=== PATIENT | female | born 1995 | race Caucasian/White ===

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

== ENCOUNTER 2017-02-04 21:05 | Observation (INO) | payer SELFPAY ==
[~2017-02-04] VITALS: Ht 162.6 cm; Wt 72.6 kg
[2017-02-04] MEDS ORDERED: OLANZapine IM 10 MG VIAL. IM ONE (21:15)
[2017-02-04 21:22] LABS: BILIRUBIN,URINE NEGATIVE (NEG); GLUCOSE,URINE NEGATIVE (NEG); NITRITE,URINE NEGATIVE (NEG); PH,URINE 6.5; PROTEIN,URINE NEGATIVE (NEG-TRACE)
[2017-02-04 21:29] LABS: BARBITURATES NEG (NEG); BENZODIAZEPINES NEG (NEG); CANNABINOIDS NEG (NEG); COCAINE NEG (NEG); METHADONE NEG (NEG); OPIATES NEG (NEG); PHENCYCLIDINE NEG (NEG)
[2017-02-04 21:32] LABS: BACTERIA,URINE FEW /HPF (0-FEW); RBC,URINE OCC /HPF (0-2); WBC,URINE OCC /HPF (0-4)
[2017-02-04 21:34] LABS: SQUAMOUS EPITHELIAL CELL,UR OCC /LPF
[2017-02-04 21:37] LABS: BASO % 0 % (0-3); EOS % 1 % (0-3); HEMATOCRIT 40.4 % (36.0-47.0); HEMOGLOBIN 13.9 g/dL (12.0-15.5); LYMPH # 1.4 x10^3/uL (1.0-4.8); LYMPH % 20 % (24-48); MEAN CORPUSCULAR HEMOGLOBIN 31 pg (25-35); MEAN CORPUSCULAR HGB CONC 34 g/dL (31-37); MEAN CORPUSCULAR VOLUME 91 fL (79-100); MONO % 10 % (0-9); NEUT % 68 % (31-73); PLATELET COUNT 275 x10^3/uL (140-400); RED BLOOD COUNT 4.46 x10^6/uL (3.50-5.40); RED CELL DISTRIBUTION WIDTH 13.2 % (11.5-14.5); WHITE BLOOD COUNT 6.8 x10^3/uL (4.0-11.0)
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
[2017-02-04 21:55] LABS: CALCIUM 8.8 mg/dL (8.5-10.1); CREATININE 1.1 mg/dL (0.6-1.0); POTASSIUM 4.1 mmol/L (3.5-5.1)
[2017-02-04 21:56] LABS: ETHANOL < 10 mg/dL (0-10)
[2017-02-04 22:01] LABS: ALBUMIN 3.6 g/dL (3.4-5.0); ALBUMIN/GLOBULIN RATIO 0.9 (1.0-1.7); TOTAL BILIRUBIN 0.3 mg/dL (0.2-1.0); TOTAL PROTEIN 7.6 g/dL (6.4-8.2)
[2017-02-05 07:45] VITALS: BP 94/54
[2017-02-05] MEDS ORDERED: ZIPRASIDONE IM 20 MG VIAL. IM PRN (09:45)
[2017-02-05] MEDS ORDERED: HALOPERIDOL LACTATE 5 MG/ML VIAL. IM PRN (09:45)
[2017-02-05] MEDS ORDERED: diphenhydrAMINE 50 MG/ML VIAL IVP PRN (09:45)
[2017-02-05] MEDS ORDERED: DIVALPROEX DELAYED RELEASE 250 MG TABLET.DR. PO SCH (10:30)
[2017-02-05] MEDS ORDERED: busPIRone 5 MG TABLET. PO SCH (10:30)
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
[2017-02-05 11:00] VITALS: BP 97/48
[2017-02-05] MEDS ORDERED: BUSP5TAB PO (15:31)
[2017-02-05] MEDS ORDERED: DIVA250T6 PO (15:36)
[2017-02-05] MEDS ORDERED: FLU VACC QS2017-18 (36MOS+)/PF 0.5 ML SYRINGE. VAX IM ONE (15:45)
== END 2017-02-05 16:00 | disposition home or self-care (01) ==
LOC: ER 21:05 → ED HOLD 02-05 00:15 → 5 NORTH 02-05 10:01
PROVIDERS: ADMIT Internal Medicine Hematology & Oncology; ATTEND Internal Medicine Hematology & Oncology
DX: R45.851 Suicidal ideations (principal); F31.9 Bipolar disorder, unspecified; F20.9 Schizophrenia, unspecified; F41.9 Anxiety disorder, unspecified; F43.10 Post-traumatic stress disorder, unspecified; Z91.5 Personal history of self-harm; Z23 Encounter for immunization
CPT/HCPCS: 36415; 80053; 80307; 80329; 81001; 81025; 85025; 90471; 90686; 96372; 99285; G0378; G0480; J3490; G0379; G0479

== ENCOUNTER 2017-02-08 14:40 | Emergency (ER) | payer SELFPAY ==
[~2017-02-08 14:40] MED LIST: BUSP5TAB PO; DIVA250T6 PO
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
[2017-02-08 15:14] LABS: BILIRUBIN,URINE NEGATIVE (NEG); GLUCOSE,URINE NEGATIVE (NEG); NITRITE,URINE NEGATIVE (NEG); PH,URINE 7.5; PROTEIN,URINE NEGATIVE (NEG-TRACE)
[2017-02-08] MEDS ORDERED: IV NORMAL SALINE 1000ML BAG 1,000 ML IV ONE (15:15)
[2017-02-08 15:21] LABS: BARBITURATES NEG (NEG); BENZODIAZEPINES NEG (NEG); CANNABINOIDS NEG (NEG); COCAINE NEG (NEG); METHADONE NEG (NEG); OPIATES NEG (NEG); PHENCYCLIDINE NEG (NEG)
[2017-02-08 15:34] LABS: BACTERIA,URINE 0 /HPF (0-FEW); RBC,URINE 0 /HPF (0-2); WBC,URINE OCC /HPF (0-4)
[2017-02-08 15:49] LABS: BASO % 1 % (0-3); EOS % 2 % (0-3); HEMOGLOBIN 13.3 g/dL (12.0-15.5); LYMPH # 1.7 x10^3/uL (1.0-4.8); LYMPH % 25 % (24-48); MEAN CORPUSCULAR HEMOGLOBIN 31 pg (25-35); MEAN CORPUSCULAR HGB CONC 34 g/dL (31-37); MEAN CORPUSCULAR VOLUME 91 fL (79-100); MONO % 12 % (0-9); NEUT % 61 % (31-73); PLATELET COUNT 267 x10^3/uL (140-400); RED BLOOD COUNT 4.29 x10^6/uL (3.50-5.40); RED CELL DISTRIBUTION WIDTH 13.4 % (11.5-14.5); WHITE BLOOD COUNT 6.8 x10^3/uL (4.0-11.0)
[2017-02-08 15:58] LABS: PROTHROMBIN TIME PATIENT 12.6 SEC (11.7-14.0)
[2017-02-08 16:11] LABS: NEG OBC UR NEG; POS OBC UR POS
[2017-02-08 16:14] LABS: ALBUMIN 3.9 g/dL (3.4-5.0); CALCIUM 9.2 mg/dL (8.5-10.1); CREATININE 1.1 mg/dL (0.6-1.0); DIRECT BILIRUBIN 0.1 mg/dL (0.0-0.2); MAGNESIUM 1.9 mg/dL (1.8-2.4); POTASSIUM 3.8 mmol/L (3.5-5.1); TOTAL BILIRUBIN 0.3 mg/dL (0.2-1.0); TOTAL PROTEIN 7.8 g/dL (6.4-8.2)
[2017-02-08 16:18] LABS: CKMB MASS < 0.5 ng/mL (0.0-3.6); CREATINE KINASE 95 U/L (26-192)
--- NOTE | 2017-02-08 16:36 | RAD ---
EXAM: Chest one view. HISTORY: Altered mental status, chest pain. COMPARISON: 04/30/2014. FINDINGS: A frontal view of the chest is obtained. There are no confluent infiltrates. There is no pneumothorax or pleural effusion. The heart is not enlarged. IMPRESSION: 1. No confluent infiltrates.
[2017-02-08] MEDS ORDERED: fentaNYL PF VIAL 100 MCG/2 ML VIAL IV PRN (17:30)
--- NOTE | 2017-02-08 17:34 | RAD ---
INDICATION: Right lower quadrant pain. TECHNIQUE: Pelvic ultrasound was performed. No comparison is available. FINDINGS: Uterus measures 7.1 x 2.6 x 4.3 cm. Endometrial stripe measures 4 mm. Both ovaries are visualized, color flow and low resistance waveform is documented. There is no adnexal mass. There is no free pelvic fluid. IMPRESSION: Normal pelvic ultrasound. Electronically signed by: Heladio Lawrence MD (02/08/2017 5:30 PM) [facility]
[2017-02-08] MEDS ORDERED: DICYCLOMINE HCL 10 MG CAPSULE PO ONE (18:00)
[2017-02-08 18:23] VITALS: BP 112/59
[2017-02-09] MEDS ORDERED: NITR100C62 PO (08:48)
[2017-02-09] MEDS ORDERED: PHEN-318 PO (08:48)
[2017-02-09] MEDS ORDERED: HYDR-2758 PO (08:48)
--- NOTE | 2017-02-09 12:48 | EKG ---
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
== END 2017-02-08 18:27 | disposition home or self-care (01) ==
LOC: ER 14:40
DX: R10.31 Right lower quadrant pain (principal); R55 Syncope and collapse; R19.7 Diarrhea, unspecified; F20.9 Schizophrenia, unspecified; F43.10 Post-traumatic stress disorder, unspecified; Z88.8 Allergy status to other drugs, medicaments and biological substances; Z79.899 Other long term (current) drug therapy
CPT/HCPCS: 36415; 71010; 76856; 80048; 80076; 80307; 80329; 81001; 81025; 82140; 82553; 83735; 85025; 85610; 85730; 87040; 93005; 96361; 96374; 99285; J3010; J7030; G0479

== ENCOUNTER 2017-02-09 06:34 | Emergency (ER) | payer SELFPAY ==
[2017-02-09] MEDS ORDERED: IV NORMAL SALINE 1000ML BAG 1,000 ML IV SCH (06:49)
--- NOTE | 2017-02-09 06:56 | PHYS DOC ---
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 "pseudo seizures", BPD Past Surgical History: Other Additional Past Surgical Histo: ORAL Alcohol Use: None Drug Use: None Adult General Chief Complaint Chief Complaint: ABDOMINAL PAIN [facility] HPI Patient is a pleasant 21-year-old female who presents with abdominal pain that began 4 days ago. Patient has a history of multiple psychiatric issues to include schizophrenia questionable bipolar and borderline personality disorder who presents with abdominal pain that began periumbilical area on Saturday 4 days ago and is not progressively gotten worse and located to the right lower quadrant she admits to having chills and subjective fevers over the last several days with progressive pain. The pain was waxing and waning not more constant. She describes some nausea without vomiting, no UTI symptoms, no vaginal bleeding or discharge, no trauma,. Patient has had a history of constipation was seen at another facility [facility] diagnosed with constipation and sent home. Patient says pain is gotten progressively worse and she is not anything orally for pain. Patient's pain is 810 at this time does not radiate to the back is worse with direct pressure of the abdomen and movement. Acute pancreatitis. Appendicitis. Acute hepatitis. Peptic ulcer disease. Nonulcer dyspepsia. Irritable bowel disease. Functional gallbladder disorder. Sphincter of Oddi dysfunction. Diseases of the right kidney. Right-sided pneumonia. Cdnx-Nzum-Eofeju syndrome Subhepatic or intraabdominal abscess. Perforated viscus. Cardiac ischemia. Black spider envenomation Ectopic , UTI, pyonephritis, all considered as possible reasons for her pain. Review of Systems Review of Systems Constitutional: Subjective fevers and chills Eyes: Denies change in visual acuity, redness, or eye pain [] HENT: Denies nasal congestion or sore throat [] Respiratory: Denies cough or shortness of breath [] Cardiovascular: No additional information not addressed in HPI [] GI: He complains of periumbilical abdominal pain with nausea and no vomiting bloody stools but she has had some constipation : Denies dysuria or hematuria [] Musculoskeletal: Denies back pain or joint pain [] Integument: Denies rash or skin lesions [] Neurologic: Denies headache, focal weakness or sensory changes [] Endocrine: Denies polyuria or polydipsia [] Current Medications Current Medications Current Medications Medications (Trade) Dose Ordered Sig/Priya Start Time Stop Time Status Last Admin Dose Admin Hydromorphone HCl (Dilaudid) 1 mg PRN Q15MIN PRN 02/09/17 07:00 02/10/17 06:59 02/09/17 07:08 1 MG Info (Do NOT chart on this entry -- for MONITORING) 1 each PRN DAILY PRN 02/09/17 07:30 02/11/17 07:29 Iohexol (Omnipaque 300 Mg/ml) 75 ml 1X ONCE 02/09/17 07:15 02/09/17 07:17 DC 02/09/17 07:53 75 ML Ondansetron HCl (Zofran) 4 mg 1X ONCE 02/09/17 07:00 02/09/17 07:01 DC 02/09/17 07:07 4 MG Sodium Chloride (Normal Saline Flush) 10 ml QSHIFT PRN 02/09/17 07:00 Allergies Allergies Allergies Coded Allergies Type Severity Reaction Last Updated Verified haloperidol Allergy Severe TONGUE SWELLING 06/04/16 Yes Physical Exam Physical Exam Vital signs recorded on chart within normal limits. Constitutional: Well developed, well nourished, obviously uncomfortable clutching her right lower quadrant. HENT: Normocephalic, atraumatic, bilateral external ears normal, oropharynx moist, no oral exudates, nose normal. [] Eyes: PERRLA, EOMI, conjunctiva normal, no discharge. [] Neck: Normal range of motion, no tenderness, supple, no stridor. [] Cardiovascular:Heart rate regular rhythm, no murmur [] Lungs & Thorax: Bilateral breath sounds clear to auscultation [] Abdomen: Bowel sounds normal, soft, no masses, no pulsatile masses. Patient has significant tenderness to palpation with voluntary guarding the right lower quadrant. No Sanchez's or McBurney's point tenderness palpation Rovsing sign[] Skin: Warm, dry, no erythema, no rash. [] Back: No tenderness, no CVA tenderness. [] Extremities: No tenderness, no cyanosis, no clubbing, ROM intact, no edema. [] Neurologic: Alert and oriented X 3, normal motor function, normal sensory function, no focal deficits noted. [] Psychologic: She seems very anxious. Quite lucid Current Patient Data Vital Signs Vital Signs Date Time Temp Pulse Resp B/P (MAP) Pulse Ox O2 Delivery O2 Flow Rate FiO2 02/09/17 07:08 18 02/09/17 06:56 98.0 67 135/66 (89) 100 Room Air 98.0 Lab Values Laboratory Tests Test 02/09/17 06:50 02/09/17 07:30 White Blood Count 5.7 x10^3/uL (4.0-11.0) Red Blood Count 4.26 x10^6/uL (3.50-5.40) Hemoglobin 13.4 g/dL (12.0-15.5) Hematocrit 38.0 % (36.0-47.0) Mean Corpuscular Volume 89 fL (79-100) Mean Corpuscular Hemoglobin 32 pg (25-35) Mean Corpuscular Hemoglobin Concent 35 g/dL (31-37) Red Cell Distribution Width 13.3 % (11.5-14.5) Platelet Count 246 x10^3/uL (140-400) Neutrophils (%) (Auto) 46 % (31-73) Lymphocytes (%) (Auto) 38 % (24-48) Monocytes (%) (Auto) 13 % (0-9) H Eosinophils (%) (Auto) 3 % (0-3) Basophils (%) (Auto) 0 % (0-3) Neutrophils # (Auto) 2.6 x10^3uL (1.8-7.7) Lymphocytes # (Auto) 2.2 x10^3/uL (1.0-4.8) Monocytes # (Auto) 0.7 x10^3/uL (0.0-1.1) Eosinophils # (Auto) 0.2 x10^3/uL (0.0-0.7) Basophils # (Auto) 0.0 x10^3/uL (0.0-0.2) Sodium Level 141 mmol/L (136-145) Potassium Level 3.9 mmol/L (3.5-5.1) Chloride Level 106 mmol/L (98-107) Carbon Dioxide Level 24 mmol/L (21-32) Anion Gap 11 (6-14) Blood Urea Nitrogen 12 mg/dL (7-20) Creatinine 0.8 mg/dL (0.6-1.0) Estimated GFR (Cockcroft-Gault) 92.4 Glucose Level 86 mg/dL (70-99) Calcium Level 8.9 mg/dL (8.5-10.1) Total Bilirubin 0.3 mg/dL (0.2-1.0) Direct Bilirubin 0.1 mg/dL (0.0-0.2) Aspartate Amino Transferase (AST) 24 U/L (15-37) Alanine Aminotransferase (ALT) 16 U/L (14-59) Alkaline Phosphatase 73 U/L (46-116) Total Protein 7.1 g/dL (6.4-8.2) Albumin 3.4 g/dL (3.4-5.0) Lipase 117 U/L (73-393) Urine Collection Type Unknown Urine Color Yellow Urine Clarity Cloudy Urine pH 7.0 Urine Specific [place] 1.020 Urine Protein Negative mg/dL (NEG-TRACE) Urine Glucose (UA) Negative mg/dL (NEG) Urine Ketones (Stick) Negative mg/dL (NEG) Urine Blood Negative (NEG) Urine Nitrite Negative (NEG) Urine Bilirubin Negative (NEG) Urine Urobilinogen Dipstick 1.0 mg/dL (0.2 mg/dL) Urine Leukocyte Esterase Small (NEG) Urine RBC Occ /HPF (0-2) Urine WBC 11-20 /HPF (0-4) Urine Squamous Epithelial Cells Mod /LPF Urine Bacteria Many /HPF (0-FEW) Urine Mucus Marked /LPF Laboratory Tests 02/09/17 06:50 Laboratory Tests 02/09/17 06:50 EKG EKG [] Radiology/Procedures Radiology/Procedures [] [address] [place], [place] [id number] IMAGING REPORT Signed PATIENT: WINIFRED STERLING ACCOUNT: [id number] : 1995 LOCATION: ER AGE: 21 SEX: F EXAM STATUS: REG ER ORD. PHYSICIAN: APRIL JASMINE MD REASON: right lower quadrant abdominal pain. PROCEDURE: CT ABD PELV W/ IV CONTRST ONLY One or more of the following individualized dose reduction techniques were utilized for this examination: 1. Automated exposure control 2. Adjustment of the mA and/or kV according to patient size 3. Use of iterative reconstruction technique CT abdomen and pelvis with contrast. History: Right lower quadrant abdominal pain CT scan of the abdomen and pelvis was done using 75 mL Isovue-370 contrast. Visualized lung bases are clear. Osseous structures are unremarkable. Liver and spleen are unremarkable. Adrenal glands and pancreas are normal. There is no mass or hydronephrosis or calculus in the kidneys. There is no free air or bowel obstruction. There is no adenopathy. Bowel pattern is normal. The appendix is retrocecal and normal in appearance. There are small follicles in the right ovary. There is no dominant uterine or ovarian mass. There is no free fluid in the pelvis. Impression: 1. Retrocecal appendix which appears normal. 2. No abdominal or pelvic mass or other acute finding noted. DICTATED and SIGNED BY: DELMA JONES MD DATE: 02/09/17811 CC: APRIL JASMINE MD; DANO GALVEZ ~ Course & Med Decision Making Course & Med Decision Making Pertinent Labs and Imaging studies reviewed. (See chart for details) Patient presents with right lower quadrant abdominal pain despite being imaged and seen in another facility Saturday concern is ectopic versus appendicitis. We'll attempt to get medical records from [facility]. Acute pancreatitis. Appendicitis. Acute hepatitis. Peptic ulcer disease. Nonulcer dyspepsia. Irritable bowel disease. Functional gallbladder disorder. Sphincter of Oddi dysfunction. Diseases of the right kidney. Right-sided pneumonia. Ukti-Giok-Cfifmc syndrome Subhepatic or intraabdominal abscess. Perforated viscus. Cardiac ischemia. Black spider envenomation ectopic , UTI, pyelonephritis also considered in the differential diagnosis. Patient will [id number] urinalysis , urine hCG, CBC, CMP, CT scan of the abdomen and pelvis, given fluids antiemetics and pain control. Time is now 8:00 patient felt markedly better with fluids pain medications urinalysis demonstrates significant bacteria, leuk esterase, nitrates and significant epithelial cells. I concern is this a contaminated sample both her lower abdominal pain with may need to treat empirically with antibiotics for suspected UTI. Patient's CT is still pending at this time. CT abdomen and pelvis is now return 8:37 AM demonstrates normal looking appendix or abdominal catastrophe. Patient is sleeping quietly and her need to be woken she is symptom-free at this time. Dragon Disclaimer Dragon Disclaimer This electronic medical record was generated, in whole or in part, using a voice recognition dictation system. Departure Departure Impression: Primary Impression: Anxiety Additional Impressions: Abdominal pain Urinary tract infection Disposition: 01 HOME, SELF-CARE Condition: IMPROVED Referrals: DANO GALVEZ (PCP) Patient Instructions: Abdominal Pain, Urinary Tract Infection Additional Instructions: My discharge plan Follow up: In addition patient is asked to followup with their primary doctor, within a week for followup examination and to address patient's ongoing medical conditions. . Patient is advised that in the Emergency Department primary complaints are addressed and only in light of known signs and symptoms. Patient should return immediately to the emergency department if new signs and symptoms develop or patient's condition worsens in any way. At time of discharge patient was in stable condition and had verbalized understanding of the discharge instructions. Although there is no obvious evidence of appendicitis or intra-abdominal catastrophe at this time requiring surgical intervention or immediate medical management you could still develop these issues in the future. I would ask that you return immediately for any increasing symptoms question concerns. Scripts Phenazopyridine Hcl (PYRIDIUM) 200 Mg Tablet 200 MG PO TID for 3 Days, #9 TAB Prov: APRIL JASMINE MD 02/09/17 Nitrofurantoin Monohyd/M-Cryst (MACROBID 100 MG CAPSULE) 100 Mg Capsule 1 CAP PO BID, #20 CAP Prov: APRIL JASMINE MD 02/09/17 Hydrocodone Bit/Acetaminophen (HYDROCODONE-APAP 5-325 ) 1 Each Tablet 1-2 TAB PO PRN Q6HRS Y for PAIN for 5 Days, #10 TAB 0 Refills Prov: APRIL JASMINE MD 02/09/17 Problem Qualifiers APRIL JASMINE MD Feb 09, 2017 06:56
[2017-02-09 07:00] LABS: BASO % 0 % (0-3); EOS % 3 % (0-3); HEMOGLOBIN 13.4 g/dL (12.0-15.5); LYMPH # 2.2 x10^3/uL (1.0-4.8); LYMPH % 38 % (24-48); MEAN CORPUSCULAR HEMOGLOBIN 32 pg (25-35); MEAN CORPUSCULAR HGB CONC 35 g/dL (31-37); MEAN CORPUSCULAR VOLUME 89 fL (79-100); MONO % 13 % (0-9); NEUT % 46 % (31-73); PLATELET COUNT 246 x10^3/uL (140-400); RED BLOOD COUNT 4.26 x10^6/uL (3.50-5.40); RED CELL DISTRIBUTION WIDTH 13.3 % (11.5-14.5); WHITE BLOOD COUNT 5.7 x10^3/uL (4.0-11.0)
[2017-02-09] MEDS ORDERED: 0.9 % SODIUM CHLORIDE 10 ML DISP.SYRIN. IV PRN (07:00)
[2017-02-09] MEDS ORDERED: HYDROmorphone 2 MG/ML VIAL IV/SQ PRN (07:00)
[2017-02-09] MEDS ORDERED: ONDANSETRON PF 4 MG/2 ML VIAL. IV ONE (07:00)
[2017-02-09 07:10] LABS: CALCIUM 8.9 mg/dL (8.5-10.1); CREATININE 0.8 mg/dL (0.6-1.0); GFR 92.4; POTASSIUM 3.9 mmol/L (3.5-5.1)
[2017-02-09 07:14] LABS: ALBUMIN 3.4 g/dL (3.4-5.0); DIRECT BILIRUBIN 0.1 mg/dL (0.0-0.2); TOTAL BILIRUBIN 0.3 mg/dL (0.2-1.0); TOTAL PROTEIN 7.1 g/dL (6.4-8.2)
[2017-02-09] MEDS ORDERED: IOHEXOL 300 MG/ML 75 ML VIAL IV ONE (07:15)
[2017-02-09] MEDS ORDERED: CONTRAST GIVEN MC PRN (07:30)
[2017-02-09 07:39] LABS: BILIRUBIN,URINE NEGATIVE (NEG); GLUCOSE,URINE NEGATIVE (NEG); NITRITE,URINE NEGATIVE (NEG); PROTEIN,URINE NEGATIVE (NEG-TRACE)
[2017-02-09 07:50] LABS: BACTERIA,URINE MANY /HPF (0-FEW); SQUAMOUS EPITHELIAL CELL,UR MOD /LPF
[2017-02-09 07:51] LABS: RBC,URINE OCC /HPF (0-2)
--- NOTE | 2017-02-09 08:19 | RAD ---
One or more of the following individualized dose reduction techniques were utilized for this examination: 1. Automated exposure control 2. Adjustment of the mA and/or kV according to patient size 3. Use of iterative reconstruction technique CT abdomen and pelvis with contrast. History: Right lower quadrant abdominal pain CT scan of the abdomen and pelvis was done using 75 mL Isovue-370 contrast. Visualized lung bases are clear. Osseous structures are unremarkable. Liver and spleen are unremarkable. Adrenal glands and pancreas are normal. There is no mass or hydronephrosis or calculus in the kidneys. There is no free air or bowel obstruction. There is no adenopathy. Bowel pattern is normal. The appendix is retrocecal and normal in appearance. There are small follicles in the right ovary. There is no dominant uterine or ovarian mass. There is no free fluid in the pelvis. Impression: 1. Retrocecal appendix which appears normal. 2. No abdominal or pelvic mass or other acute finding noted.
[2017-02-09] MEDS ORDERED: PHEN-318 PO (08:48)
[2017-02-09] MEDS ORDERED: HYDR-2758 PO (08:48)
[2017-02-09] MEDS ORDERED: NITR100C62 PO (08:48)
[2017-02-09 09:07] VITALS: BP 125/65
== END 2017-02-09 09:07 | disposition home or self-care (01) ==
LOC: ER 06:34
DX: N39.0 Urinary tract infection, site not specified (principal); F41.9 Anxiety disorder, unspecified; F32.9 Major depressive disorder, single episode, unspecified; F20.9 Schizophrenia, unspecified; F43.10 Post-traumatic stress disorder, unspecified; Z88.8 Allergy status to other drugs, medicaments and biological substances
CPT/HCPCS: 36415; 74177; 80048; 80076; 81001; 81025; 83690; 85025; 87086; 96361; 96374; 96375; 99285; J1170; J2405; J7030; Q9967

== ENCOUNTER 2017-02-09 20:10 | Emergency (ER) | payer SELFPAY ==
[~2017-02-09 20:10] MED LIST changes: +HYDR-2758 PO; +NITR100C62 PO; +PHEN-318 PO
[2017-02-09 22:08] VITALS: BP 120/56
[2017-02-09 22:11] LABS: BASO # 0.1 x10^3/uL (0.0-0.2); BASO % 1 % (0-3); EOS % 2 % (0-3); HEMATOCRIT 37.3 % (36.0-47.0); HEMOGLOBIN 12.8 g/dL (12.0-15.5); LYMPH # 1.8 x10^3/uL (1.0-4.8); LYMPH % 25 % (24-48); MEAN CORPUSCULAR HEMOGLOBIN 31 pg (25-35); MEAN CORPUSCULAR HGB CONC 34 g/dL (31-37); MEAN CORPUSCULAR VOLUME 92 fL (79-100); MONO % 11 % (0-9); NEUT % 62 % (31-73); PLATELET COUNT 206 x10^3/uL (140-400); RED BLOOD COUNT 4.07 x10^6/uL (3.50-5.40); RED CELL DISTRIBUTION WIDTH 13.3 % (11.5-14.5); WHITE BLOOD COUNT 7.2 x10^3/uL (4.0-11.0)
--- NOTE | 2017-02-09 22:13 | PHYS DOC ---
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 "pseudo seizures", BPD Past Surgical History: Other Additional Past Surgical Histo: ORAL Alcohol Use: None Drug Use: None Adult General Chief Complaint Chief Complaint: ABDOMINAL PAIN HPI HPI Patient is a 21 year old right lower abdominal pain has been going on for a few days, patient has had 2 CT scans that have been read as nothing acute as well as a negative ultrasound. Patient states she hasn't receive a pelvic exam during this evaluations. She denies any falls, fevers, vomiting, diarrhea, dysuria, vaginal discharge. Patient doesn't describe any migration of the pain. Review of Systems Review of Systems Constitutional: Denies fever or chills [] HENT: Denies nasal congestion or sore throat [] Respiratory: Denies cough or shortness of breath [] Cardiovascular: No chest pain GI: Yes to right lower abdominal pain. Denies nausea, vomiting, bloody stools or diarrhea [] : Denies dysuria or hematuria, no vaginal bleeding, no vaginal discharge Musculoskeletal: Denies back pain or joint pain [] Integument: Denies rash or skin lesions [] Neurologic: Denies headache, focal weakness or sensory changes [] Endocrine: Denies polyuria or polydipsia [] Current Medications Current Medications Current Medications Medications (Trade) Dose Ordered Sig/Priya Start Time Stop Time Status Last Admin Dose Admin Ketorolac Tromethamine (Toradol) 15 mg 1X ONCE 02/09/17 23:00 02/09/17 23:01 DC 02/09/17 22:44 15 MG Allergies Allergies Allergies Coded Allergies Type Severity Reaction Last Updated Verified haloperidol Allergy Severe TONGUE SWELLING 06/04/16 Yes Physical Exam Physical Exam Constitutional: Well developed, well nourished, no acute distress, non-toxic appearance. [] HENT: Normocephalic, atraumatic, oropharynx moist, no oral exudates, nose normal. [] Eyes: EOMI, conjunctiva normal, no discharge. [] Neck: Normal range of motion, no tenderness, trachea midline, no stridor. [] Cardiovascular:Heart rate regular rhythm, no murmur, equal pulses, normal perfusion Lungs & Thorax: Bilateral breath sounds clear to auscultation [] Abdomen: Bowel sounds normal, soft, mild tenderness right lower abdomen without guarding or rebound, no masses, no pulsatile masses. [] : External exam normal. Small amount of discharge white, no bleeding. Os is closed, no lesions, no CMT, no adnexal masses, no adnexal tenderness. Skin: Warm, dry, no erythema, no rash. [] Back: No tenderness, no CVA tenderness. [] Extremities: No tenderness, no cyanosis, no clubbing, ROM intact, no edema. [] Neurologic: Alert and oriented X 3, normal motor function, and place with normal gait and without assistance in the ED, no focal deficits noted. [] Psychologic: Affect normal, judgement normal, mood normal. [] Current Patient Data Vital Signs Vital Signs Date Time Temp Pulse Resp B/P (MAP) Pulse Ox O2 Delivery O2 Flow Rate FiO2 02/09/17 22:08 98.1 67 20 120/56 (77) 97 Room Air 98.1 Lab Values Laboratory Tests Test 02/09/17 22:00 White Blood Count 7.2 x10^3/uL (4.0-11.0) Red Blood Count 4.07 x10^6/uL (3.50-5.40) Hemoglobin 12.8 g/dL (12.0-15.5) Hematocrit 37.3 % (36.0-47.0) Mean Corpuscular Volume 92 fL (79-100) Mean Corpuscular Hemoglobin 31 pg (25-35) Mean Corpuscular Hemoglobin Concent 34 g/dL (31-37) Red Cell Distribution Width 13.3 % (11.5-14.5) Platelet Count 206 x10^3/uL (140-400) Neutrophils (%) (Auto) 62 % (31-73) Lymphocytes (%) (Auto) 25 % (24-48) Monocytes (%) (Auto) 11 % (0-9) H Eosinophils (%) (Auto) 2 % (0-3) Basophils (%) (Auto) 1 % (0-3) Neutrophils # (Auto) 4.4 x10^3uL (1.8-7.7) Lymphocytes # (Auto) 1.8 x10^3/uL (1.0-4.8) Monocytes # (Auto) 0.8 x10^3/uL (0.0-1.1) Eosinophils # (Auto) 0.1 x10^3/uL (0.0-0.7) Basophils # (Auto) 0.1 x10^3/uL (0.0-0.2) Sodium Level 140 mmol/L (136-145) Potassium Level 3.6 mmol/L (3.5-5.1) Chloride Level 105 mmol/L (98-107) Carbon Dioxide Level 30 mmol/L (21-32) Anion Gap 5 (6-14) L Blood Urea Nitrogen 12 mg/dL (7-20) Creatinine 1.0 mg/dL (0.6-1.0) Estimated GFR (Cockcroft-Gault) 71.4 BUN/Creatinine Ratio 12 (6-20) Glucose Level 99 mg/dL (70-99) Calcium Level 8.8 mg/dL (8.5-10.1) Total Bilirubin 0.3 mg/dL (0.2-1.0) Aspartate Amino Transferase (AST) 24 U/L (15-37) Alanine Aminotransferase (ALT) 18 U/L (14-59) Alkaline Phosphatase 70 U/L (46-116) Total Protein 7.1 g/dL (6.4-8.2) Albumin 3.4 g/dL (3.4-5.0) Albumin/Globulin Ratio 0.9 (1.0-1.7) L Laboratory Tests 02/09/17 22:00 Laboratory Tests 02/09/17 22:00 Microbiology 02/09/17 Wet Prep - Final, Complete EKG EKG [] Radiology/Procedures Radiology/Procedures [] Course & Med Decision Making Course & Med Decision Making Pertinent Labs and Imaging studies reviewed. (See chart for details) 2229 patient in no distress in the room, sitting up, no visible pain. 2350 in form the patient left AMA without waiting for paperwork or referrals or medications or results of labs [] Dragon Disclaimer Dragon Disclaimer This electronic medical record was generated, in whole or in part, using a voice recognition dictation system. Departure Departure Impression: Primary Impression: Abdominal pain Disposition: AGAINST MEDICAL ADVICE Condition: STABLE Referrals: DANO GALVEZ (PCP) Patient Instructions: Abdominal Pain (Nonspecific) Ramon MAX MD Feb 09, 2017 22:13
[2017-02-09 22:19] LABS: CALCIUM 8.8 mg/dL (8.5-10.1); GFR 71.4; POTASSIUM 3.6 mmol/L (3.5-5.1)
[2017-02-09 22:25] LABS: ALBUMIN 3.4 g/dL (3.4-5.0); ALBUMIN/GLOBULIN RATIO 0.9 (1.0-1.7); TOTAL BILIRUBIN 0.3 mg/dL (0.2-1.0); TOTAL PROTEIN 7.1 g/dL (6.4-8.2)
[2017-02-09] MEDS ORDERED: KETOROLAC 15 MG/ML VIAL. IV ONE (23:00)
[2017-02-10] MEDS ORDERED: LORazepam 1 MG TABLET ONE (03:27)
== END 2017-02-09 23:47 | disposition left against medical advice (07) ==
LOC: ER 20:10
DX: R10.31 Right lower quadrant pain (principal); F32.9 Major depressive disorder, single episode, unspecified; F43.10 Post-traumatic stress disorder, unspecified; F41.9 Anxiety disorder, unspecified; Z88.8 Allergy status to other drugs, medicaments and biological substances
CPT/HCPCS: 36415; 80053; 85025; 87491; 87591; 96374; 99284; J1885; Q0111

== ENCOUNTER 2017-02-10 00:17 | Inpatient (IN) | payer OTHER ==
[~2017-02-10] VITALS: Ht 154.9 cm; Wt 71.8 kg
--- NOTE | 2017-02-10 01:05 | PHYS DOC ---
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 "pseudo seizures", BPD Past Surgical History: Other Additional Past Surgical Histo: ORAL Alcohol Use: None Drug Use: None Adult General Chief Complaint Chief Complaint: SYNCOPE HPI HPI Patient is a 21 year old female who presented with complaint of possible syncopal episode in the parking lot after being seen in the ED and her leaving AMA. While she was being triaged she made some statements regarding possible suicidal thoughts or suicidal intent after worst the patient started running away from the ED and ran into the street. Security was called as well as the police department. The patient was found and brought her into the ED. Patient has no complaints at this time but is not being very communicative either. Psychiatric assessesment and has been requested. Review of Systems Review of Systems Constitutional: Denies fever or chills [] HENT: Denies nasal congestion or sore throat [] Respiratory: Denies cough or shortness of breath [] Cardiovascular: No chest pain GI: Denies abdominal pain, : Denies dysuria or hematuria [] Musculoskeletal: Denies back pain or joint pain [] Integument: Denies rash or skin lesions [] Neurologic: Denies headache, focal weakness or sensory changes [] Current Medications Current Medications Current Medications Medications (Trade) Dose Ordered Sig/Priya Start Time Stop Time Status Last Admin Dose Admin Lorazepam (Ativan) 1 mg 1X ONCE 02/10/17 07:30 02/10/17 07:31 DC 02/10/17 07:57 1 MG Midazolam HCl (Versed) 5 mg 1X ONCE 02/10/17 04:00 02/10/17 04:01 DC 02/10/17 03:48 5 MG Nitrofurantoin Macrocrystals (Macrobid) 100 mg 1X ONCE 02/10/17 08:00 02/10/17 08:01 DC 02/10/17 08:04 100 MG Ondansetron HCl (Zofran Odt) 4 mg 1X ONCE 02/10/17 07:15 02/10/17 07:16 DC 02/10/17 07:31 4 MG Phenazopyridine HCl (Pyridium) 200 mg 1X ONCE 02/10/17 08:00 02/10/17 08:01 DC 02/10/17 08:04 200 MG Ziprasidone (Geodon Im) 10 mg 1X ONCE 02/10/17 08:15 02/10/17 08:17 DC Allergies Allergies Allergies Coded Allergies Type Severity Reaction Last Updated Verified haloperidol Allergy Severe TONGUE SWELLING 06/04/16 Yes Physical Exam Physical Exam Constitutional: Well developed, well nourished, mild distress, non-toxic appearance. [] HENT: Normocephalic, atraumatic, bilateral external ears normal, oropharynx moist, no oral exudates, nose normal. [] Eyes: PERRLA, EOMI, conjunctiva normal, no discharge. [] Neck: Normal range of motion, no tenderness, supple, no stridor. [] Cardiovascular:Heart rate regular rhythm, no murmur [] Lungs & Thorax: Bilateral breath sounds clear to auscultation, mild tachypnea Abdomen: Bowel sounds normal, soft, no tenderness, no masses, no pulsatile masses. [] Skin: Warm, dry, no erythema, no rash. [] Back: No tenderness, no CVA tenderness. [] Extremities: No tenderness, no cyanosis, no DVT, ROM intact, no edema. [] Neurologic: Alert and oriented X 3, normal motor function, , no focal deficits noted. [] Psychologic: Anxious, noncommunicative[] Current Patient Data Vital Signs Vital Signs Date Time Temp Pulse Resp B/P (MAP) Pulse Ox O2 Delivery O2 Flow Rate FiO2 02/10/17 06:49 60 12 99/40 (59) 100 Room Air 02/10/17 03:56 4.0 02/10/17 00:27 98.0 98.0 EKG EKG 0108 nsr, no stemi, 83[] Radiology/Procedures Radiology/Procedures [] Course & Med Decision Making Course & Med Decision Making Pertinent Labs and Imaging studies reviewed. (See chart for details) We will request psychiatric assessment for this patient patient attempted escape from the ED twice State screen has been completed and we are awaiting the medication with [facility] to find out what the that the patient will have a spot for admission 0600 patient resting comfortably in no distress 06:58 am Patient tried to elope once more and was returned to her room by staff. I rechecked the patient at 07:00 am She appeared moderately anxious. She is still verbal and understands she is awaiting a state psychiatric screen. The patient will be given 1 mg of ativan. 8:21am Patient continues to have some mild agitation despite the 2 mg of Ativan. 8:18 AM I discussed the patient's case with Dr. Imani Madison we discussed patient's history physical exam findings are not studies and plan of care. She agrees with plan for admission and for Geodon to help maintained the patient's sense of calm. Dragon Disclaimer Dragon Disclaimer This electronic medical record was generated, in whole or in part, using a voice recognition dictation system. Departure Departure Impression: Primary Impression: Anxiety Additional Impression: Suicidal ideation Referrals: DANO GALVEZ (PCP) Problem Qualifiers Ramon MAX MD Feb 10, 2017 01:05 LJ CORRALES MD Feb 10, 2017 07:35
[2017-02-10] MEDS ORDERED: LORazepam 1 MG TABLET PO ONE (03:30)
[2017-02-10] MEDS ORDERED: MIDAZOLAM HCL/PF 5 MG/5 ML VIAL. IM ONE (04:00)
[2017-02-10] MEDS ORDERED: ONDANSETRON ODT 4 MG TAB.RAPDIS. PO ONE (07:15)
[2017-02-10] MEDS ORDERED: PHENAZOPYRIDINE 200 MG TABLET. PO ONE (08:00)
[2017-02-10] MEDS ORDERED: NITROFURANTOIN MONOHYD/M-CRYST 100 MG CAPSULE. PO ONE (08:00)
[2017-02-10] MEDS ORDERED: ZIPRASIDONE IM 20 MG VIAL. IM ONE ×3 (08:15→23:30)
[2017-02-10] MEDS ORDERED: ACETAMINOPHEN 325 MG TABLET. PO PRN (09:15)
[2017-02-10] MEDS ORDERED: ONDANSETRON PF 4 MG/2 ML VIAL. IV PRN ×2 (09:15→10:15)
[2017-02-10] MEDS ORDERED: ZIPRASIDONE IM 20 MG VIAL. IM STA (10:09)
[2017-02-10] MEDS ORDERED: ACETAMINOPHEN 500 MG TABLET PO PRN (10:15)
[2017-02-10] MEDS ORDERED: HALOPERIDOL LACTATE 5 MG/ML VIAL. IVP PRN (10:15)
[2017-02-10] MEDS: IPRATRPIUM/ALBUTEROL 0.5/2.5MG 3 ML NEBU. NEB SCH ×3 (10:56→21:27)
--- NOTE | 2017-02-10 12:43 | HP ---
ADMIT DATE: 02/10/2017 CHIEF COMPLAINT: Syncope, suicidal ideation. HISTORY OF PRESENT ILLNESS: The patient is a pleasant 21-year-old female who presented with a syncopal episode. She was out in the parking lot. She apparently did work here yesterday for the first time. She then went to the Emergency Room for evaluation. She left AMA. Someone was concerned that she may have had suicidal ideation. She then ran to the streets. Security was called and they brought her to the ER. Now, she is admitted for psychiatric evaluation. PAST MEDICAL HISTORY: Anxiety, depression, bipolar, pseudoseizures. ALLERGIES: HALDOL. FAMILY HISTORY: Diabetes. SOCIAL HISTORY: She does not drink, smoke or take drugs. MEDICATIONS: Reviewed. REVIEW OF SYSTEMS: Unobtainable, the patient is sedated. PHYSICAL EXAMINATION: VITAL SIGNS: Temperature 98, pulse 50, respirations 18, blood pressure 106/73. GENERAL: She is sleeping. She is sedated. HEART: Normal S1, S2. LUNGS: Clear. ABDOMEN: Soft. EXTREMITIES: No edema. SKIN: No rashes. ENDOCRINE: No thyromegaly. LYMPHATICS: No cervical nodes. HEMATOPOIETIC: No bruising. LABORATORY DATA: Pending. ASSESSMENT AND PLAN: Suicidal ideation. The patient has been admitted. We are giving her IV fluids and p.r.n. sedation, 1:1 observation, consult the Psychiatric Assessment Team. Continue home medicines. DELONTE BASS DO DR: MARCELINA/sen JOB#: [id number] / [id number]
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
[2017-02-10 15:00] VITALS: BP 115/66
[2017-02-10 19:30] VITALS: BP 111/51
[2017-02-10] MEDS ORDERED: INFLUENZA VAX SCREEN BY RX. MC ONE (19:45)
[2017-02-10] MEDS: NITROFURANTOIN MONOHYD/M-CRYST 100 MG CAPSULE. PO SCH (20:58)
[2017-02-10] MEDS: ONDANSETRON ODT 4 MG TAB.RAPDIS. PO PRN (21:36)
[2017-02-10] MEDS ORDERED: MIDAZOLAM HCL/PF 2 MG/2 ML VIAL. IV ONE (23:15)
[2017-02-10 23:30] VITALS: BP 121/60
[2017-02-10] MEDS: busPIRone 5 MG TABLET. PO SCH (23:43)
[2017-02-10] MEDS: DIVALPROEX DELAYED RELEASE 250 MG TABLET.DR. PO SCH (23:43)
[2017-02-11] MEDS ORDERED: ZIPRASIDONE IM 20 MG VIAL. IM ONE ×2 (00:30→12:15)
[2017-02-11 02:34] VITALS: BP 101/48
[2017-02-11 04:54] LABS: BASO % 1 % (0-3); EOS % 4 % (0-3); HEMATOCRIT 35.5 % (36.0-47.0); HEMOGLOBIN 12.2 g/dL (12.0-15.5); LYMPH # 1.6 x10^3/uL (1.0-4.8); LYMPH % 26 % (24-48); MEAN CORPUSCULAR HEMOGLOBIN 32 pg (25-35); MEAN CORPUSCULAR HGB CONC 34 g/dL (31-37); MEAN CORPUSCULAR VOLUME 92 fL (79-100); MONO % 15 % (0-9); NEUT % 55 % (31-73); PLATELET COUNT 230 x10^3/uL (140-400); RED BLOOD COUNT 3.86 x10^6/uL (3.50-5.40); RED CELL DISTRIBUTION WIDTH 13.5 % (11.5-14.5); WHITE BLOOD COUNT 6.2 x10^3/uL (4.0-11.0)
[2017-02-11 05:09] LABS: CALCIUM 8.7 mg/dL (8.5-10.1); CREATININE 0.9 mg/dL (0.6-1.0); GFR 80.7; POTASSIUM 3.6 mmol/L (3.5-5.1)
[2017-02-11] MEDS: IPRATRPIUM/ALBUTEROL 0.5/2.5MG 3 ML NEBU. NEB SCH (08:51)
[2017-02-11] MEDS: NITROFURANTOIN MONOHYD/M-CRYST 100 MG CAPSULE. PO SCH ×2 (09:11→19:43)
[2017-02-11] MEDS: busPIRone 5 MG TABLET. PO SCH ×2 (09:11→19:42)
[2017-02-11] MEDS: PHENAZOPYRIDINE 200 MG TABLET. PO SCH ×3 (09:11→19:43)
[2017-02-11] MEDS: DIVALPROEX DELAYED RELEASE 250 MG TABLET.DR. PO SCH ×2 (09:11→19:43)
--- NOTE | 2017-02-11 10:52 | PDOC ---
PROGRESS NOTES Chief Complaint Chief Complaint Suicidal Ideation PMHx Depression History of Present Illness History of Present Illness Pt admitted to the hospital for SI. She does report a hx of suicide attempts x3 with drug overdose. Seen at bedside. She is awake and in no acute distress. She is being watched by 1 to 1 nurse. She currently denies SI. No acute complaints at this time. Awaiting PAT evaluation. We will continue to monitor. Vitals Vitals Vital Signs Date Time Temp Pulse Resp B/P (MAP) Pulse Ox O2 Delivery O2 Flow Rate FiO2 02/11/17 08:51 97 Room Air 02/11/17 02:34 97.8 72 16 101/48 (65) 97.8 Physical Exam Physical Exam The patient is laying in bed. We attempted to ambulate the patient. She has difficulty ambulating on her own, and requires assistance to do so. I believe she would fall if ambulated without assistance. General: Alert, Oriented X3, Cooperative, No acute distress Heart: Regular rate, Normal S1, Normal S2 Lungs: Clear, Wheezing Abdomen: Normal bowel sounds, Soft, No tenderness, No hepatosplenomegaly, No masses Extremities: No clubbing, No cyanosis, No edema, Normal pulses, No tenderness/ swelling Skin: No rashes, No breakdown, No significant lesion Labs LABS Laboratory Tests Test 02/11/17 03:35 White Blood Count 6.2 x10^3/uL (4.0-11.0) Red Blood Count 3.86 x10^6/uL (3.50-5.40) Hemoglobin 12.2 g/dL (12.0-15.5) Hematocrit 35.5 % (36.0-47.0) Mean Corpuscular Volume 92 fL (79-100) Mean Corpuscular Hemoglobin 32 pg (25-35) Mean Corpuscular Hemoglobin Concent 34 g/dL (31-37) Red Cell Distribution Width 13.5 % (11.5-14.5) Platelet Count 230 x10^3/uL (140-400) Neutrophils (%) (Auto) 55 % (31-73) Lymphocytes (%) (Auto) 26 % (24-48) Monocytes (%) (Auto) 15 % (0-9) Eosinophils (%) (Auto) 4 % (0-3) Basophils (%) (Auto) 1 % (0-3) Neutrophils # (Auto) 3.4 x10^3uL (1.8-7.7) Lymphocytes # (Auto) 1.6 x10^3/uL (1.0-4.8) Monocytes # (Auto) 0.9 x10^3/uL (0.0-1.1) Eosinophils # (Auto) 0.2 x10^3/uL (0.0-0.7) Basophils # (Auto) 0.0 x10^3/uL (0.0-0.2) Sodium Level 145 mmol/L (136-145) Potassium Level 3.6 mmol/L (3.5-5.1) Chloride Level 109 mmol/L (98-107) Carbon Dioxide Level 30 mmol/L (21-32) Anion Gap 6 (6-14) Blood Urea Nitrogen 10 mg/dL (7-20) Creatinine 0.9 mg/dL (0.6-1.0) Estimated GFR (Cockcroft-Gault) 80.7 Glucose Level 83 mg/dL (70-99) Calcium Level 8.7 mg/dL (8.5-10.1) Review of Systems Review of Systems General: + fatigue, + hunger, no fever or chills CV: No CP Resp: No SOB or wheezing Psych: Denies SI Assessment and Plan Assessmemt and Plan Problems Medical Problems: (1) Anxiety Status: Acute (2) Suicidal ideation Status: Acute Assessment: SI depression Plan: Continue 1:1 monitoring Recheck labs continue meds PT/OT Await PAT input Problems: Comment Review of Relevant I have reviewed the following items shaina (where applicable) has been applied. Labs Laboratory Tests Test 02/11/17 03:35 White Blood Count 6.2 x10^3/uL (4.0-11.0) Red Blood Count 3.86 x10^6/uL (3.50-5.40) Hemoglobin 12.2 g/dL (12.0-15.5) Hematocrit 35.5 % (36.0-47.0) Mean Corpuscular Volume 92 fL (79-100) Mean Corpuscular Hemoglobin 32 pg (25-35) Mean Corpuscular Hemoglobin Concent 34 g/dL (31-37) Red Cell Distribution Width 13.5 % (11.5-14.5) Platelet Count 230 x10^3/uL (140-400) Neutrophils (%) (Auto) 55 % (31-73) Lymphocytes (%) (Auto) 26 % (24-48) Monocytes (%) (Auto) 15 % (0-9) Eosinophils (%) (Auto) 4 % (0-3) Basophils (%) (Auto) 1 % (0-3) Neutrophils # (Auto) 3.4 x10^3uL (1.8-7.7) Lymphocytes # (Auto) 1.6 x10^3/uL (1.0-4.8) Monocytes # (Auto) 0.9 x10^3/uL (0.0-1.1) Eosinophils # (Auto) 0.2 x10^3/uL (0.0-0.7) Basophils # (Auto) 0.0 x10^3/uL (0.0-0.2) Sodium Level 145 mmol/L (136-145) Potassium Level 3.6 mmol/L (3.5-5.1) Chloride Level 109 mmol/L (98-107) Carbon Dioxide Level 30 mmol/L (21-32) Anion Gap 6 (6-14) Blood Urea Nitrogen 10 mg/dL (7-20) Creatinine 0.9 mg/dL (0.6-1.0) Estimated GFR (Cockcroft-Gault) 80.7 Glucose Level 83 mg/dL (70-99) Calcium Level 8.7 mg/dL (8.5-10.1) Laboratory Tests Test 02/11/17 03:35 White Blood Count 6.2 x10^3/uL (4.0-11.0) Red Blood Count 3.86 x10^6/uL (3.50-5.40) Hemoglobin 12.2 g/dL (12.0-15.5) Hematocrit 35.5 % (36.0-47.0) Mean Corpuscular Volume 92 fL (79-100) Mean Corpuscular Hemoglobin 32 pg (25-35) Mean Corpuscular Hemoglobin Concent 34 g/dL (31-37) Red Cell Distribution Width 13.5 % (11.5-14.5) Platelet Count 230 x10^3/uL (140-400) Neutrophils (%) (Auto) 55 % (31-73) Lymphocytes (%) (Auto) 26 % (24-48) Monocytes (%) (Auto) 15 % (0-9) Eosinophils (%) (Auto) 4 % (0-3) Basophils (%) (Auto) 1 % (0-3) Neutrophils # (Auto) 3.4 x10^3uL (1.8-7.7) Lymphocytes # (Auto) 1.6 x10^3/uL (1.0-4.8) Monocytes # (Auto) 0.9 x10^3/uL (0.0-1.1) Eosinophils # (Auto) 0.2 x10^3/uL (0.0-0.7) Basophils # (Auto) 0.0 x10^3/uL (0.0-0.2) Sodium Level 145 mmol/L (136-145) Potassium Level 3.6 mmol/L (3.5-5.1) Chloride Level 109 mmol/L (98-107) Carbon Dioxide Level 30 mmol/L (21-32) Anion Gap 6 (6-14) Blood Urea Nitrogen 10 mg/dL (7-20) Creatinine 0.9 mg/dL (0.6-1.0) Estimated GFR (Cockcroft-Gault) 80.7 Glucose Level 83 mg/dL (70-99) Calcium Level 8.7 mg/dL (8.5-10.1) Medications Current Medications Lorazepam (Ativan) 1 mg 1X ONCE PO Last administered on 02/10/17 07:08; Start 02/10/17 at 03:30; Stop 02/10/17 at 03:31; Status DC Midazolam HCl (Versed) 5 mg 1X ONCE IM Last administered on 02/10/17 03:48; Start 02/10/17 at 04:00; Stop 02/10/17 at 04:01; Status DC Lorazepam (Ativan) 1 mg 1X ONCE IV ; Start 02/10/17 at 07:15; Stop 02/10/17 at 07:16; Status Cancel Lorazepam (Ativan) 1 mg PRN 1X PRN IV anxiety agitation; Start 02/10/17 at 07: 15; Stop 02/10/17 at 18:00; Status Cancel Ondansetron HCl (Zofran Odt) 4 mg 1X ONCE PO Last administered on 02/10/17 07 :31; Start 02/10/17 at 07:15; Stop 02/10/17 at 07:16; Status DC Lorazepam (Ativan) 1 mg 1X ONCE IM Last administered on 02/10/17 07:57; Start 02/10/17 at 07:30; Stop 02/10/17 at 07:31; Status DC Nitrofurantoin Macrocrystals (Macrobid) 100 mg 1X ONCE PO Last administered on 02/10/17 08:04; Start 02/10/17 at 08:00; Stop 02/10/17 at 08:01; Status DC Phenazopyridine HCl (Pyridium) 200 mg 1X ONCE PO Last administered on 08:04; Start 02/10/17 at 08:00; Stop 02/10/17 at 08:01; Status DC Ziprasidone (Geodon Im) 10 mg 1X ONCE IM Last administered on 02/10/17 09:19 ; Start 02/10/17 at 08:15; Stop 02/10/17 at 08:17; Status DC Ondansetron HCl (Zofran) 4 mg PRN Q8HRS PRN IV NAUSEA/VOMITING; Start 02/10/17 at 09:15; Stop 02/10/17 at 10:09; Status DC Acetaminophen (Tylenol) 650 mg PRN Q4HRS PRN PO FEVER Last administered on 02/10 21:37; Start 02/10/17 at 09:15; Stop 02/11/17 at 09:14; Status DC Albuterol/ Ipratropium (Duoneb) 3 ml RTQID NEB Last administered on 02/11/17 08:51; Start 02/10/17 at 12:00; Stop 02/11/17 at 11:59 Ziprasidone (Geodon Im) 20 mg 1X STAT IM Last administered on 02/10/17 10:20 ; Start 02/10/17 at 10:09; Stop 02/10/17 at 10:10; Status DC Ondansetron HCl (Zofran) 4 mg PRN Q6HRS PRN IV NAUSEA/VOMITING; Start 02/10/17 at 10:15; Stop 02/11/17 at 10:14; Status UNV Ziprasidone (Geodon Im) 20 mg 1X ONCE IM ; Start 02/10/17 at 10:15; Stop at 10:16; Status UNV Haloperidol Lactate (Haldol) 5 mg PRN Q6HRS PRN IVP AGITATION; Start 02/10/17 at 10:15; Status UNV Lorazepam (Ativan) 2 mg PRN Q4HRS PRN IV ANXIETY / AGITATION Last administered on 02/10/17 22:37; Start 02/10/17 at 10:15 Nitrofurantoin Macrocrystals (Macrobid) 100 mg BID PO Last administered on 02/11 09:11; Start 02/10/17 at 21:00 Ondansetron HCl (Zofran) 4 mg PRN Q6HRS PRN IV NAUSEA/VOMITING; Start 02/10/17 at 10:15 Ondansetron HCl (Zofran Odt) 4 mg PRN Q6HRS PRN PO NAUSEA/VOMITING Last administered on 02/10/17 21:36; Start 02/10/17 at 10:15 Acetaminophen (Tylenol) 500 mg PRN Q6HRS PRN PO MILD PAIN / TEMP; Start at 10:15 Info (Do NOT chart on this placeholder) 1 each 1X ONCE MC ; Start 02/10/17 at 19:45; Stop 02/10/17 at 19:46; Status UNV Lorazepam (Ativan) 4 mg PRN Q4HRS PRN IV ANXIETY / AGITATION; Start 02/10/17 at 23:15 Midazolam HCl (Versed) 4 mg 1X ONCE IV ; Start 02/10/17 at 23:15; Stop at 02:10; Status DC Ziprasidone (Geodon Im) 10 mg 1X ONCE IM Last administered on 02/10/17 23:38 ; Start 02/10/17 at 23:30; Stop 02/10/17 at 23:31; Status DC Diazepam (Valium) 5 mg PRN Q6HRS PRN PO ANXIETY; Start 02/10/17 at 23:15 Buspirone HCl (Buspar) 5 mg BID PO Last administered on 02/11/17 09:11; Start 02/10/17 at 23:30 Divalproex Sodium (Depakote) 250 mg BID PO Last administered on 02/11/17 09:11 ; Start 02/10/17 at 23:30 Acetaminophen/ Hydrocodone Bitart (Lortab 5/325) 1 tab PRN Q6HRS PRN PO MODERATE PAIN; Start 02/10/17 at 23:15 Phenazopyridine HCl (Pyridium) 200 mg TID PO Last administered on 02/11/17 09: 11; Start 02/11/17 at 09:00 Lorazepam (Ativan) 4 mg 1X ONCE IV Last administered on 02/11/17 00:22; Start 02/11/17 at 00:30; Stop 02/11/17 at 00:31; Status DC Ziprasidone (Geodon Im) 10 mg 1X ONCE IM Last administered on 02/11/17 00:22 ; Start 02/11/17 at 00:30; Stop 02/11/17 at 00:31; Status DC Lorazepam (Ativan) 2 mg PRN Q2HR PRN IV ANXIETY / AGITATION Last administered on 02/11/17 09:24; Start 02/11/17 at 02:45 Active Scripts Active Pyridium (Phenazopyridine Hcl) 200 Mg Tablet 200 Mg PO TID 3 Days Macrobid 100 Mg Capsule (Nitrofurantoin Monohyd/M-Cryst) 100 Mg Capsule 1 Cap PO BID Hydrocodone-Apap 5-325 (Hydrocodone Bit/Acetaminophen) 1 Each Tablet 1-2 Tab PO PRN Q6HRS PRN 5 Days Reported Divalproex Sodium 250 Mg Tablet.dr 250 Mg PO BID Buspirone Hcl 5 Mg Tablet 1 Tab PO BID Vitals/I & O Vital Sign - Last 24 Hours 02/10/17 02/10/17 02/10/17 02/10/17 15:00 19:30 19:56 21:28 Temp 98.0 98.2 98.0 98.2 Pulse 69 74 Resp 20 18 B/P (MAP) 115/66 (82) 111/51 (71) Pulse Ox 98 98 97 O2 Delivery Room Air Room Air Room Air 02/10/17 02/11/17 02/11/17 23:30 02:34 08:51 Temp 97.7 97.8 97.7 97.8 Pulse 86 72 Resp 20 16 B/P (MAP) 121/60 (80) 101/48 (65) Pulse Ox 98 98 97 O2 Delivery Room Air Room Air Room Air Intake and Output 02/11/17 02/11/17 02/12/17 15:00 23:00 07:00 Intake Total 220 ml Output Total 300 ml Balance -80 ml DELONTE BASS III DO Feb 11, 2017 10:52
[2017-02-11 11:00] VITALS: BP 122/72
[2017-02-11] MEDS: ONDANSETRON PF 4 MG/2 ML VIAL. IV PRN (11:10)
[2017-02-11] MEDS: PROCHLORPERAZINE 10 MG/2 ML VIAL. IM PRN ×2 (12:21→19:44)
[2017-02-11] MEDS: traMADol 50 MG TABLET PO PRN ×2 (12:40→19:43)
[2017-02-11 15:24] VITALS: BP 120/62
[2017-02-11] MEDS: ONDANSETRON ODT 4 MG TAB.RAPDIS. PO PRN (15:29)
[2017-02-11] MEDS: diazePAM 5 MG TABLET PO PRN (19:43)
[2017-02-11 23:00] VITALS: BP 103/54
[2017-02-12] MEDS: diazePAM 5 MG TABLET PO PRN (02:02)
[2017-02-12] MEDS: PROCHLORPERAZINE 10 MG/2 ML VIAL. IM PRN ×2 (02:03→10:01)
[2017-02-12] MEDS: traMADol 50 MG TABLET PO PRN ×2 (02:03→09:43)
[2017-02-12 03:32] VITALS: BP 110/68
[2017-02-12 04:31] LABS: BASO % 1 % (0-3); EOS % 4 % (0-3); HEMATOCRIT 34.2 % (36.0-47.0); HEMOGLOBIN 12.1 g/dL (12.0-15.5); LYMPH # 2.1 x10^3/uL (1.0-4.8); LYMPH % 33 % (24-48); MEAN CORPUSCULAR HEMOGLOBIN 32 pg (25-35); MEAN CORPUSCULAR HGB CONC 35 g/dL (31-37); MEAN CORPUSCULAR VOLUME 91 fL (79-100); MONO % 14 % (0-9); NEUT % 49 % (31-73); PLATELET COUNT 221 x10^3/uL (140-400); RED BLOOD COUNT 3.76 x10^6/uL (3.50-5.40); RED CELL DISTRIBUTION WIDTH 13.4 % (11.5-14.5); WHITE BLOOD COUNT 6.4 x10^3/uL (4.0-11.0)
[2017-02-12 04:37] LABS: CALCIUM 8.1 mg/dL (8.5-10.1); CREATININE 1.1 mg/dL (0.6-1.0); POTASSIUM 3.4 mmol/L (3.5-5.1)
[2017-02-12] MEDS: HYDROcodone/APAP 5/325MG 1 TAB TABLET PO PRN ×2 (04:55→12:12)
[2017-02-12 07:13] VITALS: BP 108/53
[2017-02-12] MEDS: ONDANSETRON PF 4 MG/2 ML VIAL. IV PRN (08:38)
[2017-02-12] MEDS: DIVALPROEX DELAYED RELEASE 250 MG TABLET.DR. PO SCH (09:42)
[2017-02-12] MEDS: PHENAZOPYRIDINE 200 MG TABLET. PO SCH (09:42)
[2017-02-12] MEDS: NITROFURANTOIN MONOHYD/M-CRYST 100 MG CAPSULE. PO SCH (09:43)
[2017-02-12] MEDS: busPIRone 5 MG TABLET. PO SCH (09:43)
[2017-02-12 11:02] VITALS: BP 112/60
[2017-02-12] MEDS ORDERED: POTASSIUM CHLORIDE 20 MEQ TABLET.ER. PO ONE (12:30)
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
== END 2017-02-12 13:15 | disposition home or self-care (01) | DRG 880 ==
LOC: ER 00:17 → 5 NORTH 08:05 → OBSVTOIN 02-11 10:56
PROVIDERS: ADMIT Internal Medicine; ATTEND Internal Medicine
DX: R45.851 Suicidal ideations (principal); F44.5 Conversion disorder with seizures or convulsions; F31.9 Bipolar disorder, unspecified; F43.10 Post-traumatic stress disorder, unspecified; Y92.481 Parking lot as the place of occurrence of the external cause; Z83.3 Family history of diabetes mellitus; Z91.5 Personal history of self-harm; Z88.8 Allergy status to other drugs, medicaments and biological substances; X83.8XXA Intentional self-harm by other specified means, initial encounter; Y93.89 Activity, other specified; Y92.488 Other paved roadways as the place of occurrence of the external cause; Y99.8 Other external cause status
CPT/HCPCS: 36415; 80048; 85025; 94250; 94640; 96372; G0378; G0379; J0780; J2060; J2250; J2405; J3486; J7620; Q0162; 99285-25

== ENCOUNTER 2017-02-12 18:20 | Emergency (ER) | payer OTHER ==
[~2017-02-12] VITALS: Ht 167.6 cm; Wt 72.6 kg
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
[2017-02-12] MEDS ORDERED: IV NORMAL SALINE 1000ML BAG 1,000 ML IV ONE (19:00)
[2017-02-12] MEDS ORDERED: AMMONIA AROMATIC 15% INHALANT AMPUL. ONE (19:03)
[2017-02-12 19:07] LABS: BARBITURATES NEG (NEG); BENZODIAZEPINES POS (NEG); CANNABINOIDS NEG (NEG); COCAINE NEG (NEG); METHADONE NEG (NEG); OPIATES POS (NEG); PHENCYCLIDINE NEG (NEG)
[2017-02-12 19:38] LABS: BASO % 0 % (0-3); EOS % 3 % (0-3); HEMATOCRIT 35.8 % (36.0-47.0); HEMOGLOBIN 12.1 g/dL (12.0-15.5); LYMPH # 1.3 x10^3/uL (1.0-4.8); LYMPH % 19 % (24-48); MEAN CORPUSCULAR HEMOGLOBIN 31 pg (25-35); MEAN CORPUSCULAR HGB CONC 34 g/dL (31-37); MEAN CORPUSCULAR VOLUME 92 fL (79-100); MONO % 12 % (0-9); NEUT % 66 % (31-73); PLATELET COUNT 220 x10^3/uL (140-400); RED BLOOD COUNT 3.88 x10^6/uL (3.50-5.40); RED CELL DISTRIBUTION WIDTH 13.2 % (11.5-14.5); WHITE BLOOD COUNT 6.8 x10^3/uL (4.0-11.0)
[2017-02-12 19:49] LABS: CALCIUM 8.4 mg/dL (8.5-10.1); CREATININE 1.1 mg/dL (0.6-1.0); POTASSIUM 3.8 mmol/L (3.5-5.1)
[2017-02-12 19:53] LABS: ETHANOL < 10 mg/dL (0-10)
[2017-02-12 19:55] LABS: ALBUMIN 3.4 g/dL (3.4-5.0); ALBUMIN/GLOBULIN RATIO 0.9 (1.0-1.7); TOTAL BILIRUBIN 0.4 mg/dL (0.2-1.0); TOTAL PROTEIN 7.1 g/dL (6.4-8.2)
[2017-02-12 20:00] VITALS: BP 123/67
--- NOTE | 2017-02-13 06:35 | EKG ---
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
== END 2017-02-12 20:15 | disposition home or self-care (01) ==
LOC: ER 18:20
DX: R56.9 Unspecified convulsions (principal); F41.9 Anxiety disorder, unspecified; F32.9 Major depressive disorder, single episode, unspecified; F43.10 Post-traumatic stress disorder, unspecified; Z76.5 Malingerer [conscious simulation]; Z88.8 Allergy status to other drugs, medicaments and biological substances
CPT/HCPCS: 36415; 80053; 80307; 80329; 85025; 93005; 96360; 99285; G0480; J7030; G0479

== ENCOUNTER 2017-02-16 14:12 | Emergency (ER) | payer OTHER ==
[~2017-02-16] VITALS: Ht 165.1 cm; Wt 74.8 kg
[2017-02-16 14:20] VITALS: BP 125/74
[2017-02-16] MEDS ORDERED: buspar (22:39)
[2017-02-17] MEDS ORDERED: BUSP10TA PO (09:11)
[2017-02-17] MEDS ORDERED: NITR100C PO (09:11)
== END 2017-02-16 15:00 | disposition left against medical advice (07) ==
LOC: ER 14:12
DX: M25.511 Pain in right shoulder (principal); R07.89 Other chest pain; R06.02 Shortness of breath; R55 Syncope and collapse; F41.9 Anxiety disorder, unspecified; F32.9 Major depressive disorder, single episode, unspecified; Z88.8 Allergy status to other drugs, medicaments and biological substances; Z53.21 Procedure and treatment not carried out due to patient leaving prior to being seen by health care provider

== ENCOUNTER 2017-02-16 18:35 | Inpatient (IN) | payer OTHER ==
[~2017-02-16] VITALS: Ht 165.1 cm; Wt 75.3 kg
[2017-02-16 19:05] LABS: BASO # 0.1 x10^3/uL (0.0-0.2); BASO % 1 % (0-3); EOS % 2 % (0-3); HEMATOCRIT 36.5 % (36.0-47.0); HEMOGLOBIN 12.5 g/dL (12.0-15.5); LYMPH # 1.7 x10^3/uL (1.0-4.8); LYMPH % 14 % (24-48); MEAN CORPUSCULAR HEMOGLOBIN 31 pg (25-35); MEAN CORPUSCULAR HGB CONC 34 g/dL (31-37); MEAN CORPUSCULAR VOLUME 91 fL (79-100); MONO % 12 % (0-9); NEUT % 72 % (31-73); PLATELET COUNT 285 x10^3/uL (140-400); RED BLOOD COUNT 4.01 x10^6/uL (3.50-5.40); RED CELL DISTRIBUTION WIDTH 13.2 % (11.5-14.5); WHITE BLOOD COUNT 12.3 x10^3/uL (4.0-11.0)
[2017-02-16 19:14] LABS: BARBITURATES NEG (NEG); BENZODIAZEPINES NEG (NEG); CANNABINOIDS NEG (NEG); COCAINE NEG (NEG); METHADONE NEG (NEG); OPIATES NEG (NEG); PHENCYCLIDINE NEG (NEG)
[2017-02-16 19:18] LABS: CALCIUM 9.3 mg/dL (8.5-10.1); CREATININE 1.1 mg/dL (0.6-1.0)
[2017-02-16 19:21] LABS: ETHANOL < 10 mg/dL (0-10)
[2017-02-16 19:24] LABS: ALBUMIN 3.8 g/dL (3.4-5.0); DIRECT BILIRUBIN 0.1 mg/dL (0.0-0.2); TOTAL BILIRUBIN 0.4 mg/dL (0.2-1.0); TOTAL PROTEIN 7.9 g/dL (6.4-8.2)
[2017-02-16] MEDS ORDERED: IV NORMAL SALINE 1000ML BAG 1,000 ML IV SCH (19:47)
[2017-02-16] MEDS ORDERED: ACETYLCYSTEINE IV ONE ×2 (20:00→21:00)
[2017-02-16] MEDS ORDERED: DEXTROSE 5% IV ONE ×2 (20:00→21:00)
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
[2017-02-16] MEDS ORDERED: SODIUM BICARB ADULT 8.4% 50 MEQ/50 ML DISP.SYRIN. IV ONE (20:45)
[2017-02-16] MEDS ORDERED: DOCUSATE SODIUM 100 MG CAPSULE. PO PRN (21:30)
[2017-02-16] MEDS ORDERED: hydrALAZINE 20 MG/ML VIAL. IVP PRN (21:30)
[2017-02-16] MEDS ORDERED: ACETAMINOPHEN 325 MG TABLET. PO PRN (21:30)
[2017-02-16] MEDS ORDERED: ONDANSETRON PF 4 MG/2 ML VIAL. IV PRN (21:30)
[2017-02-16 22:10] VITALS: BP 133/70
[2017-02-16 22:30] VITALS: BP 144/73
[2017-02-16] MEDS ORDERED: buspar (22:39)
[2017-02-16] MEDS: MORPHINE SULFATE 2 MG/ML DISP.SYRIN. IV PRN (22:44)
[2017-02-16 22:45] VITALS: BP 135/72
[2017-02-16 23:00] VITALS: BP 140/77
[2017-02-16] MEDS: traMADol 50 MG TABLET PO PRN (23:19)
[2017-02-17] VITALS (11 sets, daily range): BP systolic 104–137; BP diastolic 51–78
[2017-02-17] MEDS ORDERED: KETOROLAC 30 MG/ML INJ. IV PRN (00:30)
[2017-02-17] MEDS ORDERED: ACETYLCYSTEINE IV ONE (01:00)
[2017-02-17] MEDS ORDERED: DEXTROSE 5% IV ONE (01:00)
--- NOTE | 2017-02-17 01:03 | EKG ---
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 RI6.01 Unconfirmed report Electronically Signed On 03-07-2017 17:16:30 CDT by Lamont Phan
[2017-02-17] MEDS: MORPHINE SULFATE 2 MG/ML DISP.SYRIN. IV PRN ×2 (03:56→06:12)
[2017-02-17 06:02] LABS: BASO # 0.1 x10^3/uL (0.0-0.2); BASO % 1 % (0-3); EOS % 3 % (0-3); HEMATOCRIT 34.1 % (36.0-47.0); HEMOGLOBIN 11.6 g/dL (12.0-15.5); LYMPH # 1.9 x10^3/uL (1.0-4.8); LYMPH % 26 % (24-48); MEAN CORPUSCULAR HEMOGLOBIN 31 pg (25-35); MEAN CORPUSCULAR HGB CONC 34 g/dL (31-37); MEAN CORPUSCULAR VOLUME 91 fL (79-100); MONO % 13 % (0-9); NEUT % 57 % (31-73); PLATELET COUNT 238 x10^3/uL (140-400); RED BLOOD COUNT 3.73 x10^6/uL (3.50-5.40); RED CELL DISTRIBUTION WIDTH 13.2 % (11.5-14.5); WHITE BLOOD COUNT 7.1 x10^3/uL (4.0-11.0)
[2017-02-17 06:04] LABS: CALCIUM 7.8 mg/dL (8.5-10.1); CREATININE 0.9 mg/dL (0.6-1.0); GFR 80.7; POTASSIUM 3.6 mmol/L (3.5-5.1)
[2017-02-17 08:38] LABS: ALBUMIN 2.9 g/dL (3.4-5.0); DIRECT BILIRUBIN 0.1 mg/dL (0.0-0.2); TOTAL BILIRUBIN 0.4 mg/dL (0.2-1.0); TOTAL PROTEIN 6.1 g/dL (6.4-8.2)
[2017-02-17] MEDS: traMADol 50 MG TABLET PO PRN ×2 (08:49→23:47)
[2017-02-17] MEDS ORDERED: BUSP10TA PO (09:11)
[2017-02-17] MEDS ORDERED: NITR100C PO (09:11)
--- NOTE | 2017-02-17 12:16 | EKG ---
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
--- NOTE | 2017-02-17 12:23 | EKG ---
[facility] [address] [place] [address] Test Date: 2017-02-16 Test Time: 19:51:05 Pat Name: WINIFRED STERLING Department: Room: 113 1 Gender: F Ferry Hand: : 1995 Requested By: HINA MASTERSON Order Number: [id number] Reading MD: Lamont Phan Measurements Intervals Driver Rate: 57 P: 25 DE: 122 QRS: 16 QRSD: 96 T: 24 QT: 426 QTc: 418 Interpretive Statements SINUS RHYTHM INCOMPLETE RIGHT BUNDLE BRANCH BLOCK NONSPECIFIC ST-T WAVE CHANGES. RI6.01 Unconfirmed report Compared to ECG 06/08/2016 11:33:23 No significant changes Electronically Signed On 03-07-2017 17:10:45 CDT by Lamont Phan
--- NOTE | 2017-02-17 12:47 | EKG ---
[facility] [address] [place] [address] Test Date: 2017-02-16 Test Time: 20:43:56 Pat Name: WINIFRED STERLING Department: Room: 113 1 Gender: F Order Entry Administrator: : 1995 Requested By: HINA MASTERSON Order Number: [id number] Reading MD: Lamont Phan Measurements Intervals [place] Rate: 56 P: 26 AL: 128 QRS: 6 QRSD: 96 T: 13 QT: 428 QTc: 416 Interpretive Statements SINUS RHYTHM INCOMPLETE RIGHT BUNDLE BRANCH BLOCK NONSPECIFIC ST-T WAVE CHANGES Electronically Signed On 03-07-2017 17:13:31 CDT by Lamont Phan
--- NOTE | 2017-02-17 13:04 | PDOC1 ---
History and Physical Date of Admission Date of Admission 02/16/17 Identification/Chief Complaint Chief Complaint suicidal attempt Problems: Source Source: Chart review, Patient History of Present Illness History of Present Illness Ms. Quiñones is a 21 old F, with h/o bordline personality, come to ER with suicidal ideation last night. Pt was just DCed by me 3 ds ago for same reason. during last admission, i TAlked to her father and got much info. as per father , pt has been trying to "suicide" many times wo REAL attempts, mainly wanted sympathy and attention. She had a psych, but not really fu as supposed with insurance problem sometimes. She also will show different symptoms , including abd pain, N/V ( only vomit water from mouth), difficuty to urinate( only 65 urine in the bladder scan and denies dysuria, frequency urgency). PAT consulted , pt denies suicide at that time of DC, and [facility] refused to take pt since pt has bordline personality, the other place is which has no bed. father and pt willing to go back to her own psychiatrist , has insurance now. However, today pt told me she wanted to suicide again last night and came to ER and would not tell ERP what she took. N[facility]se found empty boxies of Benadryl NyQuil and and tylenol, about 24pills of each. Pt told me she wants suicide, and said her previous psychiatrist would not take her insurance since DC 3ds ago. pt has no other complain, tylenol level slightly high in ER, now normal, LFT remains normal. Pt was ob in ICU, and got ACetylcestine. 1 to 1 ob. Past Medical History Cardiovascular: No pertinent hx Pulmonary: No pertinent hx GI: No pertinent hx Psych: Bipolar, Depression, Psychosis Past Surgical History Past Surgical History: No pertinent history Family History Family History: No Significant Social History Smoke: No ALCOHOL: none Drugs: None Current Problem List Problem List Problems Medical Problems: (1) Overdose Status: Acute (2) Suicidal ideation Status: Acute Current Medications Current Medications Current Medications Medications (Trade) Dose Ordered Sig/Priya Start Time Stop Time Status Last Admin Dose Admin Acetaminophen (Tylenol) 650 mg PRN Q6HRS PRN 02/16/17 21:30 02/16/17 21:30 DC Acetylcysteine 3.74 gm/Dextrose 518.7 ml @ 125 mls/hr 1X ONCE 02/16/17 21:00 02/17/17 00:42 DC Acetylcysteine 7.48 gm/Dextrose 1,037.4 ml @ 62.5 mls/ hr 1X ONCE 02/17/17 01:00 02/17/17 01:00 DC Acetylcysteine 11.23 gm/Dextrose 256.15 ml @ 200 mls/ hr 1X ONCE 02/16/17 20:00 02/17/17 00:42 DC 02/16/17 20:17 200 MLS/HR Docusate Sodium (Colace) 100 mg PRN DAILY PRN 02/16/17 21:30 Hydralazine HCl (Apresoline) 10 mg PRN Q4HRS PRN 02/16/17 21:30 Ketorolac Tromethamine (Toradol) 30 mg PRN Q6HRS PRN 02/17/17 00:30 02/22/17 00:29 02/17/17 01:36 30 MG Morphine Sulfate 2 mg PRN Q2HR PRN 02/16/17 21:30 02/17/17 06:12 2 MG Ondansetron HCl (Zofran) 4 mg PRN Q6HRS PRN 02/16/17 21:30 02/16/17 22:42 4 MG Sodium Bicarbonate 50 meq 1X ONCE 02/16/17 20:45 02/16/17 20:48 DC 02/16/17 22:42 50 MEQ Sodium Chloride 1,000 ml @ 1,000 mls/hr Q1H 02/16/17 19:47 02/16/17 20:46 DC 02/16/17 20:16 1,000 MLS/HR Tramadol HCl (Ultram) 50 mg PRN Q6HRS PRN 02/16/17 21:30 02/17/17 08:49 50 MG Allergies Allergies Allergies Coded Allergies Type Severity Reaction Last Updated Verified haloperidol Allergy Severe TONGUE SWELLING 06/04/16 Yes ROS Review of System CONSTITUTIONAL: No fever or chills EYES: No recent changes SKIN: No rash or itching CARDIOVASCULAR: No chest pain, syncope, palpitations, or edema RESPIRATORY: No SOB or cough GASTROINTESTINAL: No nausea, vomiting or abdominal pain NEUROLOGICAL: No headaches or weakness ENDOCRINE: No cold or heat intolerance GENITOURINARY: No urgency or frequency of urination MUSCULOSKELETAL: No back pain or joint pain LYMPHATICS: No enlarged lymph nodes PSYCHIATRIC: No anxiety or depression Physical Exam Physical Exam GEN.: No apparent distress. Alert and oriented. HEENT: Head is normocephalic, atraumatic NECK: Supple. LUNGS: Clear to auscultation. HEART: RRR, S1, S2 present. Peripheral pulses intact ABDOMEN: Soft, nontender. Positive bowel sounds. EXTREMITIES: Without any cyanosis. NEUROLOGIC: Normal speech, normal tone PSYCHIATRIC: Normal affect, normal mood. SKIN: No ulcerations Vitals Vitals Vital Signs Date Time Temp Pulse Resp B/P (MAP) Pulse Ox O2 Delivery O2 Flow Rate FiO2 02/17/17 12:00 98.1 73 17 113/54 (73) 99 Room Air 98.1 02/17/17 04:00 2.0 Labs Labs Laboratory Tests Test 02/16/17 18:19 02/16/17 18:49 02/16/17 18:52 02/16/17 22:00 White Blood Count 12.3 x10^3/uL (4.0-11.0) Red Blood Count 4.01 x10^6/uL (3.50-5.40) Hemoglobin 12.5 g/dL (12.0-15.5) Hematocrit 36.5 % (36.0-47.0) Mean Corpuscular Volume 91 fL (79-100) Mean Corpuscular Hemoglobin 31 pg (25-35) Mean Corpuscular Hemoglobin Concent 34 g/dL (31-37) Red Cell Distribution Width 13.2 % (11.5-14.5) Platelet Count 285 x10^3/uL (140-400) Neutrophils (%) (Auto) 72 % (31-73) Lymphocytes (%) (Auto) 14 % (24-48) Monocytes (%) (Auto) 12 % (0-9) Eosinophils (%) (Auto) 2 % (0-3) Basophils (%) (Auto) 1 % (0-3) Neutrophils # (Auto) 8.9 x10^3uL (1.8-7.7) Lymphocytes # (Auto) 1.7 x10^3/uL (1.0-4.8) Monocytes # (Auto) 1.5 x10^3/uL (0.0-1.1) Eosinophils # (Auto) 0.2 x10^3/uL (0.0-0.7) Basophils # (Auto) 0.1 x10^3/uL (0.0-0.2) Sodium Level 142 mmol/L (136-145) Potassium Level 4.0 mmol/L (3.5-5.1) Chloride Level 103 mmol/L (98-107) Carbon Dioxide Level 30 mmol/L (21-32) Anion Gap 9 (6-14) Blood Urea Nitrogen 11 mg/dL (7-20) Creatinine 1.1 mg/dL (0.6-1.0) Estimated GFR (Cockcroft-Gault) 64.0 Glucose Level 85 mg/dL (70-99) Serum Osmolality 291 mOsm/Kg (279-304) Calcium Level 9.3 mg/dL (8.5-10.1) Total Bilirubin 0.4 mg/dL (0.2-1.0) Direct Bilirubin 0.1 mg/dL (0.0-0.2) Aspartate Amino Transf (AST/SGOT) 24 U/L (15-37) Alanine Aminotransferase (ALT/SGPT) 13 U/L (14-59) Alkaline Phosphatase 84 U/L (46-116) Total Protein 7.9 g/dL (6.4-8.2) Albumin 3.8 g/dL (3.4-5.0) Lipase 180 U/L (73-393) Salicylates Level < 2.8 mg/dL (2.8-20.0) Salicylate Last Dose Date Unk Salicylate Last Dose Time Unk Acetaminophen Level 22.7 mcg/ml (10-30) 5.75 mcg/ml (10-30) Acetaminophen Last Dose Date Unk Unk Acetaminophen Last Dose Time Unk Unk Ethyl Alcohol Level < 10 mg/dL (0-10) Urine Opiates Screen Neg (NEG) Urine Methadone Screen Neg (NEG) Urine Barbiturates Neg (NEG) Urine Phencyclidine Screen Neg (NEG) Urine Amphetamine/Methamphetamine Neg (NEG) Urine Benzodiazepines Screen Neg (NEG) Urine Cocaine Screen Neg (NEG) Urine Cannabinoids Screen Neg (NEG) Urine Ethyl Alcohol Neg (NEG) Bedside Urine HCG, Qualitative Hcg negative (Negative) Test 02/17/17 05:00 02/17/17 05:30 Sodium Level 142 mmol/L (136-145) Potassium Level 3.6 mmol/L (3.5-5.1) Chloride Level 105 mmol/L (98-107) Carbon Dioxide Level 30 mmol/L (21-32) Anion Gap 7 (6-14) Blood Urea Nitrogen 11 mg/dL (7-20) Creatinine 0.9 mg/dL (0.6-1.0) Estimated GFR (Cockcroft-Gault) 80.7 Glucose Level 80 mg/dL (70-99) Calcium Level 7.8 mg/dL (8.5-10.1) White Blood Count 7.1 x10^3/uL (4.0-11.0) Red Blood Count 3.73 x10^6/uL (3.50-5.40) Hemoglobin 11.6 g/dL (12.0-15.5) Hematocrit 34.1 % (36.0-47.0) Mean Corpuscular Volume 91 fL (79-100) Mean Corpuscular Hemoglobin 31 pg (25-35) Mean Corpuscular Hemoglobin Concent 34 g/dL (31-37) Red Cell Distribution Width 13.2 % (11.5-14.5) Platelet Count 238 x10^3/uL (140-400) Neutrophils (%) (Auto) 57 % (31-73) Lymphocytes (%) (Auto) 26 % (24-48) Monocytes (%) (Auto) 13 % (0-9) Eosinophils (%) (Auto) 3 % (0-3) Basophils (%) (Auto) 1 % (0-3) Neutrophils # (Auto) 4.1 x10^3uL (1.8-7.7) Lymphocytes # (Auto) 1.9 x10^3/uL (1.0-4.8) Monocytes # (Auto) 0.9 x10^3/uL (0.0-1.1) Eosinophils # (Auto) 0.2 x10^3/uL (0.0-0.7) Basophils # (Auto) 0.1 x10^3/uL (0.0-0.2) Total Bilirubin 0.4 mg/dL (0.2-1.0) Direct Bilirubin 0.1 mg/dL (0.0-0.2) Aspartate Amino Transf (AST/SGOT) 20 U/L (15-37) Alanine Aminotransferase (ALT/SGPT) 14 U/L (14-59) Alkaline Phosphatase 56 U/L (46-116) Total Protein 6.1 g/dL (6.4-8.2) Albumin 2.9 g/dL (3.4-5.0) Laboratory Tests Test 02/16/17 18:19 02/16/17 18:49 02/16/17 18:52 02/16/17 22:00 White Blood Count 12.3 x10^3/uL (4.0-11.0) Red Blood Count 4.01 x10^6/uL (3.50-5.40) Hemoglobin 12.5 g/dL (12.0-15.5) Hematocrit 36.5 % (36.0-47.0) Mean Corpuscular Volume 91 fL (79-100) Mean Corpuscular Hemoglobin 31 pg (25-35) Mean Corpuscular Hemoglobin Concent 34 g/dL (31-37) Red Cell Distribution Width 13.2 % (11.5-14.5) Platelet Count 285 x10^3/uL (140-400) Neutrophils (%) (Auto) 72 % (31-73) Lymphocytes (%) (Auto) 14 % (24-48) Monocytes (%) (Auto) 12 % (0-9) Eosinophils (%) (Auto) 2 % (0-3) Basophils (%) (Auto) 1 % (0-3) Neutrophils # (Auto) 8.9 x10^3uL (1.8-7.7) Lymphocytes # (Auto) 1.7 x10^3/uL (1.0-4.8) Monocytes # (Auto) 1.5 x10^3/uL (0.0-1.1) Eosinophils # (Auto) 0.2 x10^3/uL (0.0-0.7) Basophils # (Auto) 0.1 x10^3/uL (0.0-0.2) Sodium Level 142 mmol/L (136-145) Potassium Level 4.0 mmol/L (3.5-5.1) Chloride Level 103 mmol/L (98-107) Carbon Dioxide Level 30 mmol/L (21-32) Anion Gap 9 (6-14) Blood Urea Nitrogen 11 mg/dL (7-20) Creatinine 1.1 mg/dL (0.6-1.0) Estimated GFR (Cockcroft-Gault) 64.0 Glucose Level 85 mg/dL (70-99) Serum Osmolality 291 mOsm/Kg (279-304) Calcium Level 9.3 mg/dL (8.5-10.1) Total Bilirubin 0.4 mg/dL (0.2-1.0) Direct Bilirubin 0.1 mg/dL (0.0-0.2) Aspartate Amino Transf (AST/SGOT) 24 U/L (15-37) Alanine Aminotransferase (ALT/SGPT) 13 U/L (14-59) Alkaline Phosphatase 84 U/L (46-116) Total Protein 7.9 g/dL (6.4-8.2) Albumin 3.8 g/dL (3.4-5.0) Lipase 180 U/L (73-393) Salicylates Level < 2.8 mg/dL (2.8-20.0) Salicylate Last Dose Date Unk Salicylate Last Dose Time Unk Acetaminophen Level 22.7 mcg/ml (10-30) 5.75 mcg/ml (10-30) Acetaminophen Last Dose Date Unk Unk Acetaminophen Last Dose Time Unk Unk Ethyl Alcohol Level < 10 mg/dL (0-10) Urine Opiates Screen Neg (NEG) Urine Methadone Screen Neg (NEG) Urine Barbiturates Neg (NEG) Urine Phencyclidine Screen Neg (NEG) Urine Amphetamine/Methamphetamine Neg (NEG) Urine Benzodiazepines Screen Neg (NEG) Urine Cocaine Screen Neg (NEG) Urine Cannabinoids Screen Neg (NEG) Urine Ethyl Alcohol Neg (NEG) Bedside Urine HCG, Qualitative Hcg negative (Negative) Test 02/17/17 05:00 02/17/17 05:30 Sodium Level 142 mmol/L (136-145) Potassium Level 3.6 mmol/L (3.5-5.1) Chloride Level 105 mmol/L (98-107) Carbon Dioxide Level 30 mmol/L (21-32) Anion Gap 7 (6-14) Blood Urea Nitrogen 11 mg/dL (7-20) Creatinine 0.9 mg/dL (0.6-1.0) Estimated GFR (Cockcroft-Gault) 80.7 Glucose Level 80 mg/dL (70-99) Calcium Level 7.8 mg/dL (8.5-10.1) White Blood Count 7.1 x10^3/uL (4.0-11.0) Red Blood Count 3.73 x10^6/uL (3.50-5.40) Hemoglobin 11.6 g/dL (12.0-15.5) Hematocrit 34.1 % (36.0-47.0) Mean Corpuscular Volume 91 fL (79-100) Mean Corpuscular Hemoglobin 31 pg (25-35) Mean Corpuscular Hemoglobin Concent 34 g/dL (31-37) Red Cell Distribution Width 13.2 % (11.5-14.5) Platelet Count 238 x10^3/uL (140-400) Neutrophils (%) (Auto) 57 % (31-73) Lymphocytes (%) (Auto) 26 % (24-48) Monocytes (%) (Auto) 13 % (0-9) Eosinophils (%) (Auto) 3 % (0-3) Basophils (%) (Auto) 1 % (0-3) Neutrophils # (Auto) 4.1 x10^3uL (1.8-7.7) Lymphocytes # (Auto) 1.9 x10^3/uL (1.0-4.8) Monocytes # (Auto) 0.9 x10^3/uL (0.0-1.1) Eosinophils # (Auto) 0.2 x10^3/uL (0.0-0.7) Basophils # (Auto) 0.1 x10^3/uL (0.0-0.2) Total Bilirubin 0.4 mg/dL (0.2-1.0) Direct Bilirubin 0.1 mg/dL (0.0-0.2) Aspartate Amino Transf (AST/SGOT) 20 U/L (15-37) Alanine Aminotransferase (ALT/SGPT) 14 U/L (14-59) Alkaline Phosphatase 56 U/L (46-116) Total Protein 6.1 g/dL (6.4-8.2) Albumin 2.9 g/dL (3.4-5.0) VTE Prophylaxis Ordered VTE Prophylaxis Devices: Yes VTE Pharmacological Prophylaxi: Yes Assessment/Plan Assessment/Plan 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 however, i prefer 1 to 1 close ob because pt is still active thinking of suicide altho no plans in details yet. sedative meds prn waiting for PAT to find a inpt psych unit for pt ok to transfer out of ICU. HINA MASTERSON MD Feb 17, 2017 13:04
[2017-02-17] MEDS ORDERED: HALOPERIDOL LACTATE 5 MG/ML VIAL. IVP PRN (13:15)
[2017-02-17] MEDS ORDERED: ENOXAPARIN 40 MG/0.4 ML SYRINGE. SQ SCH (14:00)
[2017-02-17] MEDS ORDERED: ONDANSETRON ODT 4 MG TAB.RAPDIS. PO PRN (17:00)
[2017-02-17] MEDS: busPIRone 10 MG TABLET. PO SCH (21:16)
[2017-02-17] MEDS: DIVALPROEX DELAYED RELEASE 250 MG TABLET.DR. PO SCH (21:17)
[2017-02-18] VITALS: BP 125/61
[2017-02-18 04:00] VITALS: BP 110/58
[2017-02-18 08:00] VITALS: BP 125/72
[2017-02-18] MEDS: busPIRone 10 MG TABLET. PO SCH (08:38)
[2017-02-18] MEDS: DIVALPROEX DELAYED RELEASE 250 MG TABLET.DR. PO SCH (08:39)
--- NOTE | 2017-02-18 11:01 | EKG ---
[facility] [address] [place] [address] Test Date: 2017-02-17 Test Time: 05:33:20 Pat Name: WINIFRED STERLING Department: Room: 113 1 Gender: F Abstract Clerk: : 1995 Requested By: HINA MASTERSON Order Number: [id number] Reading MD: Nelda Mueller Measurements Intervals [place] Rate: 59 P: 34 VA: 146 QRS: 14 QRSD: 96 T: 17 QT: 434 QTc: 434 Interpretive Statements SINUS RHYTHM INCOMPLETE RIGHT BUNDLE BRANCH BLOCK POSSIBLY ABNORMAL ECG Electronically Signed On 02-18-2017 18:49:20 CDT by Nelda Mueller
--- NOTE | 2017-02-18 13:50 | PDOC ---
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 however, i prefer 1 to 1 close ob because pt is still active thinking of suicide altho no plans in details yet. sedative meds prn waiting for PAT to find a inpt psych unit for pt ok to transfer out of ICU. addendum: i was called by ICU nurse Susi at 3.20pm. i was notified, Pt ran away from icu and crossed the street to the [facility] [place], and was caught there. Pt then c/o chest pain AFTER running, EMS was called , and pt told EMS that she wanted to go to , then EMS transferred her to . WE DIDNOT DC THE PAINT SINCE STILL WAITING FOR INPT PSYCH UINT TO ACCEPT PT, AND THIS IS NOT AMA. History of Present Illness History of Present Illness ROS: NO fever, chills, sob or chest pain stable Vitals Vitals Vital Signs Date Time Temp Pulse Resp B/P (MAP) Pulse Ox O2 Delivery O2 Flow Rate FiO2 02/18/17 08:00 98.9 60 20 125/72 (89) 100 Nasal Cannula 2.0 98.9 Physical Exam General: Alert, Oriented X3, Cooperative Heart: Regular rate, Normal S1, Normal S2 Lungs: Clear Abdomen: Normal bowel sounds, Soft Extremities: No clubbing, No cyanosis Skin: No rashes Assessment and Plan Assessmemt and Plan Problems Medical Problems: (1) Overdose Status: Acute (2) Suicidal ideation Status: Acute Problems: Comment Review of Relevant I have reviewed the following items shaina (where applicable) has been applied. Labs Laboratory Tests Test 02/16/17 18:19 02/16/17 18:49 02/16/17 18:52 02/16/17 22:00 White Blood Count 12.3 x10^3/uL (4.0-11.0) Red Blood Count 4.01 x10^6/uL (3.50-5.40) Hemoglobin 12.5 g/dL (12.0-15.5) Hematocrit 36.5 % (36.0-47.0) Mean Corpuscular Volume 91 fL (79-100) Mean Corpuscular Hemoglobin 31 pg (25-35) Mean Corpuscular Hemoglobin Concent 34 g/dL (31-37) Red Cell Distribution Width 13.2 % (11.5-14.5) Platelet Count 285 x10^3/uL (140-400) Neutrophils (%) (Auto) 72 % (31-73) Lymphocytes (%) (Auto) 14 % (24-48) Monocytes (%) (Auto) 12 % (0-9) Eosinophils (%) (Auto) 2 % (0-3) Basophils (%) (Auto) 1 % (0-3) Neutrophils # (Auto) 8.9 x10^3uL (1.8-7.7) Lymphocytes # (Auto) 1.7 x10^3/uL (1.0-4.8) Monocytes # (Auto) 1.5 x10^3/uL (0.0-1.1) Eosinophils # (Auto) 0.2 x10^3/uL (0.0-0.7) Basophils # (Auto) 0.1 x10^3/uL (0.0-0.2) Sodium Level 142 mmol/L (136-145) Potassium Level 4.0 mmol/L (3.5-5.1) Chloride Level 103 mmol/L (98-107) Carbon Dioxide Level 30 mmol/L (21-32) Anion Gap 9 (6-14) Blood Urea Nitrogen 11 mg/dL (7-20) Creatinine 1.1 mg/dL (0.6-1.0) Estimated GFR (Cockcroft-Gault) 64.0 Glucose Level 85 mg/dL (70-99) Serum Osmolality 291 mOsm/Kg (279-304) Calcium Level 9.3 mg/dL (8.5-10.1) Total Bilirubin 0.4 mg/dL (0.2-1.0) Direct Bilirubin 0.1 mg/dL (0.0-0.2) Aspartate Amino Transf (AST/SGOT) 24 U/L (15-37) Alanine Aminotransferase (ALT/SGPT) 13 U/L (14-59) Alkaline Phosphatase 84 U/L (46-116) Total Protein 7.9 g/dL (6.4-8.2) Albumin 3.8 g/dL (3.4-5.0) Lipase 180 U/L (73-393) Salicylates Level < 2.8 mg/dL (2.8-20.0) Salicylate Last Dose Date Unk Salicylate Last Dose Time Unk Acetaminophen Level 22.7 mcg/ml (10-30) 5.75 mcg/ml (10-30) Acetaminophen Last Dose Date Unk Unk Acetaminophen Last Dose Time Unk Unk Ethyl Alcohol Level < 10 mg/dL (0-10) Urine Opiates Screen Neg (NEG) Urine Methadone Screen Neg (NEG) Urine Barbiturates Neg (NEG) Urine Phencyclidine Screen Neg (NEG) Urine Amphetamine/Methamphetamine Neg (NEG) Urine Benzodiazepines Screen Neg (NEG) Urine Cocaine Screen Neg (NEG) Urine Cannabinoids Screen Neg (NEG) Urine Ethyl Alcohol Neg (NEG) Bedside Urine HCG, Qualitative Hcg negative (Negative) Test 02/17/17 02:00 02/17/17 05:00 02/17/17 05:30 Nasal Screen MRSA (PCR) Negative (Negative) Sodium Level 142 mmol/L (136-145) Potassium Level 3.6 mmol/L (3.5-5.1) Chloride Level 105 mmol/L (98-107) Carbon Dioxide Level 30 mmol/L (21-32) Anion Gap 7 (6-14) Blood Urea Nitrogen 11 mg/dL (7-20) Creatinine 0.9 mg/dL (0.6-1.0) Estimated GFR (Cockcroft-Gault) 80.7 Glucose Level 80 mg/dL (70-99) Calcium Level 7.8 mg/dL (8.5-10.1) White Blood Count 7.1 x10^3/uL (4.0-11.0) Red Blood Count 3.73 x10^6/uL (3.50-5.40) Hemoglobin 11.6 g/dL (12.0-15.5) Hematocrit 34.1 % (36.0-47.0) Mean Corpuscular Volume 91 fL (79-100) Mean Corpuscular Hemoglobin 31 pg (25-35) Mean Corpuscular Hemoglobin Concent 34 g/dL (31-37) Red Cell Distribution Width 13.2 % (11.5-14.5) Platelet Count 238 x10^3/uL (140-400) Neutrophils (%) (Auto) 57 % (31-73) Lymphocytes (%) (Auto) 26 % (24-48) Monocytes (%) (Auto) 13 % (0-9) Eosinophils (%) (Auto) 3 % (0-3) Basophils (%) (Auto) 1 % (0-3) Neutrophils # (Auto) 4.1 x10^3uL (1.8-7.7) Lymphocytes # (Auto) 1.9 x10^3/uL (1.0-4.8) Monocytes # (Auto) 0.9 x10^3/uL (0.0-1.1) Eosinophils # (Auto) 0.2 x10^3/uL (0.0-0.7) Basophils # (Auto) 0.1 x10^3/uL (0.0-0.2) Total Bilirubin 0.4 mg/dL (0.2-1.0) Direct Bilirubin 0.1 mg/dL (0.0-0.2) Aspartate Amino Transf (AST/SGOT) 20 U/L (15-37) Alanine Aminotransferase (ALT/SGPT) 14 U/L (14-59) Alkaline Phosphatase 56 U/L (46-116) Total Protein 6.1 g/dL (6.4-8.2) Albumin 2.9 g/dL (3.4-5.0) Medications Current Medications Acetylcysteine 11.23 gm/Dextrose 256.15 ml @ 200 mls/ hr 1X ONCE IV Last administered on 02/16/17 20:17; Start 02/16/17 at 20:00; Stop 02/17/17 at 00:42 ; Status DC Acetylcysteine 3.74 gm/Dextrose 518.7 ml @ 125 mls/hr 1X ONCE IV ; Start 02/16 at 21:00; Stop 02/17/17 at 00:42; Status DC Acetylcysteine 7.48 gm/Dextrose 1,037.4 ml @ 62.5 mls/ hr 1X ONCE IV ; Start 02/17/17 at 01:00; Stop 02/17/17 at 01:00; Status DC Sodium Chloride 1,000 ml @ 1,000 mls/hr Q1H IV Last administered on 02/16/17 20:16; Start 02/16/17 at 19:47; Stop 02/16/17 at 20:46; Status DC Sodium Bicarbonate 50 meq 1X ONCE IV Last administered on 02/16/17 22:42; Start 02/16/17 at 20:45; Stop 02/16/17 at 20:48; Status DC Acetaminophen (Tylenol) 650 mg PRN Q6HRS PRN PO FEVER; Start 02/16/17 at 21:30 ; Stop 02/16/17 at 21:30; Status DC Ondansetron HCl (Zofran) 4 mg PRN Q6HRS PRN IV NAUSEA/VOMITING Last administered on 02/16/17 22:42; Start 02/16/17 at 21:30 Morphine Sulfate 2 mg PRN Q2HR PRN IV PAIN Last administered on 02/17/17 06:12 ; Start 02/16/17 at 21:30 Tramadol HCl (Ultram) 50 mg PRN Q6HRS PRN PO PAIN Last administered on 23:47; Start 02/16/17 at 21:30 Hydralazine HCl (Apresoline) 10 mg PRN Q4HRS PRN IVP ELEVATED BP, SEE COMMENTS ; Start 02/16/17 at 21:30 Docusate Sodium (Colace) 100 mg PRN DAILY PRN PO CONSTIPATION; Start 02/16/17 at 21:30 Ketorolac Tromethamine (Toradol) 30 mg PRN Q6HRS PRN IV PAIN Last administered on 02/17/17 01:36; Start 02/17/17 at 00:30; Stop 02/22/17 at 00:29 Lorazepam (Ativan) 2 mg PRN Q4HRS PRN IV ANXIETY / AGITATION; Start 02/17/17 at 13:15 Haloperidol Lactate (Haldol) 5 mg PRN Q6HRS PRN IVP AGITATION; Start 02/17/17 at 13:15; Stop 02/17/17 at 13:38; Status DC Enoxaparin Sodium (Lovenox 40mg Syringe) 40 mg Q24H SQ ; Start 02/17/17 at 14:00 Ondansetron HCl (Zofran Odt) 4 mg PRN Q6HRS PRN PO NAUSEA/VOMITING Last administered on 02/17/17 17:04; Start 02/17/17 at 17:00 Buspirone HCl (Buspar) 10 mg BID PO Last administered on 02/18/17 08:38; Start 02/17/17 at 21:00 Divalproex Sodium (Depakote) 500 mg BID PO Last administered on 02/18/17t 08:39 ; Start 02/17/17 at 21:00 Active Scripts Active Reported Nitrofurantoin (Nitrofurantoin Macrocrystal) 100 Mg Capsule 100 Mg PO BID Buspirone Hcl 10 Mg Tablet 10 Mg PO BID Divalproex Sodium 250 Mg Tablet.dr 500 Mg PO BID Vitals/I & O Vital Sign - Last 24 Hours 02/17/17 02/17/17 02/17/17 02/17/17 16:00 19:00 20:00 23:47 Temp 97.8 97.7 97.8 97.7 Pulse 71 71 Resp 16 18 18 B/P (MAP) 120/61 (80) 129/69 (89) Pulse Ox 98 96 O2 Delivery Room Air Room Air Room Air Room Air O2 Flow Rate 2.0 2.0 02/18/17 02/18/17 02/18/17 02/18/17 00:00 00:47 04:00 08:00 Temp 97.8 98.0 97.8 98.0 Pulse 59 Resp 18 18 B/P (MAP) 125/61 (82) 110/58 (75) Pulse Ox 96 99 100 O2 Delivery Nasal Cannula Nasal Cannula Nasal Cannula Nasal Cannula O2 Flow Rate 2.0 2.0 2.0 2.0 02/18/17 08:00 Temp 98.9 98.9 Pulse 60 Resp 20 B/P (MAP) 125/72 (89) Pulse Ox 100 O2 Delivery Nasal Cannula O2 Flow Rate 2.0 HINA MASTERSON MD Feb 18, 2017 13:50
== END 2017-02-18 14:00 | disposition short-term general hospital (02) | DRG 918 ==
LOC: ER 18:35 → 1 WEST ICU 19:50
PROVIDERS: ADMIT Internal Medicine; ATTEND Internal Medicine
DX: T50.902A Poisoning by unspecified drugs, medicaments and biological substances, intentional self-harm, initial encounter (principal); F31.9 Bipolar disorder, unspecified; F43.10 Post-traumatic stress disorder, unspecified; T45.0X1A Poisoning by antiallergic and antiemetic drugs, accidental (unintentional), initial encounter; F41.9 Anxiety disorder, unspecified
CPT/HCPCS: 36415; 51701; 80048; 80076; 80307; 80329; 81025; 83690; 83930; 85025; 87641; 93005; 96365; G0480; J0132; J1885; J2270; J2405; J7030; Q0162; 99291-25; G0479

== ENCOUNTER 2017-02-19 21:30 | Emergency (ER) | payer OTHER ==
[~2017-02-19] VITALS: Ht 165.1 cm; Wt 79.4 kg
[~2017-02-19 21:30] MED LIST changes: +BUSP10TA PO; +NITR100C PO; +buspar
--- NOTE | 2017-02-19 21:33 | PHYS DOC ---
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 "pseudo seizures", BPD Past Surgical History: Other Additional Past Surgical Histo: ORAL Alcohol Use: None Drug Use: None Adult General HPI HPI Patient is a 21 year old female presenting to the emergency department for evaluation of overdose of ibuprofen and she also drank 2 swallows of hydrogen peroxide. She brought the bottle of both with her. The ibuprofen is 50 tablets in a 200 mg dosage and she took this at approximately 8:30 and she tried drinking hydroperoxide with it but it was quite irritating to her throat and she barely got anything down with it. She said that she did do this to hurt herself. Patient is being seen for the eighth time in the emergency department in the past 2 weeks. She was admitted on February 16 suicidal ideation and poly-overdose and was admitted to the ICU. She then proceeded to run from the ICU and ran across the street and got chest pain while she was running across the street and EMS was called and she requested to go to . I asked her what happened at and they said that they watch her for the that and then discharged her. The psychiatric screener shavonne is in the emergency department and he states that multiple screeners tried to get her admitted to a psychiatric unit but normal except for as this is all behavioral and she has no true psychiatric component. She also was given multiple resources and discharge planning and follow-up appointments but she has None of those follow- up appointments are plans and essentially she is doing nothing to help herself. Review of Systems Review of Systems Constitutional: Denies fever or chills [] Eyes: Denies change in visual acuity, redness, or eye pain [] HENT: Denies nasal congestion or sore throat [] Respiratory: Denies cough or shortness of breath [] Cardiovascular: No additional information not addressed in HPI [] GI: Denies abdominal pain, nausea, vomiting, bloody stools or diarrhea [] : Denies dysuria or hematuria [] Musculoskeletal: Denies back pain or joint pain [] Integument: Denies rash or skin lesions [] Neurologic: Denies headache, focal weakness or sensory changes [] Current Medications Current Medications Current Medications Medications (Trade) Dose Ordered Sig/Priya Start Time Stop Time Status Last Admin Dose Admin Charcoal/Sorbitol (Insta-Christelle Sorbitol) 50 gm 1X ONCE 02/19/17 22:00 02/19/17 22:01 DC Famotidine (Pepcid) 20 mg 1X ONCE 02/19/17 22:30 02/19/17 22:31 DC 02/19/17 22:50 20 MG Ondansetron HCl (Zofran Odt) 8 mg 1X ONCE 02/19/17 22:30 02/19/17 22:31 DC 02/19/17 22:50 8 MG Ondansetron HCl (Zofran) 8 mg 1X ONCE 02/19/17 21:45 02/19/17 21:47 DC Sodium Chloride 1,000 ml @ 1,000 mls/hr 1X ONCE 02/19/17 21:45 02/19/17 22:44 DC Allergies Allergies Allergies Coded Allergies Type Severity Reaction Last Updated Verified haloperidol Allergy Severe TONGUE SWELLING 06/04/16 Yes Physical Exam Physical Exam Constitutional: Well developed, well nourished, no acute distress, non-toxic appearance. [] HENT: Normocephalic, atraumatic, bilateral external ears normal, oropharynx moist, no oral exudates, nose normal. [] Eyes: PERRLA, EOMI, conjunctiva normal, no discharge. [] Neck: Normal range of motion, no tenderness, supple, no stridor. [] Cardiovascular:Heart rate regular rhythm, no murmur [] Lungs & Thorax: Bilateral breath sounds clear to auscultation [] Abdomen: Bowel sounds normal, soft, no tenderness, no masses, no pulsatile masses. [] Skin: Warm, dry, no erythema, no rash. [] Back: No tenderness, no CVA tenderness. [] Extremities: No tenderness, no cyanosis, no clubbing, ROM intact, no edema. [] Neurologic: Alert and oriented X 3, normal motor function, normal sensory function, no focal deficits noted. [] Current Patient Data Vital Signs Vital Signs Date Time Temp Pulse Resp B/P (MAP) Pulse Ox O2 Delivery O2 Flow Rate FiO2 02/20/17 00:29 78 16 114/62 (79) 98 Room Air 02/19/17 21:30 99.1 99.1 Lab Values Laboratory Tests Test 02/19/17 22:09 02/19/17 23:20 White Blood Count 7.6 x10^3/uL (4.0-11.0) Red Blood Count 3.95 x10^6/uL (3.50-5.40) Hemoglobin 12.5 g/dL (12.0-15.5) Hematocrit 36.1 % (36.0-47.0) Mean Corpuscular Volume 91 fL (79-100) Mean Corpuscular Hemoglobin 32 pg (25-35) Mean Corpuscular Hemoglobin Concent 35 g/dL (31-37) Red Cell Distribution Width 12.9 % (11.5-14.5) Platelet Count 273 x10^3/uL (140-400) Neutrophils (%) (Auto) 66 % (31-73) Lymphocytes (%) (Auto) 19 % (24-48) L Monocytes (%) (Auto) 12 % (0-9) H Eosinophils (%) (Auto) 2 % (0-3) Basophils (%) (Auto) 1 % (0-3) Neutrophils # (Auto) 5.1 x10^3uL (1.8-7.7) Lymphocytes # (Auto) 1.5 x10^3/uL (1.0-4.8) Monocytes # (Auto) 0.9 x10^3/uL (0.0-1.1) Eosinophils # (Auto) 0.2 x10^3/uL (0.0-0.7) Basophils # (Auto) 0.1 x10^3/uL (0.0-0.2) Prothrombin Time 12.7 SEC (11.7-14.0) Prothrombin Time INR 1.0 (0.8-1.1) PTT 28 SEC (24-38) Sodium Level 141 mmol/L (136-145) Potassium Level 4.0 mmol/L (3.5-5.1) Chloride Level 102 mmol/L (98-107) Carbon Dioxide Level 30 mmol/L (21-32) Anion Gap 9 (6-14) Blood Urea Nitrogen 22 mg/dL (7-20) H Creatinine 1.1 mg/dL (0.6-1.0) H Estimated GFR (Cockcroft-Gault) 64.0 BUN/Creatinine Ratio 20 (6-20) Glucose Level 99 mg/dL (70-99) Lactic Acid Level 2.1 mmol/L (0.4-2.0) H Calcium Level 9.5 mg/dL (8.5-10.1) Magnesium Level 2.2 mg/dL (1.8-2.4) Total Bilirubin 0.3 mg/dL (0.2-1.0) Aspartate Amino Transferase (AST) 28 U/L (15-37) Alanine Aminotransferase (ALT) 18 U/L (14-59) Alkaline Phosphatase 76 U/L (46-116) Creatine Kinase 72 U/L (26-192) Total Protein 7.8 g/dL (6.4-8.2) Albumin 4.1 g/dL (3.4-5.0) Albumin/Globulin Ratio 1.1 (1.0-1.7) Lipase 163 U/L (73-393) Thyroid Stimulating Hormone (TSH) 16.009 uIU/mL (0.358-3.74) H Salicylates Level < 2.8 mg/dL (2.8-20.0) L Salicylate Last Dose Date Unknown Salicylate Last Dose Time Unknown Acetaminophen Level < 2 mcg/ml (10-30) L Acetaminophen Last Dose Date Unknown Acetaminophen Last Dose Time Unknown Ethyl Alcohol Level < 10 mg/dL (0-10) Urine Collection Type Unknown Urine Color Yellow Urine Clarity Clear Urine pH 6.0 Urine Specific [place] 1.020 Urine Protein Trace mg/dL (NEG-TRACE) Urine Glucose (UA) Negative mg/dL (NEG) Urine Ketones (Stick) Trace mg/dL (NEG) Urine Blood Trace (NEG) Urine Nitrite Negative (NEG) Urine Bilirubin Negative (NEG) Urine Urobilinogen Dipstick 1.0 mg/dL (0.2 mg/dL) Urine Leukocyte Esterase Small (NEG) Urine RBC Occ /HPF (0-2) Urine WBC 1-4 /HPF (0-4) Urine Squamous Epithelial Cells Mod /LPF Urine Bacteria Moderate /HPF (0-FEW) Urine Opiates Screen Neg (NEG) Urine Methadone Screen Neg (NEG) Urine Barbiturates Neg (NEG) Urine Phencyclidine Screen Neg (NEG) Urine Amphetamine/Methamphetamine Neg (NEG) Urine Benzodiazepines Screen Neg (NEG) Urine Cocaine Screen Neg (NEG) Urine Cannabinoids Screen Neg (NEG) Urine Ethyl Alcohol Neg (NEG) Laboratory Tests 02/19/17 22:09 Laboratory Tests 02/19/17 22:09 EKG EKG [] Radiology/Procedures Radiology/Procedures [] Course & Med Decision Making Course & Med Decision Making I spoke to the poison center and they said based off her weight she took approximately 167 g/kg of ibuprofen which is well under the toxic dose of 200 mg /kg. They said that activated charcoal is an option if she is awake and interactive which she is so I ordered it. They recommended watching her for 4 hours post ingestion and if still asymptomatic to clear her medically. Patient has already been cleared psychiatrically. Patient was watched for over 4 hours and she was cleared medically as she is asymptomatic with normal vital signs. Father came to pick patient up and is requesting patient go to [facility]. Patient was accepted there last night before leaving the ICU. Our screener days already saw patient and cleared her. I recommended to father that they don't drive straight there right now and have her screened by staff. They are legally obligated to screen anyone that shows up at the front door side that she drive her there right now. Dragon Disclaimer Dragon Disclaimer This electronic medical record was generated, in whole or in part, using a voice recognition dictation system. Departure Departure Impression: Primary Impression: Overdose Additional Impression: Suicidal ideation Disposition: 01 HOME, SELF-CARE Condition: STABLE Referrals: DANO GALVEZ (PCP) Patient Instructions: Overdose, Adult Problem Qualifiers Primary Impression: Overdose Encounter type: initial encounter Injury intent: intentional self-harm Qualified Codes: T50.902A - Poisoning by unspecified drugs, medicaments and biological substances, intentional self-harm, initial encounter FIDENCIO HERRERA DO Feb 19, 2017 21:33
[2017-02-19] MEDS ORDERED: FAMOTIDINE 20 MG/2 ML VIAL IVP ONE (21:45)
[2017-02-19] MEDS ORDERED: ONDANSETRON PF 4 MG/2 ML VIAL. IV ONE (21:45)
[2017-02-19] MEDS ORDERED: IV NORMAL SALINE 1000ML BAG 1,000 ML IV ONE (21:45)
[2017-02-19] MEDS ORDERED: CHARCOAL/SORBITOL 50 GM/240 ML SUSPENSION. PO ONE (22:00)
[2017-02-19 22:27] LABS: BASO # 0.1 x10^3/uL (0.0-0.2); BASO % 1 % (0-3); EOS % 2 % (0-3); HEMATOCRIT 36.1 % (36.0-47.0); HEMOGLOBIN 12.5 g/dL (12.0-15.5); LYMPH # 1.5 x10^3/uL (1.0-4.8); LYMPH % 19 % (24-48); MEAN CORPUSCULAR HEMOGLOBIN 32 pg (25-35); MEAN CORPUSCULAR HGB CONC 35 g/dL (31-37); MEAN CORPUSCULAR VOLUME 91 fL (79-100); MONO % 12 % (0-9); NEUT % 66 % (31-73); PLATELET COUNT 273 x10^3/uL (140-400); RED BLOOD COUNT 3.95 x10^6/uL (3.50-5.40); RED CELL DISTRIBUTION WIDTH 12.9 % (11.5-14.5); WHITE BLOOD COUNT 7.6 x10^3/uL (4.0-11.0)
[2017-02-19] MEDS ORDERED: ONDANSETRON ODT 4 MG TAB.RAPDIS. PO ONE (22:30)
[2017-02-19] MEDS ORDERED: FAMOTIDINE 20 MG TABLET. PO ONE (22:30)
[2017-02-19 22:37] LABS: PROTHROMBIN TIME PATIENT 12.7 SEC (11.7-14.0)
[2017-02-19 22:39] LABS: CALCIUM 9.5 mg/dL (8.5-10.1); CREATININE 1.1 mg/dL (0.6-1.0)
[2017-02-19 22:44] LABS: ETHANOL < 10 mg/dL (0-10)
[2017-02-19 22:49] LABS: ALBUMIN 4.1 g/dL (3.4-5.0); ALBUMIN/GLOBULIN RATIO 1.1 (1.0-1.7); MAGNESIUM 2.2 mg/dL (1.8-2.4); TOTAL BILIRUBIN 0.3 mg/dL (0.2-1.0); TOTAL PROTEIN 7.8 g/dL (6.4-8.2)
[2017-02-19 23:43] LABS: BARBITURATES NEG (NEG); BENZODIAZEPINES NEG (NEG); CANNABINOIDS NEG (NEG); COCAINE NEG (NEG); METHADONE NEG (NEG); OPIATES NEG (NEG); PHENCYCLIDINE NEG (NEG)
[2017-02-19 23:46] LABS: BILIRUBIN,URINE NEGATIVE (NEG); GLUCOSE,URINE NEGATIVE (NEG); NITRITE,URINE NEGATIVE (NEG)
[2017-02-19 23:47] LABS: BACTERIA,URINE MODERATE /HPF (0-FEW); RBC,URINE OCC /HPF (0-2); SQUAMOUS EPITHELIAL CELL,UR MOD /LPF
[2017-02-19 23:48] LABS: PROTEIN,URINE TRACE mg/dL (NEG-TRACE)
[2017-02-20 01:50] VITALS: BP 110/65
--- NOTE | 2017-02-20 06:17 | EKG ---
[facility] [address] [place] [address] Test Date: 2017-02-19 Test Time: 22:33:34 Pat Name: WINIFRED STERLING Department: Room: Gender: F Blade Aligner: : 1995 Requested By: FIDENCIO HERRERA Order Number: [id number] Reading MD: Nelda Mueller Measurements Intervals [place] Rate: 65 P: 49 SD: 138 QRS: 17 QRSD: 96 T: 27 QT: 380 QTc: 400 Interpretive Statements SINUS RHYTHM INCOMPLETE RIGHT BUNDLE BRANCH BLOCK Electronically Signed On 02-22-2017 10:27:59 CDT by Nelda Mueller
== END 2017-02-20 01:54 | disposition home or self-care (01) ==
LOC: ER 21:30
DX: T39.312A Poisoning by propionic acid derivatives, intentional self-harm, initial encounter (principal); F32.9 Major depressive disorder, single episode, unspecified; F43.10 Post-traumatic stress disorder, unspecified; F41.9 Anxiety disorder, unspecified; Z88.8 Allergy status to other drugs, medicaments and biological substances; Y92.89 Other specified places as the place of occurrence of the external cause
CPT/HCPCS: 36415; 80053; 80307; 80329; 81001; 82550; 83605; 83690; 83735; 84443; 85025; 85610; 85730; 87086; 93005; 99285; G0480; Q0162; G0479

== ENCOUNTER 2017-04-04 08:52 | Inpatient (IN) | payer OTHER ==
[~2017-04-04] VITALS: Ht 167.6 cm; Wt 74.4 kg
[2017-04-04] VITALS (13 sets, daily range): BP systolic 100–133; BP diastolic 50–77
[2017-04-04 11:58] LABS: HCO3 ABG 22 mmol/L (21-28); PO2 ABG 198 mmHg (85-108); SAT O2 ABG 99 % (92-99)
[2017-04-04] MEDS: IV NORMAL SALINE 1000ML BAG 1,000 ML IV SCH ×2 (12:02→20:58)
[2017-04-04 12:04] LABS: FIO2 ABG 40; PCO2 ABG 34 mmHg (35-46); PH ABG 7.43 (7.35-7.45)
[2017-04-04] MEDS: PROPOFOL 100 ML IV PRN ×2 (12:09→22:17)
--- NOTE | 2017-04-04 12:17 | HP ---
ADMIT DATE: 04/04/2017 DATE OF ADMISSION: 04/04/2017. CHIEF COMPLAINT: Seizure. HISTORY OF PRESENT ILLNESS: The patient is a pleasant 21-year-old female who had a witnessed seizure. She was brought to the ER. She has now been intubated at [facility] ER. ER doctor called me, we will now transferred her to our facility with consultation with Neurology. PAST MEDICAL HISTORY: From the record, it appears she has hypothyroidism, urinary tract infections, bipolar, borderline personality and previous seizures. ALLERGIES: None. FAMILY HISTORY: Unknown. SOCIAL HISTORY: I was told she is homeless. MEDICATIONS: Unknown. REVIEW OF SYSTEMS: Unobtainable, the patient is intubated. PHYSICAL EXAMINATION: VITAL SIGNS: Temperature afebrile, pulse 70, respirations 18, blood pressure 144/90. GENERAL: She is sedated on the vent. HEART: Normal S1, S2. LUNGS: Clear. ABDOMEN: Soft. EXTREMITIES: No edema. ENDOCRINE: No thyromegaly. LYMPHATICS: No cervical nodes. HEMATOPOIETIC: No bruising. NEUROLOGICAL: She is sedated. Her pupils are big, but they are reactive. ENDOCRINE: None. ASSESSMENT AND PLAN: Acute on chronic seizures. The patient has been admitted to the ICU, we are sedating her, we will do mechanical ventilation for a day or 2. We will consult Neurology and Pulmonary. IV fluids, frequent labs. DELONTE BASS DO DR: MARCELINA/sen JOB#: [id number] / [id number]
--- NOTE | 2017-04-04 15:38 | PDOC ---
PULMONARY PROGRESS NOTES Vitals Vital Signs Date Time Temp Pulse Resp B/P (MAP) Pulse Ox O2 Delivery O2 Flow Rate FiO2 04/04/17 14:14 99.1 64 119/64 (82) 100 99.1 04/04/17 13:35 Ventilator 04/04/17 13:00 18 Lungs: Clear Cardiovascular: S1, S2 Labs Laboratory Tests Test 04/04/17 11:44 04/04/17 11:55 O2 Saturation 99 % (92-99) Arterial Blood pH 7.43 (7.35-7.45) Arterial Blood pCO2 at Patient Temp 34 mmHg (35-46) Arterial Blood pO2 at Patient Temp 198 mmHg (85-108) Arterial Blood HCO3 22 mmol/L (21-28) Arterial Blood Base Excess -2 mmol/L (-3-3) FiO2 40 Lactic Acid Level 1.3 mmol/L (0.4-2.0) Procalcitonin < 0.10 ng/mL (0.00-0.10) Laboratory Tests Test 04/04/17 11:44 04/04/17 11:55 O2 Saturation 99 % (92-99) Arterial Blood pH 7.43 (7.35-7.45) Arterial Blood pCO2 at Patient Temp 34 mmHg (35-46) Arterial Blood pO2 at Patient Temp 198 mmHg (85-108) Arterial Blood HCO3 22 mmol/L (21-28) Arterial Blood Base Excess -2 mmol/L (-3-3) FiO2 40 Lactic Acid Level 1.3 mmol/L (0.4-2.0) Procalcitonin < 0.10 ng/mL (0.00-0.10) Medications Active Scripts Medications Dose Route/Sig Max Daily Dose Days Date Category Nitrofurantoin (Nitrofurantoin Macrocrystal) 100 Mg Capsule 100 Mg PO BID 02/17/17 Reported Buspirone Hcl 10 Mg Tablet 10 Mg PO BID 02/17/17 Reported Divalproex Sodium 250 Mg Tablet.dr 500 Mg PO BID 02/05/17 Reported Impression . CONSULT DICTATED RESP FAILURE SEC TO SEIZURES [id number] BRUNILDA DONG MD Apr 04, 2017 15:38
--- NOTE | 2017-04-04 15:52 | PDOC2 ---
CONSULT Date of Consult Date of Consult DATE: 04/04/17 TIME: 15:49 Reason for Consult Reason for Consult: seizures. Identification/Chief Complaint Chief Complaint seizures History of Present Illness Reason for Visit: This patient is 21-year-old woman with a past medical history of seizures, borderline personality disorder, bipolar, hypothyroidism, urinary tract infections. Patient presented to [facility] with unknown time of onset. According to the information from patient's initial exam and ER physician patient was having seizures this morning around 6 AM. Patient was intubated was having seizure activity in the emergency room. Patient was loaded with 1 g of Kepprawith continuing off Keppra 500 mg IV every 12. Patient had a CT scan done on the brain which did not show any evidence of intracranial hemorrhage there was a ? of hypodensity on the cerebellum with question of's ischemic process. [facility] stroke team was contacted from emergency room at [facility]. After reviewing the CT scan images with [facility] stroke team patient wasn' t not eligible for transfer to [facility] at that time. Patient was admitted to [facility] in ICU for further close monitoring. History of seizures. Patient was loaded with a loading dose of Keppra. We will continue Keppra 500 mg IV every 12. Past Medical History Cardiovascular: No pertinent hx Pulmonary: No pertinent hx GI: No pertinent hx Psych: Bipolar, Depression, Psychosis Past Surgical History Past Surgical History: No pertinent history Family History Family History: No Significant Social History ALCOHOL: none Drugs: None Current Medications Current Medications Current Medications Sodium Chloride 1,000 ml @ 75 mls/hr [id number] IV Last administered on 12:02; Start 04/04/17 at 12:30 Propofol 100 ml @ 0 mls/hr CONT PRN IV SEE I/O RECORD Last administered on 12:09; Start 04/04/17 at 12:00 Ceftriaxone Sodium 1 gm/ Dextrose 50 ml @ 100 mls/hr Q24H IV ; Start 04/05/17 at 09:00; Status UNV Ceftriaxone Sodium (Rocephin) 1 gm Q24H IVP ; Start 04/04/17 at 16:00; Status Cancel Levetiracetam 500 mg/Dextrose 105 ml @ 420 mls/hr Q12HR IV ; Start 04/04/17 at 16:00; Stop 04/04/17 at 16:00; Status DC Aspirin (Aspirin) 300 mg 1X ONCE NM ; Start 04/04/17 at 16:00; Stop 04/04/17 at 16:01 Levetiracetam 500 mg/Sodium Chloride 105 ml @ 420 mls/hr Q12HR IV ; Start at 16:00; Status Cancel Levetiracetam 500 mg/Sodium Chloride 105 ml @ 420 mls/hr Q12HR IV ; Start at 21:00 Ceftriaxone Sodium (Rocephin) 1 gm Q24H IVP ; Start 04/05/17 at 09:00 Active Scripts Active Reported Nitrofurantoin (Nitrofurantoin Macrocrystal) 100 Mg Capsule 100 Mg PO BID Buspirone Hcl 10 Mg Tablet 10 Mg PO BID Divalproex Sodium 250 Mg Tablet.dr 500 Mg PO BID Allergies Allergies: Coded Allergies: haloperidol (Verified Allergy, Severe, TONGUE SWELLING, 06/04/16) tongue swelling Physical Exam Physical Exam REVIEW OF SYSTEMS: unobtainable. PHYSICAL EXAMINATION: General appearance isedated intubated HEENT: Normocephalic and nontraumatic. Eyes, nose, ears, and throat are unremarkable. Neck is supple. No lymphadenopathy. No crepitus. Cardiovascular: S1, S2, regular rate and rhythm. Pulmonary: Clear to auscultation bilaterally. Abdomen: Bowel sounds are positive. Abdomen is soft, nontender, and nondistended. NEUROLOGICAL EXAMINATION: intubated sedated pupils reactive EOMI.not able CN: no focal findings. Muscle tone: within normal. Muscle strength: minimal withdraw to pain stimuli DTR: 1-+ Plantar reflex: mute Gait: in bed. Sensory exam:minimal withdraw to pain stimuli not able cerebellar signs Vitals VITALS Vital Signs Date Time Temp Pulse Resp B/P (MAP) Pulse Ox O2 Delivery O2 Flow Rate FiO2 04/04/17 15:37 100 Ventilator 04/04/17 14:14 99.1 64 119/64 (82) 99.1 04/04/17 13:00 18 Labs Labs Laboratory Tests Test 04/04/17 11:44 04/04/17 11:55 O2 Saturation 99 % (92-99) Arterial Blood pH 7.43 (7.35-7.45) Arterial Blood pCO2 at Patient Temp 34 mmHg (35-46) Arterial Blood pO2 at Patient Temp 198 mmHg (85-108) Arterial Blood HCO3 22 mmol/L (21-28) Arterial Blood Base Excess -2 mmol/L (-3-3) FiO2 40 Lactic Acid Level 1.3 mmol/L (0.4-2.0) Procalcitonin < 0.10 ng/mL (0.00-0.10) Laboratory Tests Test 04/04/17 11:44 04/04/17 11:55 O2 Saturation 99 % (92-99) Arterial Blood pH 7.43 (7.35-7.45) Arterial Blood pCO2 at Patient Temp 34 mmHg (35-46) Arterial Blood pO2 at Patient Temp 198 mmHg (85-108) Arterial Blood HCO3 22 mmol/L (21-28) Arterial Blood Base Excess -2 mmol/L (-3-3) FiO2 40 Lactic Acid Level 1.3 mmol/L (0.4-2.0) Procalcitonin < 0.10 ng/mL (0.00-0.10) Assessment/Plan Assessment/Plan This patient is 21-year-old woman with a past medical history of seizures, borderline personality disorder, bipolar, hypothyroidism, urinary tract infections. Patient presented to [facility] with unknown time of onset. According to the information from patient's initial exam and ER physician patient was having seizures this morning around 6 AM. Patient was intubated was having seizure activity in the emergency room. Patient was loaded with 1 g of Kepprawith continuing off Keppra 500 mg IV every 12. Patient had a CT scan done on the brain which did not show any evidence of intracranial hemorrhage there was a ? of hypodensity on the cerebellum with question of's ischemic process. [facility] stroke team was contacted from emergency room at [facility]. After reviewing the CT scan images with [facility] stroke team patient wasn' t not eligible for transfer to [facility] at that time. Patient was admitted to [facility] in ICU for further close monitoring. History of seizures. Patient was loaded with a loading dose of Keppra. We will continue Keppra 500 mg IV every 12. Check MRI/MRA brain.to evaluate for acute vascular process. Check for any infectious or metabolic etiology. Check Carotid doppler. Check 2-D echo. PTOT speech evaluation when possible. Seizure precautions. Psychiatric recommendations. Continue medical management. JOE BOWMAN MD Apr 04, 2017 15:52
[2017-04-04] MEDS ORDERED: ASPIRIN 300 MG SUPP.RECT PR ONE (16:00)
[2017-04-04] MEDS ORDERED: levETIRAcetam 500 MG in IV DEXTROSE 5% 100 ML IV SCH (16:00)
[2017-04-04] MEDS ORDERED: cefTRIAXone IV Push 1 GM VIAL. IVP SCH (16:00)
--- NOTE | 2017-04-04 16:12 | CONS ---
DATE OF CONSULTATION: 04/04/2017 ATTENDING PHYSICIAN: Dr. Wilde. CONSULTING PHYSICIAN: Brunilda Dong MD REASON FOR CONSULTATION: The patient seen in pulmonary consultation at the request of Dr. Wilde for vent management. HISTORY OF PRESENT ILLNESS: The patient is a 21-year-old with a history of seizure, borderline personality, hypothyroidism, presented to [facility] with new seizures, unknown time of onset. The patient was intubated. She is currently in the Intensive Care Unit. I was asked to manage her ventilator. She has been seen by Neurology. She is currently undergoing further workup with MRI and MRA. She has been loaded with Keppra. She is also sedated. PAST MEDICAL HISTORY: Otherwise remarkable for seizures, bipolar disorder, depression, psychosis. PAST SURGICAL HISTORY: None. ALLERGIES: HALOPERIDOL. SOCIAL HISTORY: Unknown if she smokes or drinks. REVIEW OF SYSTEMS: Unobtainable secondary to the patient's condition. CURRENT MEDICATION: List was reviewed. Please see the MRAD. PHYSICAL EXAMINATION: GENERAL: The patient was sedated, on assist control ventilation. HEENT: Eyes, the sclerae were nonicteric. NECK: Jugular venous distention was not elevated. No lymphadenopathy. CHEST: Full expansion. LUNGS: Adequate airway flow, no wheezes. CARDIOVASCULAR: Regular rate and rhythm with S1, S2, no S3. ABDOMEN: Soft, nontender, nondistended. EXTREMITIES: No clubbing, cyanosis or edema. NEUROLOGIC: The patient was sedated. IMAGING: Chest x-ray was reviewed, no acute cardiopulmonary process. LABORATORY DATA: Arterial blood gas; pH of 7.43, PaCO2 of 34, pO2 of 198. Lactic acid was not elevated. IMPRESSION: 1. Acute respiratory failure secondary to seizures. 2. Seizure disorder. 3. Bipolar disorder. PLAN: 1. Continue current assist control ventilation. 2. Follow Neurology input. 3. Once Neurology workup has been completed, we will proceed with extubation. 4. Initiate tube feeding. I do appreciate the privilege in sharing in the patient's care. Total cumulative critical care time of 30 minutes. BRUNILDA DONG MD DR: ELAN/sen JOB#: [id number] / [id number]
--- NOTE | 2017-04-04 19:07 | RAD ---
MRI brain and MRA brain 04/04/2017. HISTORY: Altered mental status. CT showed possible abnormality of the cerebellum and occipital lobes. MRI BRAIN: Multiplanar multisequence imaging was performed. FINDINGS: There is no apparent intracranial mass, hemorrhage or abnormal extra-axial fluid collection. No area of signal abnormality or diffusion weighted abnormality is seen in the brain or brainstem. The ventricles and basilar cisterns are normally positioned. The visualized portions of the paranasal sinuses and mastoid air cells are clear. IMPRESSION: No apparent intracranial abnormality. MRA: 3-D MR angiography was performed. FINDINGS: The distal vertebral arteries appear normal extending to the confluence. The basilar artery and internal carotid arteries are patent extending through the skull base. They show no focal narrowing or aneurysmal dilatation. The anterior, middle and posterior cerebral branches are patent bilaterally, and show no apparent abnormality extending to their major branch points. 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 The visualized cerebellar branches appear normal. No abnormal vascularity is seen. IMPRESSION: Normal MRA. Electronically signed by: Lamont Devine Jr., MD (04/04/2017 7:04 PM) [facility]
[2017-04-05] VITALS (25 sets, daily range): BP systolic 91–136; BP diastolic 43–88
[2017-04-05] MEDS: PROPOFOL 100 ML IV PRN ×2 (03:47→08:53)
[2017-04-05 05:17] LABS: CALCIUM 8.3 mg/dL (8.5-10.1); CREATININE 0.9 mg/dL (0.6-1.0); GFR 80.7; POTASSIUM 3.9 mmol/L (3.5-5.1)
--- NOTE | 2017-04-05 08:18 | RAD ---
Single view of the Chest 04/05/2017 5:44 AM Indication: Ventilated patient Comparison: Chest radiograph, yesterday Findings: Interval endotracheal intubation. Tip of enteric tube is approximately 3 cm above the jeffy. There is an enteric tube extending below the diaphragm in the affected region of the stomach. No pneumothorax, pleural effusion, or focal infiltrate is seen. Heart size is normal. No acute osseous changes are identified. Impression: 1. Endotracheal tube and enteric tube in place described 2. No acute cardiopulmonary process is seen
[2017-04-05] MEDS: cefTRIAXone IV Push 1 GM VIAL. IVP SCH (09:00)
[2017-04-05 09:07] LABS: BASO % 1 % (0-3); EOS % 2 % (0-3); HEMATOCRIT 31.7 % (36.0-47.0); HEMOGLOBIN 10.8 g/dL (12.0-15.5); LYMPH # 0.9 x10^3/uL (1.0-4.8); LYMPH % 15 % (24-48); MEAN CORPUSCULAR HEMOGLOBIN 31 pg (25-35); MEAN CORPUSCULAR HGB CONC 34 g/dL (31-37); MEAN CORPUSCULAR VOLUME 91 fL (79-100); MONO % 13 % (0-9); NEUT % 69 % (31-73); PLATELET COUNT 212 x10^3/uL (140-400); RED BLOOD COUNT 3.49 x10^6/uL (3.50-5.40); RED CELL DISTRIBUTION WIDTH 12.4 % (11.5-14.5); WHITE BLOOD COUNT 5.9 x10^3/uL (4.0-11.0)
[2017-04-05 09:43] LABS: HCO3 ABG 20 mmol/L (21-28); PCO2 ABG 32 mmHg (35-46); PH ABG 7.41 (7.35-7.45); PO2 ABG 162 mmHg (85-108); SAT O2 ABG 99 % (92-99)
[2017-04-05 09:45] LABS: FIO2 ABG 35
--- NOTE | 2017-04-05 11:56 | PDOC ---
PROGRESS NOTES Chief Complaint Chief Complaint Seizure disorder Hypothyroidism Bipolar Borderline personality History of Present Illness History of Present Illness Pt seen and examined today in the ICU Sedated and intubated - AC/16/350/35% with 5% PEEP Trotter in place - IV increased to 150cc/hr Care d/w RN Vitals Vitals Vital Signs Date Time Temp Pulse Resp B/P (MAP) Pulse Ox O2 Delivery O2 Flow Rate FiO2 04/05/17 09:12 100 Ventilator 04/05/17 09:00 84 21 117/62 (80) 04/05/17 08:00 97.3 97.3 Physical Exam Physical Exam Sedated and intubated General: No acute distress Heart: Normal S1, Normal S2 Lungs: Clear, Other (No wheezes or crackles) Abdomen: Normal bowel sounds, Soft Extremities: No clubbing, No cyanosis Skin: No breakdown, No significant lesion Labs LABS Laboratory Tests Test 04/04/17 11:55 04/05/17 04:35 04/05/17 08:20 04/05/17 09:30 Lactic Acid Level 1.3 mmol/L (0.4-2.0) Procalcitonin < 0.10 ng/mL (0.00-0.10) Sodium Level 140 mmol/L (136-145) Potassium Level 3.9 mmol/L (3.5-5.1) Chloride Level 110 mmol/L (98-107) Carbon Dioxide Level 21 mmol/L (21-32) Anion Gap 9 (6-14) Blood Urea Nitrogen 15 mg/dL (7-20) Creatinine 0.9 mg/dL (0.6-1.0) Estimated GFR (Cockcroft-Gault) 80.7 Glucose Level 81 mg/dL (70-99) Calcium Level 8.3 mg/dL (8.5-10.1) White Blood Count 5.9 x10^3/uL (4.0-11.0) Red Blood Count 3.49 x10^6/uL (3.50-5.40) Hemoglobin 10.8 g/dL (12.0-15.5) Hematocrit 31.7 % (36.0-47.0) Mean Corpuscular Volume 91 fL (79-100) Mean Corpuscular Hemoglobin 31 pg (25-35) Mean Corpuscular Hemoglobin Concent 34 g/dL (31-37) Red Cell Distribution Width 12.4 % (11.5-14.5) Platelet Count 212 x10^3/uL (140-400) Neutrophils (%) (Auto) 69 % (31-73) Lymphocytes (%) (Auto) 15 % (24-48) Monocytes (%) (Auto) 13 % (0-9) Eosinophils (%) (Auto) 2 % (0-3) Basophils (%) (Auto) 1 % (0-3) Neutrophils # (Auto) 4.1 x10^3uL (1.8-7.7) Lymphocytes # (Auto) 0.9 x10^3/uL (1.0-4.8) Monocytes # (Auto) 0.7 x10^3/uL (0.0-1.1) Eosinophils # (Auto) 0.1 x10^3/uL (0.0-0.7) Basophils # (Auto) 0.0 x10^3/uL (0.0-0.2) O2 Saturation 99 % (92-99) Arterial Blood pH 7.41 (7.35-7.45) Arterial Blood pCO2 at Patient Temp 32 mmHg (35-46) Arterial Blood pO2 at Patient Temp 162 mmHg (85-108) Arterial Blood HCO3 20 mmol/L (21-28) Arterial Blood Base Excess -4 mmol/L (-3-3) FiO2 35 Review of Systems Review of Systems Unobtainable pt intubated Assessment and Plan Assessmemt and Plan Assessment: Seizure disorder Hypothyroidism Bipolar Borderline personality Plan: Continue ICU monitoring Continue to wean vent Continue home medications Continue abx Consult PT/OT Recheck labs in am Problems: Comment Review of Relevant I have reviewed the following items shaina (where applicable) has been applied. Labs Laboratory Tests Test 04/04/17 11:09 04/04/17 11:44 04/04/17 11:55 04/05/17 04:35 Nasal Screen MRSA (PCR) Negative (Negative) O2 Saturation 99 % (92-99) Arterial Blood pH 7.43 (7.35-7.45) Arterial Blood pCO2 at Patient Temp 34 mmHg (35-46) Arterial Blood pO2 at Patient Temp 198 mmHg (85-108) Arterial Blood HCO3 22 mmol/L (21-28) Arterial Blood Base Excess -2 mmol/L (-3-3) FiO2 40 Lactic Acid Level 1.3 mmol/L (0.4-2.0) Procalcitonin < 0.10 ng/mL (0.00-0.10) Sodium Level 140 mmol/L (136-145) Potassium Level 3.9 mmol/L (3.5-5.1) Chloride Level 110 mmol/L (98-107) Carbon Dioxide Level 21 mmol/L (21-32) Anion Gap 9 (6-14) Blood Urea Nitrogen 15 mg/dL (7-20) Creatinine 0.9 mg/dL (0.6-1.0) Estimated GFR (Cockcroft-Gault) 80.7 Glucose Level 81 mg/dL (70-99) Calcium Level 8.3 mg/dL (8.5-10.1) Test 04/05/17 08:20 04/05/17 09:30 White Blood Count 5.9 x10^3/uL (4.0-11.0) Red Blood Count 3.49 x10^6/uL (3.50-5.40) Hemoglobin 10.8 g/dL (12.0-15.5) Hematocrit 31.7 % (36.0-47.0) Mean Corpuscular Volume 91 fL (79-100) Mean Corpuscular Hemoglobin 31 pg (25-35) Mean Corpuscular Hemoglobin Concent 34 g/dL (31-37) Red Cell Distribution Width 12.4 % (11.5-14.5) Platelet Count 212 x10^3/uL (140-400) Neutrophils (%) (Auto) 69 % (31-73) Lymphocytes (%) (Auto) 15 % (24-48) Monocytes (%) (Auto) 13 % (0-9) Eosinophils (%) (Auto) 2 % (0-3) Basophils (%) (Auto) 1 % (0-3) Neutrophils # (Auto) 4.1 x10^3uL (1.8-7.7) Lymphocytes # (Auto) 0.9 x10^3/uL (1.0-4.8) Monocytes # (Auto) 0.7 x10^3/uL (0.0-1.1) Eosinophils # (Auto) 0.1 x10^3/uL (0.0-0.7) Basophils # (Auto) 0.0 x10^3/uL (0.0-0.2) O2 Saturation 99 % (92-99) Arterial Blood pH 7.41 (7.35-7.45) Arterial Blood pCO2 at Patient Temp 32 mmHg (35-46) Arterial Blood pO2 at Patient Temp 162 mmHg (85-108) Arterial Blood HCO3 20 mmol/L (21-28) Arterial Blood Base Excess -4 mmol/L (-3-3) FiO2 35 Laboratory Tests Test 04/04/17 11:55 04/05/17 04:35 04/05/17 08:20 04/05/17 09:30 Lactic Acid Level 1.3 mmol/L (0.4-2.0) Procalcitonin < 0.10 ng/mL (0.00-0.10) Sodium Level 140 mmol/L (136-145) Potassium Level 3.9 mmol/L (3.5-5.1) Chloride Level 110 mmol/L (98-107) Carbon Dioxide Level 21 mmol/L (21-32) Anion Gap 9 (6-14) Blood Urea Nitrogen 15 mg/dL (7-20) Creatinine 0.9 mg/dL (0.6-1.0) Estimated GFR (Cockcroft-Gault) 80.7 Glucose Level 81 mg/dL (70-99) Calcium Level 8.3 mg/dL (8.5-10.1) White Blood Count 5.9 x10^3/uL (4.0-11.0) Red Blood Count 3.49 x10^6/uL (3.50-5.40) Hemoglobin 10.8 g/dL (12.0-15.5) Hematocrit 31.7 % (36.0-47.0) Mean Corpuscular Volume 91 fL (79-100) Mean Corpuscular Hemoglobin 31 pg (25-35) Mean Corpuscular Hemoglobin Concent 34 g/dL (31-37) Red Cell Distribution Width 12.4 % (11.5-14.5) Platelet Count 212 x10^3/uL (140-400) Neutrophils (%) (Auto) 69 % (31-73) Lymphocytes (%) (Auto) 15 % (24-48) Monocytes (%) (Auto) 13 % (0-9) Eosinophils (%) (Auto) 2 % (0-3) Basophils (%) (Auto) 1 % (0-3) Neutrophils # (Auto) 4.1 x10^3uL (1.8-7.7) Lymphocytes # (Auto) 0.9 x10^3/uL (1.0-4.8) Monocytes # (Auto) 0.7 x10^3/uL (0.0-1.1) Eosinophils # (Auto) 0.1 x10^3/uL (0.0-0.7) Basophils # (Auto) 0.0 x10^3/uL (0.0-0.2) O2 Saturation 99 % (92-99) Arterial Blood pH 7.41 (7.35-7.45) Arterial Blood pCO2 at Patient Temp 32 mmHg (35-46) Arterial Blood pO2 at Patient Temp 162 mmHg (85-108) Arterial Blood HCO3 20 mmol/L (21-28) Arterial Blood Base Excess -4 mmol/L (-3-3) FiO2 35 Medications Current Medications Sodium Chloride 1,000 ml @ 75 mls/hr [id number] IV Last administered on 20:58; Start 04/04/17 at 12:30; Stop 04/05/17 at 10:52; Status DC Propofol 100 ml @ 0 mls/hr CONT PRN IV SEE I/O RECORD Last administered on 08:53; Start 04/04/17 at 12:00 Ceftriaxone Sodium 1 gm/ Dextrose 50 ml @ 100 mls/hr Q24H IV ; Start 04/05/17 at 09:00; Status UNV Ceftriaxone Sodium (Rocephin) 1 gm Q24H IVP ; Start 04/04/17 at 16:00; Status Cancel Levetiracetam 500 mg/Dextrose 105 ml @ 420 mls/hr Q12HR IV ; Start 04/04/17 at 16:00; Stop 04/04/17 at 16:00; Status DC Aspirin (Aspirin) 300 mg 1X ONCE [place] Last administered on 04/04/17 15:51; Start 04/04/17 at 16:00; Stop 04/04/17 at 16:01; Status DC Levetiracetam 500 mg/Sodium Chloride 105 ml @ 420 mls/hr Q12HR IV ; Start at 16:00; Status Cancel Levetiracetam 500 mg/Sodium Chloride 105 ml @ 420 mls/hr Q12HR IV Last administered on 04/05/17t 08:53; Start 04/04/17 at 21:00 Ceftriaxone Sodium (Rocephin) 1 gm Q24H IVP ; Start 04/05/17 at 09:00 Sodium Chloride 1,000 ml @ 150 mls/hr Q6H40M IV ; Start 04/05/17 at 11:00 Active Scripts Active Reported Nitrofurantoin (Nitrofurantoin Macrocrystal) 100 Mg Capsule 100 Mg PO BID Buspirone Hcl 10 Mg Tablet 10 Mg PO BID Divalproex Sodium 250 Mg Tablet.dr 500 Mg PO BID Vitals/I & O Vital Sign - Last 24 Hours 04/04/17 04/04/17 04/04/17 04/04/17 12:00 12:00 13:00 13:35 Pulse 96 64 Resp 18 18 B/P (MAP) 122/70 (87) 119/64 (82) Pulse Ox 100 100 100 O2 Delivery Mechanical Ventilator Ventilator Ventilator Ventilator 04/04/17 04/04/17 04/04/17 04/04/17 14:00 14:14 15:00 15:37 Temp 99.1 99.1 Pulse 58 64 66 Resp 16 17 B/P (MAP) 118/60 (79) 119/64 (82) 106/56 (73) Pulse Ox 100 100 100 100 O2 Delivery Ventilator Ventilator Ventilator 04/04/17 04/04/17 04/04/17 04/04/17 16:00 16:00 18:30 20:00 Temp 98.2 98.2 Pulse 60 60 Resp 16 17 B/P (MAP) 128/61 (83) 128/77 (94) Pulse Ox 100 100 O2 Delivery Ventilator Mechanical Ventilator Ventilator Mechanical Ventilator 04/04/17 04/04/17 04/04/17 04/04/17 20:00 20:05 21:00 21:51 Temp 97.8 97.8 Pulse 56 54 Resp 16 16 B/P (MAP) 100/50 (67) 133/65 (87) Pulse Ox 100 100 100 100 O2 Delivery Ventilator Ventilator Ventilator Ventilator 04/04/17 04/04/17 04/04/17 04/04/17 22:00 23:00 23:34 23:58 Pulse 57 53 Resp 16 16 B/P (MAP) 117/57 (77) 106/60 (75) Pulse Ox 100 100 100 O2 Delivery Ventilator Ventilator Mechanical Ventilator Ventilator 04/05/17 04/05/17 04/05/17 04/05/17 00:00 01:00 02:00 02:06 Temp 98.0 98.0 Pulse 49 48 46 Resp 16 16 16 B/P (MAP) 92/46 (61) 94/43 (60) 95/46 (62) Pulse Ox 100 100 100 100 O2 Delivery Ventilator Ventilator Ventilator Ventilator 04/05/17 04/05/17 04/05/17 04/05/17 03:00 03:52 04:00 04:12 Temp 98.0 98.0 Pulse 48 63 Resp 16 19 B/P (MAP) 94/46 (62) 129/69 (89) Pulse Ox 100 100 100 O2 Delivery Ventilator Mechanical Ventilator Ventilator Ventilator 04/05/17 04/05/17 04/05/17 04/05/17 05:00 05:57 06:00 07:00 Pulse 67 64 Resp 16 18 16 B/P (MAP) 134/78 (96) 133/66 (88) 95/48 (64) Pulse Ox 100 100 100 100 O2 Delivery Ventilator Ventilator Ventilator Ventilator 04/05/17 04/05/17 04/05/17 04/05/17 08:00 08:00 09:00 09:12 Temp 97.3 97.3 Pulse 78 84 Resp 16 21 B/P (MAP) 100/60 (73) 117/62 (80) Pulse Ox 100 100 100 O2 Delivery Mechanical Ventilator Ventilator Ventilator Ventilator Intake and Output 04/04/17 04/04/17 04/05/17 15:00 23:00 07:00 Intake Total 105 ml 981 ml Output Total 345 ml 580 ml 310 ml Balance -345 ml -475 ml 671 ml DELONTE BASS III DO Apr 05, 2017 11:56
[2017-04-05] MEDS: IV NORMAL SALINE 1000ML BAG 1,000 ML IV SCH ×2 (12:13→20:29)
--- NOTE | 2017-04-05 16:45 | PDOC ---
PULMONARY PROGRESS NOTES Subjective PT SEDATED NO SEIZURES Vitals Vital Signs Date Time Temp Pulse Resp B/P (MAP) Pulse Ox O2 Delivery O2 Flow Rate FiO2 04/05/17 16:00 Mechanical Ventilator 04/05/17 16:00 98.4 58 16 109/49 (69) 100 98.4 Lungs: Clear, Other (No wheezes or crackles) Cardiovascular: S1, S2 Abdomen: Soft Extremities: No Edema Labs Laboratory Tests Test 04/04/17 11:09 04/04/17 11:44 04/04/17 11:55 04/05/17 04:35 Nasal Screen MRSA (PCR) Negative (Negative) O2 Saturation 99 % (92-99) Arterial Blood pH 7.43 (7.35-7.45) Arterial Blood pCO2 at Patient Temp 34 mmHg (35-46) Arterial Blood pO2 at Patient Temp 198 mmHg (85-108) Arterial Blood HCO3 22 mmol/L (21-28) Arterial Blood Base Excess -2 mmol/L (-3-3) FiO2 40 Lactic Acid Level 1.3 mmol/L (0.4-2.0) Procalcitonin < 0.10 ng/mL (0.00-0.10) Sodium Level 140 mmol/L (136-145) Potassium Level 3.9 mmol/L (3.5-5.1) Chloride Level 110 mmol/L (98-107) Carbon Dioxide Level 21 mmol/L (21-32) Anion Gap 9 (6-14) Blood Urea Nitrogen 15 mg/dL (7-20) Creatinine 0.9 mg/dL (0.6-1.0) Estimated GFR (Cockcroft-Gault) 80.7 Glucose Level 81 mg/dL (70-99) Calcium Level 8.3 mg/dL (8.5-10.1) Test 04/05/17 08:20 04/05/17 09:30 White Blood Count 5.9 x10^3/uL (4.0-11.0) Red Blood Count 3.49 x10^6/uL (3.50-5.40) Hemoglobin 10.8 g/dL (12.0-15.5) Hematocrit 31.7 % (36.0-47.0) Mean Corpuscular Volume 91 fL (79-100) Mean Corpuscular Hemoglobin 31 pg (25-35) Mean Corpuscular Hemoglobin Concent 34 g/dL (31-37) Red Cell Distribution Width 12.4 % (11.5-14.5) Platelet Count 212 x10^3/uL (140-400) Neutrophils (%) (Auto) 69 % (31-73) Lymphocytes (%) (Auto) 15 % (24-48) Monocytes (%) (Auto) 13 % (0-9) Eosinophils (%) (Auto) 2 % (0-3) Basophils (%) (Auto) 1 % (0-3) Neutrophils # (Auto) 4.1 x10^3uL (1.8-7.7) Lymphocytes # (Auto) 0.9 x10^3/uL (1.0-4.8) Monocytes # (Auto) 0.7 x10^3/uL (0.0-1.1) Eosinophils # (Auto) 0.1 x10^3/uL (0.0-0.7) Basophils # (Auto) 0.0 x10^3/uL (0.0-0.2) O2 Saturation 99 % (92-99) Arterial Blood pH 7.41 (7.35-7.45) Arterial Blood pCO2 at Patient Temp 32 mmHg (35-46) Arterial Blood pO2 at Patient Temp 162 mmHg (85-108) Arterial Blood HCO3 20 mmol/L (21-28) Arterial Blood Base Excess -4 mmol/L (-3-3) FiO2 35 Laboratory Tests Test 04/05/17 04:35 04/05/17 08:20 04/05/17 09:30 Sodium Level 140 mmol/L (136-145) Potassium Level 3.9 mmol/L (3.5-5.1) Chloride Level 110 mmol/L (98-107) Carbon Dioxide Level 21 mmol/L (21-32) Anion Gap 9 (6-14) Blood Urea Nitrogen 15 mg/dL (7-20) Creatinine 0.9 mg/dL (0.6-1.0) Estimated GFR (Cockcroft-Gault) 80.7 Glucose Level 81 mg/dL (70-99) Calcium Level 8.3 mg/dL (8.5-10.1) White Blood Count 5.9 x10^3/uL (4.0-11.0) Red Blood Count 3.49 x10^6/uL (3.50-5.40) Hemoglobin 10.8 g/dL (12.0-15.5) Hematocrit 31.7 % (36.0-47.0) Mean Corpuscular Volume 91 fL (79-100) Mean Corpuscular Hemoglobin 31 pg (25-35) Mean Corpuscular Hemoglobin Concent 34 g/dL (31-37) Red Cell Distribution Width 12.4 % (11.5-14.5) Platelet Count 212 x10^3/uL (140-400) Neutrophils (%) (Auto) 69 % (31-73) Lymphocytes (%) (Auto) 15 % (24-48) Monocytes (%) (Auto) 13 % (0-9) Eosinophils (%) (Auto) 2 % (0-3) Basophils (%) (Auto) 1 % (0-3) Neutrophils # (Auto) 4.1 x10^3uL (1.8-7.7) Lymphocytes # (Auto) 0.9 x10^3/uL (1.0-4.8) Monocytes # (Auto) 0.7 x10^3/uL (0.0-1.1) Eosinophils # (Auto) 0.1 x10^3/uL (0.0-0.7) Basophils # (Auto) 0.0 x10^3/uL (0.0-0.2) O2 Saturation 99 % (92-99) Arterial Blood pH 7.41 (7.35-7.45) Arterial Blood pCO2 at Patient Temp 32 mmHg (35-46) Arterial Blood pO2 at Patient Temp 162 mmHg (85-108) Arterial Blood HCO3 20 mmol/L (21-28) Arterial Blood Base Excess -4 mmol/L (-3-3) FiO2 35 Medications Active Scripts Medications Dose Route/Sig Max Daily Dose Days Date Category Nitrofurantoin (Nitrofurantoin Macrocrystal) 100 Mg Capsule 100 Mg PO BID 02/17/17 Reported Buspirone Hcl 10 Mg Tablet 10 Mg PO BID 02/17/17 Reported Divalproex Sodium 250 Mg Tablet.dr 500 Mg PO BID 02/05/17 Reported Impression . IMPRESSION: 1. Acute respiratory failure secondary to seizures. 2. Seizure disorder. 3. Bipolar disorder. Plan . SPOKE WITH NEUROLOGY MRA NEGATIVE WILL D/C SEDATION AND EXTUBATE BRUNILDA Morales MD Apr 05, 2017 16:45
--- NOTE | 2017-04-05 21:21 | PDOC ---
PROGRESS NOTES Plan This patient is 21-year-old woman with a past medical history of seizures, borderline personality disorder, bipolar, hypothyroidism, urinary tract infections. Patient presented to [facility] with unknown time of onset. According to the information from patient's initial exam and ER physician patient was having seizures this morning around 6 AM. Patient was intubated was having seizure activity in the emergency room. Patient was loaded with 1 g of Kepprawith continuing off Keppra 500 mg IV every 12. Patient had a CT scan done on the brain which did not show any evidence of intracranial hemorrhage there was a ? of hypodensity on the cerebellum with question of's ischemic process. [facility] stroke team was contacted from emergency room at [facility]. After reviewing the CT scan images with stroke team patient wasn' t not eligible for transfer to [facility] at that time. Patient was admitted to [facility] in ICU for further close monitoring. History of seizures. Patient was loaded with a loading dose of Keppra. We will continue Keppra 500 mg IV every 12. Check MRI/MRA brain.to evaluate for acute vascular process. NO acute findings Check for any infectious or metabolic etiology. Check Carotid doppler. Check 2-D echo. PTOT speech evaluation when possible. Seizure precautions. Psychiatric recommendations. Continue medical management no new seizure activity noted Subjective no new seizure activity noted Objective Vital Signs Date Time Temp Pulse Resp B/P (MAP) Pulse Ox O2 Delivery O2 Flow Rate FiO2 04/05/17 18:00 100 18 136/69 (91) 99 Room Air 04/05/17 16:00 98.4 98.4 Intake and Output 04/05/17 07:00 Intake Total 1086 ml Output Total 1235 ml Balance -149 ml Intake Oral 0 ml IV Total 1086 ml Output Urine Total 1110 ml Oral Regurgitation 125 ml PHYSICAL EXAM PHYSICAL EXAMINATION: General appearance isedated intubated HEENT: Normocephalic and nontraumatic. Eyes, nose, ears, and throat are unremarkable. Neck is supple. No lymphadenopathy. No crepitus. Cardiovascular: S1, S2, regular rate and rhythm. Pulmonary: Clear to auscultation bilaterally. Abdomen: Bowel sounds are positive. Abdomen is soft, nontender, and nondistended. NEUROLOGICAL EXAMINATION: intubated sedated pupils reactive EOMI.not able CN: no focal findings. Muscle tone: within normal. Muscle strength: minimal withdraw to pain stimuli DTR: 1-+ Plantar reflex: mute Gait: in bed. Sensory exam:minimal withdraw to pain stimuli not able cerebellar signs Review of Relevant I have reviewed the following items shaina (where applicable) has been applied. Labs Laboratory Tests Test 04/04/17 11:09 04/04/17 11:44 04/04/17 11:55 04/05/17 04:35 Nasal Screen MRSA (PCR) Negative (Negative) O2 Saturation 99 % (92-99) Arterial Blood pH 7.43 (7.35-7.45) Arterial Blood pCO2 at Patient Temp 34 mmHg (35-46) Arterial Blood pO2 at Patient Temp 198 mmHg (85-108) Arterial Blood HCO3 22 mmol/L (21-28) Arterial Blood Base Excess -2 mmol/L (-3-3) FiO2 40 Lactic Acid Level 1.3 mmol/L (0.4-2.0) Procalcitonin < 0.10 ng/mL (0.00-0.10) Sodium Level 140 mmol/L (136-145) Potassium Level 3.9 mmol/L (3.5-5.1) Chloride Level 110 mmol/L (98-107) Carbon Dioxide Level 21 mmol/L (21-32) Anion Gap 9 (6-14) Blood Urea Nitrogen 15 mg/dL (7-20) Creatinine 0.9 mg/dL (0.6-1.0) Estimated GFR (Cockcroft-Gault) 80.7 Glucose Level 81 mg/dL (70-99) Calcium Level 8.3 mg/dL (8.5-10.1) Test 04/05/17 08:20 04/05/17 09:30 White Blood Count 5.9 x10^3/uL (4.0-11.0) Red Blood Count 3.49 x10^6/uL (3.50-5.40) Hemoglobin 10.8 g/dL (12.0-15.5) Hematocrit 31.7 % (36.0-47.0) Mean Corpuscular Volume 91 fL (79-100) Mean Corpuscular Hemoglobin 31 pg (25-35) Mean Corpuscular Hemoglobin Concent 34 g/dL (31-37) Red Cell Distribution Width 12.4 % (11.5-14.5) Platelet Count 212 x10^3/uL (140-400) Neutrophils (%) (Auto) 69 % (31-73) Lymphocytes (%) (Auto) 15 % (24-48) Monocytes (%) (Auto) 13 % (0-9) Eosinophils (%) (Auto) 2 % (0-3) Basophils (%) (Auto) 1 % (0-3) Neutrophils # (Auto) 4.1 x10^3uL (1.8-7.7) Lymphocytes # (Auto) 0.9 x10^3/uL (1.0-4.8) Monocytes # (Auto) 0.7 x10^3/uL (0.0-1.1) Eosinophils # (Auto) 0.1 x10^3/uL (0.0-0.7) Basophils # (Auto) 0.0 x10^3/uL (0.0-0.2) O2 Saturation 99 % (92-99) Arterial Blood pH 7.41 (7.35-7.45) Arterial Blood pCO2 at Patient Temp 32 mmHg (35-46) Arterial Blood pO2 at Patient Temp 162 mmHg (85-108) Arterial Blood HCO3 20 mmol/L (21-28) Arterial Blood Base Excess -4 mmol/L (-3-3) FiO2 35 Laboratory Tests Test 04/05/17 04:35 04/05/17 08:20 04/05/17 09:30 Sodium Level 140 mmol/L (136-145) Potassium Level 3.9 mmol/L (3.5-5.1) Chloride Level 110 mmol/L (98-107) Carbon Dioxide Level 21 mmol/L (21-32) Anion Gap 9 (6-14) Blood Urea Nitrogen 15 mg/dL (7-20) Creatinine 0.9 mg/dL (0.6-1.0) Estimated GFR (Cockcroft-Gault) 80.7 Glucose Level 81 mg/dL (70-99) Calcium Level 8.3 mg/dL (8.5-10.1) White Blood Count 5.9 x10^3/uL (4.0-11.0) Red Blood Count 3.49 x10^6/uL (3.50-5.40) Hemoglobin 10.8 g/dL (12.0-15.5) Hematocrit 31.7 % (36.0-47.0) Mean Corpuscular Volume 91 fL (79-100) Mean Corpuscular Hemoglobin 31 pg (25-35) Mean Corpuscular Hemoglobin Concent 34 g/dL (31-37) Red Cell Distribution Width 12.4 % (11.5-14.5) Platelet Count 212 x10^3/uL (140-400) Neutrophils (%) (Auto) 69 % (31-73) Lymphocytes (%) (Auto) 15 % (24-48) Monocytes (%) (Auto) 13 % (0-9) Eosinophils (%) (Auto) 2 % (0-3) Basophils (%) (Auto) 1 % (0-3) Neutrophils # (Auto) 4.1 x10^3uL (1.8-7.7) Lymphocytes # (Auto) 0.9 x10^3/uL (1.0-4.8) Monocytes # (Auto) 0.7 x10^3/uL (0.0-1.1) Eosinophils # (Auto) 0.1 x10^3/uL (0.0-0.7) Basophils # (Auto) 0.0 x10^3/uL (0.0-0.2) O2 Saturation 99 % (92-99) Arterial Blood pH 7.41 (7.35-7.45) Arterial Blood pCO2 at Patient Temp 32 mmHg (35-46) Arterial Blood pO2 at Patient Temp 162 mmHg (85-108) Arterial Blood HCO3 20 mmol/L (21-28) Arterial Blood Base Excess -4 mmol/L (-3-3) FiO2 35 Microbiology 04/04/17 Blood Culture - Preliminary, Resulted NO GROWTH AFTER 1 DAY Medications Current Medications Sodium Chloride 1,000 ml @ 75 mls/hr [id number] IV Last administered on 20:58; Start 04/04/17 at 12:30; Stop 04/05/17 at 10:52; Status DC Propofol 100 ml @ 0 mls/hr CONT PRN IV SEE I/O RECORD Last administered on 08:53; Start 04/04/17 at 12:00; Stop 04/05/17 at 16:43; Status DC Ceftriaxone Sodium 1 gm/ Dextrose 50 ml @ 100 mls/hr Q24H IV ; Start 04/05/17 at 09:00; Status UNV Ceftriaxone Sodium (Rocephin) 1 gm Q24H IVP ; Start 04/04/17 at 16:00; Status Cancel Levetiracetam 500 mg/Dextrose 105 ml @ 420 mls/hr Q12HR IV ; Start 04/04/17 at 16:00; Stop 04/04/17 at 16:00; Status DC Aspirin (Aspirin) 300 mg 1X ONCE [place] Last administered on 04/04/17 15:51; Start 04/04/17 at 16:00; Stop 04/04/17 at 16:01; Status DC Levetiracetam 500 mg/Sodium Chloride 105 ml @ 420 mls/hr Q12HR IV ; Start at 16:00; Status Cancel Levetiracetam 500 mg/Sodium Chloride 105 ml @ 420 mls/hr Q12HR IV Last administered on 04/05/17 20:10; Start 04/04/17 at 21:00 Ceftriaxone Sodium (Rocephin) 1 gm Q24H IVP Last administered on 04/05/17 09: 00; Start 04/05/17 at 09:00 Sodium Chloride 1,000 ml @ 150 mls/hr Q6H40M IV Last administered on 20:29; Start 04/05/17 at 11:00 Lorazepam (Ativan) 1 mg PRN Q6HRS PRN IV ANXIETY / AGITATION; Start 04/05/17 at 16:45 Active Scripts Active Reported Nitrofurantoin (Nitrofurantoin Macrocrystal) 100 Mg Capsule 100 Mg PO BID Buspirone Hcl 10 Mg Tablet 10 Mg PO BID Divalproex Sodium 250 Mg Tablet.dr 500 Mg PO BID Vitals/I & O Vital Sign - Last 24 Hours 04/04/17 04/04/17 04/04/17 04/04/17 21:51 22:00 23:00 23:34 Pulse 57 53 Resp 16 16 B/P (MAP) 117/57 (77) 106/60 (75) Pulse Ox 100 100 100 O2 Delivery Ventilator Ventilator Ventilator Mechanical Ventilator 04/04/17 04/05/17 04/05/17 04/05/17 23:58 00:00 01:00 02:00 Temp 98.0 98.0 Pulse 49 48 46 Resp 16 16 16 B/P (MAP) 92/46 (61) 94/43 (60) 95/46 (62) Pulse Ox 100 100 100 100 O2 Delivery Ventilator Ventilator Ventilator Ventilator 04/05/17 04/05/17 04/05/17 04/05/17 02:06 03:00 03:52 04:00 Temp 98.0 98.0 Pulse 48 63 Resp 16 19 B/P (MAP) 94/46 (62) 129/69 (89) Pulse Ox 100 100 100 O2 Delivery Ventilator Ventilator Mechanical Ventilator Ventilator 04/05/17 04/05/17 04/05/17 04/05/17 04:12 05:00 05:57 06:00 Pulse 67 64 Resp 16 18 B/P (MAP) 134/78 (96) 133/66 (88) Pulse Ox 100 100 100 100 O2 Delivery Ventilator Ventilator Ventilator Ventilator 04/05/17 04/05/17 04/05/17 04/05/17 07:00 08:00 08:00 09:00 Temp 97.3 97.3 Pulse 52 48 46 Resp 16 15 16 B/P (MAP) 100/45 (63) 97/48 (64) 98/45 (62) Pulse Ox 100 100 100 O2 Delivery Ventilator Mechanical Ventilator Ventilator Ventilator 04/05/17 04/05/17 04/05/17 04/05/17 09:12 10:00 11:00 11:45 Pulse 44 44 Resp 16 16 B/P (MAP) 94/44 (61) 91/43 (59) Pulse Ox 100 100 100 100 O2 Delivery Ventilator Ventilator Ventilator Ventilator 04/05/17 04/05/17 04/05/17 04/05/17 12:00 12:00 13:00 13:12 Temp 98.1 98.1 Pulse 46 52 Resp 20 16 B/P (MAP) 95/56 (69) 102/88 (93) Pulse Ox 100 100 100 O2 Delivery Mechanical Ventilator Ventilator Ventilator Ventilator 04/05/17 04/05/17 04/05/17 04/05/17 14:00 15:00 15:46 16:00 Temp 98.4 98.4 Pulse 58 Resp 14 16 16 B/P (MAP) 101/52 (68) 108/59 (75) 109/49 (69) Pulse Ox 100 100 100 100 O2 Delivery Ventilator Ventilator Ventilator Ventilator 04/05/17 04/05/17 04/05/17 04/05/17 16:00 16:30 17:10 17:30 Pulse 72 100 100 Resp 16 24 22 B/P (MAP) 114/52 (72) 119/65 (83) 129/70 (89) Pulse Ox 100 100 100 O2 Delivery Mechanical Ventilator Ventilator Ventilator Ventilator 04/05/17 04/05/17 17:40 18:00 Pulse 100 100 Resp 20 18 B/P (MAP) 136/69 (91) Pulse Ox 99 99 O2 Delivery Room Air Room Air Intake and Output 04/04/17 04/04/17 04/05/17 15:00 23:00 07:00 Intake Total 105 ml 981 ml Output Total 345 ml 580 ml 310 ml Balance -345 ml -475 ml 671 ml JOE BOWMAN MD Apr 05, 2017 21:21
[2017-04-06] VITALS (18 sets, daily range): BP systolic 100–151; BP diastolic 43–94
[2017-04-06] MEDS: IPRATRPIUM/ALBUTEROL 0.5/2.5MG 3 ML NEBU. NEB SCH ×6 (01:01→21:12)
[2017-04-06] MEDS: IV NORMAL SALINE 1000ML BAG 1,000 ML IV SCH ×4 (01:15→19:58)
[2017-04-06 06:02] LABS: BASO % 1 % (0-3); EOS % 4 % (0-3); HEMATOCRIT 30.9 % (36.0-47.0); HEMOGLOBIN 10.6 g/dL (12.0-15.5); LYMPH # 1.4 x10^3/uL (1.0-4.8); LYMPH % 25 % (24-48); MEAN CORPUSCULAR HEMOGLOBIN 31 pg (25-35); MEAN CORPUSCULAR HGB CONC 34 g/dL (31-37); MEAN CORPUSCULAR VOLUME 89 fL (79-100); MONO % 13 % (0-9); NEUT % 58 % (31-73); PLATELET COUNT 240 x10^3/uL (140-400); RED BLOOD COUNT 3.46 x10^6/uL (3.50-5.40); RED CELL DISTRIBUTION WIDTH 12.2 % (11.5-14.5); WHITE BLOOD COUNT 5.8 x10^3/uL (4.0-11.0)
[2017-04-06 06:29] LABS: CREATININE 0.6 mg/dL (0.6-1.0); GFR 128.8; POTASSIUM 3.3 mmol/L (3.5-5.1)
[2017-04-06] MEDS: cefTRIAXone IV Push 1 GM VIAL. IVP SCH (08:21)
--- NOTE | 2017-04-06 11:31 | PDOC ---
PROGRESS NOTES Chief Complaint Chief Complaint Seizure disorder Hypothyroidism Bipolar Borderline personality History of Present Illness History of Present Illness Pt seen and examined today in the ICU Extubated, dry cough Eating well Care d/w RN Vitals Vitals Vital Signs Date Time Temp Pulse Resp B/P (MAP) Pulse Ox O2 Delivery O2 Flow Rate FiO2 04/06/17 11:00 78 103/57 (72) 98 Room Air 04/06/17 10:00 17 04/06/17 04:00 98.6 98.6 Physical Exam General: Oriented X3, Cooperative, No acute distress Heart: Normal S1, Normal S2 Lungs: Clear, Other (occasional wheeze) Abdomen: Normal bowel sounds, Soft Extremities: No clubbing, No cyanosis Skin: No breakdown, No significant lesion Labs LABS Laboratory Tests Test 04/06/17 05:30 White Blood Count 5.8 x10^3/uL (4.0-11.0) Red Blood Count 3.46 x10^6/uL (3.50-5.40) Hemoglobin 10.6 g/dL (12.0-15.5) Hematocrit 30.9 % (36.0-47.0) Mean Corpuscular Volume 89 fL (79-100) Mean Corpuscular Hemoglobin 31 pg (25-35) Mean Corpuscular Hemoglobin Concent 34 g/dL (31-37) Red Cell Distribution Width 12.2 % (11.5-14.5) Platelet Count 240 x10^3/uL (140-400) Neutrophils (%) (Auto) 58 % (31-73) Lymphocytes (%) (Auto) 25 % (24-48) Monocytes (%) (Auto) 13 % (0-9) Eosinophils (%) (Auto) 4 % (0-3) Basophils (%) (Auto) 1 % (0-3) Neutrophils # (Auto) 3.3 x10^3uL (1.8-7.7) Lymphocytes # (Auto) 1.4 x10^3/uL (1.0-4.8) Monocytes # (Auto) 0.7 x10^3/uL (0.0-1.1) Eosinophils # (Auto) 0.2 x10^3/uL (0.0-0.7) Basophils # (Auto) 0.0 x10^3/uL (0.0-0.2) Sodium Level 144 mmol/L (136-145) Potassium Level 3.3 mmol/L (3.5-5.1) Chloride Level 109 mmol/L (98-107) Carbon Dioxide Level 25 mmol/L (21-32) Anion Gap 10 (6-14) Blood Urea Nitrogen 7 mg/dL (7-20) Creatinine 0.6 mg/dL (0.6-1.0) Estimated GFR (Cockcroft-Gault) 128.8 Glucose Level 88 mg/dL (70-99) Calcium Level 8.0 mg/dL (8.5-10.1) Review of Systems Review of Systems General: denies F/C, N/V. Admits to fatigue Assessment and Plan Assessmemt and Plan Assessment: Seizure disorder Hypothyroidism Bipolar Borderline personality Plan: Potassium ordered Continue ICU monitoring Continue home meds PT/OT consulted Recheck labs in am Problems: Comment Review of Relevant I have reviewed the following items shaina (where applicable) has been applied. Labs Laboratory Tests Test 04/04/17 11:44 04/04/17 11:55 04/05/17 04:35 04/05/17 08:20 O2 Saturation 99 % (92-99) Arterial Blood pH 7.43 (7.35-7.45) Arterial Blood pCO2 at Patient Temp 34 mmHg (35-46) Arterial Blood pO2 at Patient Temp 198 mmHg (85-108) Arterial Blood HCO3 22 mmol/L (21-28) Arterial Blood Base Excess -2 mmol/L (-3-3) FiO2 40 Lactic Acid Level 1.3 mmol/L (0.4-2.0) Procalcitonin < 0.10 ng/mL (0.00-0.10) Sodium Level 140 mmol/L (136-145) Potassium Level 3.9 mmol/L (3.5-5.1) Chloride Level 110 mmol/L (98-107) Carbon Dioxide Level 21 mmol/L (21-32) Anion Gap 9 (6-14) Blood Urea Nitrogen 15 mg/dL (7-20) Creatinine 0.9 mg/dL (0.6-1.0) Estimated GFR (Cockcroft-Gault) 80.7 Glucose Level 81 mg/dL (70-99) Calcium Level 8.3 mg/dL (8.5-10.1) White Blood Count 5.9 x10^3/uL (4.0-11.0) Red Blood Count 3.49 x10^6/uL (3.50-5.40) Hemoglobin 10.8 g/dL (12.0-15.5) Hematocrit 31.7 % (36.0-47.0) Mean Corpuscular Volume 91 fL (79-100) Mean Corpuscular Hemoglobin 31 pg (25-35) Mean Corpuscular Hemoglobin Concent 34 g/dL (31-37) Red Cell Distribution Width 12.4 % (11.5-14.5) Platelet Count 212 x10^3/uL (140-400) Neutrophils (%) (Auto) 69 % (31-73) Lymphocytes (%) (Auto) 15 % (24-48) Monocytes (%) (Auto) 13 % (0-9) Eosinophils (%) (Auto) 2 % (0-3) Basophils (%) (Auto) 1 % (0-3) Neutrophils # (Auto) 4.1 x10^3uL (1.8-7.7) Lymphocytes # (Auto) 0.9 x10^3/uL (1.0-4.8) Monocytes # (Auto) 0.7 x10^3/uL (0.0-1.1) Eosinophils # (Auto) 0.1 x10^3/uL (0.0-0.7) Basophils # (Auto) 0.0 x10^3/uL (0.0-0.2) Test 04/05/17 09:30 04/06/17 05:30 O2 Saturation 99 % (92-99) Arterial Blood pH 7.41 (7.35-7.45) Arterial Blood pCO2 at Patient Temp 32 mmHg (35-46) Arterial Blood pO2 at Patient Temp 162 mmHg (85-108) Arterial Blood HCO3 20 mmol/L (21-28) Arterial Blood Base Excess -4 mmol/L (-3-3) FiO2 35 White Blood Count 5.8 x10^3/uL (4.0-11.0) Red Blood Count 3.46 x10^6/uL (3.50-5.40) Hemoglobin 10.6 g/dL (12.0-15.5) Hematocrit 30.9 % (36.0-47.0) Mean Corpuscular Volume 89 fL (79-100) Mean Corpuscular Hemoglobin 31 pg (25-35) Mean Corpuscular Hemoglobin Concent 34 g/dL (31-37) Red Cell Distribution Width 12.2 % (11.5-14.5) Platelet Count 240 x10^3/uL (140-400) Neutrophils (%) (Auto) 58 % (31-73) Lymphocytes (%) (Auto) 25 % (24-48) Monocytes (%) (Auto) 13 % (0-9) Eosinophils (%) (Auto) 4 % (0-3) Basophils (%) (Auto) 1 % (0-3) Neutrophils # (Auto) 3.3 x10^3uL (1.8-7.7) Lymphocytes # (Auto) 1.4 x10^3/uL (1.0-4.8) Monocytes # (Auto) 0.7 x10^3/uL (0.0-1.1) Eosinophils # (Auto) 0.2 x10^3/uL (0.0-0.7) Basophils # (Auto) 0.0 x10^3/uL (0.0-0.2) Sodium Level 144 mmol/L (136-145) Potassium Level 3.3 mmol/L (3.5-5.1) Chloride Level 109 mmol/L (98-107) Carbon Dioxide Level 25 mmol/L (21-32) Anion Gap 10 (6-14) Blood Urea Nitrogen 7 mg/dL (7-20) Creatinine 0.6 mg/dL (0.6-1.0) Estimated GFR (Cockcroft-Gault) 128.8 Glucose Level 88 mg/dL (70-99) Calcium Level 8.0 mg/dL (8.5-10.1) Laboratory Tests Test 04/06/17 05:30 White Blood Count 5.8 x10^3/uL (4.0-11.0) Red Blood Count 3.46 x10^6/uL (3.50-5.40) Hemoglobin 10.6 g/dL (12.0-15.5) Hematocrit 30.9 % (36.0-47.0) Mean Corpuscular Volume 89 fL (79-100) Mean Corpuscular Hemoglobin 31 pg (25-35) Mean Corpuscular Hemoglobin Concent 34 g/dL (31-37) Red Cell Distribution Width 12.2 % (11.5-14.5) Platelet Count 240 x10^3/uL (140-400) Neutrophils (%) (Auto) 58 % (31-73) Lymphocytes (%) (Auto) 25 % (24-48) Monocytes (%) (Auto) 13 % (0-9) Eosinophils (%) (Auto) 4 % (0-3) Basophils (%) (Auto) 1 % (0-3) Neutrophils # (Auto) 3.3 x10^3uL (1.8-7.7) Lymphocytes # (Auto) 1.4 x10^3/uL (1.0-4.8) Monocytes # (Auto) 0.7 x10^3/uL (0.0-1.1) Eosinophils # (Auto) 0.2 x10^3/uL (0.0-0.7) Basophils # (Auto) 0.0 x10^3/uL (0.0-0.2) Sodium Level 144 mmol/L (136-145) Potassium Level 3.3 mmol/L (3.5-5.1) Chloride Level 109 mmol/L (98-107) Carbon Dioxide Level 25 mmol/L (21-32) Anion Gap 10 (6-14) Blood Urea Nitrogen 7 mg/dL (7-20) Creatinine 0.6 mg/dL (0.6-1.0) Estimated GFR (Cockcroft-Gault) 128.8 Glucose Level 88 mg/dL (70-99) Calcium Level 8.0 mg/dL (8.5-10.1) Microbiology 04/04/17 Blood Culture - Preliminary, Resulted NO GROWTH AFTER 1 DAY Medications Current Medications Sodium Chloride 1,000 ml @ 75 mls/hr [id number] IV Last administered on 20:58; Start 04/04/17 at 12:30; Stop 04/05/17 at 10:52; Status DC Propofol 100 ml @ 0 mls/hr CONT PRN IV SEE I/O RECORD Last administered on 08:53; Start 04/04/17 at 12:00; Stop 04/05/17 at 16:43; Status DC Ceftriaxone Sodium 1 gm/ Dextrose 50 ml @ 100 mls/hr Q24H IV ; Start 04/05/17 at 09:00; Status UNV Ceftriaxone Sodium (Rocephin) 1 gm Q24H IVP ; Start 04/04/17 at 16:00; Status Cancel Levetiracetam 500 mg/Dextrose 105 ml @ 420 mls/hr Q12HR IV ; Start 04/04/17 at 16:00; Stop 04/04/17 at 16:00; Status DC Aspirin (Aspirin) 300 mg 1X ONCE MD Last administered on 04/04/17 15:51; Start 04/04/17 at 16:00; Stop 04/04/17 at 16:01; Status DC Levetiracetam 500 mg/Sodium Chloride 105 ml @ 420 mls/hr Q12HR IV ; Start at 16:00; Status Cancel Levetiracetam 500 mg/Sodium Chloride 105 ml @ 420 mls/hr Q12HR IV Last administered on 04/06/17 08:21; Start 04/04/17 at 21:00 Ceftriaxone Sodium (Rocephin) 1 gm Q24H IVP Last administered on 04/06/17 08: 21; Start 04/05/17 at 09:00 Sodium Chloride 1,000 ml @ 150 mls/hr Q6H40M IV Last administered on 07:00; Start 04/05/17 at 11:00 Lorazepam (Ativan) 1 mg PRN Q6HRS PRN IV ANXIETY / AGITATION Last administered on 04/06/17 01:16; Start 04/05/17 at 16:45 Albuterol/ Ipratropium (Duoneb) 3 ml RTQID NEB Last administered on 04/06/17 09:18; Start 04/06/17 at 00:30 Active Scripts Active Reported Nitrofurantoin (Nitrofurantoin Macrocrystal) 100 Mg Capsule 100 Mg PO BID Buspirone Hcl 10 Mg Tablet 10 Mg PO BID Divalproex Sodium 250 Mg Tablet.dr 500 Mg PO BID Vitals/I & O Vital Sign - Last 24 Hours 04/05/17 04/05/17 04/05/17 04/05/17 11:45 12:00 12:00 13:00 Temp 98.1 98.1 Pulse 46 52 Resp 20 16 B/P (MAP) 95/56 (69) 102/88 (93) Pulse Ox 100 100 100 O2 Delivery Ventilator Mechanical Ventilator Ventilator Ventilator 04/05/17 04/05/17 04/05/17 04/05/17 13:12 14:00 15:00 15:46 Resp 14 16 B/P (MAP) 101/52 (68) 108/59 (75) Pulse Ox 100 100 100 100 O2 Delivery Ventilator Ventilator Ventilator Ventilator 04/05/17 04/05/17 04/05/17 04/05/17 16:00 16:00 16:30 17:10 Temp 98.4 98.4 Pulse 58 72 100 Resp 16 16 24 B/P (MAP) 109/49 (69) 114/52 (72) 119/65 (83) Pulse Ox 100 100 100 O2 Delivery Ventilator Mechanical Ventilator Ventilator Ventilator 04/05/17 04/05/17 04/05/17 04/05/17 17:30 17:40 18:00 20:00 Pulse 100 100 100 Resp 22 20 18 B/P (MAP) 129/70 (89) 136/69 (91) Pulse Ox 100 99 99 O2 Delivery Ventilator Room Air Room Air Room Air 04/05/17 04/05/17 04/05/17 04/05/17 20:00 21:00 22:00 23:00 Temp 98.0 98.0 Pulse 80 64 77 72 Resp 18 18 18 18 B/P (MAP) 130/64 (86) 122/75 (91) 133/84 (100) 117/57 (77) Pulse Ox 98 98 97 95 O2 Delivery Room Air Room Air Room Air Room Air 04/05/17 04/06/17 04/06/17 04/06/17 23:59 00:00 01:00 01:02 Pulse 81 75 Resp 18 18 B/P (MAP) 139/77 (97) 119/70 (86) Pulse Ox 98 98 100 O2 Delivery Room Air Room Air Room Air Room Air 04/06/17 04/06/17 04/06/17 04/06/17 01:30 02:00 03:00 04:00 Temp 98.6 98.6 Pulse 104 86 77 64 Resp 18 18 18 18 B/P (MAP) 108/50 (69) 103/43 (63) 107/48 (67) 110/52 (71) Pulse Ox 97 97 96 97 O2 Delivery Room Air Room Air Room Air Room Air 04/06/17 04/06/17 04/06/17 04/06/17 04:00 05:00 06:00 07:00 Pulse 64 71 67 Resp 18 18 19 B/P (MAP) 110/54 (72) 114/60 (78) 107/59 (75) Pulse Ox 97 99 98 O2 Delivery Room Air Room Air Room Air Room Air 04/06/17 04/06/17 04/06/17 04/06/17 07:58 07:58 09:00 09:19 Pulse 72 82 Resp 15 B/P (MAP) 114/62 (79) 112/69 (83) Pulse Ox 98 98 O2 Delivery Room Air Room Air Room Air Room Air 04/06/17 04/06/17 10:00 11:00 Pulse 85 78 Resp 17 B/P (MAP) 100/53 (69) 103/57 (72) Pulse Ox 98 98 O2 Delivery Room Air Room Air Intake and Output 04/05/17 04/05/17 04/06/17 15:00 23:00 07:00 Intake Total 0 ml 3418 ml 1150 ml Output Total 125 ml 1030 ml 2900 ml Balance -125 ml 2388 ml -1750 ml DELONTE BASS III DO Apr 06, 2017 11:30
[2017-04-06] MEDS ORDERED: POTASSIUM CHLORIDE 20 MEQ TABLET.ER. PO ONE (12:00)
[2017-04-06] MEDS: MORPHINE SULFATE 2 MG/ML DISP.SYRIN. IV PRN ×2 (19:58→21:34)
[2017-04-06] MEDS: ONDANSETRON PF 4 MG/2 ML VIAL. IV PRN (20:17)
--- NOTE | 2017-04-06 21:06 | PDOC ---
PROGRESS NOTES Plan This patient is 21-year-old woman with a past medical history of seizures, borderline personality disorder, bipolar, hypothyroidism, urinary tract infections. Patient presented to [facility] with unknown time of onset. According to the information from patient's initial exam and ER physician patient was having seizures this morning around 6 AM. Patient was intubated was having seizure activity in the emergency room. Patient was loaded with 1 g of Kepprawith continuing off Keppra 500 mg IV every 12. Patient had a CT scan done on the brain which did not show any evidence of intracranial hemorrhage there was a ? of hypodensity on the cerebellum with question of's ischemic process. [facility] stroke team was contacted from emergency room at [facility]. After reviewing the CT scan images with stroke team patient wasn' t not eligible for transfer to [facility] at that time. Patient was admitted to [facility] in ICU for further close monitoring. History of seizures. Patient was loaded with a loading dose of Keppra. We will continue Keppra 500 mg IV every 12. Check MRI/MRA brain.to evaluate for acute vascular process. NO acute findings Check for any infectious or metabolic etiology. Check Carotid doppler. Check 2-D echo. PTOT Seizure precautions discussed in detail. NO driving until 6 month seizure free. Psychiatric recommendations. Continue medical management NO new seizures stable exam Follow up neurology clinic. Subjective no new seizures feeling better Objective Vital Signs Date Time Temp Pulse Resp B/P (MAP) Pulse Ox O2 Delivery O2 Flow Rate FiO2 04/06/17 20:41 Room Air 04/06/17 19:00 99.4 77 18 151/94 (113) 92 99.4 Intake and Output 04/06/17 07:00 Intake Total 4568 ml Output Total 4055 ml Balance 513 ml Intake Oral 420 ml IV Total 4148 ml Output Urine Total 3805 ml Gastric Drainage Total 250 ml PHYSICAL EXAM PHYSICAL EXAMINATION: General appearanceno acute HEENT: Normocephalic and nontraumatic. Eyes, nose, ears, and throat are unremarkable. Neck is supple. No lymphadenopathy. No crepitus. Cardiovascular: S1, S2, regular rate and rhythm. Pulmonary: Clear to auscultation bilaterally. Abdomen: Bowel sounds are positive. Abdomen is soft, nontender, and nondistended. NEUROLOGICAL EXAMINATION: Alert oriented pupils reactive EOMI. CN: no focal findings. Muscle tone: within normal. Muscle strength: good strength DTR: 2+ Plantar reflex: down Gait: in bed. Sensory exam: normal findings no ab cerebellar signs Review of Relevant I have reviewed the following items shaina (where applicable) has been applied. Labs Laboratory Tests Test 04/05/17 04:35 04/05/17 08:20 04/05/17 09:30 04/06/17 05:30 Sodium Level 140 mmol/L (136-145) 144 mmol/L (136-145) Potassium Level 3.9 mmol/L (3.5-5.1) 3.3 mmol/L (3.5-5.1) Chloride Level 110 mmol/L (98-107) 109 mmol/L (98-107) Carbon Dioxide Level 21 mmol/L (21-32) 25 mmol/L (21-32) Anion Gap 9 (6-14) 10 (6-14) Blood Urea Nitrogen 15 mg/dL (7-20) 7 mg/dL (7-20) Creatinine 0.9 mg/dL (0.6-1.0) 0.6 mg/dL (0.6-1.0) Estimated GFR (Cockcroft-Gault) 80.7 128.8 Glucose Level 81 mg/dL (70-99) 88 mg/dL (70-99) Calcium Level 8.3 mg/dL (8.5-10.1) 8.0 mg/dL (8.5-10.1) White Blood Count 5.9 x10^3/uL (4.0-11.0) 5.8 x10^3/uL (4.0-11.0) Red Blood Count 3.49 x10^6/uL (3.50-5.40) 3.46 x10^6/uL (3.50-5.40) Hemoglobin 10.8 g/dL (12.0-15.5) 10.6 g/dL (12.0-15.5) Hematocrit 31.7 % (36.0-47.0) 30.9 % (36.0-47.0) Mean Corpuscular Volume 91 fL (79-100) 89 fL (79-100) Mean Corpuscular Hemoglobin 31 pg (25-35) 31 pg (25-35) Mean Corpuscular Hemoglobin Concent 34 g/dL (31-37) 34 g/dL (31-37) Red Cell Distribution Width 12.4 % (11.5-14.5) 12.2 % (11.5-14.5) Platelet Count 212 x10^3/uL (140-400) 240 x10^3/uL (140-400) Neutrophils (%) (Auto) 69 % (31-73) 58 % (31-73) Lymphocytes (%) (Auto) 15 % (24-48) 25 % (24-48) Monocytes (%) (Auto) 13 % (0-9) 13 % (0-9) Eosinophils (%) (Auto) 2 % (0-3) 4 % (0-3) Basophils (%) (Auto) 1 % (0-3) 1 % (0-3) Neutrophils # (Auto) 4.1 x10^3uL (1.8-7.7) 3.3 x10^3uL (1.8-7.7) Lymphocytes # (Auto) 0.9 x10^3/uL (1.0-4.8) 1.4 x10^3/uL (1.0-4.8) Monocytes # (Auto) 0.7 x10^3/uL (0.0-1.1) 0.7 x10^3/uL (0.0-1.1) Eosinophils # (Auto) 0.1 x10^3/uL (0.0-0.7) 0.2 x10^3/uL (0.0-0.7) Basophils # (Auto) 0.0 x10^3/uL (0.0-0.2) 0.0 x10^3/uL (0.0-0.2) O2 Saturation 99 % (92-99) Arterial Blood pH 7.41 (7.35-7.45) Arterial Blood pCO2 at Patient Temp 32 mmHg (35-46) Arterial Blood pO2 at Patient Temp 162 mmHg (85-108) Arterial Blood HCO3 20 mmol/L (21-28) Arterial Blood Base Excess -4 mmol/L (-3-3) FiO2 35 Laboratory Tests Test 04/06/17 05:30 White Blood Count 5.8 x10^3/uL (4.0-11.0) Red Blood Count 3.46 x10^6/uL (3.50-5.40) Hemoglobin 10.6 g/dL (12.0-15.5) Hematocrit 30.9 % (36.0-47.0) Mean Corpuscular Volume 89 fL (79-100) Mean Corpuscular Hemoglobin 31 pg (25-35) Mean Corpuscular Hemoglobin Concent 34 g/dL (31-37) Red Cell Distribution Width 12.2 % (11.5-14.5) Platelet Count 240 x10^3/uL (140-400) Neutrophils (%) (Auto) 58 % (31-73) Lymphocytes (%) (Auto) 25 % (24-48) Monocytes (%) (Auto) 13 % (0-9) Eosinophils (%) (Auto) 4 % (0-3) Basophils (%) (Auto) 1 % (0-3) Neutrophils # (Auto) 3.3 x10^3uL (1.8-7.7) Lymphocytes # (Auto) 1.4 x10^3/uL (1.0-4.8) Monocytes # (Auto) 0.7 x10^3/uL (0.0-1.1) Eosinophils # (Auto) 0.2 x10^3/uL (0.0-0.7) Basophils # (Auto) 0.0 x10^3/uL (0.0-0.2) Sodium Level 144 mmol/L (136-145) Potassium Level 3.3 mmol/L (3.5-5.1) Chloride Level 109 mmol/L (98-107) Carbon Dioxide Level 25 mmol/L (21-32) Anion Gap 10 (6-14) Blood Urea Nitrogen 7 mg/dL (7-20) Creatinine 0.6 mg/dL (0.6-1.0) Estimated GFR (Cockcroft-Gault) 128.8 Glucose Level 88 mg/dL (70-99) Calcium Level 8.0 mg/dL (8.5-10.1) Microbiology 04/04/17 Blood Culture - Preliminary, Resulted NO GROWTH AFTER 2 DAYS Medications Current Medications Sodium Chloride 1,000 ml @ 75 mls/hr [id number] IV Last administered on t 20:58; Start 04/04/17 at 12:30; Stop 04/05/17 at 10:52; Status DC Propofol 100 ml @ 0 mls/hr CONT PRN IV SEE I/O RECORD Last administered on 08:53; Start 04/04/17 at 12:00; Stop 04/05/17 at 16:43; Status DC Ceftriaxone Sodium 1 gm/ Dextrose 50 ml @ 100 mls/hr Q24H IV ; Start 04/05/17 at 09:00; Status UNV Ceftriaxone Sodium (Rocephin) 1 gm Q24H IVP ; Start 04/04/17 at 16:00; Status Cancel Levetiracetam 500 mg/Dextrose 105 ml @ 420 mls/hr Q12HR IV ; Start 04/04/17 at 16:00; Stop 04/04/17 at 16:00; Status DC Aspirin (Aspirin) 300 mg 1X ONCE MD Last administered on 04/04/17 15:51; Start 04/04/17 at 16:00; Stop 04/04/17 at 16:01; Status DC Levetiracetam 500 mg/Sodium Chloride 105 ml @ 420 mls/hr Q12HR IV ; Start at 16:00; Status Cancel Levetiracetam 500 mg/Sodium Chloride 105 ml @ 420 mls/hr Q12HR IV Last administered on 04/06/17 19:58; Start 04/04/17 at 21:00 Ceftriaxone Sodium (Rocephin) 1 gm Q24H IVP Last administered on 04/06/17 08: 21; Start 04/05/17 at 09:00 Sodium Chloride 1,000 ml @ 150 mls/hr Q6H40M IV Last administered on 19:58; Start 04/05/17 at 11:00 Lorazepam (Ativan) 1 mg PRN Q6HRS PRN IV ANXIETY / AGITATION Last administered on 04/06/17 18:11; Start 04/05/17 at 16:45; Stop 04/06/17 at 19:45; Status DC Albuterol/ Ipratropium (Duoneb) 3 ml RTQID NEB Last administered on 04/06/17 12:56; Start 04/06/17 at 00:30 Potassium Chloride (Klor-Con) 40 meq 1X ONCE PO Last administered on 14:49; Start 04/06/17 at 12:00; Stop 04/06/17 at 12:01; Status DC Lorazepam (Ativan) 1 mg PRN Q4HRS PRN IV ANXIETY / AGITATION; Start 04/06/17 at 19:45 Morphine Sulfate 2 mg PRN Q2HR PRN IV PAIN Last administered on 04/06/17 19: 58; Start 04/06/17 at 19:45 Ondansetron HCl (Zofran) 4 mg PRN Q6HRS PRN IV NAUSEA/VOMITING Last administered on 04/06/17 20:17; Start 04/06/17 at 20:15 Active Scripts Active Reported Nitrofurantoin (Nitrofurantoin Macrocrystal) 100 Mg Capsule 100 Mg PO BID Buspirone Hcl 10 Mg Tablet 10 Mg PO BID Divalproex Sodium 250 Mg Tablet.dr 500 Mg PO BID Vitals/I & O Vital Sign - Last 24 Hours 04/05/17 04/05/17 04/05/17 04/06/17 22:00 23:00 23:59 00:00 Pulse 77 72 81 Resp 18 18 18 B/P (MAP) 133/84 (100) 117/57 (77) 139/77 (97) Pulse Ox 97 95 98 O2 Delivery Room Air Room Air Room Air Room Air 04/06/17 04/06/17 04/06/17 04/06/17 01:00 01:02 01:30 02:00 Pulse 75 104 86 Resp 18 18 18 B/P (MAP) 119/70 (86) 108/50 (69) 103/43 (63) Pulse Ox 98 100 97 97 O2 Delivery Room Air Room Air Room Air Room Air 04/06/17 04/06/17 04/06/17 04/06/17 03:00 04:00 04:00 05:00 Temp 98.6 98.6 Pulse 77 64 64 Resp 18 18 18 B/P (MAP) 107/48 (67) 110/52 (71) 110/54 (72) Pulse Ox 96 97 97 O2 Delivery Room Air Room Air Room Air Room Air 04/06/17 04/06/17 04/06/17 04/06/17 06:00 07:00 07:58 07:58 Pulse 71 67 72 Resp 18 19 B/P (MAP) 114/60 (78) 107/59 (75) 114/62 (79) Pulse Ox 99 98 98 O2 Delivery Room Air Room Air Room Air Room Air 04/06/17 04/06/17 04/06/17 04/06/17 09:00 09:19 10:00 11:00 Pulse 82 85 78 Resp 15 17 B/P (MAP) 112/69 (83) 100/53 (69) 103/57 (72) Pulse Ox 98 98 98 O2 Delivery Room Air Room Air Room Air Room Air 04/06/17 04/06/17 04/06/17 04/06/17 12:57 12:58 15:18 18:23 Temp 98.2 98.2 Pulse 78 79 88 B/P (MAP) 103/57 (72) 131/73 (92) 140/79 (99) Pulse Ox 98 98 98 O2 Delivery Room Air Room Air Room Air Room Air 04/06/17 04/06/17 04/06/17 19:00 19:58 20:41 Temp 99.4 99.4 Pulse 77 Resp 18 B/P (MAP) 151/94 (113) Pulse Ox 92 O2 Delivery Room Air Room Air Room Air Intake and Output 04/05/17 04/05/17 04/06/17 15:00 23:00 07:00 Intake Total 0 ml 3418 ml 1150 ml Output Total 125 ml 1030 ml 2900 ml Balance -125 ml 2388 ml -1750 ml JOE BOWMAN MD Apr 06, 2017 21:06
[2017-04-06] MEDS: HYDROmorphone 2 MG/ML VIAL IVP PRN (22:41)
[2017-04-07] MEDS: MORPHINE SULFATE 2 MG/ML DISP.SYRIN. IV PRN ×3 (01:55→09:57)
[2017-04-07] MEDS: IV NORMAL SALINE 1000ML BAG 1,000 ML IV SCH ×2 (02:13→09:40)
[2017-04-07] MEDS: ONDANSETRON PF 4 MG/2 ML VIAL. IV PRN ×2 (02:13→18:11)
[2017-04-07 02:46] VITALS: BP 115/57
[2017-04-07] MEDS: HYDROmorphone 2 MG/ML VIAL IVP PRN ×5 (02:50→23:51)
[2017-04-07 05:04] LABS: BASO % 1 % (0-3); EOS % 3 % (0-3); HEMATOCRIT 31.6 % (36.0-47.0); HEMOGLOBIN 10.6 g/dL (12.0-15.5); LYMPH # 1.6 x10^3/uL (1.0-4.8); LYMPH % 32 % (24-48); MEAN CORPUSCULAR HEMOGLOBIN 31 pg (25-35); MEAN CORPUSCULAR HGB CONC 34 g/dL (31-37); MEAN CORPUSCULAR VOLUME 91 fL (79-100); MONO % 11 % (0-9); NEUT % 53 % (31-73); PLATELET COUNT 243 x10^3/uL (140-400); RED BLOOD COUNT 3.48 x10^6/uL (3.50-5.40); RED CELL DISTRIBUTION WIDTH 12.4 % (11.5-14.5); WHITE BLOOD COUNT 5.1 x10^3/uL (4.0-11.0)
[2017-04-07 05:23] LABS: CREATININE 0.7 mg/dL (0.6-1.0); GFR 107.8; POTASSIUM 3.4 mmol/L (3.5-5.1)
[2017-04-07 07:00] VITALS: BP 116/63
[2017-04-07] MEDS: cefTRIAXone IV Push 1 GM VIAL. IVP SCH (08:00)
[2017-04-07] MEDS: IPRATRPIUM/ALBUTEROL 0.5/2.5MG 3 ML NEBU. NEB SCH ×4 (08:04→20:11)
[2017-04-07] MEDS: levETIRAcetam 500 MG TABLET PO SCH ×2 (09:53→20:16)
--- NOTE | 2017-04-07 10:27 | PDOC ---
PULMONARY PROGRESS NOTES Subjective EXTUBATED 04/05 SLEEPY NO INCREASE SOA Vitals Vital Signs Date Time Temp Pulse Resp B/P (MAP) Pulse Ox O2 Delivery O2 Flow Rate FiO2 04/07/17 08:05 100 Room Air 04/07/17 07:00 98.2 86 18 116/63 (80) 2.0 98.2 ROS: No Nausea, No Chest Pain, No Abdominal Pain, No Increase Cough General: Alert Lungs: Clear Cardiovascular: S1, S2 Abdomen: Soft Neuro Exam: Alert Extremities: No Edema Skin: Warm Labs Laboratory Tests Test 04/06/17 05:30 04/07/17 03:35 White Blood Count 5.8 x10^3/uL (4.0-11.0) 5.1 x10^3/uL (4.0-11.0) Red Blood Count 3.46 x10^6/uL (3.50-5.40) 3.48 x10^6/uL (3.50-5.40) Hemoglobin 10.6 g/dL (12.0-15.5) 10.6 g/dL (12.0-15.5) Hematocrit 30.9 % (36.0-47.0) 31.6 % (36.0-47.0) Mean Corpuscular Volume 89 fL (79-100) 91 fL (79-100) Mean Corpuscular Hemoglobin 31 pg (25-35) 31 pg (25-35) Mean Corpuscular Hemoglobin Concent 34 g/dL (31-37) 34 g/dL (31-37) Red Cell Distribution Width 12.2 % (11.5-14.5) 12.4 % (11.5-14.5) Platelet Count 240 x10^3/uL (140-400) 243 x10^3/uL (140-400) Neutrophils (%) (Auto) 58 % (31-73) 53 % (31-73) Lymphocytes (%) (Auto) 25 % (24-48) 32 % (24-48) Monocytes (%) (Auto) 13 % (0-9) 11 % (0-9) Eosinophils (%) (Auto) 4 % (0-3) 3 % (0-3) Basophils (%) (Auto) 1 % (0-3) 1 % (0-3) Neutrophils # (Auto) 3.3 x10^3uL (1.8-7.7) 2.7 x10^3uL (1.8-7.7) Lymphocytes # (Auto) 1.4 x10^3/uL (1.0-4.8) 1.6 x10^3/uL (1.0-4.8) Monocytes # (Auto) 0.7 x10^3/uL (0.0-1.1) 0.6 x10^3/uL (0.0-1.1) Eosinophils # (Auto) 0.2 x10^3/uL (0.0-0.7) 0.2 x10^3/uL (0.0-0.7) Basophils # (Auto) 0.0 x10^3/uL (0.0-0.2) 0.0 x10^3/uL (0.0-0.2) Sodium Level 144 mmol/L (136-145) 142 mmol/L (136-145) Potassium Level 3.3 mmol/L (3.5-5.1) 3.4 mmol/L (3.5-5.1) Chloride Level 109 mmol/L (98-107) 108 mmol/L (98-107) Carbon Dioxide Level 25 mmol/L (21-32) 28 mmol/L (21-32) Anion Gap 10 (6-14) 6 (6-14) Blood Urea Nitrogen 7 mg/dL (7-20) 4 mg/dL (7-20) Creatinine 0.6 mg/dL (0.6-1.0) 0.7 mg/dL (0.6-1.0) Estimated GFR (Cockcroft-Gault) 128.8 107.8 Glucose Level 88 mg/dL (70-99) 92 mg/dL (70-99) Calcium Level 8.0 mg/dL (8.5-10.1) 8.0 mg/dL (8.5-10.1) Laboratory Tests Test 04/07/17 03:35 White Blood Count 5.1 x10^3/uL (4.0-11.0) Red Blood Count 3.48 x10^6/uL (3.50-5.40) Hemoglobin 10.6 g/dL (12.0-15.5) Hematocrit 31.6 % (36.0-47.0) Mean Corpuscular Volume 91 fL (79-100) Mean Corpuscular Hemoglobin 31 pg (25-35) Mean Corpuscular Hemoglobin Concent 34 g/dL (31-37) Red Cell Distribution Width 12.4 % (11.5-14.5) Platelet Count 243 x10^3/uL (140-400) Neutrophils (%) (Auto) 53 % (31-73) Lymphocytes (%) (Auto) 32 % (24-48) Monocytes (%) (Auto) 11 % (0-9) Eosinophils (%) (Auto) 3 % (0-3) Basophils (%) (Auto) 1 % (0-3) Neutrophils # (Auto) 2.7 x10^3uL (1.8-7.7) Lymphocytes # (Auto) 1.6 x10^3/uL (1.0-4.8) Monocytes # (Auto) 0.6 x10^3/uL (0.0-1.1) Eosinophils # (Auto) 0.2 x10^3/uL (0.0-0.7) Basophils # (Auto) 0.0 x10^3/uL (0.0-0.2) Sodium Level 142 mmol/L (136-145) Potassium Level 3.4 mmol/L (3.5-5.1) Chloride Level 108 mmol/L (98-107) Carbon Dioxide Level 28 mmol/L (21-32) Anion Gap 6 (6-14) Blood Urea Nitrogen 4 mg/dL (7-20) Creatinine 0.7 mg/dL (0.6-1.0) Estimated GFR (Cockcroft-Gault) 107.8 Glucose Level 92 mg/dL (70-99) Calcium Level 8.0 mg/dL (8.5-10.1) Medications Active Scripts Medications Dose Route/Sig Max Daily Dose Days Date Category Nitrofurantoin (Nitrofurantoin Macrocrystal) 100 Mg Capsule 100 Mg PO BID 02/17/17 Reported Buspirone Hcl 10 Mg Tablet 10 Mg PO BID 02/17/17 Reported Divalproex Sodium 250 Mg Tablet.dr 500 Mg PO BID 02/05/17 Reported Impression . 1. Acute respiratory failure secondary to seizures. 2. Seizure disorder. 3. Bipolar disorder. Plan . STILL ON REPEAT CXR SPOKE WITH NEUROLOGY MRA NEGATIVE BRUNILDA DONG MD Apr 07, 2017 10:27
[2017-04-07 10:48] VITALS: BP 108/60
--- NOTE | 2017-04-07 11:22 | PDOC ---
PROGRESS NOTES Chief Complaint Chief Complaint Seizure disorder ABd pain Overweight NOS Hypothyroidism Bipolar Borderline personality History of Present Illness History of Present Illness CAlled at 3AM bec pt requesting iV dialudid TRAnsfered from ICU, extubated after multiple SZ MOprhine not helping COmplains of abd pain Having a breathing tx K 3,1 , but creat mildly elevated Drowsy PLAN: Check CT abd Dec iv dilaudid to 0.2 Percocet PO Current IVF to consume SHift IV keppra to PO if ok with neuro Check lipase dw RN rita Await Life crsisi assesment tmr - needs psych Vitals Vitals Vital Signs Date Time Temp Pulse Resp B/P (MAP) Pulse Ox O2 Delivery O2 Flow Rate FiO2 04/07/17 11:08 100 Room Air 04/07/17 10:48 98.5 74 16 108/60 (76) 2.0 98.5 Physical Exam General: Oriented X3, Cooperative, No acute distress Heart: Normal S1, Normal S2 Lungs: Clear Abdomen: Normal bowel sounds, Soft Extremities: No clubbing, No cyanosis Skin: No breakdown, No significant lesion Labs LABS Laboratory Tests Test 04/07/17 03:35 White Blood Count 5.1 x10^3/uL (4.0-11.0) Red Blood Count 3.48 x10^6/uL (3.50-5.40) Hemoglobin 10.6 g/dL (12.0-15.5) Hematocrit 31.6 % (36.0-47.0) Mean Corpuscular Volume 91 fL (79-100) Mean Corpuscular Hemoglobin 31 pg (25-35) Mean Corpuscular Hemoglobin Concent 34 g/dL (31-37) Red Cell Distribution Width 12.4 % (11.5-14.5) Platelet Count 243 x10^3/uL (140-400) Neutrophils (%) (Auto) 53 % (31-73) Lymphocytes (%) (Auto) 32 % (24-48) Monocytes (%) (Auto) 11 % (0-9) Eosinophils (%) (Auto) 3 % (0-3) Basophils (%) (Auto) 1 % (0-3) Neutrophils # (Auto) 2.7 x10^3uL (1.8-7.7) Lymphocytes # (Auto) 1.6 x10^3/uL (1.0-4.8) Monocytes # (Auto) 0.6 x10^3/uL (0.0-1.1) Eosinophils # (Auto) 0.2 x10^3/uL (0.0-0.7) Basophils # (Auto) 0.0 x10^3/uL (0.0-0.2) Sodium Level 142 mmol/L (136-145) Potassium Level 3.4 mmol/L (3.5-5.1) Chloride Level 108 mmol/L (98-107) Carbon Dioxide Level 28 mmol/L (21-32) Anion Gap 6 (6-14) Blood Urea Nitrogen 4 mg/dL (7-20) Creatinine 0.7 mg/dL (0.6-1.0) Estimated GFR (Cockcroft-Gault) 107.8 Glucose Level 92 mg/dL (70-99) Calcium Level 8.0 mg/dL (8.5-10.1) Review of Systems Review of Systems drowsy, tangential, abd pain, no cp, soa emesis, poor po Comment Review of Relevant I have reviewed the following items shaina (where applicable) has been applied. Labs Laboratory Tests Test 04/06/17 05:30 04/07/17 03:35 White Blood Count 5.8 x10^3/uL (4.0-11.0) 5.1 x10^3/uL (4.0-11.0) Red Blood Count 3.46 x10^6/uL (3.50-5.40) 3.48 x10^6/uL (3.50-5.40) Hemoglobin 10.6 g/dL (12.0-15.5) 10.6 g/dL (12.0-15.5) Hematocrit 30.9 % (36.0-47.0) 31.6 % (36.0-47.0) Mean Corpuscular Volume 89 fL (79-100) 91 fL (79-100) Mean Corpuscular Hemoglobin 31 pg (25-35) 31 pg (25-35) Mean Corpuscular Hemoglobin Concent 34 g/dL (31-37) 34 g/dL (31-37) Red Cell Distribution Width 12.2 % (11.5-14.5) 12.4 % (11.5-14.5) Platelet Count 240 x10^3/uL (140-400) 243 x10^3/uL (140-400) Neutrophils (%) (Auto) 58 % (31-73) 53 % (31-73) Lymphocytes (%) (Auto) 25 % (24-48) 32 % (24-48) Monocytes (%) (Auto) 13 % (0-9) 11 % (0-9) Eosinophils (%) (Auto) 4 % (0-3) 3 % (0-3) Basophils (%) (Auto) 1 % (0-3) 1 % (0-3) Neutrophils # (Auto) 3.3 x10^3uL (1.8-7.7) 2.7 x10^3uL (1.8-7.7) Lymphocytes # (Auto) 1.4 x10^3/uL (1.0-4.8) 1.6 x10^3/uL (1.0-4.8) Monocytes # (Auto) 0.7 x10^3/uL (0.0-1.1) 0.6 x10^3/uL (0.0-1.1) Eosinophils # (Auto) 0.2 x10^3/uL (0.0-0.7) 0.2 x10^3/uL (0.0-0.7) Basophils # (Auto) 0.0 x10^3/uL (0.0-0.2) 0.0 x10^3/uL (0.0-0.2) Sodium Level 144 mmol/L (136-145) 142 mmol/L (136-145) Potassium Level 3.3 mmol/L (3.5-5.1) 3.4 mmol/L (3.5-5.1) Chloride Level 109 mmol/L (98-107) 108 mmol/L (98-107) Carbon Dioxide Level 25 mmol/L (21-32) 28 mmol/L (21-32) Anion Gap 10 (6-14) 6 (6-14) Blood Urea Nitrogen 7 mg/dL (7-20) 4 mg/dL (7-20) Creatinine 0.6 mg/dL (0.6-1.0) 0.7 mg/dL (0.6-1.0) Estimated GFR (Cockcroft-Gault) 128.8 107.8 Glucose Level 88 mg/dL (70-99) 92 mg/dL (70-99) Calcium Level 8.0 mg/dL (8.5-10.1) 8.0 mg/dL (8.5-10.1) Laboratory Tests Test 04/07/17 03:35 White Blood Count 5.1 x10^3/uL (4.0-11.0) Red Blood Count 3.48 x10^6/uL (3.50-5.40) Hemoglobin 10.6 g/dL (12.0-15.5) Hematocrit 31.6 % (36.0-47.0) Mean Corpuscular Volume 91 fL (79-100) Mean Corpuscular Hemoglobin 31 pg (25-35) Mean Corpuscular Hemoglobin Concent 34 g/dL (31-37) Red Cell Distribution Width 12.4 % (11.5-14.5) Platelet Count 243 x10^3/uL (140-400) Neutrophils (%) (Auto) 53 % (31-73) Lymphocytes (%) (Auto) 32 % (24-48) Monocytes (%) (Auto) 11 % (0-9) Eosinophils (%) (Auto) 3 % (0-3) Basophils (%) (Auto) 1 % (0-3) Neutrophils # (Auto) 2.7 x10^3uL (1.8-7.7) Lymphocytes # (Auto) 1.6 x10^3/uL (1.0-4.8) Monocytes # (Auto) 0.6 x10^3/uL (0.0-1.1) Eosinophils # (Auto) 0.2 x10^3/uL (0.0-0.7) Basophils # (Auto) 0.0 x10^3/uL (0.0-0.2) Sodium Level 142 mmol/L (136-145) Potassium Level 3.4 mmol/L (3.5-5.1) Chloride Level 108 mmol/L (98-107) Carbon Dioxide Level 28 mmol/L (21-32) Anion Gap 6 (6-14) Blood Urea Nitrogen 4 mg/dL (7-20) Creatinine 0.7 mg/dL (0.6-1.0) Estimated GFR (Cockcroft-Gault) 107.8 Glucose Level 92 mg/dL (70-99) Calcium Level 8.0 mg/dL (8.5-10.1) Microbiology 04/04/17 Blood Culture - Preliminary, Resulted NO GROWTH AFTER 2 DAYS Medications Current Medications Sodium Chloride 1,000 ml @ 75 mls/hr [id number] IV Last administered on 20:58; Start 04/04/17 at 12:30; Stop 04/05/17 at 10:52; Status DC Propofol 100 ml @ 0 mls/hr CONT PRN IV SEE I/O RECORD Last administered on 08:53; Start 04/04/17 at 12:00; Stop 04/05/17 at 16:43; Status DC Ceftriaxone Sodium 1 gm/ Dextrose 50 ml @ 100 mls/hr Q24H IV ; Start 04/05/17 at 09:00; Status UNV Ceftriaxone Sodium (Rocephin) 1 gm Q24H IVP ; Start 04/04/17 at 16:00; Status Cancel Levetiracetam 500 mg/Dextrose 105 ml @ 420 mls/hr Q12HR IV ; Start 04/04/17 at 16:00; Stop 04/04/17 at 16:00; Status DC Aspirin (Aspirin) 300 mg 1X ONCE [place] Last administered on 04/04/17 15:51; Start 04/04/17 at 16:00; Stop 04/04/17 at 16:01; Status DC Levetiracetam 500 mg/Sodium Chloride 105 ml @ 420 mls/hr Q12HR IV ; Start at 16:00; Status Cancel Levetiracetam 500 mg/Sodium Chloride 105 ml @ 420 mls/hr Q12HR IV Last administered on 04/07/17 08:01; Start 04/04/17 at 21:00; Stop 04/07/17 at 09 :44; Status DC Ceftriaxone Sodium (Rocephin) 1 gm Q24H IVP Last administered on 04/07/17 08: 00; Start 04/05/17 at 09:00; Stop 04/07/17 at 09:44; Status DC Sodium Chloride 1,000 ml @ 150 mls/hr Q6H40M IV Last administered on 02:13; Start 04/05/17 at 11:00 Lorazepam (Ativan) 1 mg PRN Q6HRS PRN IV ANXIETY / AGITATION Last administered on 04/06/17 18:11; Start 04/05/17 at 16:45; Stop 04/06/17 at 19:45; Status DC Albuterol/ Ipratropium (Duoneb) 3 ml RTQID NEB Last administered on 04/07/17 11:06; Start 04/06/17 at 00:30 Potassium Chloride (Klor-Con) 40 meq 1X ONCE PO Last administered on 14:49; Start 04/06/17 at 12:00; Stop 04/06/17 at 12:01; Status DC Lorazepam (Ativan) 1 mg PRN Q4HRS PRN IV ANXIETY / AGITATION Last administered on 04/07/17 07:59; Start 04/06/17 at 19:45 Morphine Sulfate 2 mg PRN Q2HR PRN IV PAIN Last administered on 04/07/17 09: 57; Start 04/06/17 at 19:45 Ondansetron HCl (Zofran) 4 mg PRN Q6HRS PRN IV NAUSEA/VOMITING Last administered on 04/07/17 02:13; Start 04/06/17 at 20:15 Hydromorphone HCl (Dilaudid) 0.4 mg PRN Q4HRS PRN IVP SEVERE PAIN Last administered on 04/07/17 08:00; Start 04/06/17 at 22:30 Oxycodone/ Acetaminophen (Percocet 5/325) 1 tab PRN Q4HRS PRN PO PAIN; Start 04/07/17 at 09:45 Levetiracetam (Keppra) 500 mg BID PO ; Start 04/07/17 at 10:00 Active Scripts Active Reported Nitrofurantoin (Nitrofurantoin Macrocrystal) 100 Mg Capsule 100 Mg PO BID Buspirone Hcl 10 Mg Tablet 10 Mg PO BID Divalproex Sodium 250 Mg Tablet.dr 500 Mg PO BID Vitals/I & O Vital Sign - Last 24 Hours 04/06/17 04/06/17 04/06/17 04/06/17 12:57 12:58 15:18 18:23 Temp 98.2 98.2 Pulse 78 79 88 B/P (MAP) 103/57 (72) 131/73 (92) 140/79 (99) Pulse Ox 98 98 98 O2 Delivery Room Air Room Air Room Air Room Air 04/06/17 04/06/17 04/06/17 04/06/17 19:00 19:58 20:00 21:13 Temp 99.4 99.4 Pulse 77 Resp 18 B/P (MAP) 151/94 (113) Pulse Ox 92 100 O2 Delivery Room Air Room Air Room Air Room Air 04/06/17 04/06/17 04/06/17 04/06/17 21:34 21:48 22:41 23:00 Temp 98.1 98.1 Pulse 97 Resp 18 B/P (MAP) 122/79 (93) Pulse Ox 100 100 O2 Delivery Room Air Room Air Nasal Cannula Nasal Cannula O2 Flow Rate 2.0 04/07/17 04/07/17 04/07/17 04/07/17 01:55 02:32 02:46 02:50 Temp 97.7 97.7 Pulse 77 Resp 18 B/P (MAP) 115/57 (76) Pulse Ox 100 99 O2 Delivery Room Air Room Air Nasal Cannula O2 Flow Rate 2.0 2.0 04/07/17 04/07/17 04/07/17 04/07/17 03:48 04:46 05:21 07:00 Temp 98.2 98.2 Pulse 86 Resp 18 B/P (MAP) 116/63 (80) Pulse Ox 98 O2 Delivery Nasal Cannula Room Air Nasal Cannula Nasal Cannula O2 Flow Rate 2.0 2.0 2.0 2.0 04/07/17 04/07/17 04/07/17 08:05 10:48 11:08 Temp 98.5 98.5 Pulse 74 Resp 16 B/P (MAP) 108/60 (76) Pulse Ox 100 99 100 O2 Delivery Room Air Nasal Cannula Room Air O2 Flow Rate 2.0 Intake and Output 04/06/17 04/06/17 04/07/17 15:00 23:00 07:00 Intake Total 500 ml 1250 ml 0 ml Output Total 850 ml 850 ml Balance -350 ml 400 ml 0 ml ANGELA HOLDEN MD Apr 07, 2017 11:22
[2017-04-07] MEDS ORDERED: MAG HYDROX/ALUMINUM HYD/SIMETH 30 ML ORAL.SUSP PO PRN (11:30)
[2017-04-07] MEDS: oxyCODONE/APAP 5/325 1 TAB TABLET PO PRN ×2 (11:36→20:17)
[2017-04-07 11:37] LABS: ALBUMIN 3.2 g/dL (3.4-5.0); DIRECT BILIRUBIN 0.1 mg/dL (0.0-0.2); TOTAL BILIRUBIN 0.2 mg/dL (0.2-1.0); TOTAL PROTEIN 6.6 g/dL (6.4-8.2)
[2017-04-07] MEDS ORDERED: IOHEXOL 240 MG/ML 50ML VIAL. PO ONE (13:00)
[2017-04-07] MEDS: PANTOPRAZOLE 40 MG TABLET.DR. PO SCH (13:16)
--- NOTE | 2017-04-07 14:00 | RAD ---
Single view chest History:Hypoxia An AP view of the chest is submitted. Comparison: 04/05/2017. Findings: Previously seen endotracheal tube and enteric catheter have been removed. There is no lobar infiltrate, pleural fluid, pneumothorax. Heart size is stable, within normal limits. Impression: 1. There is no significant infiltrate.
--- NOTE | 2017-04-07 14:29 | RAD ---
CT ABD PEL W/ORAL CONTRST ONLY History:Abdominal pain Technique: After administration of oral contrast, CT imaging was performed of the abdomen and pelvis, multiplanar reconstruction images submitted. No intravenous contrast was given as per request. Exposure: One or more of the following individualized dose reduction techniques were utilized for this exam: 1. Automated exposure control.2. Adjustment of the mA and/or KV according to patient size.3. Use of iterative reconstruction technique. Comparison: 02/09/2017. Findings:There is no abnormality of the limited visualized lung bases. Accurate evaluation of the abdominal visceral organs is limited without intravenous contrast. There is no new obvious focal abnormality of the liver, spleen, pancreas. The there is no adrenal nodularity. Gallbladder is present without obvious intraluminal abnormality by CT. There are no renal calculi. There is no significant hydronephrosis. Bowel is not significantly dilated. There is a small quantity of dependent free fluid in the pelvis. Normal appendix is visualized. No free air is identified. There is mild distention of stomach. Impression: 1.There is a small quantity of nonspecific dependent free fluid in the pelvis. Otherwise no significant acute abnormality is identified. Normal appendix is visualized.
[2017-04-07 15:00] VITALS: BP 118/72
--- NOTE | 2017-04-07 18:48 | PDOC ---
PROGRESS NOTES Plan This patient is 21-year-old woman with a past medical history of seizures, borderline personality disorder, bipolar, hypothyroidism, urinary tract infections. Patient presented to [facility] with unknown time of onset. According to the information from patient's initial exam and ER physician patient was having seizures this morning around 6 AM. Patient was intubated was having seizure activity in the emergency room. Patient was loaded with 1 g of Kepprawith continuing off Keppra 500 mg IV every 12. Patient had a CT scan done on the brain which did not show any evidence of intracranial hemorrhage there was a ? of hypodensity on the cerebellum with question of's ischemic process. [facility] stroke team was contacted from emergency room at [facility]. After reviewing the CT scan images with stroke team patient wasn' t not eligible for transfer to [facility] at that time. Patient was admitted to [facility] in ICU for further close monitoring. History of seizures. Patient was loaded with a loading dose of Keppra. We will continue Keppra 500 mg po every 12. hr Check MRI/MRA brain.to evaluate for acute vascular process. NO acute findings Check for any infectious or metabolic etiology. Check Carotid doppler. Check 2-D echo. PTOT Seizure precautions discussed in detail. NO driving until 6 month seizure free. Psychiatric recommendations. Continue medical management NO new seizures stable exam Follow up neurology clinic. Subjective no new seizures. Objective Vital Signs Date Time Temp Pulse Resp B/P (MAP) Pulse Ox O2 Delivery O2 Flow Rate FiO2 04/07/17 16:01 100 1.0 04/07/17 15:00 98.2 71 16 118/72 (87) Nasal Cannula 98.2 Intake and Output 04/07/17 07:00 Intake Total 1750 ml Output Total 1700 ml Balance 50 ml Intake Oral 1750 ml Output Urine Total 1700 ml # Voids 11 # Bowel Movements 7 PHYSICAL EXAM HEENT: Normocephalic and nontraumatic. Eyes, nose, ears, and throat are unremarkable. Neck is supple. No lymphadenopathy. No crepitus. Cardiovascular: S1, S2, regular rate and rhythm. Pulmonary: Clear to auscultation bilaterally. Abdomen: Bowel sounds are positive. Abdomen is soft, nontender, and nondistended. NEUROLOGICAL EXAMINATION: intubated sedated pupils reactive EOMI.not able CN: no focal findings. Muscle tone: within normal. Muscle strength: minimal withdraw to pain stimuli DTR: 1-+ Plantar reflex: mute Gait: in bed. Sensory exam:minimal withdraw to pain stimuli not able cerebellar signs Review of Relevant I have reviewed the following items shaina (where applicable) has been applied. Labs Laboratory Tests Test 04/06/17 05:30 04/07/17 03:35 White Blood Count 5.8 x10^3/uL (4.0-11.0) 5.1 x10^3/uL (4.0-11.0) Red Blood Count 3.46 x10^6/uL (3.50-5.40) 3.48 x10^6/uL (3.50-5.40) Hemoglobin 10.6 g/dL (12.0-15.5) 10.6 g/dL (12.0-15.5) Hematocrit 30.9 % (36.0-47.0) 31.6 % (36.0-47.0) Mean Corpuscular Volume 89 fL (79-100) 91 fL (79-100) Mean Corpuscular Hemoglobin 31 pg (25-35) 31 pg (25-35) Mean Corpuscular Hemoglobin Concent 34 g/dL (31-37) 34 g/dL (31-37) Red Cell Distribution Width 12.2 % (11.5-14.5) 12.4 % (11.5-14.5) Platelet Count 240 x10^3/uL (140-400) 243 x10^3/uL (140-400) Neutrophils (%) (Auto) 58 % (31-73) 53 % (31-73) Lymphocytes (%) (Auto) 25 % (24-48) 32 % (24-48) Monocytes (%) (Auto) 13 % (0-9) 11 % (0-9) Eosinophils (%) (Auto) 4 % (0-3) 3 % (0-3) Basophils (%) (Auto) 1 % (0-3) 1 % (0-3) Neutrophils # (Auto) 3.3 x10^3uL (1.8-7.7) 2.7 x10^3uL (1.8-7.7) Lymphocytes # (Auto) 1.4 x10^3/uL (1.0-4.8) 1.6 x10^3/uL (1.0-4.8) Monocytes # (Auto) 0.7 x10^3/uL (0.0-1.1) 0.6 x10^3/uL (0.0-1.1) Eosinophils # (Auto) 0.2 x10^3/uL (0.0-0.7) 0.2 x10^3/uL (0.0-0.7) Basophils # (Auto) 0.0 x10^3/uL (0.0-0.2) 0.0 x10^3/uL (0.0-0.2) Sodium Level 144 mmol/L (136-145) 142 mmol/L (136-145) Potassium Level 3.3 mmol/L (3.5-5.1) 3.4 mmol/L (3.5-5.1) Chloride Level 109 mmol/L (98-107) 108 mmol/L (98-107) Carbon Dioxide Level 25 mmol/L (21-32) 28 mmol/L (21-32) Anion Gap 10 (6-14) 6 (6-14) Blood Urea Nitrogen 7 mg/dL (7-20) 4 mg/dL (7-20) Creatinine 0.6 mg/dL (0.6-1.0) 0.7 mg/dL (0.6-1.0) Estimated GFR (Cockcroft-Gault) 128.8 107.8 Glucose Level 88 mg/dL (70-99) 92 mg/dL (70-99) Calcium Level 8.0 mg/dL (8.5-10.1) 8.0 mg/dL (8.5-10.1) Total Bilirubin 0.2 mg/dL (0.2-1.0) Direct Bilirubin 0.1 mg/dL (0.0-0.2) Aspartate Amino Transf (AST/SGOT) 23 U/L (15-37) Alanine Aminotransferase (ALT/SGPT) 14 U/L (14-59) Alkaline Phosphatase 53 U/L (46-116) Total Protein 6.6 g/dL (6.4-8.2) Albumin 3.2 g/dL (3.4-5.0) Lipase 67 U/L (73-393) Laboratory Tests Test 04/07/17 03:35 White Blood Count 5.1 x10^3/uL (4.0-11.0) Red Blood Count 3.48 x10^6/uL (3.50-5.40) Hemoglobin 10.6 g/dL (12.0-15.5) Hematocrit 31.6 % (36.0-47.0) Mean Corpuscular Volume 91 fL (79-100) Mean Corpuscular Hemoglobin 31 pg (25-35) Mean Corpuscular Hemoglobin Concent 34 g/dL (31-37) Red Cell Distribution Width 12.4 % (11.5-14.5) Platelet Count 243 x10^3/uL (140-400) Neutrophils (%) (Auto) 53 % (31-73) Lymphocytes (%) (Auto) 32 % (24-48) Monocytes (%) (Auto) 11 % (0-9) Eosinophils (%) (Auto) 3 % (0-3) Basophils (%) (Auto) 1 % (0-3) Neutrophils # (Auto) 2.7 x10^3uL (1.8-7.7) Lymphocytes # (Auto) 1.6 x10^3/uL (1.0-4.8) Monocytes # (Auto) 0.6 x10^3/uL (0.0-1.1) Eosinophils # (Auto) 0.2 x10^3/uL (0.0-0.7) Basophils # (Auto) 0.0 x10^3/uL (0.0-0.2) Sodium Level 142 mmol/L (136-145) Potassium Level 3.4 mmol/L (3.5-5.1) Chloride Level 108 mmol/L (98-107) Carbon Dioxide Level 28 mmol/L (21-32) Anion Gap 6 (6-14) Blood Urea Nitrogen 4 mg/dL (7-20) Creatinine 0.7 mg/dL (0.6-1.0) Estimated GFR (Cockcroft-Gault) 107.8 Glucose Level 92 mg/dL (70-99) Calcium Level 8.0 mg/dL (8.5-10.1) Total Bilirubin 0.2 mg/dL (0.2-1.0) Direct Bilirubin 0.1 mg/dL (0.0-0.2) Aspartate Amino Transf (AST/SGOT) 23 U/L (15-37) Alanine Aminotransferase (ALT/SGPT) 14 U/L (14-59) Alkaline Phosphatase 53 U/L (46-116) Total Protein 6.6 g/dL (6.4-8.2) Albumin 3.2 g/dL (3.4-5.0) Lipase 67 U/L (73-393) Microbiology 04/04/17 Blood Culture - Preliminary, Resulted NO GROWTH AFTER 3 DAYS Medications Current Medications Sodium Chloride 1,000 ml @ 75 mls/hr [id number] IV Last administered on 20:58; Start 04/04/17 at 12:30; Stop 04/05/17 at 10:52; Status DC Propofol 100 ml @ 0 mls/hr CONT PRN IV SEE I/O RECORD Last administered on 08:53; Start 04/04/17 at 12:00; Stop 04/05/17 at 16:43; Status DC Ceftriaxone Sodium 1 gm/ Dextrose 50 ml @ 100 mls/hr Q24H IV ; Start 04/05/17 at 09:00; Status UNV Ceftriaxone Sodium (Rocephin) 1 gm Q24H IVP ; Start 04/04/17 at 16:00; Status Cancel Levetiracetam 500 mg/Dextrose 105 ml @ 420 mls/hr Q12HR IV ; Start 04/04/17 at 16:00; Stop 04/04/17 at 16:00; Status DC Aspirin (Aspirin) 300 mg 1X ONCE [place] Last administered on 04/04/17 15:51; Start 04/04/17 at 16:00; Stop 04/04/17 at 16:01; Status DC Levetiracetam 500 mg/Sodium Chloride 105 ml @ 420 mls/hr Q12HR IV ; Start at 16:00; Status Cancel Levetiracetam 500 mg/Sodium Chloride 105 ml @ 420 mls/hr Q12HR IV Last administered on 04/07/17 08:01; Start 04/04/17 at 21:00; Stop 04/07/17 at 09 :44; Status DC Ceftriaxone Sodium (Rocephin) 1 gm Q24H IVP Last administered on 04/07/17 08: 00; Start 04/05/17 at 09:00; Stop 04/07/17 at 09:44; Status DC Sodium Chloride 1,000 ml @ 150 mls/hr Q6H40M IV Last administered on 02:13; Start 04/05/17 at 11:00; Stop 04/07/17 at 11:21; Status DC Lorazepam (Ativan) 1 mg PRN Q6HRS PRN IV ANXIETY / AGITATION Last administered on 04/06/17 18:11; Start 04/05/17 at 16:45; Stop 04/06/17 at 19:45; Status DC Albuterol/ Ipratropium (Duoneb) 3 ml RTQID NEB Last administered on 04/07/17 16:00; Start 04/06/17 at 00:30 Potassium Chloride (Klor-Con) 40 meq 1X ONCE PO Last administered on 14:49; Start 04/06/17 at 12:00; Stop 04/06/17 at 12:01; Status DC Lorazepam (Ativan) 1 mg PRN Q4HRS PRN IV ANXIETY / AGITATION Last administered on 04/07/17 07:59; Start 04/06/17 at 19:45 Morphine Sulfate 2 mg PRN Q2HR PRN IV PAIN Last administered on 04/07/17 09: 57; Start 04/06/17 at 19:45; Stop 04/07/17 at 11:19; Status DC Ondansetron HCl (Zofran) 4 mg PRN Q6HRS PRN IV NAUSEA/VOMITING Last administered on 04/07/17 18:11; Start 04/06/17 at 20:15 Hydromorphone HCl (Dilaudid) 0.4 mg PRN Q4HRS PRN IVP SEVERE PAIN Last administered on 04/07/17 08:00; Start 04/06/17 at 22:30; Stop 04/07/17 at 11 :19; Status DC Oxycodone/ Acetaminophen (Percocet 5/325) 1 tab PRN Q4HRS PRN PO PAIN Last administered on 04/07/17 11:36; Start 04/07/17 at 09:45 Levetiracetam (Keppra) 500 mg BID PO ; Start 04/07/17 at 10:00 Hydromorphone HCl (Dilaudid) 0.2 mg PRN Q4HRS PRN IVP SEVERE PAIN Last administered on 04/07/17 18:11; Start 04/07/17 at 11:30 Pantoprazole Sodium (Protonix) 40 mg DAILYAC PO Last administered on 13:16; Start 04/07/17 at 12:00 Al Hydroxide/Mg Hydroxide (Mylanta Plus Xs) 30 ml PRN Q2HR PRN PO HEARTBURN / GAS; Start 04/07/17 at 11:30 Iohexol (Omnipaque 240 Mg/ml) 50 ml 1X ONCE PO Last administered on 13:00; Start 04/07/17 at 13:00; Stop 04/07/17 at 13:01; Status DC Active Scripts Active Reported Nitrofurantoin (Nitrofurantoin Macrocrystal) 100 Mg Capsule 100 Mg PO BID Buspirone Hcl 10 Mg Tablet 10 Mg PO BID Divalproex Sodium 250 Mg Tablet.dr 500 Mg PO BID Vitals/I & O Vital Sign - Last 24 Hours 04/06/17 04/06/17 04/06/17 04/06/17 19:00 19:58 20:00 21:13 Temp 99.4 99.4 Pulse 77 Resp 18 B/P (MAP) 151/94 (113) Pulse Ox 92 100 O2 Delivery Room Air Room Air Room Air Room Air 04/06/17 04/06/17 04/06/17 04/06/17 21:34 21:48 22:41 23:00 Temp 98.1 98.1 Pulse 97 Resp 18 B/P (MAP) 122/79 (93) Pulse Ox 100 100 O2 Delivery Room Air Room Air Nasal Cannula Nasal Cannula O2 Flow Rate 2.0 04/07/17 04/07/17 04/07/17 04/07/17 01:55 02:32 02:46 02:50 Temp 97.7 97.7 Pulse 77 Resp 18 B/P (MAP) 115/57 (76) Pulse Ox 100 99 O2 Delivery Room Air Room Air Nasal Cannula O2 Flow Rate 2.0 2.0 04/07/17 04/07/17 04/07/17 04/07/17 03:48 04:46 05:21 07:00 Temp 98.2 98.2 Pulse 86 Resp 18 B/P (MAP) 116/63 (80) Pulse Ox 98 O2 Delivery Nasal Cannula Room Air Nasal Cannula Nasal Cannula O2 Flow Rate 2.0 2.0 2.0 2.0 04/07/17 04/07/17 04/07/17 04/07/17 08:00 08:05 10:48 11:08 Temp 98.5 98.5 Pulse 74 Resp 16 B/P (MAP) 108/60 (76) Pulse Ox 100 99 100 O2 Delivery Room Air Room Air Nasal Cannula Room Air O2 Flow Rate 2.0 04/07/17 04/07/17 15:00 16:01 Temp 98.2 98.2 Pulse 71 Resp 16 B/P (MAP) 118/72 (87) Pulse Ox 99 100 O2 Delivery Nasal Cannula O2 Flow Rate 1.0 1.0 Intake and Output 04/06/17 04/06/17 04/07/17 15:00 23:00 07:00 Intake Total 500 ml 1250 ml 0 ml Output Total 850 ml 850 ml Balance -350 ml 400 ml 0 ml JOE BOWMAN MD Apr 07, 2017 18:48
[2017-04-07 19:00] VITALS: BP 120/72
[2017-04-07 22:09] VITALS: BP 139/68
[2017-04-08] MEDS: oxyCODONE/APAP 5/325 1 TAB TABLET PO PRN ×4 (01:37→21:22)
[2017-04-08 03:55] VITALS: BP 132/74
[2017-04-08] MEDS: HYDROmorphone 2 MG/ML VIAL IVP PRN ×2 (04:59→12:20)
[2017-04-08 07:00] VITALS: BP 105/68
[2017-04-08 08:14] LABS: BASO # 0.1 x10^3/uL (0.0-0.2); BASO % 1 % (0-3); EOS % 3 % (0-3); HEMATOCRIT 34.9 % (36.0-47.0); LYMPH # 1.4 x10^3/uL (1.0-4.8); LYMPH % 22 % (24-48); MEAN CORPUSCULAR HEMOGLOBIN 31 pg (25-35); MEAN CORPUSCULAR HGB CONC 34 g/dL (31-37); MEAN CORPUSCULAR VOLUME 89 fL (79-100); MONO % 10 % (0-9); NEUT % 65 % (31-73); PLATELET COUNT 282 x10^3/uL (140-400); RED BLOOD COUNT 3.91 x10^6/uL (3.50-5.40); RED CELL DISTRIBUTION WIDTH 12.4 % (11.5-14.5); WHITE BLOOD COUNT 6.6 x10^3/uL (4.0-11.0)
[2017-04-08] MEDS: IPRATRPIUM/ALBUTEROL 0.5/2.5MG 3 ML NEBU. NEB SCH ×4 (08:18→20:02)
[2017-04-08 08:21] LABS: CALCIUM 8.8 mg/dL (8.5-10.1); CREATININE 0.7 mg/dL (0.6-1.0); GFR 107.8; POTASSIUM 3.3 mmol/L (3.5-5.1)
[2017-04-08] MEDS: PANTOPRAZOLE 40 MG TABLET.DR. PO SCH ×2 (08:42→17:20)
[2017-04-08] MEDS: levETIRAcetam 500 MG TABLET PO SCH ×2 (08:42→21:22)
[2017-04-08] MEDS: DIPHENHYDRAMINE/ZINC ACETATE 2%/0.1% TOPICAL CREAM 28GM TUBE. TP PRN ×2 (08:43→21:28)
--- NOTE | 2017-04-08 09:37 | PDOC ---
PROGRESS NOTES Chief Complaint Chief Complaint Seizure disorder ABd pain Overweight NOS Hypothyroidism Bipolar Borderline personality History of Present Illness History of Present Illness still requesting iV dialudid ordered a lot of food for breakfast, cannot eat due to abd pain will try Abd US, eval for stones,, try BID PPI and GI cocktail was intubated for multiple SZ, pseudoseizure now a possibility Complains of abd pain Having a breathing tx CT abd negative try to stick to Percocet PO Current IVF keppra PO Vitals Vitals Vital Signs Date Time Temp Pulse Resp B/P (MAP) Pulse Ox O2 Delivery O2 Flow Rate FiO2 04/08/17 08:43 18 97 Room Air 1.0 04/08/17 07:00 97.9 86 105/68 (80) 97.9 Physical Exam General: Alert, Oriented X3, Cooperative, No acute distress Heart: Normal S1, Normal S2, No murmurs Lungs: Clear Abdomen: Normal bowel sounds, Soft, Other (mild tenderness in mid to right, not at [place], some [place], diffuse pain, w/guarding, no rebound, no referred) Extremities: No clubbing, No cyanosis Skin: No rashes, No breakdown, No significant lesion, Other (acne) Labs LABS Laboratory Tests Test 04/08/17 08:00 White Blood Count 6.6 x10^3/uL (4.0-11.0) Red Blood Count 3.91 x10^6/uL (3.50-5.40) Hemoglobin 12.0 g/dL (12.0-15.5) Hematocrit 34.9 % (36.0-47.0) Mean Corpuscular Volume 89 fL (79-100) Mean Corpuscular Hemoglobin 31 pg (25-35) Mean Corpuscular Hemoglobin Concent 34 g/dL (31-37) Red Cell Distribution Width 12.4 % (11.5-14.5) Platelet Count 282 x10^3/uL (140-400) Neutrophils (%) (Auto) 65 % (31-73) Lymphocytes (%) (Auto) 22 % (24-48) Monocytes (%) (Auto) 10 % (0-9) Eosinophils (%) (Auto) 3 % (0-3) Basophils (%) (Auto) 1 % (0-3) Neutrophils # (Auto) 4.3 x10^3uL (1.8-7.7) Lymphocytes # (Auto) 1.4 x10^3/uL (1.0-4.8) Monocytes # (Auto) 0.6 x10^3/uL (0.0-1.1) Eosinophils # (Auto) 0.2 x10^3/uL (0.0-0.7) Basophils # (Auto) 0.1 x10^3/uL (0.0-0.2) Sodium Level 138 mmol/L (136-145) Potassium Level 3.3 mmol/L (3.5-5.1) Chloride Level 101 mmol/L (98-107) Carbon Dioxide Level 28 mmol/L (21-32) Anion Gap 9 (6-14) Blood Urea Nitrogen 5 mg/dL (7-20) Creatinine 0.7 mg/dL (0.6-1.0) Estimated GFR (Cockcroft-Gault) 107.8 Glucose Level 96 mg/dL (70-99) Calcium Level 8.8 mg/dL (8.5-10.1) Review of Systems Review of Systems abd pain lethargy weakness Assessment and Plan Assessmemt and Plan GI consult med changes US ordered Problems: Comment Review of Relevant I have reviewed the following items shaina (where applicable) has been applied. Labs Laboratory Tests Test 04/07/17 03:35 04/08/17 08:00 White Blood Count 5.1 x10^3/uL (4.0-11.0) 6.6 x10^3/uL (4.0-11.0) Red Blood Count 3.48 x10^6/uL (3.50-5.40) 3.91 x10^6/uL (3.50-5.40) Hemoglobin 10.6 g/dL (12.0-15.5) 12.0 g/dL (12.0-15.5) Hematocrit 31.6 % (36.0-47.0) 34.9 % (36.0-47.0) Mean Corpuscular Volume 91 fL (79-100) 89 fL (79-100) Mean Corpuscular Hemoglobin 31 pg (25-35) 31 pg (25-35) Mean Corpuscular Hemoglobin Concent 34 g/dL (31-37) 34 g/dL (31-37) Red Cell Distribution Width 12.4 % (11.5-14.5) 12.4 % (11.5-14.5) Platelet Count 243 x10^3/uL (140-400) 282 x10^3/uL (140-400) Neutrophils (%) (Auto) 53 % (31-73) 65 % (31-73) Lymphocytes (%) (Auto) 32 % (24-48) 22 % (24-48) Monocytes (%) (Auto) 11 % (0-9) 10 % (0-9) Eosinophils (%) (Auto) 3 % (0-3) 3 % (0-3) Basophils (%) (Auto) 1 % (0-3) 1 % (0-3) Neutrophils # (Auto) 2.7 x10^3uL (1.8-7.7) 4.3 x10^3uL (1.8-7.7) Lymphocytes # (Auto) 1.6 x10^3/uL (1.0-4.8) 1.4 x10^3/uL (1.0-4.8) Monocytes # (Auto) 0.6 x10^3/uL (0.0-1.1) 0.6 x10^3/uL (0.0-1.1) Eosinophils # (Auto) 0.2 x10^3/uL (0.0-0.7) 0.2 x10^3/uL (0.0-0.7) Basophils # (Auto) 0.0 x10^3/uL (0.0-0.2) 0.1 x10^3/uL (0.0-0.2) Sodium Level 142 mmol/L (136-145) 138 mmol/L (136-145) Potassium Level 3.4 mmol/L (3.5-5.1) 3.3 mmol/L (3.5-5.1) Chloride Level 108 mmol/L (98-107) 101 mmol/L (98-107) Carbon Dioxide Level 28 mmol/L (21-32) 28 mmol/L (21-32) Anion Gap 6 (6-14) 9 (6-14) Blood Urea Nitrogen 4 mg/dL (7-20) 5 mg/dL (7-20) Creatinine 0.7 mg/dL (0.6-1.0) 0.7 mg/dL (0.6-1.0) Estimated GFR (Cockcroft-Gault) 107.8 107.8 Glucose Level 92 mg/dL (70-99) 96 mg/dL (70-99) Calcium Level 8.0 mg/dL (8.5-10.1) 8.8 mg/dL (8.5-10.1) Total Bilirubin 0.2 mg/dL (0.2-1.0) Direct Bilirubin 0.1 mg/dL (0.0-0.2) Aspartate Amino Transf (AST/SGOT) 23 U/L (15-37) Alanine Aminotransferase (ALT/SGPT) 14 U/L (14-59) Alkaline Phosphatase 53 U/L (46-116) Total Protein 6.6 g/dL (6.4-8.2) Albumin 3.2 g/dL (3.4-5.0) Lipase 67 U/L (73-393) Laboratory Tests Test 04/08/17 08:00 White Blood Count 6.6 x10^3/uL (4.0-11.0) Red Blood Count 3.91 x10^6/uL (3.50-5.40) Hemoglobin 12.0 g/dL (12.0-15.5) Hematocrit 34.9 % (36.0-47.0) Mean Corpuscular Volume 89 fL (79-100) Mean Corpuscular Hemoglobin 31 pg (25-35) Mean Corpuscular Hemoglobin Concent 34 g/dL (31-37) Red Cell Distribution Width 12.4 % (11.5-14.5) Platelet Count 282 x10^3/uL (140-400) Neutrophils (%) (Auto) 65 % (31-73) Lymphocytes (%) (Auto) 22 % (24-48) Monocytes (%) (Auto) 10 % (0-9) Eosinophils (%) (Auto) 3 % (0-3) Basophils (%) (Auto) 1 % (0-3) Neutrophils # (Auto) 4.3 x10^3uL (1.8-7.7) Lymphocytes # (Auto) 1.4 x10^3/uL (1.0-4.8) Monocytes # (Auto) 0.6 x10^3/uL (0.0-1.1) Eosinophils # (Auto) 0.2 x10^3/uL (0.0-0.7) Basophils # (Auto) 0.1 x10^3/uL (0.0-0.2) Sodium Level 138 mmol/L (136-145) Potassium Level 3.3 mmol/L (3.5-5.1) Chloride Level 101 mmol/L (98-107) Carbon Dioxide Level 28 mmol/L (21-32) Anion Gap 9 (6-14) Blood Urea Nitrogen 5 mg/dL (7-20) Creatinine 0.7 mg/dL (0.6-1.0) Estimated GFR (Cockcroft-Gault) 107.8 Glucose Level 96 mg/dL (70-99) Calcium Level 8.8 mg/dL (8.5-10.1) Microbiology 04/04/17 Blood Culture - Preliminary, Resulted NO GROWTH AFTER 3 DAYS Medications Current Medications Sodium Chloride 1,000 ml @ 75 mls/hr [id number] IV Last administered on 20:58; Start 04/04/17 at 12:30; Stop 04/05/17 at 10:52; Status DC Propofol 100 ml @ 0 mls/hr CONT PRN IV SEE I/O RECORD Last administered on 08:53; Start 04/04/17 at 12:00; Stop 04/05/17 at 16:43; Status DC Ceftriaxone Sodium 1 gm/ Dextrose 50 ml @ 100 mls/hr Q24H IV ; Start 04/05/17 at 09:00; Status UNV Ceftriaxone Sodium (Rocephin) 1 gm Q24H IVP ; Start 04/04/17 at 16:00; Status Cancel Levetiracetam 500 mg/Dextrose 105 ml @ 420 mls/hr Q12HR IV ; Start 04/04/17 at 16:00; Stop 04/04/17 at 16:00; Status DC Aspirin (Aspirin) 300 mg 1X ONCE DC Last administered on 04/04/17 15:51; Start 04/04/17 at 16:00; Stop 04/04/17 at 16:01; Status DC Levetiracetam 500 mg/Sodium Chloride 105 ml @ 420 mls/hr Q12HR IV ; Start at 16:00; Status Cancel Levetiracetam 500 mg/Sodium Chloride 105 ml @ 420 mls/hr Q12HR IV Last administered on 04/07/17 08:01; Start 04/04/17 at 21:00; Stop 04/07/17 at 09 :44; Status DC Ceftriaxone Sodium (Rocephin) 1 gm Q24H IVP Last administered on 04/07/17 08: 00; Start 04/05/17 at 09:00; Stop 04/07/17 at 09:44; Status DC Sodium Chloride 1,000 ml @ 150 mls/hr Q6H40M IV Last administered on 02:13; Start 04/05/17 at 11:00; Stop 04/07/17 at 11:21; Status DC Lorazepam (Ativan) 1 mg PRN Q6HRS PRN IV ANXIETY / AGITATION Last administered on 04/06/17 18:11; Start 04/05/17 at 16:45; Stop 04/06/17 at 19:45; Status DC Albuterol/ Ipratropium (Duoneb) 3 ml RTQID NEB Last administered on 04/08/17 08:18; Start 04/06/17 at 00:30 Potassium Chloride (Klor-Con) 40 meq 1X ONCE PO Last administered on 14:49; Start 04/06/17 at 12:00; Stop 04/06/17 at 12:01; Status DC Lorazepam (Ativan) 1 mg PRN Q4HRS PRN IV ANXIETY / AGITATION Last administered on 04/08/17 04:59; Start 04/06/17 at 19:45 Morphine Sulfate 2 mg PRN Q2HR PRN IV PAIN Last administered on 04/07/17 09: 57; Start 04/06/17 at 19:45; Stop 04/07/17 at 11:19; Status DC Ondansetron HCl (Zofran) 4 mg PRN Q6HRS PRN IV NAUSEA/VOMITING Last administered on 04/07/17 18:11; Start 04/06/17 at 20:15 Hydromorphone HCl (Dilaudid) 0.4 mg PRN Q4HRS PRN IVP SEVERE PAIN Last administered on 04/07/17 08:00; Start 04/06/17 at 22:30; Stop 04/07/17 at 11 :19; Status DC Oxycodone/ Acetaminophen (Percocet 5/325) 1 tab PRN Q4HRS PRN PO PAIN Last administered on 04/08/17 08:43; Start 04/07/17 at 09:45 Levetiracetam (Keppra) 500 mg BID PO Last administered on 04/08/17 08:42; Start 04/07/17 at 10:00 Hydromorphone HCl (Dilaudid) 0.2 mg PRN Q4HRS PRN IVP SEVERE PAIN Last administered on 04/08/17 04:59; Start 04/07/17 at 11:30 Pantoprazole Sodium (Protonix) 40 mg DAILYAC PO Last administered on 08:42; Start 04/07/17 at 12:00; Stop 04/08/17 at 09:27; Status DC Al Hydroxide/Mg Hydroxide (Mylanta Plus Xs) 30 ml PRN Q2HR PRN PO HEARTBURN / GAS; Start 04/07/17 at 11:30 Iohexol (Omnipaque 240 Mg/ml) 50 ml 1X ONCE PO Last administered on 13:00; Start 04/07/17 at 13:00; Stop 04/07/17 at 13:01; Status DC Zinc Acetate/ Diphenhydramine (Benadryl Topical) 1 chandrika PRN QID PRN TP ITCHING Last administered on 04/08/17 08:43; Start 04/08/17 at 07:45 Potassium Chloride (Klor-Con) 40 meq 1X ONCE PO ; Start 04/08/17 at 09:45; Stop 04/08/17 at 09:46 Pantoprazole Sodium (Protonix) 40 mg BIDAC PO ; Start 04/08/17 at 16:30 Multi-Ingredient Mouthwash/Gargle (Gi Cocktail Single Dose) 15 ml 1X ONCE SWSW ; Start 04/08/17 at 10:00; Stop 04/08/17 at 10:01 Active Scripts Active Reported Nitrofurantoin (Nitrofurantoin Macrocrystal) 100 Mg Capsule 100 Mg PO BID Buspirone Hcl 10 Mg Tablet 10 Mg PO BID Divalproex Sodium 250 Mg Tablet.dr 500 Mg PO BID Vitals/I & O Vital Sign - Last 24 Hours 04/07/17 04/07/17 04/07/17 04/07/17 10:48 11:08 15:00 16:01 Temp 98.5 98.2 98.5 98.2 Pulse 74 71 Resp 16 16 B/P (MAP) 108/60 (76) 118/72 (87) Pulse Ox 99 100 99 100 O2 Delivery Nasal Cannula Room Air Nasal Cannula O2 Flow Rate 2.0 1.0 1.0 04/07/17 04/07/17 04/07/17 04/07/17 19:00 20:00 20:11 20:17 Temp 98.7 98.7 Pulse 88 Resp 18 18 B/P (MAP) 120/72 (88) Pulse Ox 99 98 O2 Delivery Nasal Cannula Room Air O2 Flow Rate 1.0 1.0 04/07/17 04/07/17 04/08/17 04/08/17 22:09 23:51 01:37 02:37 Pulse 112 Resp 18 B/P (MAP) 139/68 (91) Pulse Ox 98 98 98 98 O2 Delivery Room Air Room Air Room Air Room Air O2 Flow Rate 1.0 1.0 1.0 1.0 04/08/17 04/08/17 04/08/17 04/08/17 03:55 04:59 05:29 07:00 Temp 97.9 97.9 97.9 97.9 Pulse 94 86 Resp 18 17 18 B/P (MAP) 132/74 (93) 105/68 (80) Pulse Ox 99 99 99 98 O2 Delivery Nasal Cannula Room Air Room Air Nasal Cannula O2 Flow Rate 1.0 1.0 1.0 04/08/17 04/08/17 08:19 08:43 Resp 18 Pulse Ox 97 97 O2 Delivery Nasal Cannula Room Air O2 Flow Rate 1.0 1.0 Intake and Output 04/07/17 04/07/17 04/08/17 15:00 23:00 07:00 Intake Total 50 ml 500 ml Output Total 200 ml Balance 50 ml 300 ml BASSAM KENNEDY MD Apr 08, 2017 09:37
[2017-04-08] MEDS ORDERED: POTASSIUM CHLORIDE 20 MEQ TABLET.ER. PO ONE (09:45)
[2017-04-08] MEDS ORDERED: LIDO:MAALOX:DONNATAL 1:1:1 15 ML SINGLE DOSE SWSW ONE (10:00)
--- NOTE | 2017-04-08 10:09 | RAD ---
Ultrasound abdomen Indication: Right upper quadrant pain. Evaluate gallstones. Technique: Grayscale, color Doppler and spectral waveform ultrasound images of the right upper quadrant obtained. Comparison: Previous CT abdomen and pelvis from 04/07/2017 Findings: The IVC is patent. The liver measures 17 cm in length and is normal in echogenicity without focal lesion. No gallstones. No pericholecystic fluid or gallbladder wall thickening. Gallbladder is not distended. CBD measures 3 mm and is within normal limits. Right kidney measures 11 cm in length without hydronephrosis. Impression: No cholelithiasis or sonographic evidence of acute cholecystitis.
--- NOTE | 2017-04-08 10:43 | PDOC ---
PROGRESS NOTES Assessment Epilepsy, had EEG at earlier this year. Possible psychogenic nonepileptic seizure Stroke has been ruled out Plan Continue levetiracetam I requested records Workup and treatment of abdominal pain Subjective Complaints of abdominal pain Objective Vital Signs Date Time Temp Pulse Resp B/P (MAP) Pulse Ox O2 Delivery O2 Flow Rate FiO2 04/08/17 08:43 18 97 Room Air 1.0 04/08/17 07:00 97.9 86 105/68 (80) 97.9 Intake and Output 04/08/17 07:00 Intake Total 550 ml Output Total 200 ml Balance 350 ml Intake Oral 550 ml Output Urine Total 200 ml # Voids 8 PHYSICAL EXAM Alert. Oriented to time, place and person. PERRL. EOMI. CN: no focal findings. Muscle tone: normal. Muscle strength: 5/5 DTR: 2+ Plantar reflex: flexor Gait: not examined in bed. Sensory exam: no abnormal findings. No cerebellar signs elicited. Review of Relevant I have reviewed the following items shaina (where applicable) has been applied. Labs Laboratory Tests Test 04/07/17 03:35 04/08/17 08:00 White Blood Count 5.1 x10^3/uL (4.0-11.0) 6.6 x10^3/uL (4.0-11.0) Red Blood Count 3.48 x10^6/uL (3.50-5.40) 3.91 x10^6/uL (3.50-5.40) Hemoglobin 10.6 g/dL (12.0-15.5) 12.0 g/dL (12.0-15.5) Hematocrit 31.6 % (36.0-47.0) 34.9 % (36.0-47.0) Mean Corpuscular Volume 91 fL (79-100) 89 fL (79-100) Mean Corpuscular Hemoglobin 31 pg (25-35) 31 pg (25-35) Mean Corpuscular Hemoglobin Concent 34 g/dL (31-37) 34 g/dL (31-37) Red Cell Distribution Width 12.4 % (11.5-14.5) 12.4 % (11.5-14.5) Platelet Count 243 x10^3/uL (140-400) 282 x10^3/uL (140-400) Neutrophils (%) (Auto) 53 % (31-73) 65 % (31-73) Lymphocytes (%) (Auto) 32 % (24-48) 22 % (24-48) Monocytes (%) (Auto) 11 % (0-9) 10 % (0-9) Eosinophils (%) (Auto) 3 % (0-3) 3 % (0-3) Basophils (%) (Auto) 1 % (0-3) 1 % (0-3) Neutrophils # (Auto) 2.7 x10^3uL (1.8-7.7) 4.3 x10^3uL (1.8-7.7) Lymphocytes # (Auto) 1.6 x10^3/uL (1.0-4.8) 1.4 x10^3/uL (1.0-4.8) Monocytes # (Auto) 0.6 x10^3/uL (0.0-1.1) 0.6 x10^3/uL (0.0-1.1) Eosinophils # (Auto) 0.2 x10^3/uL (0.0-0.7) 0.2 x10^3/uL (0.0-0.7) Basophils # (Auto) 0.0 x10^3/uL (0.0-0.2) 0.1 x10^3/uL (0.0-0.2) Sodium Level 142 mmol/L (136-145) 138 mmol/L (136-145) Potassium Level 3.4 mmol/L (3.5-5.1) 3.3 mmol/L (3.5-5.1) Chloride Level 108 mmol/L (98-107) 101 mmol/L (98-107) Carbon Dioxide Level 28 mmol/L (21-32) 28 mmol/L (21-32) Anion Gap 6 (6-14) 9 (6-14) Blood Urea Nitrogen 4 mg/dL (7-20) 5 mg/dL (7-20) Creatinine 0.7 mg/dL (0.6-1.0) 0.7 mg/dL (0.6-1.0) Estimated GFR (Cockcroft-Gault) 107.8 107.8 Glucose Level 92 mg/dL (70-99) 96 mg/dL (70-99) Calcium Level 8.0 mg/dL (8.5-10.1) 8.8 mg/dL (8.5-10.1) Total Bilirubin 0.2 mg/dL (0.2-1.0) Direct Bilirubin 0.1 mg/dL (0.0-0.2) Aspartate Amino Transf (AST/SGOT) 23 U/L (15-37) Alanine Aminotransferase (ALT/SGPT) 14 U/L (14-59) Alkaline Phosphatase 53 U/L (46-116) Total Protein 6.6 g/dL (6.4-8.2) Albumin 3.2 g/dL (3.4-5.0) Lipase 67 U/L (73-393) Laboratory Tests Test 04/08/17 08:00 White Blood Count 6.6 x10^3/uL (4.0-11.0) Red Blood Count 3.91 x10^6/uL (3.50-5.40) Hemoglobin 12.0 g/dL (12.0-15.5) Hematocrit 34.9 % (36.0-47.0) Mean Corpuscular Volume 89 fL (79-100) Mean Corpuscular Hemoglobin 31 pg (25-35) Mean Corpuscular Hemoglobin Concent 34 g/dL (31-37) Red Cell Distribution Width 12.4 % (11.5-14.5) Platelet Count 282 x10^3/uL (140-400) Neutrophils (%) (Auto) 65 % (31-73) Lymphocytes (%) (Auto) 22 % (24-48) Monocytes (%) (Auto) 10 % (0-9) Eosinophils (%) (Auto) 3 % (0-3) Basophils (%) (Auto) 1 % (0-3) Neutrophils # (Auto) 4.3 x10^3uL (1.8-7.7) Lymphocytes # (Auto) 1.4 x10^3/uL (1.0-4.8) Monocytes # (Auto) 0.6 x10^3/uL (0.0-1.1) Eosinophils # (Auto) 0.2 x10^3/uL (0.0-0.7) Basophils # (Auto) 0.1 x10^3/uL (0.0-0.2) Sodium Level 138 mmol/L (136-145) Potassium Level 3.3 mmol/L (3.5-5.1) Chloride Level 101 mmol/L (98-107) Carbon Dioxide Level 28 mmol/L (21-32) Anion Gap 9 (6-14) Blood Urea Nitrogen 5 mg/dL (7-20) Creatinine 0.7 mg/dL (0.6-1.0) Estimated GFR (Cockcroft-Gault) 107.8 Glucose Level 96 mg/dL (70-99) Calcium Level 8.8 mg/dL (8.5-10.1) Microbiology 04/04/17 Blood Culture - Preliminary, Resulted NO GROWTH AFTER 3 DAYS Medications Current Medications Sodium Chloride 1,000 ml @ 75 mls/hr [id number] IV Last administered on 20:58; Start 04/04/17 at 12:30; Stop 04/05/17 at 10:52; Status DC Propofol 100 ml @ 0 mls/hr CONT PRN IV SEE I/O RECORD Last administered on 08:53; Start 04/04/17 at 12:00; Stop 04/05/17 at 16:43; Status DC Ceftriaxone Sodium 1 gm/ Dextrose 50 ml @ 100 mls/hr Q24H IV ; Start 04/05/17 at 09:00; Status UNV Ceftriaxone Sodium (Rocephin) 1 gm Q24H IVP ; Start 04/04/17 at 16:00; Status Cancel Levetiracetam 500 mg/Dextrose 105 ml @ 420 mls/hr Q12HR IV ; Start 04/04/17 at 16:00; Stop 04/04/17 at 16:00; Status DC Aspirin (Aspirin) 300 mg 1X ONCE UT Last administered on 04/04/17 15:51; Start 04/04/17 at 16:00; Stop 04/04/17 at 16:01; Status DC Levetiracetam 500 mg/Sodium Chloride 105 ml @ 420 mls/hr Q12HR IV ; Start at 16:00; Status Cancel Levetiracetam 500 mg/Sodium Chloride 105 ml @ 420 mls/hr Q12HR IV Last administered on 04/07/17 08:01; Start 04/04/17 at 21:00; Stop 04/07/17 at 09 :44; Status DC Ceftriaxone Sodium (Rocephin) 1 gm Q24H IVP Last administered on 04/07/17 08: 00; Start 04/05/17 at 09:00; Stop 04/07/17 at 09:44; Status DC Sodium Chloride 1,000 ml @ 150 mls/hr Q6H40M IV Last administered on 02:13; Start 04/05/17 at 11:00; Stop 04/07/17 at 11:21; Status DC Lorazepam (Ativan) 1 mg PRN Q6HRS PRN IV ANXIETY / AGITATION Last administered on 04/06/17 18:11; Start 04/05/17 at 16:45; Stop 04/06/17 at 19:45; Status DC Albuterol/ Ipratropium (Duoneb) 3 ml RTQID NEB Last administered on 04/08/17 08:18; Start 04/06/17 at 00:30 Potassium Chloride (Klor-Con) 40 meq 1X ONCE PO Last administered on 14:49; Start 04/06/17 at 12:00; Stop 04/06/17 at 12:01; Status DC Lorazepam (Ativan) 1 mg PRN Q4HRS PRN IV ANXIETY / AGITATION Last administered on 04/08/17 04:59; Start 04/06/17 at 19:45 Morphine Sulfate 2 mg PRN Q2HR PRN IV PAIN Last administered on 04/07/17 09: 57; Start 04/06/17 at 19:45; Stop 04/07/17 at 11:19; Status DC Ondansetron HCl (Zofran) 4 mg PRN Q6HRS PRN IV NAUSEA/VOMITING Last administered on 04/07/17 18:11; Start 04/06/17 at 20:15 Hydromorphone HCl (Dilaudid) 0.4 mg PRN Q4HRS PRN IVP SEVERE PAIN Last administered on 04/07/17 08:00; Start 04/06/17 at 22:30; Stop 04/07/17 at 11 :19; Status DC Oxycodone/ Acetaminophen (Percocet 5/325) 1 tab PRN Q4HRS PRN PO PAIN Last administered on 04/08/17 08:43; Start 04/07/17 at 09:45 Levetiracetam (Keppra) 500 mg BID PO Last administered on 04/08/17 08:42; Start 04/07/17 at 10:00 Hydromorphone HCl (Dilaudid) 0.2 mg PRN Q4HRS PRN IVP SEVERE PAIN Last administered on 04/08/17 04:59; Start 04/07/17 at 11:30 Pantoprazole Sodium (Protonix) 40 mg DAILYAC PO Last administered on 08:42; Start 04/07/17 at 12:00; Stop 04/08/17 at 09:27; Status DC Al Hydroxide/Mg Hydroxide (Mylanta Plus Xs) 30 ml PRN Q2HR PRN PO HEARTBURN / GAS; Start 04/07/17 at 11:30 Iohexol (Omnipaque 240 Mg/ml) 50 ml 1X ONCE PO Last administered on 13:00; Start 04/07/17 at 13:00; Stop 04/07/17 at 13:01; Status DC Zinc Acetate/ Diphenhydramine (Benadryl Topical) 1 chandrika PRN QID PRN TP ITCHING Last administered on 04/08/17 08:43; Start 04/08/17 at 07:45 Potassium Chloride (Klor-Con) 40 meq 1X ONCE PO ; Start 04/08/17 at 09:45; Stop 04/08/17 at 09:46; Status DC Pantoprazole Sodium (Protonix) 40 mg BIDAC PO ; Start 04/08/17 at 16:30 Multi-Ingredient Mouthwash/Gargle (Gi Cocktail Single Dose) 15 ml 1X ONCE SWSW ; Start 04/08/17 at 10:00; Stop 04/08/17 at 10:01; Status DC Active Scripts Active Reported Nitrofurantoin (Nitrofurantoin Macrocrystal) 100 Mg Capsule 100 Mg PO BID Buspirone Hcl 10 Mg Tablet 10 Mg PO BID Divalproex Sodium 250 Mg Tablet.dr 500 Mg PO BID Vitals/I & O Vital Sign - Last 24 Hours 04/07/17 04/07/17 04/07/17 04/07/17 10:48 11:08 15:00 16:01 Temp 98.5 98.2 98.5 98.2 Pulse 74 71 Resp 16 16 B/P (MAP) 108/60 (76) 118/72 (87) Pulse Ox 99 100 99 100 O2 Delivery Nasal Cannula Room Air Nasal Cannula O2 Flow Rate 2.0 1.0 1.0 04/07/17 04/07/17 04/07/17 04/07/17 19:00 20:00 20:11 20:17 Temp 98.7 98.7 Pulse 88 Resp 18 18 B/P (MAP) 120/72 (88) Pulse Ox 99 98 O2 Delivery Nasal Cannula Room Air O2 Flow Rate 1.0 1.0 04/07/17 04/07/17 04/08/17 04/08/17 22:09 23:51 01:37 02:37 Pulse 112 Resp 18 B/P (MAP) 139/68 (91) Pulse Ox 98 98 98 98 O2 Delivery Room Air Room Air Room Air Room Air O2 Flow Rate 1.0 1.0 1.0 1.0 04/08/17 04/08/17 04/08/17 04/08/17 03:55 04:59 05:29 07:00 Temp 97.9 97.9 97.9 97.9 Pulse 94 86 Resp 18 17 18 B/P (MAP) 132/74 (93) 105/68 (80) Pulse Ox 99 99 99 98 O2 Delivery Nasal Cannula Room Air Room Air Nasal Cannula O2 Flow Rate 1.0 1.0 1.0 04/08/17 04/08/17 08:19 08:43 Resp 18 Pulse Ox 97 97 O2 Delivery Nasal Cannula Room Air O2 Flow Rate 1.0 1.0 Intake and Output 04/07/17 04/07/17 04/08/17 15:00 23:00 07:00 Intake Total 50 ml 500 ml Output Total 200 ml Balance 50 ml 300 ml Images MRI brain and MRA brain 04/04/2017. MRI BRAIN: Multiplanar multisequence imaging was performed. FINDINGS: There is no apparent intracranial mass, hemorrhage or abnormal extra-axial fluid collection. No area of signal abnormality or diffusion weighted abnormality is seen in the brain or brainstem. The ventricles and basilar cisterns are normally positioned. The visualized portions of the paranasal sinuses and mastoid air cells are clear. IMPRESSION: No apparent intracranial abnormality. MRA: 3-D MR angiography was performed. FINDINGS: The distal vertebral arteries appear normal extending to the confluence. The basilar artery and internal carotid arteries are patent extending through the skull base. They show no focal narrowing or aneurysmal dilatation. The anterior, middle and posterior cerebral branches are patent bilaterally, and show no apparent abnormality extending to their major branch points. 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 The visualized cerebellar branches appear normal. No abnormal vascularity is seen. IMPRESSION: Normal MRA. CHELO NOLASCO MD Apr 08, 2017 10:43
[2017-04-08 11:00] VITALS: BP 102/39
--- NOTE | 2017-04-08 12:24 | PDOC2 ---
GI CONSULT Reason For Consult: Abd pain HPI: HPI: 21 y/o transferred to [facility] w/ possible psychogenic nonepileptic seizure. Was intubated, extubated 04/05. We are asked to see re: abd pain. Per RN, discharge was previously discussed, abd pain started overnight. Has been eating well. Per pt, has had abd pain (umbilical and below) intermittently for a few days. Worse w/ movement, worse on the right side. Had some nausea this morning but ate breakfast w/o issue. Occasional heartburn, untreated (although on BID PPI here). A couple days ago had some watery diarrhea (brown mixed w/ red). 7 stools charted on 04/07. Takes ibuprofen PRN for HAs. No previous EGD or colonoscopy. No liver, GB, or pancreas history. Labs and imaging unrevealing. PMH: PMH: epilepsy, borderline personality disorder, bipolar, PTSD, anxiety, hypothyroidism, headaches FH: Family History: Other (adopted) Social History: Smoke: No ALCOHOL: none Drugs: None ROS: GEN: Denies fevers, chills, sweats HEENT: Denies blurred vision, sore throat CV: Denies chest pain RESP: Denies shortness of air, cough GI: Per HPI : Denies hematuria, dysuria ENDO: Denies weight changes NEURO: Denies confusion, dizziness MSK: Denies weakness, joint pain/swelling SKIN: Denies jaundice, pruritus Vitals: Vitals: Vital Signs Date Time Temp Pulse Resp B/P (MAP) Pulse Ox O2 Delivery O2 Flow Rate FiO2 04/08/17 12:02 Nasal Cannula 1.0 04/08/17 11:00 98.1 83 18 102/39 (60) 100 98.1 Labs: Labs: Laboratory Tests Test 04/08/17 08:00 White Blood Count 6.6 x10^3/uL (4.0-11.0) Red Blood Count 3.91 x10^6/uL (3.50-5.40) Hemoglobin 12.0 g/dL (12.0-15.5) Hematocrit 34.9 % (36.0-47.0) Mean Corpuscular Volume 89 fL (79-100) Mean Corpuscular Hemoglobin 31 pg (25-35) Mean Corpuscular Hemoglobin Concent 34 g/dL (31-37) Red Cell Distribution Width 12.4 % (11.5-14.5) Platelet Count 282 x10^3/uL (140-400) Neutrophils (%) (Auto) 65 % (31-73) Lymphocytes (%) (Auto) 22 % (24-48) Monocytes (%) (Auto) 10 % (0-9) Eosinophils (%) (Auto) 3 % (0-3) Basophils (%) (Auto) 1 % (0-3) Neutrophils # (Auto) 4.3 x10^3uL (1.8-7.7) Lymphocytes # (Auto) 1.4 x10^3/uL (1.0-4.8) Monocytes # (Auto) 0.6 x10^3/uL (0.0-1.1) Eosinophils # (Auto) 0.2 x10^3/uL (0.0-0.7) Basophils # (Auto) 0.1 x10^3/uL (0.0-0.2) Sodium Level 138 mmol/L (136-145) Potassium Level 3.3 mmol/L (3.5-5.1) Chloride Level 101 mmol/L (98-107) Carbon Dioxide Level 28 mmol/L (21-32) Anion Gap 9 (6-14) Blood Urea Nitrogen 5 mg/dL (7-20) Creatinine 0.7 mg/dL (0.6-1.0) Estimated GFR (Cockcroft-Gault) 107.8 Glucose Level 96 mg/dL (70-99) Calcium Level 8.8 mg/dL (8.5-10.1) Allergies: Coded Allergies: haloperidol (Verified Allergy, Severe, TONGUE SWELLING, 06/04/16) tongue swelling Medications: Current Medications Medications (Trade) Dose Ordered Sig/Priya Route PRN Reason Start Time Stop Time Status Last Admin Dose Admin Iohexol (Omnipaque 240 Mg/ml) 50 ml 1X ONCE PO 04/07/17 13:00 04/07/17 13:01 DC 04/07/17 13:00 Zinc Acetate/ Diphenhydramine (Benadryl Topical) 1 chandrika PRN QID PRN TP ITCHING 04/08/17 07:45 04/08/17 08:43 Imaging: Imaging: Abd US Impression: No cholelithiasis or sonographic evidence of acute cholecystitis. CBD 3mm. CT A/P Impression: 1.There is a small quantity of nonspecific dependent free fluid in the pelvis. Otherwise no significant acute abnormality is identified. Normal appendix is visualized. CXR Impression: 1. There is no significant infiltrate. MRI/MRA brain IMPRESSION: No apparent intracranial abnormality. IMPRESSION: Normal MRA. PE: GEN: NAD HEENT: Atraumatic, PERRL LUNGS: CTAB HEART: RRR ABD: NABS, S/ND, RLQ discomfort EXTREMITY: No edema SKIN: No rashes, no jaundice NEURO/PSYCH: A & O 3 A/P: A/P: Seizure Abd pain (~RLQ) -intermittent, worse w/ movement -CT and US unrevealing Diarrhea -watery brown/red (none today) Occasional heartburn, nausea -on BID PPI here -tolerating PO -- Will review GI recs w/ Dr. Haywood. ZAFAR LEDESMA Apr 08, 2017 12:24
--- NOTE | 2017-04-08 13:20 | PDOC ---
PULMONARY PROGRESS NOTES Subjective EXTUBATED 04/05 AWAKE NO INCREASE SOA Vitals Vital Signs Date Time Temp Pulse Resp B/P (MAP) Pulse Ox O2 Delivery O2 Flow Rate FiO2 04/08/17 12:50 18 100 Room Air 1.0 04/08/17 11:00 98.1 83 102/39 (60) 98.1 ROS: No Nausea, No Chest Pain, No Abdominal Pain, No Increase Cough General: Alert, No acute distress Lungs: Clear Cardiovascular: S1, S2 Abdomen: Soft Neuro Exam: Alert Extremities: No Edema Skin: Warm Labs Laboratory Tests Test 04/07/17 03:35 04/08/17 08:00 White Blood Count 5.1 x10^3/uL (4.0-11.0) 6.6 x10^3/uL (4.0-11.0) Red Blood Count 3.48 x10^6/uL (3.50-5.40) 3.91 x10^6/uL (3.50-5.40) Hemoglobin 10.6 g/dL (12.0-15.5) 12.0 g/dL (12.0-15.5) Hematocrit 31.6 % (36.0-47.0) 34.9 % (36.0-47.0) Mean Corpuscular Volume 91 fL (79-100) 89 fL (79-100) Mean Corpuscular Hemoglobin 31 pg (25-35) 31 pg (25-35) Mean Corpuscular Hemoglobin Concent 34 g/dL (31-37) 34 g/dL (31-37) Red Cell Distribution Width 12.4 % (11.5-14.5) 12.4 % (11.5-14.5) Platelet Count 243 x10^3/uL (140-400) 282 x10^3/uL (140-400) Neutrophils (%) (Auto) 53 % (31-73) 65 % (31-73) Lymphocytes (%) (Auto) 32 % (24-48) 22 % (24-48) Monocytes (%) (Auto) 11 % (0-9) 10 % (0-9) Eosinophils (%) (Auto) 3 % (0-3) 3 % (0-3) Basophils (%) (Auto) 1 % (0-3) 1 % (0-3) Neutrophils # (Auto) 2.7 x10^3uL (1.8-7.7) 4.3 x10^3uL (1.8-7.7) Lymphocytes # (Auto) 1.6 x10^3/uL (1.0-4.8) 1.4 x10^3/uL (1.0-4.8) Monocytes # (Auto) 0.6 x10^3/uL (0.0-1.1) 0.6 x10^3/uL (0.0-1.1) Eosinophils # (Auto) 0.2 x10^3/uL (0.0-0.7) 0.2 x10^3/uL (0.0-0.7) Basophils # (Auto) 0.0 x10^3/uL (0.0-0.2) 0.1 x10^3/uL (0.0-0.2) Sodium Level 142 mmol/L (136-145) 138 mmol/L (136-145) Potassium Level 3.4 mmol/L (3.5-5.1) 3.3 mmol/L (3.5-5.1) Chloride Level 108 mmol/L (98-107) 101 mmol/L (98-107) Carbon Dioxide Level 28 mmol/L (21-32) 28 mmol/L (21-32) Anion Gap 6 (6-14) 9 (6-14) Blood Urea Nitrogen 4 mg/dL (7-20) 5 mg/dL (7-20) Creatinine 0.7 mg/dL (0.6-1.0) 0.7 mg/dL (0.6-1.0) Estimated GFR (Cockcroft-Gault) 107.8 107.8 Glucose Level 92 mg/dL (70-99) 96 mg/dL (70-99) Calcium Level 8.0 mg/dL (8.5-10.1) 8.8 mg/dL (8.5-10.1) Total Bilirubin 0.2 mg/dL (0.2-1.0) Direct Bilirubin 0.1 mg/dL (0.0-0.2) Aspartate Amino Transf (AST/SGOT) 23 U/L (15-37) Alanine Aminotransferase (ALT/SGPT) 14 U/L (14-59) Alkaline Phosphatase 53 U/L (46-116) Total Protein 6.6 g/dL (6.4-8.2) Albumin 3.2 g/dL (3.4-5.0) Lipase 67 U/L (73-393) Laboratory Tests Test 04/08/17 08:00 White Blood Count 6.6 x10^3/uL (4.0-11.0) Red Blood Count 3.91 x10^6/uL (3.50-5.40) Hemoglobin 12.0 g/dL (12.0-15.5) Hematocrit 34.9 % (36.0-47.0) Mean Corpuscular Volume 89 fL (79-100) Mean Corpuscular Hemoglobin 31 pg (25-35) Mean Corpuscular Hemoglobin Concent 34 g/dL (31-37) Red Cell Distribution Width 12.4 % (11.5-14.5) Platelet Count 282 x10^3/uL (140-400) Neutrophils (%) (Auto) 65 % (31-73) Lymphocytes (%) (Auto) 22 % (24-48) Monocytes (%) (Auto) 10 % (0-9) Eosinophils (%) (Auto) 3 % (0-3) Basophils (%) (Auto) 1 % (0-3) Neutrophils # (Auto) 4.3 x10^3uL (1.8-7.7) Lymphocytes # (Auto) 1.4 x10^3/uL (1.0-4.8) Monocytes # (Auto) 0.6 x10^3/uL (0.0-1.1) Eosinophils # (Auto) 0.2 x10^3/uL (0.0-0.7) Basophils # (Auto) 0.1 x10^3/uL (0.0-0.2) Sodium Level 138 mmol/L (136-145) Potassium Level 3.3 mmol/L (3.5-5.1) Chloride Level 101 mmol/L (98-107) Carbon Dioxide Level 28 mmol/L (21-32) Anion Gap 9 (6-14) Blood Urea Nitrogen 5 mg/dL (7-20) Creatinine 0.7 mg/dL (0.6-1.0) Estimated GFR (Cockcroft-Gault) 107.8 Glucose Level 96 mg/dL (70-99) Calcium Level 8.8 mg/dL (8.5-10.1) Medications Active Scripts Medications Dose Route/Sig Max Daily Dose Days Date Category Nitrofurantoin (Nitrofurantoin Macrocrystal) 100 Mg Capsule 100 Mg PO BID 02/17/17 Reported Buspirone Hcl 10 Mg Tablet 10 Mg PO BID 02/17/17 Reported Divalproex Sodium 250 Mg Tablet.dr 500 Mg PO BID 02/05/17 Reported Impression . 1. Acute respiratory failure secondary to seizures. RESOLVED 2. Seizure disorder. 3. Bipolar disorder. Plan . STILL ON 02 REPEAT CXR 04/07 CLEAR WILL WEAN OFF OXYGEN MRA NEGATIVE OVERALL PULMONARY STATUS STABLE JOE GUERRERO MD Apr 08, 2017 13:20
[2017-04-08 15:00] VITALS: BP 107/58
[2017-04-08 19:05] VITALS: BP 111/73
[2017-04-08 23:05] VITALS: BP 126/80
[2017-04-09] MEDS ORDERED: ZIPRASIDONE IM 20 MG VIAL. IM ONE ×3 (00:30→09:45)
[2017-04-09 07:25] VITALS: BP 109/63
[2017-04-09] MEDS: PANTOPRAZOLE 40 MG TABLET.DR. PO SCH (07:51)
[2017-04-09] MEDS: levETIRAcetam 500 MG TABLET PO SCH (07:51)
[2017-04-09] MEDS: IPRATRPIUM/ALBUTEROL 0.5/2.5MG 3 ML NEBU. NEB SCH (08:00)
--- NOTE | 2017-04-09 08:16 | PDOC ---
PROGRESS NOTES Chief Complaint Chief Complaint Seizure disorder, more likely pseudoseizure Acute abd pain Overweight NOS Hypothyroidism Bipolar disorder Borderline personality psychotic behavior, History of Present Illness History of Present Illness overnight, she was noted having seizure like activity, but was able to follow at the time, pt was reported overnight to have marked agitation, was not compliant with orders, tried to bite nursing staff THis AM she is in a recliner at the RN station and was very sleepy at 0700, but now is awake, but not talking when asked questions. appears to be comfortable keppra PO Vitals Vitals Vital Signs Date Time Temp Pulse Resp B/P (MAP) Pulse Ox O2 Delivery O2 Flow Rate FiO2 04/08/17 23:05 98.1 82 18 126/80 (95) 99 Nasal Cannula 1.0 98.1 Physical Exam General: Alert, Oriented X3, Cooperative, No acute distress Heart: Normal S1, Normal S2, No murmurs Lungs: Clear Abdomen: Normal bowel sounds, Soft, Other (mild tenderness in mid to right, not at [place], some [place], diffuse pain, w/guarding, no rebound, no referred) Extremities: No clubbing, No cyanosis Skin: No rashes, No breakdown, No significant lesion, Other (acne) Assessment and Plan Assessmemt and Plan all imaging and workup has been negative, pt has been to [facility] extensively. He father was here last night, and explained that she 'has been kicked out of every ER in town" for this behavior, will repeat PAT screen, she seems unsafe due to event overnight Problems: Comment Review of Relevant I have reviewed the following items shaina (where applicable) has been applied. Labs Laboratory Tests Test 04/08/17 08:00 White Blood Count 6.6 x10^3/uL (4.0-11.0) Red Blood Count 3.91 x10^6/uL (3.50-5.40) Hemoglobin 12.0 g/dL (12.0-15.5) Hematocrit 34.9 % (36.0-47.0) Mean Corpuscular Volume 89 fL (79-100) Mean Corpuscular Hemoglobin 31 pg (25-35) Mean Corpuscular Hemoglobin Concent 34 g/dL (31-37) Red Cell Distribution Width 12.4 % (11.5-14.5) Platelet Count 282 x10^3/uL (140-400) Neutrophils (%) (Auto) 65 % (31-73) Lymphocytes (%) (Auto) 22 % (24-48) Monocytes (%) (Auto) 10 % (0-9) Eosinophils (%) (Auto) 3 % (0-3) Basophils (%) (Auto) 1 % (0-3) Neutrophils # (Auto) 4.3 x10^3uL (1.8-7.7) Lymphocytes # (Auto) 1.4 x10^3/uL (1.0-4.8) Monocytes # (Auto) 0.6 x10^3/uL (0.0-1.1) Eosinophils # (Auto) 0.2 x10^3/uL (0.0-0.7) Basophils # (Auto) 0.1 x10^3/uL (0.0-0.2) Sodium Level 138 mmol/L (136-145) Potassium Level 3.3 mmol/L (3.5-5.1) Chloride Level 101 mmol/L (98-107) Carbon Dioxide Level 28 mmol/L (21-32) Anion Gap 9 (6-14) Blood Urea Nitrogen 5 mg/dL (7-20) Creatinine 0.7 mg/dL (0.6-1.0) Estimated GFR (Cockcroft-Gault) 107.8 Glucose Level 96 mg/dL (70-99) Calcium Level 8.8 mg/dL (8.5-10.1) Microbiology 04/04/17 Blood Culture - Preliminary, Resulted NO GROWTH AFTER 4 DAYS Medications Current Medications Sodium Chloride 1,000 ml @ 75 mls/hr [id number] IV Last administered on 20:58; Start 04/04/17 at 12:30; Stop 04/05/17 at 10:52; Status DC Propofol 100 ml @ 0 mls/hr CONT PRN IV SEE I/O RECORD Last administered on 08:53; Start 04/04/17 at 12:00; Stop 04/05/17 at 16:43; Status DC Ceftriaxone Sodium 1 gm/ Dextrose 50 ml @ 100 mls/hr Q24H IV ; Start 04/05/17 at 09:00; Status UNV Ceftriaxone Sodium (Rocephin) 1 gm Q24H IVP ; Start 04/04/17 at 16:00; Status Cancel Levetiracetam 500 mg/Dextrose 105 ml @ 420 mls/hr Q12HR IV ; Start 04/04/17 at 16:00; Stop 04/04/17 at 16:00; Status DC Aspirin (Aspirin) 300 mg 1X ONCE UT Last administered on 04/04/17 15:51; Start 04/04/17 at 16:00; Stop 04/04/17 at 16:01; Status DC Levetiracetam 500 mg/Sodium Chloride 105 ml @ 420 mls/hr Q12HR IV ; Start at 16:00; Status Cancel Levetiracetam 500 mg/Sodium Chloride 105 ml @ 420 mls/hr Q12HR IV Last administered on 04/07/17 08:01; Start 04/04/17 at 21:00; Stop 04/07/17 at 09 :44; Status DC Ceftriaxone Sodium (Rocephin) 1 gm Q24H IVP Last administered on 04/07/17 08: 00; Start 04/05/17 at 09:00; Stop 04/07/17 at 09:44; Status DC Sodium Chloride 1,000 ml @ 150 mls/hr Q6H40M IV Last administered on 02:13; Start 04/05/17 at 11:00; Stop 04/07/17 at 11:21; Status DC Lorazepam (Ativan) 1 mg PRN Q6HRS PRN IV ANXIETY / AGITATION Last administered on 04/06/17 18:11; Start 04/05/17 at 16:45; Stop 04/06/17 at 19:45; Status DC Albuterol/ Ipratropium (Duoneb) 3 ml RTQID NEB Last administered on 04/08/17 20:02; Start 04/06/17 at 00:30 Potassium Chloride (Klor-Con) 40 meq 1X ONCE PO Last administered on 14:49; Start 04/06/17 at 12:00; Stop 04/06/17 at 12:01; Status DC Lorazepam (Ativan) 1 mg PRN Q4HRS PRN IV ANXIETY / AGITATION Last administered on 04/08/17 19:55; Start 04/06/17 at 19:45 Morphine Sulfate 2 mg PRN Q2HR PRN IV PAIN Last administered on 04/07/17 09: 57; Start 04/06/17 at 19:45; Stop 04/07/17 at 11:19; Status DC Ondansetron HCl (Zofran) 4 mg PRN Q6HRS PRN IV NAUSEA/VOMITING Last administered on 04/07/17 18:11; Start 04/06/17 at 20:15 Hydromorphone HCl (Dilaudid) 0.4 mg PRN Q4HRS PRN IVP SEVERE PAIN Last administered on 04/07/17 08:00; Start 04/06/17 at 22:30; Stop 04/07/17 at 11 :19; Status DC Oxycodone/ Acetaminophen (Percocet 5/325) 1 tab PRN Q4HRS PRN PO PAIN Last administered on 04/08/17 21:22; Start 04/07/17 at 09:45 Levetiracetam (Keppra) 500 mg BID PO Last administered on 04/09/17 07:51; Start 04/07/17 at 10:00 Hydromorphone HCl (Dilaudid) 0.2 mg PRN Q4HRS PRN IVP SEVERE PAIN Last administered on 04/08/17 12:20; Start 04/07/17 at 11:30 Pantoprazole Sodium (Protonix) 40 mg DAILYAC PO Last administered on 08:42; Start 04/07/17 at 12:00; Stop 04/08/17 at 09:27; Status DC Al Hydroxide/Mg Hydroxide (Mylanta Plus Xs) 30 ml PRN Q2HR PRN PO HEARTBURN / GAS; Start 04/07/17 at 11:30 Iohexol (Omnipaque 240 Mg/ml) 50 ml 1X ONCE PO Last administered on 13:00; Start 04/07/17 at 13:00; Stop 04/07/17 at 13:01; Status DC Zinc Acetate/ Diphenhydramine (Benadryl Topical) 1 chandrika PRN QID PRN TP ITCHING Last administered on 04/08/17 21:28; Start 04/08/17 at 07:45 Potassium Chloride (Klor-Con) 40 meq 1X ONCE PO Last administered on 12:20; Start 04/08/17 at 09:45; Stop 04/08/17 at 09:46; Status DC Pantoprazole Sodium (Protonix) 40 mg BIDAC PO Last administered on 04/09/17 07:51; Start 04/08/17 at 16:30 Multi-Ingredient Mouthwash/Gargle (Gi Cocktail Single Dose) 15 ml 1X ONCE SWSW Last administered on 04/08/17 12:19; Start 04/08/17 at 10:00; Stop at 10:01; Status DC Ziprasidone (Geodon Im) 20 mg 1X ONCE IM Last administered on 04/09/17 00:32 ; Start 04/09/17 at 00:30; Stop 04/09/17 at 00:31; Status DC Ziprasidone (Geodon Im) 20 mg 1X ONCE IM ; Start 04/09/17 at 00:30; Stop at 00:31; Status DC Active Scripts Active Reported Nitrofurantoin (Nitrofurantoin Macrocrystal) 100 Mg Capsule 100 Mg PO BID Buspirone Hcl 10 Mg Tablet 10 Mg PO BID Divalproex Sodium 250 Mg Tablet.dr 500 Mg PO BID Vitals/I & O Vital Sign - Last 24 Hours 04/08/17 04/08/17 04/08/17 04/08/17 08:19 08:43 11:00 12:02 Temp 98.1 98.1 Pulse 83 Resp 18 18 B/P (MAP) 102/39 (60) Pulse Ox 97 97 100 O2 Delivery Nasal Cannula Room Air Nasal Cannula Nasal Cannula O2 Flow Rate 1.0 1.0 1.0 1.0 04/08/17 04/08/17 04/08/17 04/08/17 12:20 12:50 15:00 16:23 Temp 98.2 98.2 Pulse 71 Resp 18 18 18 B/P (MAP) 107/58 (74) Pulse Ox 100 100 98 O2 Delivery Nasal Cannula Room Air Nasal Cannula Nasal Cannula O2 Flow Rate 1.0 1.0 1.0 1.0 04/08/17 04/08/17 04/08/17 04/08/17 17:19 18:19 19:05 20:00 Temp 97.8 97.8 Pulse 76 Resp 18 18 B/P (MAP) 111/73 (86) Pulse Ox 98 98 99 O2 Delivery Room Air Nasal Cannula Room Air O2 Flow Rate 1.0 1.0 1.0 04/08/17 04/08/17 04/08/17 04/08/17 20:03 21:22 22:22 23:05 Temp 98.1 98.1 Pulse 82 Resp 15 18 18 B/P (MAP) 126/80 (95) Pulse Ox 99 99 O2 Delivery Nasal Cannula Room Air Room Air Nasal Cannula O2 Flow Rate 1.0 1.0 Intake and Output 04/08/17 04/08/17 04/09/17 15:00 23:00 07:00 Intake Total 600 ml 0 ml Balance 600 ml 0 ml BASSAM KENNEDY MD Apr 09, 2017 08:16
[2017-04-09 08:42] LABS: BASO % 1 % (0-3); EOS % 2 % (0-3); LYMPH # 1.8 x10^3/uL (1.0-4.8); LYMPH % 29 % (24-48); MEAN CORPUSCULAR HEMOGLOBIN 31 pg (25-35); MEAN CORPUSCULAR HGB CONC 34 g/dL (31-37); MEAN CORPUSCULAR VOLUME 90 fL (79-100); MONO % 9 % (0-9); NEUT % 60 % (31-73); PLATELET COUNT 334 x10^3/uL (140-400); RED BLOOD COUNT 4.24 x10^6/uL (3.50-5.40); RED CELL DISTRIBUTION WIDTH 12.6 % (11.5-14.5); WHITE BLOOD COUNT 6.1 x10^3/uL (4.0-11.0)
[2017-04-09 08:51] LABS: CALCIUM 9.2 mg/dL (8.5-10.1); CREATININE 0.8 mg/dL (0.6-1.0); GFR 92.4; POTASSIUM 3.7 mmol/L (3.5-5.1)
[2017-04-09] MEDS ORDERED: PANT40TA5 PO (09:49)
[2017-04-09] MEDS ORDERED: MAG30ORA2 PO (09:49)
--- NOTE | 2017-04-09 10:37 | PDOC ---
PULMONARY PROGRESS NOTES Subjective EXTUBATED 04/05 AWAKE NO INCREASE SOA Vitals Vital Signs Date Time Temp Pulse Resp B/P (MAP) Pulse Ox O2 Delivery O2 Flow Rate FiO2 04/09/17 09:01 97 Room Air 04/09/17 07:25 98.3 64 18 109/63 (78) 98.3 ROS: No Nausea, No Chest Pain, No Abdominal Pain, No Increase Cough General: Alert, No acute distress Lungs: Clear Cardiovascular: S1, S2 Abdomen: Soft Neuro Exam: Alert Extremities: No Edema Skin: Warm Labs Laboratory Tests Test 04/08/17 08:00 04/09/17 08:25 White Blood Count 6.6 x10^3/uL (4.0-11.0) 6.1 x10^3/uL (4.0-11.0) Red Blood Count 3.91 x10^6/uL (3.50-5.40) 4.24 x10^6/uL (3.50-5.40) Hemoglobin 12.0 g/dL (12.0-15.5) 13.0 g/dL (12.0-15.5) Hematocrit 34.9 % (36.0-47.0) 38.0 % (36.0-47.0) Mean Corpuscular Volume 89 fL (79-100) 90 fL (79-100) Mean Corpuscular Hemoglobin 31 pg (25-35) 31 pg (25-35) Mean Corpuscular Hemoglobin Concent 34 g/dL (31-37) 34 g/dL (31-37) Red Cell Distribution Width 12.4 % (11.5-14.5) 12.6 % (11.5-14.5) Platelet Count 282 x10^3/uL (140-400) 334 x10^3/uL (140-400) Neutrophils (%) (Auto) 65 % (31-73) 60 % (31-73) Lymphocytes (%) (Auto) 22 % (24-48) 29 % (24-48) Monocytes (%) (Auto) 10 % (0-9) 9 % (0-9) Eosinophils (%) (Auto) 3 % (0-3) 2 % (0-3) Basophils (%) (Auto) 1 % (0-3) 1 % (0-3) Neutrophils # (Auto) 4.3 x10^3uL (1.8-7.7) 3.6 x10^3uL (1.8-7.7) Lymphocytes # (Auto) 1.4 x10^3/uL (1.0-4.8) 1.8 x10^3/uL (1.0-4.8) Monocytes # (Auto) 0.6 x10^3/uL (0.0-1.1) 0.5 x10^3/uL (0.0-1.1) Eosinophils # (Auto) 0.2 x10^3/uL (0.0-0.7) 0.1 x10^3/uL (0.0-0.7) Basophils # (Auto) 0.1 x10^3/uL (0.0-0.2) 0.0 x10^3/uL (0.0-0.2) Sodium Level 138 mmol/L (136-145) 140 mmol/L (136-145) Potassium Level 3.3 mmol/L (3.5-5.1) 3.7 mmol/L (3.5-5.1) Chloride Level 101 mmol/L (98-107) 105 mmol/L (98-107) Carbon Dioxide Level 28 mmol/L (21-32) 30 mmol/L (21-32) Anion Gap 9 (6-14) 5 (6-14) Blood Urea Nitrogen 5 mg/dL (7-20) 9 mg/dL (7-20) Creatinine 0.7 mg/dL (0.6-1.0) 0.8 mg/dL (0.6-1.0) Estimated GFR (Cockcroft-Gault) 107.8 92.4 Glucose Level 96 mg/dL (70-99) 87 mg/dL (70-99) Calcium Level 8.8 mg/dL (8.5-10.1) 9.2 mg/dL (8.5-10.1) Laboratory Tests Test 04/09/17 08:25 White Blood Count 6.1 x10^3/uL (4.0-11.0) Red Blood Count 4.24 x10^6/uL (3.50-5.40) Hemoglobin 13.0 g/dL (12.0-15.5) Hematocrit 38.0 % (36.0-47.0) Mean Corpuscular Volume 90 fL (79-100) Mean Corpuscular Hemoglobin 31 pg (25-35) Mean Corpuscular Hemoglobin Concent 34 g/dL (31-37) Red Cell Distribution Width 12.6 % (11.5-14.5) Platelet Count 334 x10^3/uL (140-400) Neutrophils (%) (Auto) 60 % (31-73) Lymphocytes (%) (Auto) 29 % (24-48) Monocytes (%) (Auto) 9 % (0-9) Eosinophils (%) (Auto) 2 % (0-3) Basophils (%) (Auto) 1 % (0-3) Neutrophils # (Auto) 3.6 x10^3uL (1.8-7.7) Lymphocytes # (Auto) 1.8 x10^3/uL (1.0-4.8) Monocytes # (Auto) 0.5 x10^3/uL (0.0-1.1) Eosinophils # (Auto) 0.1 x10^3/uL (0.0-0.7) Basophils # (Auto) 0.0 x10^3/uL (0.0-0.2) Sodium Level 140 mmol/L (136-145) Potassium Level 3.7 mmol/L (3.5-5.1) Chloride Level 105 mmol/L (98-107) Carbon Dioxide Level 30 mmol/L (21-32) Anion Gap 5 (6-14) Blood Urea Nitrogen 9 mg/dL (7-20) Creatinine 0.8 mg/dL (0.6-1.0) Estimated GFR (Cockcroft-Gault) 92.4 Glucose Level 87 mg/dL (70-99) Calcium Level 9.2 mg/dL (8.5-10.1) Medications Active Scripts Medications Dose Route/Sig Max Daily Dose Days Date Category Nitrofurantoin (Nitrofurantoin Macrocrystal) 100 Mg Capsule 100 Mg PO BID 02/17/17 Reported Buspirone Hcl 10 Mg Tablet 10 Mg PO BID 02/17/17 Reported Divalproex Sodium 250 Mg Tablet.dr 500 Mg PO BID 02/05/17 Reported Impression . 1. Acute respiratory failure secondary to seizures. RESOLVED 2. Seizure disorder. 3. Bipolar disorder. Plan . OFF 02 REPEAT CXR 04/07 CLEAR MRA NEGATIVE OVERALL PULMONARY STATUS STABLE FOR DC JOE GUERRERO MD Apr 09, 2017 10:37
--- NOTE | 2017-04-09 11:28 | PDOC ---
PROGRESS NOTES Assessment Review of [facility] records shows she has psychogenic nonepileptic seizures Stroke has been ruled out Plan Discontinue levetiracetam Transfer to inpatient psychiatry Subjective Had agitation last night Objective Vital Signs Date Time Temp Pulse Resp B/P (MAP) Pulse Ox O2 Delivery O2 Flow Rate FiO2 04/09/17 09:01 97 Room Air 04/09/17 08:00 1.0 04/09/17 07:25 98.3 64 18 109/63 (78) 98.3 Intake and Output 04/09/17 07:00 Intake Total 600 ml Balance 600 ml Intake Oral 600 ml # Voids 1 PHYSICAL EXAM Sitting at nursing station, has hand mittens on, makes inappropriate statements Alert. Oriented to time, place and person. PERRL. EOMI. CN: no focal findings. Muscle tone: normal. Muscle strength: 5/5 DTR: 2+ Plantar reflex: flexor Gait: not examined in bed. Sensory exam: no abnormal findings. No cerebellar signs elicited. Review of Relevant I have reviewed the following items shaina (where applicable) has been applied. Labs Laboratory Tests Test 04/08/17 08:00 04/09/17 08:25 White Blood Count 6.6 x10^3/uL (4.0-11.0) 6.1 x10^3/uL (4.0-11.0) Red Blood Count 3.91 x10^6/uL (3.50-5.40) 4.24 x10^6/uL (3.50-5.40) Hemoglobin 12.0 g/dL (12.0-15.5) 13.0 g/dL (12.0-15.5) Hematocrit 34.9 % (36.0-47.0) 38.0 % (36.0-47.0) Mean Corpuscular Volume 89 fL (79-100) 90 fL (79-100) Mean Corpuscular Hemoglobin 31 pg (25-35) 31 pg (25-35) Mean Corpuscular Hemoglobin Concent 34 g/dL (31-37) 34 g/dL (31-37) Red Cell Distribution Width 12.4 % (11.5-14.5) 12.6 % (11.5-14.5) Platelet Count 282 x10^3/uL (140-400) 334 x10^3/uL (140-400) Neutrophils (%) (Auto) 65 % (31-73) 60 % (31-73) Lymphocytes (%) (Auto) 22 % (24-48) 29 % (24-48) Monocytes (%) (Auto) 10 % (0-9) 9 % (0-9) Eosinophils (%) (Auto) 3 % (0-3) 2 % (0-3) Basophils (%) (Auto) 1 % (0-3) 1 % (0-3) Neutrophils # (Auto) 4.3 x10^3uL (1.8-7.7) 3.6 x10^3uL (1.8-7.7) Lymphocytes # (Auto) 1.4 x10^3/uL (1.0-4.8) 1.8 x10^3/uL (1.0-4.8) Monocytes # (Auto) 0.6 x10^3/uL (0.0-1.1) 0.5 x10^3/uL (0.0-1.1) Eosinophils # (Auto) 0.2 x10^3/uL (0.0-0.7) 0.1 x10^3/uL (0.0-0.7) Basophils # (Auto) 0.1 x10^3/uL (0.0-0.2) 0.0 x10^3/uL (0.0-0.2) Sodium Level 138 mmol/L (136-145) 140 mmol/L (136-145) Potassium Level 3.3 mmol/L (3.5-5.1) 3.7 mmol/L (3.5-5.1) Chloride Level 101 mmol/L (98-107) 105 mmol/L (98-107) Carbon Dioxide Level 28 mmol/L (21-32) 30 mmol/L (21-32) Anion Gap 9 (6-14) 5 (6-14) Blood Urea Nitrogen 5 mg/dL (7-20) 9 mg/dL (7-20) Creatinine 0.7 mg/dL (0.6-1.0) 0.8 mg/dL (0.6-1.0) Estimated GFR (Cockcroft-Gault) 107.8 92.4 Glucose Level 96 mg/dL (70-99) 87 mg/dL (70-99) Calcium Level 8.8 mg/dL (8.5-10.1) 9.2 mg/dL (8.5-10.1) Laboratory Tests Test 04/09/17 08:25 White Blood Count 6.1 x10^3/uL (4.0-11.0) Red Blood Count 4.24 x10^6/uL (3.50-5.40) Hemoglobin 13.0 g/dL (12.0-15.5) Hematocrit 38.0 % (36.0-47.0) Mean Corpuscular Volume 90 fL (79-100) Mean Corpuscular Hemoglobin 31 pg (25-35) Mean Corpuscular Hemoglobin Concent 34 g/dL (31-37) Red Cell Distribution Width 12.6 % (11.5-14.5) Platelet Count 334 x10^3/uL (140-400) Neutrophils (%) (Auto) 60 % (31-73) Lymphocytes (%) (Auto) 29 % (24-48) Monocytes (%) (Auto) 9 % (0-9) Eosinophils (%) (Auto) 2 % (0-3) Basophils (%) (Auto) 1 % (0-3) Neutrophils # (Auto) 3.6 x10^3uL (1.8-7.7) Lymphocytes # (Auto) 1.8 x10^3/uL (1.0-4.8) Monocytes # (Auto) 0.5 x10^3/uL (0.0-1.1) Eosinophils # (Auto) 0.1 x10^3/uL (0.0-0.7) Basophils # (Auto) 0.0 x10^3/uL (0.0-0.2) Sodium Level 140 mmol/L (136-145) Potassium Level 3.7 mmol/L (3.5-5.1) Chloride Level 105 mmol/L (98-107) Carbon Dioxide Level 30 mmol/L (21-32) Anion Gap 5 (6-14) Blood Urea Nitrogen 9 mg/dL (7-20) Creatinine 0.8 mg/dL (0.6-1.0) Estimated GFR (Cockcroft-Gault) 92.4 Glucose Level 87 mg/dL (70-99) Calcium Level 9.2 mg/dL (8.5-10.1) Microbiology 04/04/17 Blood Culture - Preliminary, Resulted NO GROWTH AFTER 4 DAYS Medications Current Medications Sodium Chloride 1,000 ml @ 75 mls/hr [id number] IV Last administered on 20:58; Start 04/04/17 at 12:30; Stop 04/05/17 at 10:52; Status DC Propofol 100 ml @ 0 mls/hr CONT PRN IV SEE I/O RECORD Last administered on 08:53; Start 04/04/17 at 12:00; Stop 04/05/17 at 16:43; Status DC Ceftriaxone Sodium 1 gm/ Dextrose 50 ml @ 100 mls/hr Q24H IV ; Start 04/05/17 at 09:00; Status UNV Ceftriaxone Sodium (Rocephin) 1 gm Q24H IVP ; Start 04/04/17 at 16:00; Status Cancel Levetiracetam 500 mg/Dextrose 105 ml @ 420 mls/hr Q12HR IV ; Start 04/04/17 at 16:00; Stop 04/04/17 at 16:00; Status DC Aspirin (Aspirin) 300 mg 1X ONCE RI Last administered on 04/04/17 15:51; Start 04/04/17 at 16:00; Stop 04/04/17 at 16:01; Status DC Levetiracetam 500 mg/Sodium Chloride 105 ml @ 420 mls/hr Q12HR IV ; Start at 16:00; Status Cancel Levetiracetam 500 mg/Sodium Chloride 105 ml @ 420 mls/hr Q12HR IV Last administered on 04/07/17 08:01; Start 04/04/17 at 21:00; Stop 04/07/17 at 09 :44; Status DC Ceftriaxone Sodium (Rocephin) 1 gm Q24H IVP Last administered on 04/07/17 08: 00; Start 04/05/17 at 09:00; Stop 04/07/17 at 09:44; Status DC Sodium Chloride 1,000 ml @ 150 mls/hr Q6H40M IV Last administered on 02:13; Start 04/05/17 at 11:00; Stop 04/07/17 at 11:21; Status DC Lorazepam (Ativan) 1 mg PRN Q6HRS PRN IV ANXIETY / AGITATION Last administered on 04/06/17 18:11; Start 04/05/17 at 16:45; Stop 04/06/17 at 19:45; Status DC Albuterol/ Ipratropium (Duoneb) 3 ml RTQID NEB Last administered on 04/08/17 20:02; Start 04/06/17 at 00:30; Stop 04/09/17 at 10:56; Status DC Potassium Chloride (Klor-Con) 40 meq 1X ONCE PO Last administered on 14:49; Start 04/06/17 at 12:00; Stop 04/06/17 at 12:01; Status DC Lorazepam (Ativan) 1 mg PRN Q4HRS PRN IV ANXIETY / AGITATION Last administered on 04/08/17 19:55; Start 04/06/17 at 19:45; Stop 04/09/17 at 09:18; Status DC Morphine Sulfate 2 mg PRN Q2HR PRN IV PAIN Last administered on 04/07/17 09: 57; Start 04/06/17 at 19:45; Stop 04/07/17 at 11:19; Status DC Ondansetron HCl (Zofran) 4 mg PRN Q6HRS PRN IV NAUSEA/VOMITING Last administered on 04/07/17 18:11; Start 04/06/17 at 20:15; Stop 04/09/17 at 10 :56; Status DC Hydromorphone HCl (Dilaudid) 0.4 mg PRN Q4HRS PRN IVP SEVERE PAIN Last administered on 04/07/17 08:00; Start 04/06/17 at 22:30; Stop 04/07/17 at 11 :19; Status DC Oxycodone/ Acetaminophen (Percocet 5/325) 1 tab PRN Q4HRS PRN PO PAIN Last administered on 04/08/17 21:22; Start 04/07/17 at 09:45; Stop 04/09/17 at 10 :56; Status DC Levetiracetam (Keppra) 500 mg BID PO Last administered on 04/09/17 07:51; Start 04/07/17 at 10:00; Stop 04/09/17 at 10:56; Status DC Hydromorphone HCl (Dilaudid) 0.2 mg PRN Q4HRS PRN IVP SEVERE PAIN Last administered on 04/08/17 12:20; Start 04/07/17 at 11:30; Stop 04/09/17 at 10 :56; Status DC Pantoprazole Sodium (Protonix) 40 mg DAILYAC PO Last administered on 08:42; Start 04/07/17 at 12:00; Stop 04/08/17 at 09:27; Status DC Al Hydroxide/Mg Hydroxide (Mylanta Plus Xs) 30 ml PRN Q2HR PRN PO HEARTBURN / GAS; Start 04/07/17 at 11:30; Stop 04/09/17 at 10:56; Status DC Iohexol (Omnipaque 240 Mg/ml) 50 ml 1X ONCE PO Last administered on 13:00; Start 04/07/17 at 13:00; Stop 04/07/17 at 13:01; Status DC Zinc Acetate/ Diphenhydramine (Benadryl Topical) 1 chandrika PRN QID PRN TP ITCHING Last administered on 04/08/17 21:28; Start 04/08/17 at 07:45; Stop 04/09/17 at 10:56; Status DC Potassium Chloride (Klor-Con) 40 meq 1X ONCE PO Last administered on 12:20; Start 04/08/17 at 09:45; Stop 04/08/17 at 09:46; Status DC Pantoprazole Sodium (Protonix) 40 mg BIDAC PO Last administered on 04/09/17 07:51; Start 04/08/17 at 16:30; Stop 04/09/17 at 10:56; Status DC Multi-Ingredient Mouthwash/Gargle (Gi Cocktail Single Dose) 15 ml 1X ONCE SWSW Last administered on 04/08/17 12:19; Start 04/08/17 at 10:00; Stop at 10:01; Status DC Ziprasidone (Geodon Im) 20 mg 1X ONCE IM Last administered on 04/09/17 00:32 ; Start 04/09/17 at 00:30; Stop 04/09/17 at 00:31; Status DC Ziprasidone (Geodon Im) 20 mg 1X ONCE IM ; Start 04/09/17 at 00:30; Stop at 00:31; Status DC Lorazepam (Ativan) 2 mg PRN Q4HRS PRN IV ANXIETY / AGITATION; Start 04/09/17 at 09:30; Stop 04/09/17 at 10:56; Status DC Ziprasidone (Geodon Im) 20 mg 1X ONCE IM ; Start 04/09/17 at 09:45; Stop at 09:46; Status DC Active Scripts Active Mag-Al Plus Xs Suspension (Mag Hydrox/Al Hydrox/Simeth) 30 Ml Oral.susp 30 Ml PO PRN Q2HR PRN Pantoprazole Sodium 40 Mg Tablet. 40 Mg PO BIDAC Reported Nitrofurantoin (Nitrofurantoin Macrocrystal) 100 Mg Capsule 100 Mg PO BID Buspirone Hcl 10 Mg Tablet 10 Mg PO BID Divalproex Sodium 250 Mg Tablet.dr 500 Mg PO BID Vitals/I & O Vital Sign - Last 24 Hours 04/08/17 04/08/17 04/08/17 04/08/17 12:02 12:20 12:50 15:00 Temp 98.2 98.2 Pulse 71 Resp 18 18 18 B/P (MAP) 107/58 (74) Pulse Ox 100 100 98 O2 Delivery Nasal Cannula Nasal Cannula Room Air Nasal Cannula O2 Flow Rate 1.0 1.0 1.0 1.0 04/08/17 04/08/17 04/08/17 04/08/17 16:23 17:19 18:19 19:05 Temp 97.8 97.8 Pulse 76 Resp 18 18 B/P (MAP) 111/73 (86) Pulse Ox 98 98 99 O2 Delivery Nasal Cannula Room Air Nasal Cannula O2 Flow Rate 1.0 1.0 1.0 1.0 04/08/17 04/08/17 04/08/17 04/08/17 20:00 20:03 21:22 22:22 Resp 15 18 Pulse Ox 99 O2 Delivery Room Air Nasal Cannula Room Air Room Air O2 Flow Rate 1.0 04/08/17 04/09/17 04/09/17 04/09/17 23:05 07:25 08:00 09:01 Temp 98.1 98.3 98.1 98.3 Pulse 82 64 Resp 18 18 B/P (MAP) 126/80 (95) 109/63 (78) Pulse Ox 99 97 97 O2 Delivery Nasal Cannula Room Air Room Air Room Air O2 Flow Rate 1.0 1.0 Intake and Output 04/08/17 04/08/17 04/09/17 15:00 23:00 07:00 Intake Total 600 ml 0 ml Balance 600 ml 0 ml CHELO NOLASCO MD Apr 09, 2017 11:28
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
== END 2017-04-09 10:55 | disposition home or self-care (01) | DRG 208 ==
LOC: 1 WEST ICU 10:53 → 6 SOUTH 04-06 11:55
PROVIDERS: ADMIT Internal Medicine; ATTEND Internal Medicine
PROC: 5A1945Z Respiratory Ventilation, 24-96 Consecutive Hours (ICD-10-PCS; principal; 2017-04-04)
PROC: 0BH17EZ Insertion of Endotracheal Airway into Trachea, Via Natural or Artificial Opening (ICD-10-PCS; 2017-04-04)
DX: J96.00 Acute respiratory failure, unspecified whether with hypoxia or hypercapnia (principal); F44.5 Conversion disorder with seizures or convulsions; E03.9 Hypothyroidism, unspecified; E66.3 Overweight; F31.9 Bipolar disorder, unspecified; F43.10 Post-traumatic stress disorder, unspecified; F60.3 Borderline personality disorder; Z59.0 Homelessness; Z79.899 Other long term (current) drug therapy
CPT/HCPCS: 36415; 36600; 70544; 70551; 71010; 74176; 76705; 80048; 80076; 82805; 83605; 83690; 84145; 85025; 87040; 87641; 94002; 94003; 94250; 94640; 94760; J0696; J1170; J1953; J2060; J2270; J2405; J2704; J3486; J7030; J7620; Q9966; 97116

== ENCOUNTER 2017-04-11 11:54 | Emergency (ER) | payer SELFPAY ==
[~2017-04-11] VITALS: Ht 165.1 cm; Wt 72.6 kg
[~2017-04-11 11:54] MED LIST changes: +MAG30ORA2 PO; +PANT40TA5 PO
[2017-04-11 12:04] VITALS: BP 120/62
[2017-04-11 12:25] LABS: BILIRUBIN,URINE SMALL (NEG); GLUCOSE,URINE NEGATIVE (NEG); NITRITE,URINE NEGATIVE (NEG); PROTEIN,URINE NEGATIVE (NEG-TRACE); UROBILINOGEN,URINE 0.2 mg/dL (0.2 mg/dL)
[2017-04-11 12:29] LABS: BARBITURATES NEG (NEG); BENZODIAZEPINES NEG (NEG); CANNABINOIDS NEG (NEG); COCAINE NEG (NEG); METHADONE NEG (NEG); OPIATES POS (NEG); PHENCYCLIDINE NEG (NEG)
[2017-04-11 12:48] LABS: BACTERIA,URINE 0 /HPF (0-FEW); RBC,URINE 0 /HPF (0-2); SQUAMOUS EPITHELIAL CELL,UR FEW /LPF
[2017-04-11 13:26] LABS: BASO % 0 % (0-3); EOS % 1 % (0-3); HEMATOCRIT 37.5 % (36.0-47.0); HEMOGLOBIN 12.7 g/dL (12.0-15.5); LYMPH # 1.2 x10^3/uL (1.0-4.8); LYMPH % 14 % (24-48); MEAN CORPUSCULAR HEMOGLOBIN 30 pg (25-35); MEAN CORPUSCULAR HGB CONC 34 g/dL (31-37); MEAN CORPUSCULAR VOLUME 90 fL (79-100); MONO % 8 % (0-9); NEUT % 77 % (31-73); PLATELET COUNT 354 x10^3/uL (140-400); RED BLOOD COUNT 4.19 x10^6/uL (3.50-5.40); RED CELL DISTRIBUTION WIDTH 12.8 % (11.5-14.5); WHITE BLOOD COUNT 8.6 x10^3/uL (4.0-11.0)
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
[2017-04-11 13:45] LABS: CALCIUM 9.2 mg/dL (8.5-10.1); CREATININE 0.9 mg/dL (0.6-1.0); GFR 80.7; POTASSIUM 3.8 mmol/L (3.5-5.1)
[2017-04-11 13:47] LABS: ETHANOL < 10 mg/dL (0-10)
== END 2017-04-11 14:04 | disposition home or self-care (01) ==
LOC: ER 11:54
DX: F32.9 Major depressive disorder, single episode, unspecified (principal); R45.851 Suicidal ideations; F60.3 Borderline personality disorder; F43.10 Post-traumatic stress disorder, unspecified; F41.9 Anxiety disorder, unspecified; Z88.8 Allergy status to other drugs, medicaments and biological substances
CPT/HCPCS: 36415; 80048; 80307; 80329; 81001; 81025; 85025; 87086; 99284; G0480; G0479

== ENCOUNTER 2017-07-24 15:44 | Inpatient (IN) | payer SELFPAY ==
[2017-07-24] MEDS ORDERED: DOCUSATE SODIUM 100 MG CAPSULE. PO (16:30)
[2017-07-24] MEDS ORDERED: MORPHINE SULFATE 4 MG/ML DISP.SYRIN. IV (16:30)
[2017-07-24] MEDS ORDERED: ACETAMINOPHEN 325 MG TABLET. PO (16:30)
[2017-07-24] MEDS ORDERED: traMADol 50 MG TABLET PO (16:30)
[2017-07-24] MEDS ORDERED: ONDANSETRON PF 4 MG/2 ML VIAL. IV (16:30)
[2017-07-24] MEDS ORDERED: IV NORMAL SALINE 1000ML BAG 1,000 ML IV (16:30)
[2017-07-24] MEDS ORDERED: hydrALAZINE 20 MG/ML VIAL. IVP (16:30)
== END 2017-07-24 17:22 | disposition left against medical advice (07) | DRG 101 ==
LOC: 1 WEST ICU 15:44
DX: R56.9 Unspecified convulsions (principal); E87.2 Acidosis; F31.9 Bipolar disorder, unspecified; Z88.8 Allergy status to other drugs, medicaments and biological substances
CPT/HCPCS: 94002

== ENCOUNTER 2017-08-01 20:01 | Emergency (ER) | payer SELFPAY ==
[2017-08-01] MEDS: levETIRAcetam 500 MG TABLET PO (21:16)
[2017-08-01 21:32] LABS: AGAP ISTAT 15 mmol/L (6-14); BUN ISTAT 16 mg/dL (8-26); CHLORIDE ISTAT 105 mmol/L (98-110); CREATININE ISTAT 0.7 mg/dL (0.5-1.4); GLUCOSE ISTAT 109 mg/dL (70-99); HEMATOCRIT ISTAT 32 % (36-40); HEMOGLOBIN ISTAT 10.9 g/dL (12-15); ION CA ISTAT 1.07 mmol/L (1.13-1.32); POTASSIUM ISTAT 3.6 mmol/L (3.5-5.0); SODIUM ISTAT 139 mmol/L (135-145); TOT CO2 ISTAT 23 mmol/L (23-32)
[2017-08-01 21:40] LABS: BILIRUBIN,URINE NEGATIVE (NEG); CLARITY,URINE CLEAR; COLOR,URINE YELLOW; GLUCOSE,URINE NEGATIVE (NEG); NITRITE,URINE NEGATIVE (NEG); PROTEIN,URINE NEGATIVE (NEG-TRACE); UROBILINOGEN,URINE 0.2 mg/dL (0.2 mg/dL)
[2017-08-01 21:44] LABS: AMPHETAMINE/METHAMPHETAMINE NEG (NEG); BARBITURATES NEG (NEG); BENZODIAZEPINES NEG (NEG); CANNABINOIDS NEG (NEG); COCAINE NEG (NEG); ETHANOL, URINE NEG (NEG); METHADONE NEG (NEG); OPIATES NEG (NEG); PHENCYCLIDINE NEG (NEG)
[2017-08-01 21:49] LABS: BACTERIA,URINE FEW /HPF (0-FEW); RBC,URINE 0 /HPF (0-2); SQUAMOUS EPITHELIAL CELL,UR OCC /LPF; WBC,URINE OCC /HPF (0-4)
== END 2017-08-01 21:46 | disposition home or self-care (01) ==
LOC: ER 20:01
DX: F41.9 Anxiety disorder, unspecified (principal); F32.9 Major depressive disorder, single episode, unspecified; F43.10 Post-traumatic stress disorder, unspecified; Z79.899 Other long term (current) drug therapy; Z88.8 Allergy status to other drugs, medicaments and biological substances
CPT/HCPCS: 36415; 80047; 80307; 81001; 85014; 85018; 99284

== ENCOUNTER 2017-08-03 12:53 | Emergency (ER) | payer SELFPAY ==
[2017-08-03] MEDS: ACETAMINOPHEN 500 MG TABLET PO (13:30)
[2017-08-03] MEDS: ONDANSETRON ODT 4 MG TAB.RAPDIS. PO (13:45)
== END 2017-08-03 14:00 | disposition left against medical advice (07) ==
LOC: ER 12:53
DX: R51 Headache (principal); F41.9 Anxiety disorder, unspecified; F32.9 Major depressive disorder, single episode, unspecified; F43.10 Post-traumatic stress disorder, unspecified; Z59.0 Homelessness; Z88.8 Allergy status to other drugs, medicaments and biological substances
CPT/HCPCS: 99283

== ENCOUNTER 2017-08-03 15:24 | Inpatient (IN) | payer SELFPAY ==
[2017-08-03 15:53] LABS: POC GLUCOSE 87 mg/dL (70-99)
[2017-08-03 15:55] LABS: ADD MAN DIFF? NO
[2017-08-03 15:59] LABS: BASO % 1 % (0-3); EOS # 0.1 x10^3/uL (0.0-0.7); EOS % 2 % (0-3); HEMATOCRIT 31.3 % (36.0-47.0); HEMOGLOBIN 10.1 g/dL (12.0-15.5); LYMPH # 1.7 x10^3/uL (1.0-4.8); LYMPH % 26 % (24-48); MEAN CORPUSCULAR HEMOGLOBIN 26 pg (25-35); MEAN CORPUSCULAR HGB CONC 32 g/dL (31-37); MEAN CORPUSCULAR VOLUME 81 fL (79-100); MONO # 0.5 x10^3/uL (0.0-1.1); MONO % 8 % (0-9); NEUT # 4.1 x10^3uL (1.8-7.7); NEUT % 63 % (31-73); PLATELET COUNT 363 x10^3/uL (140-400); RED BLOOD COUNT 3.89 x10^6/uL (3.50-5.40); RED CELL DISTRIBUTION WIDTH 14.2 % (11.5-14.5); WHITE BLOOD COUNT 6.5 x10^3/uL (4.0-11.0)
[2017-08-03] MEDS: IV NORMAL SALINE 1000ML BAG 1,000 ML IV (16:00)
[2017-08-03 16:15] LABS: ANION GAP 15 (6-14); BLOOD UREA NITROGEN 9 mg/dL (7-20); CALCIUM 8.8 mg/dL (8.5-10.1); CARBON DIOXIDE 21 mmol/L (21-32); CHLORIDE 105 mmol/L (98-107); CREATININE 0.9 mg/dL (0.6-1.0); GFR 80.7; GLUCOSE 91 mg/dL (70-99); POTASSIUM 3.9 mmol/L (3.5-5.1); SODIUM 141 mmol/L (136-145)
[2017-08-03 16:19] LABS: BARBITURATES NEG (NEG); BENZODIAZEPINES NEG (NEG); CANNABINOIDS NEG (NEG); COCAINE NEG (NEG); METHADONE NEG (NEG); OPIATES NEG (NEG); PHENCYCLIDINE NEG (NEG)
[2017-08-03 16:20] LABS: AMPHETAMINE/METHAMPHETAMINE NEG (NEG); ETHANOL, URINE NEG (NEG)
[2017-08-03 16:21] LABS: ACETAMIN < 2 mcg/ml (10-30); ETHANOL < 10 mg/dL (0-10); SALIC < 2.8 mg/dL (2.8-20.0)
[2017-08-03 16:35] LABS: ALBUMIN 3.5 g/dL (3.4-5.0); TOTAL BILIRUBIN 0.2 mg/dL (0.2-1.0); TOTAL PROTEIN 7.6 g/dL (6.4-8.2)
[2017-08-03 16:57] LABS: CKMB MASS < 0.5 ng/mL (0.0-3.6); CREATINE KINASE 106 U/L (26-192)
[2017-08-03 16:59] LABS: THYROID STIM HORMONE (TSH) 4.327 uIU/mL (0.358-3.74)
[2017-08-03 17:00] LABS: ALK PHOS 67 U/L (46-116); ALT (SGPT) 16 U/L (14-59); AST (SGOT) 22 U/L (15-37)
[2017-08-03 17:01] LABS: DIRECT BILIRUBIN < 0.1 mg/dL (0.0-0.2)
[2017-08-03] MEDS: CHARCOAL/SORBITOL 50 GM/240 ML SUSPENSION. PO ×2 (17:08→21:00)
[2017-08-03] MEDS: ONDANSETRON PF 4 MG/2 ML VIAL. IV ×2 (17:14→20:43)
[2017-08-03 17:15] LABS: VAL ACID 159 mcg/mL (50-100)
[2017-08-03] MEDS: IV DEXTROSE 5 %-0.45 % NACL 1,000 ML IV (17:30)
[2017-08-03] MEDS: MORPHINE SULFATE 4 MG/ML DISP.SYRIN. IV ×3 (18:39→22:44)
[2017-08-03 18:41] LABS: AMMONIA < 10 mcmol/L (11-34)
[2017-08-03 18:46] LABS: LACTIC ACID 3.8 mmol/L (0.4-2.0)
[2017-08-03] MEDS: diphenhydrAMINE 50 MG/ML VIAL IVP (19:27)
[2017-08-03 22:27] LABS: AMMONIA 61 mcmol/L (11-34)
[2017-08-03 22:31] LABS: LACTIC ACID 3.8 mmol/L (0.4-2.0)
[2017-08-03 22:49] LABS: VAL ACID 175 mcg/mL (50-100)
[2017-08-04] MEDS: MORPHINE SULFATE 4 MG/ML DISP.SYRIN. IV ×10 (01:01→22:57)
[2017-08-04] MEDS: diphenhydrAMINE 50 MG/ML VIAL IVP ×4 (02:02→20:57)
[2017-08-04 05:13] LABS: ADD MAN DIFF? NO
[2017-08-04 05:39] LABS: BASO % 1 % (0-3); EOS # 0.1 x10^3/uL (0.0-0.7); EOS % 2 % (0-3); HEMATOCRIT 27.3 % (36.0-47.0); HEMOGLOBIN 9.1 g/dL (12.0-15.5); LYMPH # 1.7 x10^3/uL (1.0-4.8); LYMPH % 35 % (24-48); MEAN CORPUSCULAR HEMOGLOBIN 26 pg (25-35); MEAN CORPUSCULAR HGB CONC 33 g/dL (31-37); MEAN CORPUSCULAR VOLUME 79 fL (79-100); MONO # 0.4 x10^3/uL (0.0-1.1); MONO % 8 % (0-9); NEUT # 2.7 x10^3uL (1.8-7.7); NEUT % 54 % (31-73); PLATELET COUNT 322 x10^3/uL (140-400); RED BLOOD COUNT 3.45 x10^6/uL (3.50-5.40); RED CELL DISTRIBUTION WIDTH 14.2 % (11.5-14.5); WHITE BLOOD COUNT 4.9 x10^3/uL (4.0-11.0)
[2017-08-04 05:43] LABS: VAL ACID 122 mcg/mL (50-100)
[2017-08-04 05:47] LABS: LACTIC ACID 1.9 mmol/L (0.4-2.0)
[2017-08-04 05:52] LABS: AMMONIA 108 mcmol/L (11-34)
[2017-08-04 06:07] LABS: ALBUMIN 3.1 g/dL (3.4-5.0); ALBUMIN/GLOBULIN RATIO 0.9 (1.0-1.7); ALK PHOS 59 U/L (46-116); ALT (SGPT) 14 U/L (14-59); ANION GAP 10 (6-14); AST (SGOT) 14 U/L (15-37); BLOOD UREA NITROGEN 5 mg/dL (7-20); BUN/CREATININE RATIO 6 (6-20); CALCIUM 8.3 mg/dL (8.5-10.1); CARBON DIOXIDE 25 mmol/L (21-32); CHLORIDE 107 mmol/L (98-107); CREATININE 0.9 mg/dL (0.6-1.0); GFR 80.7; GLUCOSE 98 mg/dL (70-99); POTASSIUM 3.9 mmol/L (3.5-5.1); SODIUM 142 mmol/L (136-145); TOTAL BILIRUBIN 0.3 mg/dL (0.2-1.0); TOTAL PROTEIN 6.6 g/dL (6.4-8.2)
[2017-08-04] MEDS: ONDANSETRON PF 4 MG/2 ML VIAL. IV ×2 (07:42→17:07)
[2017-08-04] MEDS: fentaNYL PF VIAL 100 MCG/2 ML VIAL IV (20:57)
[2017-08-05] MEDS: MORPHINE SULFATE 4 MG/ML DISP.SYRIN. IV ×4 (01:03→07:42)
[2017-08-05] MEDS: diphenhydrAMINE 50 MG/ML VIAL IVP ×2 (02:59→11:03)
[2017-08-05] MEDS: ONDANSETRON PF 4 MG/2 ML VIAL. IV (04:03)
[2017-08-05 06:08] LABS: AMMONIA 59 mcmol/L (11-34)
[2017-08-05 06:55] LABS: URINE HCG POC HCG NEGATIVE (Negative)
[2017-08-05 08:10] LABS: MRSA BY PCR Negative (Negative)
[2017-08-05 11:21] LABS: VAL ACID 112 mcg/mL (50-100)
== END 2017-08-05 11:50 | disposition left against medical advice (07) | DRG 918 ==
LOC: 2 NORTH 08-04 13:07 → ER 15:24 → 1 WEST ICU 16:38
PROC: 0D9670Z Drainage of Stomach with Drainage Device, Via Natural or Artificial Opening (ICD-10-PCS; principal; 2017-08-03)
DX: T42.6X2A Poisoning by other antiepileptic and sedative-hypnotic drugs, intentional self-harm, initial encounter (principal); R45.851 Suicidal ideations; E03.9 Hypothyroidism, unspecified; F32.9 Major depressive disorder, single episode, unspecified; F43.10 Post-traumatic stress disorder, unspecified; F60.3 Borderline personality disorder; G40.909 Epilepsy, unspecified, not intractable, without status epilepticus; Z88.8 Allergy status to other drugs, medicaments and biological substances; Y92.481 Parking lot as the place of occurrence of the external cause; Z83.3 Family history of diabetes mellitus
CPT/HCPCS: 36415; 74018; 80048; 80053; 80076; 80164; 80307; 80329; 81025; 82140; 82553; 82962; 83605; 84443; 85025; 87641; 96374; 96375; 99291-25; G0480; J1200; J2270; J2405; J3010; J7030

== ENCOUNTER 2017-09-12 22:35 | Emergency (ER) | payer SELFPAY ==
[2017-09-12 23:31] LABS: URINE HCG POC HCG NEGATIVE (Negative)
[2017-09-12 23:34] LABS: BILIRUBIN,URINE NEGATIVE (NEG); CLARITY,URINE CLEAR; COLOR,URINE YELLOW; GLUCOSE,URINE NEGATIVE (NEG); NITRITE,URINE NEGATIVE (NEG); PROTEIN,URINE NEGATIVE (NEG-TRACE)
[2017-09-12 23:37] LABS: BACTERIA,URINE MOD /HPF (0-FEW); RBC,URINE 0 /HPF (0-2); SQUAMOUS EPITHELIAL CELL,UR MOD /LPF; WBC,URINE OCC /HPF (0-4)
[2017-09-13] MEDS ORDERED: IOHEXOL 300 MG/ML 100ML VIAL. IV
[2017-09-13] MEDS ORDERED: CONTRAST GIVEN MC
[2017-09-13] MEDS: MORPHINE SULFATE 4 MG/ML DISP.SYRIN. IV (00:21)
[2017-09-13] MEDS: ONDANSETRON PF 4 MG/2 ML VIAL. IV (00:21)
[2017-09-13 00:24] LABS: ADD MAN DIFF? NO
[2017-09-13 00:28] LABS: BASO # 0.1 x10^3/uL (0.0-0.2); BASO % 1 % (0-3); EOS # 0.2 x10^3/uL (0.0-0.7); EOS % 3 % (0-3); HEMATOCRIT 32.1 % (36.0-47.0); HEMOGLOBIN 10.9 g/dL (12.0-15.5); LYMPH # 2.2 x10^3/uL (1.0-4.8); LYMPH % 34 % (24-48); MEAN CORPUSCULAR HEMOGLOBIN 27 pg (25-35); MEAN CORPUSCULAR HGB CONC 34 g/dL (31-37); MEAN CORPUSCULAR VOLUME 79 fL (79-100); MONO # 0.7 x10^3/uL (0.0-1.1); MONO % 11 % (0-9); NEUT # 3.3 x10^3uL (1.8-7.7); NEUT % 50 % (31-73); PLATELET COUNT 351 x10^3/uL (140-400); RED BLOOD COUNT 4.06 x10^6/uL (3.50-5.40); RED CELL DISTRIBUTION WIDTH 16.3 % (11.5-14.5); WHITE BLOOD COUNT 6.5 x10^3/uL (4.0-11.0)
[2017-09-13 00:36] LABS: ANION GAP 8 (6-14); BLOOD UREA NITROGEN 15 mg/dL (7-20); BUN/CREATININE RATIO 19 (6-20); CALCIUM 8.4 mg/dL (8.5-10.1); CARBON DIOXIDE 29 mmol/L (21-32); CHLORIDE 105 mmol/L (98-107); CREATININE 0.8 mg/dL (0.6-1.0); GFR 92.4; GLUCOSE 90 mg/dL (70-99); POTASSIUM 4.1 mmol/L (3.5-5.1); SODIUM 142 mmol/L (136-145)
[2017-09-13 00:37] LABS: NEG OBC SER NEG; POS OBC SER POS; PREG TEST PT QUAL NEGATIVE (NEG)
[2017-09-13 00:42] LABS: ALBUMIN 3.3 g/dL (3.4-5.0); ALBUMIN/GLOBULIN RATIO 0.8 (1.0-1.7); ALK PHOS 82 U/L (46-116); ALT (SGPT) 15 U/L (14-59); AST (SGOT) 19 U/L (15-37); LIPASE 107 U/L (73-393); TOTAL BILIRUBIN 0.3 mg/dL (0.2-1.0); TOTAL PROTEIN 7.4 g/dL (6.4-8.2)
== END 2017-09-13 01:08 | disposition home or self-care (01) ==
LOC: ER 09-13 01:08
DX: R10.30 Lower abdominal pain, unspecified (principal); R11.10 Vomiting, unspecified; F32.9 Major depressive disorder, single episode, unspecified; F41.9 Anxiety disorder, unspecified; Z88.8 Allergy status to other drugs, medicaments and biological substances
CPT/HCPCS: 36415; 74176; 80053; 81001; 81025; 83690; 84703; 85025; 96374; 96375; 99285-25; J2270; J2405

== ENCOUNTER 2017-09-21 19:16 | Emergency (ER) | payer SELFPAY ==
[2017-09-21] MEDS: FAMOTIDINE 20 MG TABLET. PO (19:45)
[2017-09-21] MEDS: methylPREDNISolone SOD SUCC PF 125 MG/2 ML VIAL. IM (19:45)
[2017-09-21] MEDS: diphenhydrAMINE HCL 25 MG CAPSULE PO (19:45)
[2017-09-21] MEDS: IPRATRPIUM/ALBUTEROL 0.5/2.5MG 3 ML NEBU. NEB (20:08)
== END 2017-09-21 20:27 | disposition home or self-care (01) ==
LOC: ER 19:16
DX: T78.40XA Allergy, unspecified, initial encounter (principal); Z79.899 Other long term (current) drug therapy; Z88.8 Allergy status to other drugs, medicaments and biological substances
CPT/HCPCS: 94640; 96372; 99283; J2930; J7620; Q0163

== ENCOUNTER 2017-09-24 06:26 | Emergency (ER) | payer OTHER ==
[2017-09-24 06:55] LABS: URINE HCG POC HCG NEGATIVE (Negative)
[2017-09-24 06:59] LABS: BILIRUBIN,URINE NEGATIVE (NEG); CLARITY,URINE CLEAR; COLOR,URINE YELLOW; GLUCOSE,URINE NEGATIVE (NEG); NITRITE,URINE NEGATIVE (NEG); PH,URINE 8.5; PROTEIN,URINE NEGATIVE (NEG-TRACE)
[2017-09-24 07:07] LABS: BACTERIA,URINE FEW /HPF (0-FEW); RBC,URINE OCC /HPF (0-2); SQUAMOUS EPITHELIAL CELL,UR FEW /LPF
[2017-09-24] MEDS: ONDANSETRON ODT 4 MG TAB.RAPDIS. PO (07:42)
[2017-09-24 07:47] LABS: ADD MAN DIFF? NO
[2017-09-24 07:52] LABS: BASO # 0.1 x10^3/uL (0.0-0.2); BASO % 1 % (0-3); EOS # 0.2 x10^3/uL (0.0-0.7); EOS % 2 % (0-3); HEMATOCRIT 31.7 % (36.0-47.0); HEMOGLOBIN 10.3 g/dL (12.0-15.5); LYMPH # 1.7 x10^3/uL (1.0-4.8); LYMPH % 24 % (24-48); MEAN CORPUSCULAR HEMOGLOBIN 26 pg (25-35); MEAN CORPUSCULAR HGB CONC 33 g/dL (31-37); MEAN CORPUSCULAR VOLUME 79 fL (79-100); MONO % 14 % (0-9); NEUT # 4.3 x10^3uL (1.8-7.7); NEUT % 59 % (31-73); PLATELET COUNT 294 x10^3/uL (140-400); RED BLOOD COUNT 4.01 x10^6/uL (3.50-5.40); RED CELL DISTRIBUTION WIDTH 16.5 % (11.5-14.5); WHITE BLOOD COUNT 7.2 x10^3/uL (4.0-11.0)
[2017-09-24] MEDS: fentaNYL PF VIAL 100 MCG/2 ML VIAL IV ×2 (07:55→09:22)
[2017-09-24] MEDS: IV NORMAL SALINE 1000ML BAG 1,000 ML IV (07:56)
[2017-09-24 08:07] LABS: ANION GAP 9 (6-14); BLOOD UREA NITROGEN 13 mg/dL (7-20); BUN/CREATININE RATIO 16 (6-20); CALCIUM 8.3 mg/dL (8.5-10.1); CARBON DIOXIDE 28 mmol/L (21-32); CHLORIDE 104 mmol/L (98-107); CREATININE 0.8 mg/dL (0.6-1.0); GFR 92.4; GLUCOSE 83 mg/dL (70-99); POTASSIUM 3.4 mmol/L (3.5-5.1); SODIUM 141 mmol/L (136-145)
[2017-09-24 08:16] LABS: ALBUMIN 3.4 g/dL (3.4-5.0); ALK PHOS 62 U/L (46-116); ALT (SGPT) 17 U/L (14-59); AST (SGOT) 20 U/L (15-37); LIPASE 65 U/L (73-393); TOTAL BILIRUBIN 0.3 mg/dL (0.2-1.0); TOTAL PROTEIN 6.8 g/dL (6.4-8.2)
== END 2017-09-24 10:53 | disposition home or self-care (01) ==
LOC: ER 06:26
DX: R10.13 Epigastric pain (principal); R11.2 Nausea with vomiting, unspecified; F43.10 Post-traumatic stress disorder, unspecified; Z88.8 Allergy status to other drugs, medicaments and biological substances
CPT/HCPCS: 36415; 74176; 76705; 80053; 81001; 81025; 83690; 85025; 96361; 96374; 96376; 99285-25; J3010; J7030; Q0162

== ENCOUNTER 2017-10-11 22:56 | Inpatient (IN) | payer OTHER ==
[2017-10-10] MEDS: IV NORMAL SALINE 1000ML BAG 1,000 ML IV
[2017-10-11] MEDS: IV NORMAL SALINE 1000ML BAG 1,000 ML IV (23:50)
[2017-10-11 23:58] LABS: ADD MAN DIFF? NO
[2017-10-12 00:19] LABS: BASO % 0 % (0-3); EOS # 0.1 x10^3/uL (0.0-0.7); EOS % 2 % (0-3); HEMATOCRIT 30.3 % (36.0-47.0); HEMOGLOBIN 10.3 g/dL (12.0-15.5); LYMPH # 1.2 x10^3/uL (1.0-4.8); LYMPH % 19 % (24-48); MEAN CORPUSCULAR HEMOGLOBIN 26 pg (25-35); MEAN CORPUSCULAR HGB CONC 34 g/dL (31-37); MEAN CORPUSCULAR VOLUME 77 fL (79-100); MONO # 0.8 x10^3/uL (0.0-1.1); MONO % 12 % (0-9); NEUT # 4.2 x10^3uL (1.8-7.7); NEUT % 66 % (31-73); PLATELET COUNT 194 x10^3/uL (140-400); RED BLOOD COUNT 3.94 x10^6/uL (3.50-5.40); WHITE BLOOD COUNT 6.3 x10^3/uL (4.0-11.0)
[2017-10-12 00:38] LABS: BILIRUBIN,URINE NEGATIVE (NEG); CLARITY,URINE CLEAR; COLOR,URINE YELLOW; GLUCOSE,URINE NEGATIVE (NEG); NITRITE,URINE NEGATIVE (NEG); PROTEIN,URINE NEGATIVE (NEG-TRACE)
[2017-10-12 00:40] LABS: ANION GAP 12 (6-14); BLOOD UREA NITROGEN 12 mg/dL (7-20); BUN/CREATININE RATIO 12 (6-20); CALCIUM 8.8 mg/dL (8.5-10.1); CARBON DIOXIDE 26 mmol/L (21-32); CHLORIDE 102 mmol/L (98-107); GFR 71.4; GLUCOSE 82 mg/dL (70-99); POTASSIUM 3.4 mmol/L (3.5-5.1); SODIUM 140 mmol/L (136-145)
[2017-10-12 00:43] LABS: BARBITURATES NEG (NEG); BENZODIAZEPINES NEG (NEG); CANNABINOIDS NEG (NEG); COCAINE NEG (NEG); METHADONE NEG (NEG); OPIATES NEG (NEG); PHENCYCLIDINE NEG (NEG)
[2017-10-12 00:47] LABS: ALBUMIN 3.6 g/dL (3.4-5.0); ALBUMIN/GLOBULIN RATIO 0.9 (1.0-1.7); ALK PHOS 74 U/L (46-116); ALT (SGPT) 16 U/L (14-59); AMPHETAMINE/METHAMPHETAMINE NEG (NEG); AST (SGOT) 21 U/L (15-37); TOTAL BILIRUBIN 0.2 mg/dL (0.2-1.0); TOTAL PROTEIN 7.6 g/dL (6.4-8.2)
[2017-10-12 00:48] LABS: ACETAMIN < 2 mcg/ml (10-30); ETHANOL, URINE NEG (NEG); SALIC < 2.8 mg/dL (2.8-20.0)
[2017-10-12 00:49] LABS: ETHANOL < 10 mg/dL (0-10)
[2017-10-12 00:59] LABS: BACTERIA,URINE MODERATE /HPF (0-FEW); SQUAMOUS EPITHELIAL CELL,UR MOD /LPF
[2017-10-12] MEDS ORDERED: MORPHINE SULFATE 4 MG/ML DISP.SYRIN. IV (02:30)
[2017-10-12] MEDS: MORPHINE SULFATE 4 MG/ML DISP.SYRIN. IV ×2 (02:39→05:36)
[2017-10-12] MEDS: ONDANSETRON PF 4 MG/2 ML VIAL. IV (02:39)
[2017-10-12] MEDS: IV NORMAL SALINE 1000ML BAG 1,000 ML IV ×2 (07:30→15:30)
[2017-10-12] MEDS: ONDANSETRON ODT 4 MG TAB.RAPDIS. PO (10:40)
[2017-10-12] MEDS ORDERED: IBUPROFEN 800 MG TABLET. PO (11:15)
[2017-10-12] MEDS: ACETAMINOPHEN 500 MG TABLET PO (12:03)
== END 2017-10-12 15:40 | DRG 918 ==
LOC: ER 22:56 → 6 SOUTH 23:25
DX: T45.0X2A Poisoning by antiallergic and antiemetic drugs, intentional self-harm, initial encounter (principal); F32.9 Major depressive disorder, single episode, unspecified; F41.9 Anxiety disorder, unspecified; F43.10 Post-traumatic stress disorder, unspecified; F60.3 Borderline personality disorder; Z62.810 Personal history of physical and sexual abuse in childhood; Z91.5 Personal history of self-harm; Y92.89 Other specified places as the place of occurrence of the external cause; Z83.3 Family history of diabetes mellitus; Z88.8 Allergy status to other drugs, medicaments and biological substances
CPT/HCPCS: 36415; 80053; 80307; 80329; 81001; 85025; 87086; 87186; 93005; 96360; 99285-25; G0378; G0379; G0480; G6039; J2270; J2405; J7030; Q0162

== ENCOUNTER 2017-10-30 12:47 | Emergency (ER) | payer OTHER ==
[2017-10-30 13:09] LABS: URINE HCG POC HCG NEGATIVE (Negative)
[2017-10-30 13:51] LABS: BILIRUBIN,URINE NEGATIVE (NEG); CLARITY,URINE CLEAR; COLOR,URINE YELLOW; GLUCOSE,URINE NEGATIVE (NEG); NITRITE,URINE NEGATIVE (NEG); PROTEIN,URINE NEGATIVE (NEG-TRACE); UROBILINOGEN,URINE 0.2 mg/dL (0.2 mg/dL)
[2017-10-30] MEDS: IV NORMAL SALINE 1000ML BAG 1,000 ML IV (14:07)
[2017-10-30] MEDS: ONDANSETRON PF 4 MG/2 ML VIAL. IV (14:07)
[2017-10-30] MEDS: MORPHINE SULFATE 4 MG/ML DISP.SYRIN. IV ×2 (14:07→16:18)
[2017-10-30 14:09] LABS: ADD MAN DIFF? NO
[2017-10-30 14:11] LABS: BASO # 0.1 x10^3/uL (0.0-0.2); BASO % 1 % (0-3); EOS # 0.3 x10^3/uL (0.0-0.7); EOS % 3 % (0-3); HEMATOCRIT 32.5 % (36.0-47.0); HEMOGLOBIN 10.8 g/dL (12.0-15.5); LYMPH # 1.8 x10^3/uL (1.0-4.8); LYMPH % 19 % (24-48); MEAN CORPUSCULAR HEMOGLOBIN 26 pg (25-35); MEAN CORPUSCULAR HGB CONC 33 g/dL (31-37); MEAN CORPUSCULAR VOLUME 78 fL (79-100); MONO # 1.2 x10^3/uL (0.0-1.1); MONO % 13 % (0-9); NEUT # 6.1 x10^3uL (1.8-7.7); NEUT % 64 % (31-73); PLATELET COUNT 390 x10^3/uL (140-400); RED BLOOD COUNT 4.17 x10^6/uL (3.50-5.40); RED CELL DISTRIBUTION WIDTH 16.3 % (11.5-14.5); WHITE BLOOD COUNT 9.5 x10^3/uL (4.0-11.0)
[2017-10-30 14:14] LABS: BACTERIA,URINE MODERATE /HPF (0-FEW); SQUAMOUS EPITHELIAL CELL,UR MOD /LPF
[2017-10-30 14:25] LABS: ANION GAP 6 (6-14); BLOOD UREA NITROGEN 11 mg/dL (7-20); BUN/CREATININE RATIO 14 (6-20); CARBON DIOXIDE 26 mmol/L (21-32); CHLORIDE 103 mmol/L (98-107); CREATININE 0.8 mg/dL (0.6-1.0); GFR 92.4; GLUCOSE 93 mg/dL (70-99); POTASSIUM 3.7 mmol/L (3.5-5.1); SODIUM 135 mmol/L (136-145)
[2017-10-30 14:30] LABS: ALBUMIN 3.5 g/dL (3.4-5.0); ALBUMIN/GLOBULIN RATIO 0.8 (1.0-1.7); ALK PHOS 65 U/L (46-116); ALT (SGPT) 38 U/L (14-59); AST (SGOT) 18 U/L (15-37); LIPASE 124 U/L (73-393); TOTAL BILIRUBIN 0.1 mg/dL (0.2-1.0); TOTAL PROTEIN 7.7 g/dL (6.4-8.2)
[2017-10-30 16:21] LABS: PLT ESTIMATE ADEQUATE (ADEQUATE)
== END 2017-10-30 16:45 | disposition home or self-care (01) ==
LOC: ER 16:45
DX: R11.2 Nausea with vomiting, unspecified (principal); R10.31 Right lower quadrant pain; F43.10 Post-traumatic stress disorder, unspecified; Z88.8 Allergy status to other drugs, medicaments and biological substances
CPT/HCPCS: 36415; 76705; 80053; 81001; 81025; 83690; 85025; 87086; 96361; 96374; 96375; 96376; 99285-25; J2270; J2405; J7030

== ENCOUNTER 2017-11-02 22:41 | Emergency (ER) | payer OTHER ==
[2017-11-02 23:12] LABS: BILIRUBIN,URINE NEGATIVE (NEG); CLARITY,URINE CLEAR; COLOR,URINE YELLOW; GLUCOSE,URINE NEGATIVE (NEG); NITRITE,URINE NEGATIVE (NEG); PH,URINE 6.5; PROTEIN,URINE NEGATIVE (NEG-TRACE); UROBILINOGEN,URINE 0.2 mg/dL (0.2 mg/dL)
[2017-11-02 23:13] LABS: URINE HCG POC HCG NEGATIVE (Negative)
[2017-11-02 23:18] LABS: BACTERIA,URINE FEW /HPF (0-FEW); RBC,URINE 0 /HPF (0-2); SQUAMOUS EPITHELIAL CELL,UR FEW /LPF; WBC,URINE OCC /HPF (0-4)
== END 2017-11-02 23:19 | disposition left against medical advice (07) ==
LOC: ER 23:19
DX: R10.31 Right lower quadrant pain (principal); F31.9 Bipolar disorder, unspecified; E03.9 Hypothyroidism, unspecified; F43.10 Post-traumatic stress disorder, unspecified; Z88.8 Allergy status to other drugs, medicaments and biological substances
CPT/HCPCS: 81001; 81025; 99284-25; 99285-25

== ENCOUNTER 2017-11-05 12:00 | Emergency (ER) | payer OTHER ==
[2017-11-05 12:35] LABS: URINE HCG POC HCG NEGATIVE (Negative)
[2017-11-05] MEDS ORDERED: IV NORMAL SALINE 1000ML BAG 1,000 ML IV (13:00)
[2017-11-05] MEDS ORDERED: ONDANSETRON PF 4 MG/2 ML VIAL. IV (13:15)
[2017-11-05 13:17] LABS: ADD MAN DIFF? NO
[2017-11-05 13:24] LABS: BILIRUBIN,URINE NEGATIVE (NEG); CLARITY,URINE CLEAR; COLOR,URINE YELLOW; GLUCOSE,URINE NEGATIVE (NEG); NITRITE,URINE NEGATIVE (NEG); PROTEIN,URINE NEGATIVE (NEG-TRACE)
[2017-11-05 13:28] LABS: BASO # 0.1 x10^3/uL (0.0-0.2); BASO % 1 % (0-3); EOS # 0.2 x10^3/uL (0.0-0.7); EOS % 4 % (0-3); HEMATOCRIT 30.5 % (36.0-47.0); HEMOGLOBIN 10.2 g/dL (12.0-15.5); LYMPH # 1.2 x10^3/uL (1.0-4.8); LYMPH % 24 % (24-48); MEAN CORPUSCULAR HEMOGLOBIN 26 pg (25-35); MEAN CORPUSCULAR HGB CONC 33 g/dL (31-37); MEAN CORPUSCULAR VOLUME 78 fL (79-100); MONO # 0.6 x10^3/uL (0.0-1.1); MONO % 11 % (0-9); NEUT % 60 % (31-73); PLATELET COUNT 348 x10^3/uL (140-400); RED BLOOD COUNT 3.91 x10^6/uL (3.50-5.40); RED CELL DISTRIBUTION WIDTH 16.2 % (11.5-14.5)
[2017-11-05 13:32] LABS: ANION GAP 10 (6-14); BLOOD UREA NITROGEN 11 mg/dL (7-20); BUN/CREATININE RATIO 11 (6-20); CALCIUM 8.2 mg/dL (8.5-10.1); CARBON DIOXIDE 25 mmol/L (21-32); CHLORIDE 105 mmol/L (98-107); FECAL OB PT NEGATIVE (NEG); GFR 71.4; GLUCOSE 105 mg/dL (70-99); NEG OBC FOB NEG; POS OBC FOB POS; SODIUM 140 mmol/L (136-145)
[2017-11-05 13:35] LABS: BACTERIA,URINE MODERATE /HPF (0-FEW); RBC,URINE 0 /HPF (0-2); SQUAMOUS EPITHELIAL CELL,UR FEW /LPF
[2017-11-05 13:37] LABS: ALBUMIN 3.1 g/dL (3.4-5.0); ALBUMIN/GLOBULIN RATIO 0.8 (1.0-1.7); ALK PHOS 59 U/L (46-116); ALT (SGPT) 17 U/L (14-59); AST (SGOT) 14 U/L (15-37); LIPASE 138 U/L (73-393); TOTAL BILIRUBIN 0.2 mg/dL (0.2-1.0)
[2017-11-05] MEDS: ONDANSETRON ODT 4 MG TAB.RAPDIS. PO (13:45)
== END 2017-11-05 14:40 | disposition home or self-care (01) ==
LOC: ER 12:00
DX: K92.1 Melena (principal); R10.84 Generalized abdominal pain; R11.2 Nausea with vomiting, unspecified; F31.9 Bipolar disorder, unspecified; E03.9 Hypothyroidism, unspecified; F43.10 Post-traumatic stress disorder, unspecified; F41.9 Anxiety disorder, unspecified; Z88.8 Allergy status to other drugs, medicaments and biological substances
CPT/HCPCS: 36415; 80053; 81001; 81025; 82274; 83690; 85025; 87086; 99284; Q0162

== ENCOUNTER 2017-11-14 18:02 | Emergency (ER) | payer SELFPAY, OTHER ==
[2017-11-14] MEDS: ACETAMINOPHEN 325 MG TABLET. PO (18:30)
[2017-11-14 18:41] LABS: BILIRUBIN,URINE NEGATIVE (NEG); COLOR,URINE YELLOW; GLUCOSE,URINE NEGATIVE (NEG); NITRITE,URINE NEGATIVE (NEG); PH,URINE 6.5; PROTEIN,URINE NEGATIVE (NEG-TRACE)
[2017-11-14 18:45] LABS: CLARITY,URINE HAZY
[2017-11-14 18:47] LABS: RBC,URINE RARE /HPF (0-2)
[2017-11-14 18:48] LABS: BACTERIA,URINE MANY /HPF (0-FEW); SQUAMOUS EPITHELIAL CELL,UR MANY /LPF
[2017-11-14 18:54] LABS: ADD MAN DIFF? NO
[2017-11-14 19:02] LABS: BASO % 1 % (0-3); EOS # 0.2 x10^3/uL (0.0-0.7); EOS % 3 % (0-3); HEMATOCRIT 31.1 % (36.0-47.0); HEMOGLOBIN 10.3 g/dL (12.0-15.5); LYMPH # 1.1 x10^3/uL (1.0-4.8); LYMPH % 24 % (24-48); MEAN CORPUSCULAR HEMOGLOBIN 26 pg (25-35); MEAN CORPUSCULAR HGB CONC 33 g/dL (31-37); MEAN CORPUSCULAR VOLUME 79 fL (79-100); MONO # 0.8 x10^3/uL (0.0-1.1); MONO % 18 % (0-9); NEUT # 2.4 x10^3uL (1.8-7.7); NEUT % 54 % (31-73); PLATELET COUNT 252 x10^3/uL (140-400); RED BLOOD COUNT 3.92 x10^6/uL (3.50-5.40); RED CELL DISTRIBUTION WIDTH 15.7 % (11.5-14.5); WHITE BLOOD COUNT 4.5 x10^3/uL (4.0-11.0)
[2017-11-14 19:05] LABS: NEG OBC SER NEG; POS OBC SER POS; PREG TEST PT QUAL NEGATIVE (NEG)
[2017-11-14 19:08] LABS: ANION GAP 8 (6-14); BLOOD UREA NITROGEN 12 mg/dL (7-20); BUN/CREATININE RATIO 13 (6-20); CALCIUM 8.7 mg/dL (8.5-10.1); CARBON DIOXIDE 23 mmol/L (21-32); CHLORIDE 103 mmol/L (98-107); CREATININE 0.9 mg/dL (0.6-1.0); GFR 80.7; GLUCOSE 95 mg/dL (70-99); POTASSIUM 3.8 mmol/L (3.5-5.1); SODIUM 134 mmol/L (136-145)
[2017-11-14 19:14] LABS: ALBUMIN 3.6 g/dL (3.4-5.0); ALK PHOS 65 U/L (46-116); ALT (SGPT) 15 U/L (14-59); AST (SGOT) 16 U/L (15-37); LIPASE 126 U/L (73-393); TOTAL BILIRUBIN 0.2 mg/dL (0.2-1.0); TOTAL PROTEIN 7.2 g/dL (6.4-8.2)
[2017-11-14 19:18] LABS: VAL ACID 38 mcg/mL (50-100)
== END 2017-11-14 20:08 | disposition home or self-care (01) ==
LOC: ER 18:02
DX: G89.29 Other chronic pain (principal); R10.31 Right lower quadrant pain; F60.3 Borderline personality disorder; F41.9 Anxiety disorder, unspecified; F31.9 Bipolar disorder, unspecified; E03.9 Hypothyroidism, unspecified; Z88.8 Allergy status to other drugs, medicaments and biological substances
CPT/HCPCS: 36415; 80053; 80164; 81001; 83690; 84703; 85025; 87086; 99284

== ENCOUNTER 2017-11-24 00:10 | Emergency (ER) | payer SELFPAY | END 2017-11-24 00:50 | disposition left against medical advice (07) | LOC: ER 00:10 | DX: R07.81 Pleurodynia (principal); Z53.21 Procedure and treatment not carried out due to patient leaving prior to being seen by health care provider ==

== ENCOUNTER 2018-01-24 21:25 | Inpatient (IN) | payer OTHER ==
[~2018-01-24] VITALS: Ht 165.1 cm; Wt 78.5 kg
[~2018-01-24 21:25] MED LIST changes: +DICY20TA3 PO; +DIPH25CA58 PO; +DIVA-51 PO; -DIVA250T6 PO; +DIVA500T2 PO; +DIVA500T4 PO; +LEVE100020 PO; +LEVO25TA4 PO; +MIRT30TA PO; +ONDA4TAB10 SL; +ONDA4TAB12 PO; +PANT20TA2 PO; +POTA10TA12 PO; +PRAZ2CAP2 PO; +PRED50TA PO; +VENTOLIN HFA18 GM INH
--- NOTE | 2018-01-24 22:10 | PHYS DOC ---
Past Medical History Past Medical History: Anxiety, Bipolar, Depression, Hypothyroid, Seizure, Other Additional Past Medical Histor: PTSD,SI/MUTLIPLE SUICIDE ATTEMPTS, Borderline personality Past Surgical History: Other Additional Past Surgical Histo: ORAL Alcohol Use: None Drug Use: None Adult General Chief Complaint Chief Complaint: OVERDOSE HPI HPI Patient is a 22 year old female who presents with an overdose of her prazosin approximately 2 hours prior to arrival. The patient states that she took approximately 60 tablets. The patient is very well-known to this facility and has had multiple attempts at overdose. She is currently normotensive but does have nausea. She states that the prazosin is prescribed for her PTSD nightmares. Review of Systems Review of Systems Constitutional: Denies fever or chills [] Eyes: Denies change in visual acuity, redness, or eye pain [] HENT: Denies nasal congestion or sore throat [] Respiratory: Denies cough or shortness of breath [] Cardiovascular: No additional information not addressed in HPI [] GI: Denies abdominal pain, nausea, vomiting, bloody stools or diarrhea [] : Denies dysuria or hematuria [] Musculoskeletal: Denies back pain or joint pain [] Integument: Denies rash or skin lesions [] Neurologic: Denies headache, focal weakness or sensory changes [] Endocrine: Denies polyuria or polydipsia [] All other systems were reviewed and found to be within normal limits, except as documented in this note. Current Medications Current Medications Current Medications Medications (Trade) Dose Ordered Sig/Priya Start Time Stop Time Status Last Admin Dose Admin Sodium Chloride 1,000 ml @ 1,000 mls/hr 1X ONCE 01/24/18 22:15 01/24/18 23:14 DC 01/25/18 00:47 1,000 MLS/HR Allergies Allergies Allergies Coded Allergies Type Severity Reaction Last Updated Verified haloperidol Allergy Severe TONGUE SWELLING 06/04/16 Yes Physical Exam Physical Exam Constitutional: Well developed, well nourished, no acute distress, non-toxic appearance. [] HENT: Normocephalic, atraumatic, bilateral external ears normal, oropharynx moist, no oral exudates, nose normal. [] Eyes: PERRLA, EOMI, conjunctiva normal, no discharge. [] Neck: Normal range of motion, no tenderness, supple, no stridor. [] Cardiovascular:Heart rate regular rhythm, no murmur [] Lungs & Thorax: Bilateral breath sounds clear to auscultation [] Abdomen: Bowel sounds normal, soft, no tenderness, no masses, no pulsatile masses. [] Skin: Warm, dry, no erythema, no rash. [] Neurologic: Alert and oriented X 3, normal motor function, normal sensory function, no focal deficits noted. [] Psychologic: Affect normal, judgement normal, mood normal. [] Current Patient Data Vital Signs Vital Signs Date Time Temp Pulse Resp B/P (MAP) Pulse Ox O2 Delivery O2 Flow Rate FiO2 01/24/18 21:30 76 107/62 (77) 98 01/24/18 21:25 98.3 17 Room Air 98.3 Lab Values Laboratory Tests Test 01/24/18 06:55 Urine Collection Type Unknown Urine Color Yellow Urine Clarity Clear Urine pH 7.0 Urine Specific [place] 1.020 Urine Protein Negative mg/dL (NEG-TRACE) Urine Glucose (UA) Negative mg/dL (NEG) Urine Ketones (Stick) Trace mg/dL (NEG) Urine Blood Negative (NEG) Urine Nitrite Negative (NEG) Urine Bilirubin Negative (NEG) Urine Urobilinogen Dipstick 0.2 mg/dL (0.2 mg/dL) Urine Leukocyte Esterase Negative (NEG) Urine RBC 1-2 /HPF (0-2) Urine WBC 1-4 /HPF (0-4) Urine Squamous Epithelial Cells Many /LPF Urine Bacteria Moderate /HPF (0-FEW) Urine Mucus Mod /LPF Urine Opiates Screen Neg (NEG) Urine Methadone Screen Neg (NEG) Urine Barbiturates Neg (NEG) Urine Phencyclidine Screen Neg (NEG) Urine Amphetamine/Methamphetamine Neg (NEG) Urine Benzodiazepines Screen Neg (NEG) Urine Cocaine Screen Neg (NEG) Urine Cannabinoids Screen Neg (NEG) Urine Ethyl Alcohol Neg (NEG) EKG EKG [] Radiology/Procedures Radiology/Procedures [] Course & Med Decision Making Course & Med Decision Making Pertinent Labs and Imaging studies reviewed. (See chart for details) []The patient is receiving a 2 L bolus of normal saline in the emergency department. Her EKG is normal sinus rhythm with no tachycardia noted, she has relatively normal orthostatic readings. We will observe the patient for 6 hours. Poison control has been notified. Dr. Madison has accepted this patient to her service. PAT consult has been placed. Margarita Disclaimer Dragon Disclaimer This electronic medical record was generated, in whole or in part, using a voice recognition dictation system. Departure Departure Impression: Primary Impression: Overdose Additional Impression: Suicidal ideation Disposition: ADMITTED INPATIENT Admitting Physician: Angelique Madison Condition: GUARDED Referrals: NO PCP (PCP) Attending Signature Attending Signature I have reviewed the PA/COOK APPRENTICE PASTRY's note and plan of care. I was available for consultation as needed during the patient's visit in the emergency department. I agree with the clinical impression, plan, and disposition. Problem Qualifiers THOM LY APRN Jan 24, 2018 22:10 JOSEFINA MCELROY DO Jan 26, 2018 04:23
[2018-01-24] MEDS ORDERED: IV NORMAL SALINE 1000ML BAG 1,000 ML IV ONE ×2 (22:15)
[2018-01-24] MEDS: IV NORMAL SALINE 1000ML BAG 1,000 ML IV SCH (22:30)
[2018-01-24 23:21] LABS: BASO % 1 % (0-3); EOS # 0.1 x10^3/uL (0.0-0.7); EOS % 2 % (0-3); HEMATOCRIT 36.1 % (36.0-47.0); HEMOGLOBIN 12.5 g/dL (12.0-15.5); LYMPH # 1.9 x10^3/uL (1.0-4.8); LYMPH % 24 % (24-48); MEAN CORPUSCULAR HEMOGLOBIN 29 pg (25-35); MEAN CORPUSCULAR HGB CONC 35 g/dL (31-37); MEAN CORPUSCULAR VOLUME 84 fL (79-100); MONO # 0.8 x10^3/uL (0.0-1.1); MONO % 10 % (0-9); NEUT # 5.2 x10^3uL (1.8-7.7); NEUT % 64 % (31-73); PLATELET COUNT 322 x10^3/uL (140-400); RED BLOOD COUNT 4.31 x10^6/uL (3.50-5.40); RED CELL DISTRIBUTION WIDTH 16.1 % (11.5-14.5); WHITE BLOOD COUNT 8.1 x10^3/uL (4.0-11.0)
[2018-01-24 23:33] LABS: CALCIUM 9.2 mg/dL (8.5-10.1); CREATININE 0.9 mg/dL (0.6-1.0); GFR 79.8; POTASSIUM 4.6 mmol/L (3.5-5.1)
[2018-01-24 23:38] LABS: ALBUMIN 3.6 g/dL (3.4-5.0); ALBUMIN/GLOBULIN RATIO 0.9 (1.0-1.7); TOTAL BILIRUBIN 0.1 mg/dL (0.2-1.0); TOTAL PROTEIN 7.4 g/dL (6.4-8.2)
[2018-01-24 23:39] LABS: ACETAMIN < 2 mcg/ml (10-30); ETHANOL < 10 mg/dL (0-10); SALIC < 2.8 mg/dL (2.8-20.0)
[2018-01-25 01:00] VITALS: BP 116/76
--- NOTE | 2018-01-25 01:20 | EKG ---
[facility] [address] [place] [address] Test Date: 2018-01-24 Test Time: 21:57:51 Pat Name: WINIFRED STERLING Department: Room: 4 Gender: F [employer]: : 1995 Requested By: THOM LY Order Number: [id number] Reading MD: Wang Bell Measurements Intervals Amber Rate: 70 P: 42 IL: 146 QRS: 7 QRSD: 94 T: 21 QT: 382 QTc: 415 Interpretive Statements SINUS RHYTHM Electronically Signed On 01-27-2018 11:13:04 CDT by Wang Bell
[2018-01-25] MEDS ORDERED: INFLUENZA VAX SCREEN BY RX. MC PRN (02:00)
[2018-01-25 05:52] LABS: BASO % 1 % (0-3); EOS # 0.1 x10^3/uL (0.0-0.7); EOS % 2 % (0-3); HEMATOCRIT 33.1 % (36.0-47.0); HEMOGLOBIN 11.4 g/dL (12.0-15.5); LYMPH # 2.1 x10^3/uL (1.0-4.8); LYMPH % 32 % (24-48); MEAN CORPUSCULAR HEMOGLOBIN 29 pg (25-35); MEAN CORPUSCULAR HGB CONC 35 g/dL (31-37); MEAN CORPUSCULAR VOLUME 84 fL (79-100); MONO # 0.7 x10^3/uL (0.0-1.1); MONO % 11 % (0-9); NEUT # 3.4 x10^3uL (1.8-7.7); NEUT % 54 % (31-73); PLATELET COUNT 300 x10^3/uL (140-400); RED BLOOD COUNT 3.96 x10^6/uL (3.50-5.40); RED CELL DISTRIBUTION WIDTH 15.6 % (11.5-14.5); WHITE BLOOD COUNT 6.4 x10^3/uL (4.0-11.0)
[2018-01-25 06:07] LABS: CALCIUM 8.2 mg/dL (8.5-10.1); CREATININE 0.8 mg/dL (0.6-1.0); GFR 91.4; POTASSIUM 3.6 mmol/L (3.5-5.1)
[2018-01-25] MEDS: IV NORMAL SALINE 1000ML BAG 1,000 ML IV SCH ×2 (06:30→11:10)
[2018-01-25 07:00] VITALS: BP 90/39
[2018-01-25 07:11] LABS: BILIRUBIN,URINE NEGATIVE (NEG); CLARITY,URINE CLEAR; COLOR,URINE YELLOW; NITRITE,URINE NEGATIVE (NEG); PROTEIN,URINE NEGATIVE (NEG-TRACE); UROBILINOGEN,URINE 0.2 mg/dL (0.2 mg/dL)
[2018-01-25 07:18] LABS: AMPHETAMINE/METHAMPHETAMINE NEG (NEG); BARBITURATES NEG (NEG); BENZODIAZEPINES NEG (NEG); CANNABINOIDS NEG (NEG); COCAINE NEG (NEG); METHADONE NEG (NEG); OPIATES NEG (NEG); PHENCYCLIDINE NEG (NEG)
[2018-01-25 07:22] LABS: SQUAMOUS EPITHELIAL CELL,UR MANY /LPF
[2018-01-25 07:23] LABS: BACTERIA,URINE MODERATE /HPF (0-FEW)
[2018-01-25] MEDS: MORPHINE SULFATE 2 MG/ML VIAL. IV PRN ×7 (09:01→22:53)
[2018-01-25] MEDS ORDERED: MAG HYDROX/ALUMINUM HYD/SIMETH 30 ML ORAL.SUSP PO PRN (09:30)
[2018-01-25] MEDS ORDERED: HYDROcodone/APAP 5/325MG 1 TAB TABLET PO PRN ×2 (09:30)
[2018-01-25] MEDS ORDERED: ONDANSETRON ODT 4 MG TAB.RAPDIS. PO PRN (09:30)
[2018-01-25] MEDS ORDERED: PANTOPRAZOLE 40 MG TABLET.DR. PO SCH (10:00)
[2018-01-25] MEDS ORDERED: diphenhydrAMINE HCL 25 MG CAPSULE PO PRN (10:00)
[2018-01-25] MEDS: HYDROcodone/APAP 5/325MG 1 TAB TABLET PO PRN ×2 (10:09→13:19)
[2018-01-25] MEDS ORDERED: PRAZ1CAP2 PO (10:40)
[2018-01-25 10:45] VITALS: BP 119/68
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
[2018-01-25] MEDS: levETIRAcetam 500 MG TABLET PO SCH ×2 (11:09→20:43)
[2018-01-25 11:30] LABS: FREE T4 0.62 ng/dL (0.76-1.46); THYROID STIM HORMONE (TSH) 10.595 uIU/mL (0.358-3.74)
[2018-01-25] MEDS: ALBUTEROL SULFATE 2.5 MG/3 ML NEBU. NEB SCH ×3 (11:30→19:50)
[2018-01-25] MEDS ORDERED: NON FORMULARY ITEM (Albuterol Sulfate (Ventolin Hfa Inhaler) 2 PUFF) INH SCH (12:00)
[2018-01-25] MEDS: DIVALPROEX EXTENDED RELEASE 250 MG TAB.ER.24H. PO SCH (12:31)
[2018-01-25] MEDS: ONDANSETRON PF 4 MG/2 ML VIAL. IV PRN ×2 (12:32→20:44)
[2018-01-25] MEDS ORDERED: NON FORMULARY ITEM (Dicyclomine Hcl 1 TAB) PO SCH (14:00)
[2018-01-25 15:00] VITALS: BP 102/40
[2018-01-25] MEDS ORDERED: LORazepam 1 MG TABLET PO PRN (17:30)
[2018-01-25] MEDS: diphenhydrAMINE 50 MG/ML VIAL IVP PRN ×2 (17:46→22:51)
[2018-01-25] MEDS: MIRTAZAPINE 15 MG TABLET PO SCH (20:42)
[2018-01-25] MEDS: OLANZapine 5 MG TABLET PO SCH (20:43)
[2018-01-25] MEDS ORDERED: LEVETIRACETAM PO SCH (21:00)
[2018-01-25 23:03] VITALS: BP 119/52
[2018-01-26] MEDS: ALBUTEROL SULFATE 2.5 MG/3 ML NEBU. NEB SCH ×5 (00:53→20:19)
[2018-01-26] MEDS: MORPHINE SULFATE 2 MG/ML VIAL. IV PRN ×10 (01:00→22:39)
[2018-01-26 03:00] VITALS: BP 115/66
[2018-01-26] MEDS: ONDANSETRON PF 4 MG/2 ML VIAL. IV PRN ×3 (03:14→20:34)
[2018-01-26 07:00] VITALS: BP 120/68
[2018-01-26] MEDS ORDERED: LEVOTHYROXINE 25 MCG TABLET. PO SCH (07:00)
[2018-01-26] MEDS: DIVALPROEX EXTENDED RELEASE 250 MG TAB.ER.24H. PO SCH (08:09)
[2018-01-26] MEDS: diphenhydrAMINE 50 MG/ML VIAL IVP PRN ×3 (08:09→20:34)
[2018-01-26] MEDS: levETIRAcetam 500 MG TABLET PO SCH ×2 (08:09→20:35)
[2018-01-26] MEDS ORDERED: NON FORMULARY ITEM (Pantoprazole Sodium (Protonix) 1 TAB) PO SCH (09:00)
[2018-01-26] MEDS ORDERED: POTASSIUM CHLORIDE 10 MEQ TABLET.ER. PO SCH (09:00)
[2018-01-26] MEDS ORDERED: DIVALPROEX EXTENDED RELEASE 500 MG TAB.ER.24H. PO SCH (09:00)
[2018-01-26 11:00] VITALS: BP 132/70
--- NOTE | 2018-01-26 11:40 | PDOC ---
PROGRESS NOTES Chief Complaint Chief Complaint Suicide attempt, overdose off Minipress pills Hypotension secondary to above Severe depression with multiple past suicide attempts Hypothyroidism on Synthroid Overweight with a BMI 28.8 SZ versus pseudoseizures on Keppra History of Present Illness History of Present Illness Went into seizures or pseudoseizures yesterday She is on Keppra started by her free clinic as per patient relay she's not feeling well today, muscle aches and pains Ate good breakfast tray ambulating with no difficulty Plan: I did consult neurology re the above CPM Girma/damian to come see patient History of being recently into 2 Su, but discharged after a day of stay Vitals Vitals Vital Signs Date Time Temp Pulse Resp B/P (MAP) Pulse Ox O2 Delivery O2 Flow Rate FiO2 01/26/18 11:00 98.4 78 14 132/70 (90) 98 Room Air 98.4 Physical Exam General: Alert, Oriented X3, Cooperative, No acute distress Lungs: Clear, Other Abdomen: Normal bowel sounds, Soft, No hepatosplenomegaly, No masses, Other ( tenderness around the umbilicus, on palpation, no guarding, normoactive bowel sounds) Extremities: No clubbing, No cyanosis, No edema, Normal pulses, No tenderness/ swelling Skin: No rashes, No breakdown, No significant lesion Review of Systems Review of Systems Achy, feeling like crap, otherwise rest of 14 point systems reviewed negative Assessment and Plan Assessmemt and Plan Problems Medical Problems: (1) Overdose Status: Acute (2) Suicidal ideation Status: Acute Comment Review of Relevant I have reviewed the following items shaina (where applicable) has been applied. Labs Laboratory Tests Test 01/24/18 23:13 01/25/18 04:20 01/25/18 04:25 White Blood Count 8.1 x10^3/uL (4.0-11.0) 6.4 x10^3/uL (4.0-11.0) Red Blood Count 4.31 x10^6/uL (3.50-5.40) 3.96 x10^6/uL (3.50-5.40) Hemoglobin 12.5 g/dL (12.0-15.5) 11.4 g/dL (12.0-15.5) Hematocrit 36.1 % (36.0-47.0) 33.1 % (36.0-47.0) Mean Corpuscular Volume 84 fL (79-100) 84 fL (79-100) Mean Corpuscular Hemoglobin 29 pg (25-35) 29 pg (25-35) Mean Corpuscular Hemoglobin Concent 35 g/dL (31-37) 35 g/dL (31-37) Red Cell Distribution Width 16.1 % (11.5-14.5) 15.6 % (11.5-14.5) Platelet Count 322 x10^3/uL (140-400) 300 x10^3/uL (140-400) Neutrophils (%) (Auto) 64 % (31-73) 54 % (31-73) Lymphocytes (%) (Auto) 24 % (24-48) 32 % (24-48) Monocytes (%) (Auto) 10 % (0-9) 11 % (0-9) Eosinophils (%) (Auto) 2 % (0-3) 2 % (0-3) Basophils (%) (Auto) 1 % (0-3) 1 % (0-3) Neutrophils # (Auto) 5.2 x10^3uL (1.8-7.7) 3.4 x10^3uL (1.8-7.7) Lymphocytes # (Auto) 1.9 x10^3/uL (1.0-4.8) 2.1 x10^3/uL (1.0-4.8) Monocytes # (Auto) 0.8 x10^3/uL (0.0-1.1) 0.7 x10^3/uL (0.0-1.1) Eosinophils # (Auto) 0.1 x10^3/uL (0.0-0.7) 0.1 x10^3/uL (0.0-0.7) Basophils # (Auto) 0.0 x10^3/uL (0.0-0.2) 0.0 x10^3/uL (0.0-0.2) Sodium Level 142 mmol/L (136-145) 142 mmol/L (136-145) Potassium Level 4.6 mmol/L (3.5-5.1) 3.6 mmol/L (3.5-5.1) Chloride Level 105 mmol/L (98-107) 108 mmol/L (98-107) Carbon Dioxide Level 24 mmol/L (21-32) 26 mmol/L (21-32) Anion Gap 13 (6-14) 8 (6-14) Blood Urea Nitrogen 18 mg/dL (7-20) 13 mg/dL (7-20) Creatinine 0.9 mg/dL (0.6-1.0) 0.8 mg/dL (0.6-1.0) Estimated GFR (Cockcroft-Gault) 79.8 91.4 BUN/Creatinine Ratio 20 (6-20) Glucose Level 91 mg/dL (70-99) 107 mg/dL (70-99) Calcium Level 9.2 mg/dL (8.5-10.1) 8.2 mg/dL (8.5-10.1) Total Bilirubin 0.1 mg/dL (0.2-1.0) Aspartate Amino Transf (AST/SGOT) 20 U/L (15-37) Alanine Aminotransferase (ALT/SGPT) 15 U/L (14-59) Alkaline Phosphatase 81 U/L (46-116) Total Protein 7.4 g/dL (6.4-8.2) Albumin 3.6 g/dL (3.4-5.0) Albumin/Globulin Ratio 0.9 (1.0-1.7) Salicylates Level < 2.8 mg/dL (2.8-20.0) Salicylate Last Dose Date Unk Salicylate Last Dose Time Unk Acetaminophen Level < 2 mcg/ml (10-30) Acetaminophen Last Dose Date Unk Acetaminophen Last Dose Time Unk Ethyl Alcohol Level < 10 mg/dL (0-10) Thyroid Stimulating Hormone (TSH) 10.595 uIU/mL (0.358-3.74) Free Thyroxine 0.62 ng/dL (0.76-1.46) Free Triiodothyronine (T3) pg/mL 2.37 pg/mL (2.18-3.98) Medications Current Medications Sodium Chloride 1,000 ml @ 1,000 mls/hr 1X ONCE IV Last administered on at 23:23; Start 01/24/18 at 22:15; Stop 01/24/18 at 23:14; Status DC Sodium Chloride 1,000 ml @ 1,000 mls/hr 1X ONCE IV Last administered on at 00:47; Start 01/24/18 at 22:15; Stop 01/24/18 at 23:14; Status DC Sodium Chloride 1,000 ml @ 125 mls/hr Q8H IV Last administered on 01/25/18at 11 :10; Start 01/24/18 at 22:30; Stop 01/25/18 at 22:29; Status DC Info (Do NOT chart on this placeholder) 1 each PRN 1X PRN MC SEE COMMENTS; Start 01/25/18 at 02:00; Status UNV Influenza Virus Vaccine (Afluria Trivalent [id number] Syringe) 0.5 ml ONCE ONCE VAX IM Last administered on 01/25/18at 10:09; Start 01/25/18 at 09:00; Stop at 09:01; Status DC Morphine Sulfate (Morphine Sulfate) 2 mg PRN Q2HR PRN IV PAIN Last administered on 01/26/18at 09:18; Start 01/25/18 at 08:45 Diphenhydramine HCl (Benadryl) 25 mg PRN Q4HRS PRN PO ITCHING Last administered on 01/25/18at 15:19; Start 01/25/18 at 10:00 Divalproex Sodium (Depakote Er) 500 mg DAILY PO ; Start 01/26/18 at 09:00; Stop 01/26/18 at 09:00; Status DC Acetaminophen/ Hydrocodone Bitart (Lortab 5/325) 1 tab PRN Q6HRS PRN PO PAIN; Start 01/25/18 at 09:30; Status UNV Acetaminophen/ Hydrocodone Bitart (Lortab 5/325) 1 tab PRN Q8HRS PRN PO sev; Start 01/25/18 at 09:30; Status UNV Ondansetron HCl (Zofran Odt) 4 mg QID PRN PO NAUSEA; Start 01/25/18 at 09:30 Potassium Chloride (Klor-Con) 10 meq DAILY PO ; Start 01/26/18 at 09:00; Stop at 09:00; Status DC Non-Formulary Medication (Albuterol Sulfate (Ventolin Hfa Inhaler)) 2 puff Q4HRS INH ; Start 01/25/18 at 12:00; Status UNV Non-Formulary Medication (Dicyclomine Hcl ) 1 tab TID PO ; Start 01/25/18 at 14: 00; Stop 01/25/18 at 14:00; Status DC Non-Formulary Medication (Levetiracetam (Keppra)) 1 tab BID PO ; Start 01/25/18 at 21:00; Stop 01/25/18 at 21:00; Status DC Levothyroxine Sodium (Synthroid) 25 mcg DAILY07 PO Last administered on at 06:59; Start 01/26/18 at 07:00; Stop 01/26/18 at 08:43; Status DC Mirtazapine (Remeron) 30 mg QHS PO Last administered on 01/25/18at 20:42; Start 01/25/18 at 21:00 Non-Formulary Medication (Pantoprazole Sodium (Protonix)) 1 tab DAILY PO ; Start 01/26/18 at 09:00; Status UNV Acetaminophen/ Hydrocodone Bitart (Lortab 5/325) 1 tab PRN Q4HRS PRN PO PAIN Last administered on 01/25/18at 13:19; Start 01/25/18 at 09:30 Al Hydroxide/Mg Hydroxide (Mylanta Plus Xs) 30 ml PRN Q2HR PRN PO HEARTBURN / GAS; Start 01/25/18 at 09:30 Pantoprazole Sodium (Protonix) 40 mg DAILYAC PO ; Start 01/25/18 at 10:00; Stop 01/25/18 at 10:39; Status DC Ondansetron HCl (Zofran) 4 mg PRN Q6HRS PRN IV NAUSEA/VOMITING Last administered on 01/26/18at 03:14; Start 01/25/18 at 09:30 Albuterol Sulfate (Ventolin Neb Soln) 2.5 mg Q4HRS W/A NEB Last administered on 01/25/18at 11:30; Start 01/25/18 at 10:00; Stop 01/25/18 at 16:08; Status DC Divalproex Sodium (Depakote Er) 750 mg DAILY PO Last administered on 01/26/18at 08:09; Start 01/25/18 at 12:00 Levetiracetam (Keppra) 500 mg BID PO Last administered on 01/26/18at 08:09; Start 01/25/18 at 11:00 Olanzapine (ZyPREXA) 15 mg HS PO Last administered on 01/25/18at 20:43; Start at 21:00 Albuterol Sulfate (Ventolin Neb Soln) 2.5 mg Q4HRS W/A NEB Last administered on 01/26/18at 08:06; Start 01/25/18 at 20:00 Diphenhydramine HCl (Benadryl) 25 mg PRN Q6HRS PRN IVP ITCHING Last administered on 01/26/18at 08:09; Start 01/25/18 at 17:30 Lorazepam (Ativan) 1 mg PRN Q4HRS PRN PO ANXIETY / AGITATION; Start 01/25/18 at 17:30; Stop 01/25/18 at 17:31; Status DC Lorazepam (Ativan) 1 mg PRN Q4HRS PRN IV ANXIETY / AGITATION Last administered on 01/26/18at 08:10; Start 01/25/18 at 17:45 Levothyroxine Sodium (Synthroid) 75 mcg DAILY07 PO ; Start 01/27/18 at 07:00 Active Scripts Active Protonix (Pantoprazole Sodium) 20 Mg Tablet.dr 1 Tab PO DAILY Dicyclomine Hcl 20 Mg Tablet 1 Tab PO TID Zofran Odt (Ondansetron) 4 Mg Tab.rapdis 1 Tab SL Q8HRS Ondansetron Odt (Ondansetron) 4 Mg Tab.rapdis 1 Tab PO PRN Q6-8HRS PRN 4 Days Hydrocodone-Apap 5-325 (Hydrocodone Bit/Acetaminophen) 1 Each Tablet 1 Tab PO PRN Q6HRS PRN 3 Days Potassium Chloride 10 Meq Tab.sr.24h 10 Meq PO DAILY 5 Days Hydrocodone-Apap 5-325 (Hydrocodone Bit/Acetaminophen) 1 Each Tablet 1 Tab PO PRN Q8HRS PRN Zofran Odt (Ondansetron) 4 Mg Tab.rapdis 1 Tab SL PRN Q8HRS PRN Benadryl (Diphenhydramine Hcl) 25 Mg Capsule 1 Cap PO Q4HRS W/A Ventolin Hfa Inhaler (Albuterol Sulfate) 18 Gm Hfa.aer.ad 2 Puff INH Q4HRS Prednisone 50 Mg Tablet 1 Tab PO DAILY Reported Prazosin Hcl 1 Mg Capsule 3 Cap PO QHS Depakote Er (Divalproex Sodium) 500 Mg Tab.er.24h 500 Mg PO DAILY Keppra (Levetiracetam) 1,000 Mg Tablet 1 Tab PO BID Remeron (Mirtazapine) 30 Mg Tablet 30 Tab PO QHS Prazosin Hcl 2 Mg Capsule 1 Cap PO QHS Levothyroxine Sodium 25 Mcg Tablet 1 Tab PO DAILY Vitals/I & O Vital Sign - Last 24 Hours 01/25/18 01/25/18 01/25/18 01/25/18 13:19 13:20 14:19 15:00 Temp 97.5 97.5 Pulse 73 Resp 18 B/P (MAP) 102/40 (60) Pulse Ox 97 O2 Delivery Room Air Room Air Room Air Room Air 01/25/18 01/25/18 01/25/18 01/25/18 15:20 17:46 19:00 19:51 Resp 17 Pulse Ox 100 O2 Delivery Room Air Room Air Room Air Room Air 01/25/18 01/25/18 01/25/18 01/25/18 19:52 20:00 22:44 22:53 Resp 16 20 Pulse Ox 100 O2 Delivery Room Air Room Air Room Air Room Air 01/25/18 01/26/18 01/26/18 01/26/18 23:03 00:54 01:00 03:00 Temp 97.6 96.4 97.6 96.4 Pulse 92 92 Resp 18 B/P (MAP) 119/52 (74) 115/66 (82) Pulse Ox 98 98 98 O2 Delivery Room Air Room Air Room Air Room Air 01/26/18 01/26/18 01/26/18 01/26/18 03:15 03:45 06:59 07:00 Temp 97.9 97.9 Pulse 92 Resp 18 16 16 14 B/P (MAP) 120/68 (85) Pulse Ox 98 98 98 98 O2 Delivery Room Air Room Air Room Air 01/26/18 01/26/18 01/26/18 01/26/18 08:00 08:06 09:18 09:47 Pulse Ox 98 O2 Delivery Room Air Room Air Room Air Room Air 01/26/18 11:00 Temp 98.4 98.4 Pulse 78 Resp 14 B/P (MAP) 132/70 (90) Pulse Ox 98 O2 Delivery Room Air Intake and Output 01/25/18 01/25/18 01/26/18 15:00 23:00 07:00 Intake Total 600 ml 1900 ml 240 ml Output Total 1300 ml 400 ml 800 ml Balance -700 ml 1500 ml -560 ml ANGELA HOLDEN MD Jan 26, 2018 11:40
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
[2018-01-26 14:58] VITALS: BP 120/68
[2018-01-26] MEDS ORDERED: ALBUTEROL SULFATE 2.5 MG/3 ML NEBU. NEB PRN (15:00)
[2018-01-26 19:59] VITALS: BP 112/69
[2018-01-26] MEDS: OLANZapine 5 MG TABLET PO SCH (20:34)
[2018-01-26] MEDS: MIRTAZAPINE 15 MG TABLET PO SCH (20:35)
[2018-01-26 22:28] VITALS: BP 120/66
[2018-01-27 03:40] VITALS: BP 92/47
[2018-01-27 07:00] VITALS: BP 113/69
[2018-01-27] MEDS ORDERED: LEVOTHYROXINE 25 MCG TABLET. PO SCH (07:00)
[2018-01-27] MEDS: ALBUTEROL SULFATE 2.5 MG/3 ML NEBU. NEB SCH ×2 (07:36→11:19)
[2018-01-27] MEDS ORDERED: LORazepam 1 MG TABLET PO PRN (07:45)
[2018-01-27] MEDS ORDERED: LEVO25TA55 PO (07:45)
--- NOTE | 2018-01-27 07:46 | DISCH ---
DISCHARGE DISCHARGE INFORMATION: FINAL DIAGNOSIS Problems Medical Problems: (1) Overdose Status: Acute (2) Suicidal ideation Status: Acute CONDITION ON DISCHARGE: Stable CODE STATUS: Code Status: Full NURSING HOME: SNF STAY <30 DAYS: Yes HOSPICE: HOSPICE: No HOSPICE EVAL & TREAT: No LTAC: ADMIT TO LTAC: No POST DISCHARGE ORDERS: ACTIVITY ORDERS: No restrictions WEIGHT BEARING STATUS: No restrictions DIET AFTER DISCHARGE: Regular CHECKS AFTER DISCHARGE: CHECKS AFTER DISCHARGE: Check blood press - daily TREATMENT/EQUIPMENT ORDERS: ADAPTIVE EQUIPMENT NEEDED: None DISCHARGE MEDICATIONS: Home Meds Active Scripts Levothyroxine Sodium (SYNTHROID) 25 Mcg Tablet, 75 MCG PO DAILY07 for 30 Days, # 90 TAB Prov:ANGELA HOLDEN MD 01/27/18 Pantoprazole Sodium (PROTONIX) 20 Mg Tablet.dr, 1 TAB PO DAILY, #30 TAB Prov:JACQUELIN KOROMA ORTHO ASSISTANT 11/05/17 Dicyclomine Hcl (DICYCLOMINE HCL) 20 Mg Tablet, 1 TAB PO TID, #30 TAB 0 Refills Prov:JACQUELIN KOROMA ORTHO ASSISTANT 11/05/17 Ondansetron (ZOFRAN ODT) 4 Mg Tab.rapdis, 1 TAB SL Q8HRS, #15 TAB Prov:MUTJACQUELIN MARTINS ORTHO ASSISTANT 11/05/17 Ondansetron (ONDANSETRON ODT) 4 Mg Tab.rapdis, 1 TAB PO PRN Q6-8HRS PRN for NAUSEA for 4 Days, #16 TAB Prov:ARIE WHITMAN ORTHO ASSISTANT 10/30/17 Hydrocodone Bit/Acetaminophen (HYDROCODONE-APAP 5-325 ) 1 Each Tablet, 1 TAB PO PRN Q6HRS PRN for PAIN for 3 Days, #12 TAB 0 Refills Prov:ARIE WHITMAN ORTHO ASSISTANT 18 Potassium Chloride (POTASSIUM CHLORIDE) 10 Meq Tab.sr.24h, 10 MEQ PO DAILY for 5 Days, #5 TAB.SR Prov:KIRA FREEMAN MD 09/24/17 Hydrocodone Bit/Acetaminophen (HYDROCODONE-APAP 5-325 ) 1 Each Tablet, 1 TAB PO PRN Q8HRS PRN for sev, #8 TAB 0 Refills Prov:KIRA FREEMAN MD 09/24/17 Ondansetron (ZOFRAN ODT) 4 Mg Tab.rapdis, 1 TAB SL PRN Q8HRS PRN for NAUSEA, #6 TAB Prov:KIRA FREEMAN MD 09/24/17 Diphenhydramine Hcl (BENADRYL) 25 Mg Capsule, 1 CAP PO Q4HRS W/A, #30 CAP 1 Refill Prov:JACQUELIN KOROMA APRN 09/21/17 Albuterol Sulfate (VENTOLIN HFA INHALER) 18 Gm Hfa.aer.ad, 2 PUFF INH Q4HRS for FOR ASTHMA, #1 INHALER 0 Refills Prov:JACQUELIN KOROMA APRN 09/21/17 Prednisone (PREDNISONE) 50 Mg Tablet, 1 TAB PO DAILY, #4 TAB Prov:JACQUELIN KOROMA APRN 09/21/17 Reported Medications Prazosin Hcl (PRAZOSIN HCL) 1 Mg Capsule, 3 CAP PO QHS, #30 CAP 2 Refills 01/25/18 Divalproex Sodium (DEPAKOTE ER) 500 Mg Tab.er.24h, 500 MG PO DAILY, TAB.SR 08/04/17 Levetiracetam (KEPPRA) 1,000 Mg Tablet, 1 TAB PO BID, #60 TAB 5 Refills 08/04/17 Mirtazapine (REMERON) 30 Mg Tablet, 30 TAB PO QHS, #30 TAB 1 Refill 08/04/17 Prazosin Hcl (PRAZOSIN HCL) 2 Mg Capsule, 1 CAP PO QHS, #30 CAP 2 Refills 08/04/17 Levothyroxine Sodium (LEVOTHYROXINE SODIUM) 25 Mcg Tablet, 1 TAB PO DAILY, #30 TAB 5 Refills 08/04/17 ANGELA HOLDEN MD Jan 27, 2018 07:46
[2018-01-27] MEDS ORDERED: HALOPERIDOL LACTATE 5 MG/ML VIAL. IM ONE (08:15)
[2018-01-27] MEDS: levETIRAcetam 500 MG TABLET PO SCH (09:00)
[2018-01-27] MEDS: DIVALPROEX EXTENDED RELEASE 250 MG TAB.ER.24H. PO SCH (09:00)
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
[2018-01-27] MEDS ORDERED: ZIPRASIDONE IM 20 MG VIAL. IM ONE (09:30)
--- NOTE | 2018-01-27 13:33 | PDOC ---
PROGRESS NOTES Assessment Assessment Seizure or seizure like episodes, non epileptic (pseudoseizures). Psychiatric problems. Hypothyroidism. RECOMMENDATIONS/PLAN: Discontinued Depakote in 12/2017 after overdose for suicidal, but resumed later or? Decrease Keppra to 250 mg bid. Treat medical diseases. See Psychiatry. Past Medical History Cardiovascular: No pertinent hx Pulmonary: No pertinent hx GI: No pertinent hx Psych: Bipolar, Depression, Psychosis Past Surgical History No pertinent history Family History No Significant Social History ALCOHOL: She denied. Drugs: Denied. ALLERGY: Unknown MEDICATIONS: Refer to [facility] SOCIAL HISTORY: Denies smoking, drinking, and illicit drug use. REVIEW OF SYSTEMS: Constitutional: No malnutrition, weight loss, cachexia. Head: No traumatic brain or head injury. Skin: No edema, or rash. Ear: No infection. Eyes: No vision loss or color blindness. Nose: No bleeding or purulent discharges. Hearing: No hearing decrease. Neck: No injury. Breast: No history of cancer, masses,or discharges. Cardiac: No SC, arrhythmia.. Pulmonary: No COPD. GI: No GI ulcer, GI bleeding. Urinary/genital: No dysuria, incontinence, urinary retention. Endocrinologic: No cousin face, craniofacial dysmorphism, polydactyly.. Skeletomuscular: No muscular atrophy, deformity. Neurological: see HP. Psychiatric: Denies drug use/abuse. Otherwise, not [id number] review of systems. PHYSICAL EXAMINATION: General appearance is in no subacute distress. HEENT: Normocephalic and nontraumatic. Eyes, nose, ears, and throat are unremarkable. Neck is supple. No lymphadenopathy. No bruits are heard over the carotid artery. No crepitus. Cardiovascular: S1, S2, regular rate and rhythm. Pulmonary: Clear to auscultation bilaterally. Abdomen: Bowel sounds are positive. Extremities: No rash, lesions, or edema. No restriction of range of motion NEUROLOGICAL EXAMINATION: Sleepiness. Not wanted to communicate. Unable to access if she is oriented to time, place and person. PERRL. EOMI. CN: no focal findings. Muscle tone: within normal. Muscle strength: 5 DTR: 2 Plantar reflex: Flexor response bilaterally Gait: Not examined in bed. Sensory exam: no abnormal findings. No cerebellar signs elicited. F-T-N test not performed. Objective Objective Vital Signs Date Time Temp Pulse Resp B/P (MAP) Pulse Ox O2 Delivery O2 Flow Rate FiO2 01/27/18 07:37 98 Room Air 01/27/18 07:00 97.9 74 18 113/69 (84) 97.9 Intake and Output 01/27/18 07:00 Intake Total 2300 ml Output Total 1300 ml Balance 1000 ml Intake Oral 2300 ml Output Urine Total 1300 ml # Voids 2 # Bowel Movements 1 Vitals Signs Vitals VS - Last 72 Hours, by Label Date Time Temp Pulse Resp B/P (MAP) Pulse Ox O2 Delivery O2 Flow Rate FiO2 01/27/18 07:37 98 Room Air 01/27/18 07:00 97.9 74 18 113/69 (84) 96 Room Air 97.9 01/27/18 03:40 73 14 92/47 (62) 96 Room Air 01/26/18 23:15 18 99 Room Air 01/26/18 22:39 18 99 Room Air 01/26/18 22:28 97.7 84 16 120/66 (84) 99 Room Air 97.7 01/26/18 20:34 18 97 Room Air 01/26/18 20:19 97 Room Air 01/26/18 20:15 Room Air 01/26/18 19:59 97.5 92 16 112/69 (83) 97 Room Air 97.5 01/26/18 18:31 99 Room Air 01/26/18 16:34 99 Room Air 01/26/18 15:17 99 Room Air 01/26/18 14:58 98.4 78 120/68 (85) 98 Room Air 98.4 01/26/18 14:19 Room Air 01/26/18 12:17 98 Room Air 01/26/18 12:07 98 Room Air 01/26/18 11:00 98.4 78 14 132/70 (90) 98 Room Air 98.4 01/26/18 09:18 Room Air 01/26/18 08:06 98 Room Air 01/26/18 08:00 Room Air 01/26/18 07:00 97.9 92 14 120/68 (85) 98 Room Air 97.9 Medication Medications Current Medications Albuterol Sulfate (Ventolin Neb Soln) 2.5 mg PRN Q4HRS PRN NEB SHORTNESS OF BREATH; Start 01/26/18 at 15:00 Albuterol Sulfate (Ventolin Neb Soln) 2.5 mg RTQID NEB Last administered on at 07:36; Start 01/26/18 at 16:00 Haloperidol Lactate (Haldol Inj) 5 mg 1X ONCE IM ; Start 01/27/18 at 08:15; Stop 01/27/18 at 08:16; Status Cancel Levothyroxine Sodium (Synthroid) 75 mcg DAILY07 PO ; Start 01/27/18 at 07:00 Lorazepam (Ativan) 1 mg PRN Q4HRS PRN IM ANXIETY / AGITATION; Start 01/27/18 at 08:44 Lorazepam (Ativan) 1 mg PRN Q4HRS PRN PO ANXIETY / AGITATION; Start 01/27/18 at 07:45 Lorazepam (Ativan) 2 mg STK-MED ONCE .ROUTE ; Start 01/27/18 at 08:18; Stop at 08:19; Status DC Lorazepam (Ativan) 4 mg 1X ONCE IM Last administered on 01/27/18at 09:07; Start 01/27/18 at 09:00; Stop 01/27/18 at 09:01; Status DC Lorazepam (Ativan) 4 mg 1X ONCE IV ; Start 01/27/18 at 08:30; Stop 01/27/18 at 08:31; Status DC Lorazepam (Ativan) 4 mg 1X ONCE IV ; Start 01/27/18 at 09:00; Stop 01/27/18 at 09:00; Status DC Ziprasidone (Geodon Im) 10 mg 1X ONCE IM Last administered on 01/27/18at 09:16 ; Start 01/27/18 at 09:30; Stop 01/27/18 at 09:31; Status DC Comment Review of Relevant I have reviewed the following items shaina (where applicable) has been applied. GAB MISHRA MD Jan 27, 2018 13:33
--- NOTE | 2018-01-27 15:06 | PDOC3 ---
Discharge Summary Visit Information Date of Admission: Jan 24, 2018 Date of Discharge: Jan 27, 2018 Admitting Diagnosis Comment: Suicide attempt, overdose off Minipress pills Hypotension secondary to above Severe depression with multiple past suicide attempts Hypothyroidism on Synthroid Overweight with a BMI 28.8 SZ versus pseudoseizures on Keppra Final Diagnosis Problems Medical Problems: (1) Overdose Status: Acute (2) Suicidal ideation Status: Acute Brief Hospital Course Allergies Allergies Coded Allergies Type Severity Reaction Last Updated Verified haloperidol Allergy Severe TONGUE SWELLING 06/04/16 Yes Vital Signs Vital Signs Date Time Temp Pulse Resp B/P (MAP) Pulse Ox O2 Delivery O2 Flow Rate FiO2 01/27/18 08:00 Room Air 01/27/18 07:37 98 01/27/18 07:00 97.9 74 18 113/69 (84) 97.9 Brief Hospital Course Ms. Quiñones is a 22 old [sex] who presented with [ ]suicide attempt minipress. HYPOTension got better with IVF, SI and grover, cleared by [facility] today with dad. 2 notes today Discharge Information Condition at Discharge: Improved, Stable Disposition/Orders: D/C to Home Scheduled Albuterol Sulfate (Ventolin Hfa Inhaler) 18 Gm Hfa.aer.ad, 2 PUFF INH Q4HRS for FOR ASTHMA, #1 Ref 0 Prescribed by: Liz Jorgensen APRN on 09/21/172012 Last Action: Converted on 01/25/18918 by ANGELA HOLDEN Dicyclomine Hcl (Dicyclomine Hcl) 20 Mg Tablet, 1 TAB PO TID, #30 Ref 0 Prescribed by: Liz Jorgensen APRN on 11/05/17 1434 Last Action: Converted on 01/25/18918 by ANGELA HOLDEN Diphenhydramine Hcl (Benadryl) 25 Mg Capsule, 1 CAP PO Q4HRS W/A, #30 Ref 1 Prescribed by: Liz Jorgensen APRN on 09/21/172012 Last Action: Continued on 01/25/18918 by ANGELA HOLDEN Divalproex Sodium (Depakote Er) 500 Mg Tab.er.24h, 500 MG PO DAILY, (Reported) Entered as Reported by: KAEL ARAMBULA on 08/04/17 1523 Last Action: Continued on 01/25/18918 by ANGELA HOLDEN Levetiracetam (Keppra) 1,000 Mg Tablet, 1 TAB PO BID, #60 Ref 5 (Reported) Entered as Reported by: KAEL ARAMBULA on 08/04/17 114 Last Action: Converted on 01/25/18918 by ANGELA HOLDEN Levothyroxine Sodium (Synthroid) 25 Mcg Tablet, 75 MCG PO DAILY07 for 30 Days, # 90 Prescribed by: ANGELA HOLDEN on 01/27/18 0745 Mirtazapine (Remeron) 30 Mg Tablet, 30 TAB PO QHS, #30 Ref 1 (Reported) Entered as Reported by: KAEL ARAMBULA on 08/04/171148 Last Action: Converted on 01/25/18918 by ANGELA HOLDEN Ondansetron (Zofran Odt) 4 Mg Tab.rapdis, 1 TAB SL Q8HRS, #15 Prescribed by: Liz Jorgensen APRN on 11/05/171433 Last Action: HELD on 01/25/18918 by ANGELA HOLDEN Pantoprazole Sodium (Protonix) 20 Mg Tablet.dr, 1 TAB PO DAILY, #30 Prescribed by: Liz Jorgensen APRN on 11/05/171433 Last Action: Converted on 01/25/18918 by ANGELA HOLDEN Potassium Chloride (Potassium Chloride) 10 Meq Tab.sr.24h, 10 MEQ PO DAILY for 5 Days, #5 Prescribed by: KIRA FREEMAN on 09/24/17853 Last Action: Continued on 01/25/18918 by ANGELA HOLDEN Prednisone (Prednisone) 50 Mg Tablet, 1 TAB PO DAILY, #4 Prescribed by: Liz Jorgensen APRN on 09/21/172012 Last Action: HELD on 01/25/18918 by ANGELA HOLDEN Scheduled PRN Hydrocodone Bit/Acetaminophen (Hydrocodone-Apap 5-325 ) 1 Each Tablet, 1 TAB PO PRN Q8HRS PRN for sev, #8 Ref 0 Prescribed by: KIRA FREEMAN on 09/24/17848 Last Action: Continued on 01/25/18918 by ANGELA HOLDEN Hydrocodone Bit/Acetaminophen (Hydrocodone-Apap 5-325 ) 1 Each Tablet, 1 TAB PO PRN Q6HRS PRN for PAIN for 3 Days, #12 Ref 0 Prescribed by: ARIE WHITMAN APRN on 10/30/17 1615 Last Action: Continued on 01/25/18918 by ANGELA HOLDEN Ondansetron (Zofran Odt) 4 Mg Tab.rapdis, 1 TAB SL PRN Q8HRS PRN for NAUSEA, #6 Prescribed by: KIRA FREEMAN on 09/24/17 0849 Last Action: HELD on 01/25/18918 by ANGELA HOLDEN Ondansetron (Ondansetron Odt) 4 Mg Tab.rapdis, 1 TAB PO PRN Q6-8HRS PRN for NAUSEA for 4 Days, #16 Prescribed by: ARIE WHITMAN APRN on 10/30/17 161 Last Action: Continued on 01/25/18918 by ANGELA HOLDEN Discontinued Medications Levothyroxine Sodium (Levothyroxine Sodium) 25 Mcg Tablet, 1 TAB PO DAILY, #30 Ref 5 (Reported) Entered as Reported by: KAEL ARAMBULA on 08/04/17 1149 Last Action: Converted on 01/25/18918 by ANGELA HOLDEN Prazosin Hcl (Prazosin Hcl) 2 Mg Capsule, 1 CAP PO QHS, #30 Ref 2 (Reported) Entered as Reported by: KAEL ARAMBULA on 08/04/17 1149 Last Action: HELD on 01/25/18918 by ANGELA HOLDEN Prazosin Hcl (Prazosin Hcl) 1 Mg Capsule, 3 CAP PO QHS, #30 Ref 2 (Reported) Entered as Reported by: SAÚL GONZALEZ on 01/25/18 104 Last Taken: Unknown Dose on 01/24/18 2100 Last Action: New Order on 1039 by ANGELA GAUTAM MD Jan 27, 2018 15:06
[2018-01-27] MEDS ORDERED: levETIRAcetam 250 MG TABLET PO SCH (21:00)
== END 2018-01-27 15:45 | disposition home or self-care (01) | DRG 918 ==
LOC: ER 21:25 → 5 SOUTH 22:15
PROVIDERS: ADMIT Internal Medicine; ATTEND Internal Medicine
DX: T44.6X2A Poisoning by alpha-adrenoreceptor antagonists, intentional self-harm, initial encounter (principal); R45.851 Suicidal ideations; E03.9 Hypothyroidism, unspecified; E66.3 Overweight; F31.9 Bipolar disorder, unspecified; I95.2 Hypotension due to drugs; F60.3 Borderline personality disorder; F41.9 Anxiety disorder, unspecified; F44.5 Conversion disorder with seizures or convulsions; F43.10 Post-traumatic stress disorder, unspecified; Y92.89 Other specified places as the place of occurrence of the external cause; Z79.899 Other long term (current) drug therapy; Z91.5 Personal history of self-harm; Z88.8 Allergy status to other drugs, medicaments and biological substances
CPT/HCPCS: 36415; 80048; 80053; 80307; 80329; 81001; 84439; 84443; 84481; 85025; 87086; 90471; 90756; 93005; 94640; 94760; G0480; G6039; J1200; J2060; J2270; J2405; J3486; J7030; J7613; Q0163; 99285-25; G0479; Q2035

== ENCOUNTER 2018-02-08 15:32 | Emergency (ER) | payer OTHER ==
[~2018-02-08] VITALS: Ht 165.1 cm; Wt 72.6 kg
[2018-02-08 15:32] VITALS: BP 145/63
[~2018-02-08 15:32] MED LIST changes: +LEVE250T4 PO; +LEVO25TA55 PO; +MIRT15TA3 PO; +MIRT30TA3 PO; +OLAN20TA3 PO; +PRAZ1CAP2 PO
--- NOTE | 2018-02-08 16:34 | PHYS DOC ---
Past Medical History Past Medical History: Anxiety, Bipolar, Depression, Seizure Additional Past Medical Histor: PTSD,SI/MUTLIPLE SUICIDE ATTEMPTS, Borderline personality Past Surgical History: Other Additional Past Surgical Histo: ORAL Alcohol Use: None Drug Use: None Adult General Chief Complaint Chief Complaint: OTHER COMPLAINTS [facility] HPI Patient is a 22 year old female who presents with nausea after being discharged earlier today from the hospital. Patient apparently is well known to the facility as a person with depression and frequent suicide attempts. Patient was admitted yesterday for Benadryl overdose and was being discharged and transferred to with detention. Apparently while in the car she became nauseous and the van pulled over to the side of the road. Patient got out on the correct side which was not near any traffic and the funeral limousine driver was coming around to give her a nausea/vomiting bag. Apparently from the area EMS was called and the report that we would give initially was the patient stated she was going to jump out of the van. This was not any type of suicide attempt nor was it from our understanding taking her own history accurate. Patient is not suicidal or homicidal this time nor did she have any active vomiting and states she feels fine and just wants to go to with detention now. Review of Systems Review of Systems Constitutional: Denies fever or chills [] Eyes: Denies change in visual acuity, redness, or eye pain [] HENT: Denies nasal congestion or sore throat [] Respiratory: Denies cough or shortness of breath [] Cardiovascular: No additional information not addressed in HPI [] GI: Denies abdominal pain, vomiting, bloody stools or diarrhea, positive for nausea [] : Denies dysuria or hematuria [] Musculoskeletal: Denies back pain or joint pain [] Integument: Denies rash or skin lesions [] Neurologic: Denies headache, focal weakness or sensory changes [] Endocrine: Denies polyuria or polydipsia [] All other systems were reviewed and found to be within normal limits, except as documented in this note. Allergies Allergies Allergies Coded Allergies Type Severity Reaction Last Updated Verified haloperidol Allergy Severe TONGUE SWELLING 06/04/16 Yes Physical Exam Physical Exam Constitutional: Well developed, well nourished, no acute distress, non-toxic appearance. [] HENT: Normocephalic, atraumatic, bilateral external ears normal, oropharynx moist, no oral exudates, nose normal. [] Eyes: PERRLA, EOMI, conjunctiva normal, no discharge. [] Neck: Normal range of motion, no tenderness, supple, no stridor. [] Cardiovascular:Heart rate regular rhythm, no murmur [] Lungs & Thorax: Bilateral breath sounds clear to auscultation [] Abdomen: Bowel sounds normal, soft, no tenderness, no masses, no pulsatile masses. [] Skin: Warm, dry, no erythema, no rash. [] Back: No tenderness, no CVA tenderness. [] Extremities: No tenderness, no cyanosis, no clubbing, ROM intact, no edema. [] Neurologic: Alert and oriented X 3, normal motor function, normal sensory function, no focal deficits noted. [] Psychologic: Affect normal, judgement normal, mood normal. [] Current Patient Data Vital Signs Vital Signs Date Time Temp Pulse Resp B/P (MAP) Pulse Ox O2 Delivery O2 Flow Rate FiO2 02/08/18 15:32 98.6 86 20 145/63 (90) 96 Room Air 98.6 EKG EKG [] Radiology/Procedures Radiology/Procedures [] Course & Med Decision Making Course & Med Decision Making Pertinent Labs and Imaging studies reviewed. (See chart for details) [] Dragon Disclaimer Dragon Disclaimer This electronic medical record was generated, in whole or in part, using a voice recognition dictation system. Departure Departure Impression: Primary Impression: Nausea Additional Impression: History of drug overdose Disposition: HOME, SELF-CARE Condition: STABLE Referrals: NO PCP (PCP) Problem Qualifiers SOMMER GUERRIER MD Feb 08, 2018 16:34
== END 2018-02-08 16:20 | disposition home or self-care (01) ==
LOC: ER 15:32
DX: R11.0 Nausea (principal); Z91.5 Personal history of self-harm; F31.9 Bipolar disorder, unspecified; F41.9 Anxiety disorder, unspecified; F43.10 Post-traumatic stress disorder, unspecified; Z88.8 Allergy status to other drugs, medicaments and biological substances
CPT/HCPCS: 99281; 99283

== ENCOUNTER 2018-03-18 18:47 | Emergency (ER) | payer OTHER ==
[~2018-03-18] VITALS: Ht 165.1 cm; Wt 77.1 kg
[2018-03-18] MEDS ORDERED: IV NORMAL SALINE 1000ML BAG 1,000 ML IV SCH (19:24)
--- NOTE | 2018-03-18 19:29 | PHYS DOC ---
Past Medical History Past Medical History: Anxiety, Bipolar, Depression, Seizure Additional Past Medical Histor: PTSD,SI/MUTLIPLE SUICIDE ATTEMPTS, Borderline personality.CHRONIC ABD PAIN Past Surgical History: Other Additional Past Surgical Histo: ORAL Alcohol Use: None Drug Use: None Adult General Chief Complaint Chief Complaint: ABDOMINAL PAIN HPI HPI Patient is a 22 year old female who presents with abdominal pain, nausea, vomiting, and diarrhea. This started approximately 4 days ago. Getting worse over time. No blood in the stool or emesis. No travel. Nothing seems to make it better, food and drink seems to make it worse. No previous surgical history on the abdomen. [] Review of Systems Review of Systems Constitutional: Denies fever or chills [] Eyes: Denies change in visual acuity, redness, or eye pain [] HENT: Denies nasal congestion or sore throat [] Respiratory: Denies cough or shortness of breath [] Cardiovascular: No chest pain or palpitations[] GI: See history of present illness[] : Denies dysuria or hematuria [] Musculoskeletal: Denies back pain or joint pain [] Integument: Denies rash or skin lesions [] Neurologic: Denies headache, focal weakness or sensory changes [] Endocrine: Denies polyuria or polydipsia [] All other systems were reviewed and found to be within normal limits, except as documented in this note. Current Medications Current Medications Current Medications Medications (Trade) Dose Ordered Sig/Priya Start Time Stop Time Status Last Admin Dose Admin Info (CONTRAST GIVEN -- Rx MONITORING) 1 each PRN DAILY PRN 03/18/18 21:00 03/18/18 21:52 DC Iohexol (Omnipaque 300 Mg/ml) 75 ml 1X ONCE 03/18/18 21:00 03/18/18 21:01 DC Ketorolac Tromethamine (Toradol 30mg Vial) 30 mg 1X ONCE 03/18/18 19:30 03/18/18 20:07 DC 03/18/18 19:30 30 MG Prochlorperazine Edisylate (Compazine) 5 mg 1X ONCE 03/18/18 19:30 03/18/18 20:07 DC 03/18/18 19:30 5 MG Sodium Chloride 1,000 ml @ 1,000 mls/hr Q1H 03/18/18 19:24 11/6/18 20:23 DC 03/18/18 19:24 1,000 MLS/HR Allergies Allergies Allergies Coded Allergies Type Severity Reaction Last Updated Verified haloperidol Allergy Severe TONGUE SWELLING 06/04/16 Yes Physical Exam Physical Exam Constitutional: Well developed, well nourished, no acute distress, non-toxic appearance. [] HENT: Normocephalic, atraumatic, bilateral external ears normal, oropharynx moist, no oral exudates, nose normal. [] Eyes: PERRLA, EOMI, conjunctiva normal, no discharge. [] Neck: Normal range of motion, no tenderness, supple, no stridor. [] Cardiovascular:Heart rate regular rhythm, no murmur [] Lungs & Thorax: Bilateral breath sounds clear to auscultation [] Abdomen: Bowel sounds normal, soft, no tenderness, no masses, no pulsatile masses. [] Skin: Warm, dry, no erythema, no rash. [] Back: No tenderness, no CVA tenderness. [] Extremities: No tenderness, no cyanosis, no clubbing, ROM intact, no edema. [] Neurologic: Alert and oriented X 3, normal motor function, normal sensory function, no focal deficits noted. [] Psychologic: Affect normal, judgement normal, mood normal. [] Current Patient Data Vital Signs Vital Signs Date Time Temp Pulse Resp B/P (MAP) Pulse Ox O2 Delivery O2 Flow Rate FiO2 03/18/18 21:05 68 21 132/76 (94) 100 Room Air 03/18/18 18:54 98.3 98.3 Lab Values Laboratory Tests Test 03/18/18 18:55 03/18/18 19:49 03/18/18 19:59 Urine Collection Type Unknown Urine Color Yellow Urine Clarity Clear Urine pH 7.0 Urine Specific [place] 1.010 Urine Protein Negative mg/dL (NEG-TRACE) Urine Glucose (UA) Negative mg/dL (NEG) Urine Ketones (Stick) Negative mg/dL (NEG) Urine Blood Negative (NEG) Urine Nitrite Negative (NEG) Urine Bilirubin Negative (NEG) Urine Urobilinogen Dipstick 0.2 mg/dL (0.2 mg/dL) Urine Leukocyte Esterase Negative (NEG) Urine RBC 1-2 /HPF (0-2) Urine WBC Occ /HPF (0-4) Urine Squamous Epithelial Cells Few /LPF Urine Bacteria 0 /HPF (0-FEW) Urine Opiates Screen Neg (NEG) Urine Methadone Screen Neg (NEG) Urine Barbiturates Neg (NEG) Urine Phencyclidine Screen Neg (NEG) Urine Amphetamine/Methamphetamine Neg (NEG) Urine Benzodiazepines Screen Neg (NEG) Urine Cocaine Screen Neg (NEG) Urine Cannabinoids Screen Neg (NEG) Urine Ethyl Alcohol Neg (NEG) White Blood Count 7.2 x10^3/uL (4.0-11.0) Red Blood Count 4.10 x10^6/uL (3.50-5.40) Hemoglobin 12.1 g/dL (12.0-15.5) Hematocrit 34.8 % (36.0-47.0) L Mean Corpuscular Volume 85 fL (79-100) Mean Corpuscular Hemoglobin 30 pg (25-35) Mean Corpuscular Hemoglobin Concent 35 g/dL (31-37) Red Cell Distribution Width 14.1 % (11.5-14.5) Platelet Count 280 x10^3/uL (140-400) Neutrophils (%) (Auto) 60 % (31-73) Lymphocytes (%) (Auto) 21 % (24-48) L Monocytes (%) (Auto) 16 % (0-9) H Eosinophils (%) (Auto) 3 % (0-3) Basophils (%) (Auto) 0 % (0-3) Neutrophils # (Auto) 4.3 x10^3uL (1.8-7.7) Lymphocytes # (Auto) 1.5 x10^3/uL (1.0-4.8) Monocytes # (Auto) 1.1 x10^3/uL (0.0-1.1) Eosinophils # (Auto) 0.2 x10^3/uL (0.0-0.7) Basophils # (Auto) 0.0 x10^3/uL (0.0-0.2) Sodium Level 140 mmol/L (136-145) Potassium Level 4.2 mmol/L (3.5-5.1) Chloride Level 103 mmol/L (98-107) Carbon Dioxide Level 27 mmol/L (21-32) Anion Gap 10 (6-14) Blood Urea Nitrogen 14 mg/dL (7-20) Creatinine 0.8 mg/dL (0.6-1.0) Estimated GFR (Cockcroft-Gault) 91.4 BUN/Creatinine Ratio 18 (6-20) Glucose Level 102 mg/dL (70-99) H Calcium Level 9.1 mg/dL (8.5-10.1) Total Bilirubin 0.1 mg/dL (0.2-1.0) L Aspartate Amino Transferase (AST) 17 U/L (15-37) Alanine Aminotransferase (ALT) 12 U/L (14-59) L Alkaline Phosphatase 86 U/L (46-116) Total Protein 7.5 g/dL (6.4-8.2) Albumin 3.4 g/dL (3.4-5.0) Albumin/Globulin Ratio 0.8 (1.0-1.7) L Lipase 133 U/L (73-393) Salicylates Level < 2.8 mg/dL (2.8-20.0) L Salicylate Last Dose Date Unknown Salicylate Last Dose Time Unknown Acetaminophen Level < 2 mcg/ml (10-30) L Acetaminophen Last Dose Date Unknown Acetaminophen Last Dose Time Unknown Ethyl Alcohol Level < 10 mg/dL (0-10) POC Urine HCG, Qualitative Hcg negative (Negative) Laboratory Tests 03/18/18 19:49 Laboratory Tests 03/18/18 19:49 EKG EKG EKG shows a normal sinus rhythm at 65 bpm, no axis, normal QRS at 96 ms, normal QTC at 417 ms.[] Radiology/Procedures Radiology/Procedures [] Course & Med Decision Making Course & Med Decision Making Pertinent Labs and Imaging studies reviewed. (See chart for details) ED course: Patient arrived, was placed in bed, in tolerate exam well. Patient had no episodes of vomiting or diarrhea while in the emergency pertinent. During her department stay, she reported that she took 48 [id number] Benadryl tablets at 25 mg apiece. Discussion with poison control happened, and the EKG was obtained that did not show any prolongation of her QRS per their request. The rest of her tox screen was negative. Patient was evaluated by mental health who cleared her. Patient refused abdominal imaging. After the return of the normal labs and her previous diagnosis were evaluated, there being no medical or surgical reason for admission, while other patients were being admitted, she elected to go home prior to formal discharge. Medical decision making: There is no evidence of appendicitis, urinary tract infection, pyelonephritis, cholecystitis, nor oral intake intolerance. There is no evidence of an anticholinergic toxidrome, no evidence of aspirin or acetaminophen toxicity. No evidence of ectopic .[] Dragon Disclaimer Dragon Disclaimer This electronic medical record was generated, in whole or in part, using a voice recognition dictation system. Departure Departure Impression: Primary Impression: Abdominal pain Disposition: HOME, SELF-CARE Condition: GOOD Referrals: NO PCP (PCP) Problem Qualifiers Primary Impression: Abdominal pain Abdominal location: generalized Qualified Codes: R10.84 - Generalized abdominal pain JACE STRATTON DO Mar 18, 2018 19:29
[2018-03-18] MEDS ORDERED: KETOROLAC 30 MG/ML VIAL. IV ONE (19:30)
[2018-03-18] MEDS ORDERED: PROCHLORPERAZINE 10 MG/2 ML VIAL. IV ONE (19:30)
[2018-03-18 19:38] LABS: BILIRUBIN,URINE NEGATIVE (NEG); CLARITY,URINE CLEAR; COLOR,URINE YELLOW; NITRITE,URINE NEGATIVE (NEG); PROTEIN,URINE NEGATIVE (NEG-TRACE); UROBILINOGEN,URINE 0.2 mg/dL (0.2 mg/dL)
[2018-03-18 19:42] LABS: BARBITURATES NEG (NEG); BENZODIAZEPINES NEG (NEG); CANNABINOIDS NEG (NEG); COCAINE NEG (NEG); METHADONE NEG (NEG); OPIATES NEG (NEG); PHENCYCLIDINE NEG (NEG)
[2018-03-18 19:43] LABS: AMPHETAMINE/METHAMPHETAMINE NEG (NEG)
[2018-03-18 19:47] LABS: BACTERIA,URINE 0 /HPF (0-FEW); SQUAMOUS EPITHELIAL CELL,UR FEW /LPF; WBC,URINE OCC /HPF (0-4)
[2018-03-18 19:58] LABS: BASO % 0 % (0-3); EOS # 0.2 x10^3/uL (0.0-0.7); EOS % 3 % (0-3); HEMATOCRIT 34.8 % (36.0-47.0); HEMOGLOBIN 12.1 g/dL (12.0-15.5); LYMPH # 1.5 x10^3/uL (1.0-4.8); LYMPH % 21 % (24-48); MEAN CORPUSCULAR HEMOGLOBIN 30 pg (25-35); MEAN CORPUSCULAR HGB CONC 35 g/dL (31-37); MEAN CORPUSCULAR VOLUME 85 fL (79-100); MONO # 1.1 x10^3/uL (0.0-1.1); MONO % 16 % (0-9); NEUT # 4.3 x10^3uL (1.8-7.7); NEUT % 60 % (31-73); PLATELET COUNT 280 x10^3/uL (140-400); RED CELL DISTRIBUTION WIDTH 14.1 % (11.5-14.5); WHITE BLOOD COUNT 7.2 x10^3/uL (4.0-11.0)
[2018-03-18 20:11] LABS: CALCIUM 9.1 mg/dL (8.5-10.1); CREATININE 0.8 mg/dL (0.6-1.0); GFR 91.4; POTASSIUM 4.2 mmol/L (3.5-5.1)
[2018-03-18 20:16] LABS: ALBUMIN 3.4 g/dL (3.4-5.0); ALBUMIN/GLOBULIN RATIO 0.8 (1.0-1.7); TOTAL BILIRUBIN 0.1 mg/dL (0.2-1.0); TOTAL PROTEIN 7.5 g/dL (6.4-8.2)
[2018-03-18 20:17] LABS: ACETAMIN < 2 mcg/ml (10-30); ETHANOL < 10 mg/dL (0-10); SALIC < 2.8 mg/dL (2.8-20.0)
[2018-03-18] MEDS ORDERED: CONTRAST GIVEN. MC PRN (21:00)
[2018-03-18] MEDS ORDERED: IOHEXOL 300 MG/ML 100ML VIAL. IV ONE (21:00)
[2018-03-18 21:05] VITALS: BP 132/76
--- NOTE | 2018-03-18 22:53 | EKG ---
[facility] [address] [place] [id number] Test Date: 2018-03-18 Test Time: 20:23:25 Pat Name: WINIFRED STERLING Department: Room: Gender: F [employer]: TW : 1995 Requested By: JACE STRATTON Order Number: [id number] Reading MD: Diego Swift MD Measurements Intervals [place] Rate: 64 P: 47 TX: 136 QRS: 15 QRSD: 96 T: 19 QT: 400 QTc: 416 Interpretive Statements SINUS RHYTHM Electronically Signed On 03-19-2018 17:53:03 BETTING AGENCY MANAGER by Diego Swift MD
== END 2018-03-18 21:42 | disposition home or self-care (01) ==
LOC: ER 18:47
DX: R10.84 Generalized abdominal pain (principal); R11.2 Nausea with vomiting, unspecified; R19.7 Diarrhea, unspecified; F31.9 Bipolar disorder, unspecified; G89.29 Other chronic pain; F43.10 Post-traumatic stress disorder, unspecified; Z88.8 Allergy status to other drugs, medicaments and biological substances
CPT/HCPCS: 36415; 80053; 80307; 80329; 81001; 81025; 83690; 85025; 93005; 96361; 96374; 96375; 99285; G0480; G6039; J0780; J1885; J7030

== ENCOUNTER 2018-06-03 01:40 | Emergency (ER) | payer OTHER ==
[~2018-06-03] VITALS: Ht 162.6 cm; Wt 89.9 kg
[2018-06-03 01:40] VITALS: BP 132/62
[~2018-06-03 01:40] MED LIST changes: +DIVA500T17 PO; -HYDR-2758 PO; +HYDR-2761 PO; +RISP2TAB3 PO; +TRAZ-85 PO
--- NOTE | 2018-06-03 02:02 | PHYS DOC ---
Past Medical History Past Medical History: Anxiety, Bipolar, Depression, Seizure Additional Past Medical Histor: PTSD,SI/MUTLIPLE SUICIDE ATTEMPT, Borderline personality.CHRON ABD PAIN,TBI Past Surgical History: Other Additional Past Surgical Histo: ORAL Alcohol Use: None Drug Use: None Adult General Chief Complaint Chief Complaint: OVERDOSE HPI HPI Patient is a 22 year old female who presents with benadryl ingestion. Patient is very well-known to this hospital. She was just discharged from this hospital a few days earlier with similar complaints. She has multiple visits with the same complaint. The patient typically gets admitted and requests IV pain medication and then leaves AGAINST MEDICAL ADVICE. The patient has not been shown to be suicidal at any point in the past. She has multiple psychiatric assessment team screenings. She is followed at the [facility] and [facility] and there is a plan in place for her to be screened for residential care. Today, the patient presents stating that she took some Benadryl. She came directly to this hospital from [facility] where she had been evaluated and released. The patient states she took "handfuls" of Benadryl several hours prior to presentation. The patient is wide awake and alert and answering questions appropriately. She embolus with a normal steady gait. The patient denies that she was suicidal. She states she just is unhappy with her home situation which is why she took the medications. Review of Systems Review of Systems Constitutional: Denies fever Eyes: Denies change in visual acuity HENT: Denies nasal congestion Respiratory: Denies cough or shortness of breath Cardiovascular: No additional information not addressed in HPI GI: Denies abdominal pain, nausea : Denies dysuria or hematuria Musculoskeletal: Denies back pain Integument: Denies rash or skin lesions Neurologic: Denies headache Endocrine: Denies polyuria All other systems were reviewed and found to be within normal limits, except as documented in this note. Allergies Allergies Allergies Coded Allergies Type Severity Reaction Last Updated Verified haloperidol Allergy Severe TONGUE SWELLING 05/30/18 Yes ibuprofen Allergy Intermediate Hives 05/30/18 Yes ketorolac Allergy Intermediate Hives 05/30/18 Yes Physical Exam Physical Exam Constitutional: Well developed, well nourished, no acute distress, non-toxic appearance HENT: Normocephalic, atraumatic, bilateral external ears normal, oropharynx moist Eyes: PERRLA, EOMI, conjunctiva normal Neck: Normal range of motion, no tenderness Cardiovascular:Heart rate regular rhythm, no murmur Lungs & Thorax: Bilateral breath sounds clear to auscultation Abdomen: Bowel sounds normal, soft Skin: Warm, dry, no erythema, no rash Extremities: Normal exam Neurologic: Alert and oriented X 3 Psychologic: Affect normal EKG EKG [] Radiology/Procedures Radiology/Procedures [] Course & Med Decision Making Course & Med Decision Making Pertinent Labs and Imaging studies reviewed. (See chart for details) Patient is evaluated in the emergency department after taking some Benadryl. She came to this hospital directly from another hospital where she was already evaluated. Patient does not endorse suicidal thoughts actively during the interview. Patient took the overdose 2 or 3 hours earlier. She has no clinical toxidrome suspicious for Benadryl ingestion. She is awake and alert. She has normal vital signs. Her skin is normal. In the ER, I offered to observe her for several hours in a monitored setting to ensure that she does not have any ill side effects from taking the Benadryl. I informed her that I would not admit her to the hospital unless she developed some signs of toxicity. Following this , the patient states she is no longer wants to be seen and she exits the emergency room. Again, the patient did not have acute suicidal intent. The patient has a long history of similar presentations and has the secondary gain of #1 being admitted to the hospital and #2 occasionally receiving IV opiate pain medications. The patient is documented to leave the hospital frequently when she is not receiving opiate pain medications. She had a normal steady gait. Her physical exam was normal. She was not suicidal. The patient was allowed to leave the department. Dragon Disclaimer Dragon Disclaimer This electronic medical record was generated, in whole or in part, using a voice recognition dictation system. Departure Departure Disposition: 01 HOME, SELF-CARE Condition: GOOD Referrals: NO PCP (PCP) DENISE DORMAN DO Jun 03, 2018 02:02
== END 2018-06-03 02:01 | disposition home or self-care (01) ==
LOC: ER 01:40
DX: T45.0X2A Poisoning by antiallergic and antiemetic drugs, intentional self-harm, initial encounter (principal); Z91.5 Personal history of self-harm; F41.9 Anxiety disorder, unspecified; F43.10 Post-traumatic stress disorder, unspecified; Z87.820 Personal history of traumatic brain injury; Y92.89 Other specified places as the place of occurrence of the external cause
CPT/HCPCS: 99281

== ENCOUNTER 2018-07-29 18:58 | Emergency (ER) | payer OTHER ==
[~2018-07-29] VITALS: Ht 165.1 cm; Wt 86.2 kg
[~2018-07-29 18:58] MED LIST changes: +TRAZ-118 PO; -TRAZ-85 PO
[2018-07-29 19:36] VITALS: BP 134/79
--- NOTE | 2018-07-29 20:08 | PHYS DOC ---
Past Medical History Past Medical History: Anxiety, Bipolar, Depression, Seizure Additional Past Medical Histor: PTSD,SI/MUTLIPLE SUICIDE ATTEMPT, Borderline personality.CHRON ABD PAIN,TBI Past Surgical History: Other Additional Past Surgical Histo: ORAL Alcohol Use: None Drug Use: None Adult General Chief Complaint Chief Complaint: ABDOMINAL PAIN [facility] HPI Patient is a 22 year old afebrile female with a history of SI w/ multiple attempts, bipolar disorder, borderline personality disorder, chronic abdominal pain, hypothyroidism, conversion disorder, and an appendectomy s/p 3 weeks ago, who presents with RUQ abdominal pain. She reports a 6 month history of intermittent RUQ pain that occurs ~30 minutes after eating meals, noting greasy/ fatty foods cause the RUQ pain more than other foods. She describes it as a sharp pain rated an 8/10. Earlier today after eating breadsticks (16:30) she reports vomiting and ongoing nausea. She admits to RIBERA and diarrhea. She denies CP, SOB, fever/chills, SOB, and CP. On saturday she reports she had an objective fever of 101.3, she took some tylenol, and it went away. She reports living with her "Friend power," and that she feels safe at home, denying any fear of her roommate or living situation. She denies SI and HI. Review of Systems Review of Systems Constitutional: Denies fever or chills Eyes: Denies change in visual acuity, redness, or eye pain HENT: Denies nasal congestion or sore throat Respiratory: Denies cough or shortness of breath Cardiovascular: No additional information not addressed in HPI GI: Admits abdominal pain, nausea, vomiting, diarrhea. Denies blood in stool : Denies dysuria or hematuria Musculoskeletal: Denies back pain or joint pain Integument: Denies rash or skin lesions Neurologic:Admits headache. Denies focal weakness or sensory changes Endocrine: Denies polyuria or polydipsia All other systems were reviewed and found to be within normal limits, except as documented in this note. Allergies Allergies Allergies Coded Allergies Type Severity Reaction Last Updated Verified haloperidol Allergy Severe TONGUE SWELLING 05/30/18 Yes ibuprofen Allergy Intermediate Hives 05/30/18 Yes ketorolac Allergy Intermediate Hives 05/30/18 Yes Physical Exam Physical Exam Constitutional: Well developed, well nourished, mild distress, non-toxic appearance. Pt rocking backing and forth throughout interview, which appeared to be related to anxiety more than pain. HENT: Normocephalic, atraumatic, bilateral external ears normal, oropharynx moist, no oral exudates, nose normal. Eyes: PERRLA, EOMI, conjunctiva normal, no discharge. Neck: Normal range of motion, no tenderness, supple, no stridor. Cardiovascular:Heart rate regular rhythm, no murmur Lungs & Thorax: Bilateral breath sounds clear to auscultation Abdomen: Bowel sounds normal, soft, obese, no masses, no pulsatile masses. Healed incisions from prior appendectomy appreciated on inspection w/out signs of infection, erythema, or streaking. Pt was TTP in the RUQ only. Skin: Warm, dry, no erythema, no rash. Back: No tenderness, no CVA tenderness. Extremities: No tenderness, no cyanosis, no clubbing, ROM intact, no edema. Neurologic: Alert and oriented X 3, normal motor function, normal sensory function, no focal deficits noted. Psychologic: Affect normal, judgement normal, mood normal. Current Patient Data Vital Signs Vital Signs Date Time Temp Pulse Resp B/P (MAP) Pulse Ox O2 Delivery O2 Flow Rate FiO2 07/29/18 19:36 98.0 69 20 134/79 (97) 100 Room Air 98.0 Lab Values Laboratory Tests Test 07/29/18 19:24 POC Urine HCG, Qualitative Hcg negative (Negative) EKG EKG [] Radiology/Procedures Radiology/Procedures [] Course & Med Decision Making Course & Med Decision Making 22 year old afebrile female w/ an extensive psychiatric history (multiple in- patient psychiatric hospitalizations), hypothyroidism, chronic abdominal pain, and s/p 3 weeks appendectomy, came into ED for RUQ pain. Pt reports 6 month history of RUQ pain occurring 30 minutes after eating, especially when eating greasy or fatty foods. Pt was TTP in the RUQ. Pt reports emesis after eating breadsticks today at 16:30. Pt had a HIDA scan and abdominal US less than 2 months ago which were unremarkable and showed no gallstones. Given recent appendectomy we ordered labs and imaging to rule out a intra abdominal infection as well. W/in 10 minutes of leaving pt's room, nursing informed us she wanted to leave AMA, so we went back into the room. Discussed w/ pt why we wanted to keep her here and why she should stay, letting her know that if she did have an infection it could get worse and could potentially become fatal. She then said she understood these risks but thought that she just needed to "sleep it off." Told pt that if her pain worsens or she has any concerning symptoms or a temperature that she should immediately return to the ER and she agreed that she would. Dragon Disclaimer Dragon Disclaimer This electronic medical record was generated, in whole or in part, using a voice recognition dictation system. Departure Departure Impression: Primary Impression: Abdominal pain Disposition: 07 AGAINST MEDICAL ADVICE Condition: STABLE Referrals: NO PCP (PCP) FARHAD RAINES MD Jul 29, 2018 20:07
== END 2018-07-29 19:45 | disposition left against medical advice (07) ==
LOC: ER 18:58
DX: R10.11 Right upper quadrant pain (principal); R51 Headache; R50.9 Fever, unspecified; F31.9 Bipolar disorder, unspecified; F41.9 Anxiety disorder, unspecified; G89.29 Other chronic pain; E03.9 Hypothyroidism, unspecified; Z88.6 Allergy status to analgesic agent; Z88.8 Allergy status to other drugs, medicaments and biological substances; Z90.89 Acquired absence of other organs
CPT/HCPCS: 81025; 99281

== ENCOUNTER 2018-07-31 15:18 | Inpatient (IN) | payer OTHER ==
[~2018-07-31] VITALS: Ht 165.1 cm; Wt 84.6 kg
[2018-07-31 16:03] LABS: BASO % 0 % (0-3); EOS # 0.1 x10^3/uL (0.0-0.7); EOS % 2 % (0-3); HEMOGLOBIN 11.3 g/dL (12.0-15.5); LYMPH # 1.1 x10^3/uL (1.0-4.8); LYMPH % 18 % (24-48); MEAN CORPUSCULAR HEMOGLOBIN 26 pg (25-35); MEAN CORPUSCULAR HGB CONC 32 g/dL (31-37); MEAN CORPUSCULAR VOLUME 81 fL (79-100); MONO # 0.6 x10^3/uL (0.0-1.1); MONO % 11 % (0-9); NEUT % 68 % (31-73); PLATELET COUNT 244 x10^3/uL (140-400); RED BLOOD COUNT 4.34 x10^6/uL (3.50-5.40); RED CELL DISTRIBUTION WIDTH 15.6 % (11.5-14.5); WHITE BLOOD COUNT 5.9 x10^3/uL (4.0-11.0)
[2018-07-31] MEDS ORDERED: CHARCOAL/SORBITOL 50 GM/240 ML SUSPENSION. PO ONE (16:15)
[2018-07-31 16:19] LABS: CALCIUM 8.8 mg/dL (8.5-10.1); CREATININE 0.9 mg/dL (0.6-1.0); GFR 79.8; POTASSIUM 4.2 mmol/L (3.5-5.1)
[2018-07-31 16:25] LABS: ALBUMIN 3.2 g/dL (3.4-5.0); ALBUMIN/GLOBULIN RATIO 0.7 (1.0-1.7); TOTAL BILIRUBIN 0.2 mg/dL (0.2-1.0); TOTAL PROTEIN 7.6 g/dL (6.4-8.2)
--- NOTE | 2018-07-31 16:29 | PDOC1 ---
History and Physical Date of Admission Date of Admission DATE: 07/31/18 TIME: 16:28 Identification/Chief Complaint Chief Complaint SEEN IN ER 22 year old female who presents with an overdose of Benadryl today.AT 1300 The patient states that she was angry with her friends because they were making fun of her so she took approximately 100 Benadryl. She reported to the emergency department. She does state that she is very sleepy. She was recently released from [facility] where she was undergoing inpatient psychiatric care. She is frequently admitted to this emergency department for overdose and/or suicidal ideation. reasonably cooperative, although somewhat lethargic. She was oriented. She appeared well groomed and well nourished. Past Medical History Past Medical History Past Medical History Past Medical History: Anxiety, Bipolar, Depression, Seizure Additional Past Medical Histor: PTSD,SI/MUTLIPLE SUICIDE ATTEMPT, Borderline personality.CHRON ABD PAIN,TBI Past Surgical History: Appendectomy, Other Additional Past Surgical Histo: ORAL Alcohol Use: None Drug Use: None Cardiovascular: No pertinent hx Pulmonary: No pertinent hx CENTRAL NERVOUS SYSTEM: Seizure GI: No pertinent hx Psych: Bipolar, Depression, Psychosis Rheumatologic: No pertinent hx Infectious disease: No pertinent hx Past Surgical History Past Surgical History: No pertinent history Family History Family History: No Significant, Depression Social History Smoke: <1 pack per day ALCOHOL: none Drugs: None Current Medications Current Medications Current Medications Charcoal/Sorbitol (Insta-Christelle Sorbitol) 50 gm 1X ONCE PO ; Start 07/31/18 at 16 :15; Stop 07/31/18 at 16:16; Status DC Active Scripts Active Reported Prazosin Hcl 1 Mg Capsule 1 Cap PO QHS Divalproex Sodium Er (Divalproex Sodium) 500 Mg Tab.er.24h 1 Tab PO HS Risperidone 2 Mg Tablet 1 Tab PO QHS Trazodone Hcl 50 Mg Tablet 1 Tab PO QHS Allergies Allergies: Coded Allergies: haloperidol (Verified Allergy, Severe, TONGUE SWELLING, 05/30/18) TOLERATES RISPERIDONE ibuprofen (Verified Allergy, Intermediate, Hives, 05/30/18) ketorolac (Verified Allergy, Intermediate, Hives, 05/30/18) ROS Review of System Review of Systems Review of Systems Constitutional: Denies fever or chills [] Eyes: BLURRED visual acuity,NO redness, or eye pain [] HENT: Denies nasal congestion or sore throat [] Respiratory: Denies cough or shortness of breath [] Cardiovascular: No additional information not addressed in HPI [] GI: Denies abdominal pain, nausea, vomiting, bloody stools or diarrhea [] : Denies dysuria or hematuria [] Musculoskeletal: Denies back pain or joint pain [] Integument: Denies rash or skin lesions [] Neurologic: See history of present illness Endocrine: Denies polyuria or polydipsia [] 14 PT systems were reviewed and found to be within normal limits, except as documented PSYCHOLOGICAL ROS: YES: Anxiety, Behavioral Disorder, Depression Eyes: Yes Blurry vision ENDOCRINE: No: Breast Changes, Galactorrhea, Hair Pattern Changes, Hot Flashes , Malaise/lethargy, Mood Swings, Palpitations, Polydipsia/polyuria, Skin Changes , Temperature Intolerance, Unexpected Weight Changes, Other Breast: No New/Changing Breast Lumps, No Nipple changes, No Nipple discharge, No Other Respiratory: No: Cough, Hemoptysis, Orthopnea, Pleuritic Pain, Shortness of breath, SOB with excertion, Sputum Changes, Stridor, Tachypnea, Wheezing, Other Neurological: Yes Dizziness, Yes Gait Disturbance Physical Exam Physical Exam Physical Exam Physical Exam reasonably cooperative, although somewhat lethargic.appeared well groomed and well nourished. Constitutional: MILD acute distress, non-toxic appearance. [] Cardiovascular:Heart rate regular rhythm, no murmur [] Lungs & Thorax: Bilateral breath sounds clear to auscultation [] Abdomen: Bowel sounds normal, soft, no tenderness, no masses, no pulsatile masses. [] Skin: Warm, dry, no erythema, no rash. [] Back: No tenderness, no CVA tenderness. [] Extremities: No tenderness, no cyanosis, no clubbing, ROM intact, no edema. [] Neurologic: Alert and oriented X 3, normal motor function, normal sensory function, no focal deficits noted, cranial nerves II through XII are grossly intact. [] Psychologic: Affect SAD, judgement POOR, mood DEPRESSED[] General: Cooperative, mild distress HEENT: Atraumatic, EOMI, Mucous membr. moist/pink Lungs: Clear to auscultation Breasts: Not examined Abdomen: Soft Rectal Exam: not examined Neuro: Cranial nerves 3-12 NL Vitals Vitals Vital Signs Date Time Temp Pulse Resp B/P (MAP) Pulse Ox O2 Delivery O2 Flow Rate FiO2 07/31/18 15:20 98.4 88 18 124/71 (88) 98 Room Air 98.4 Labs Labs Laboratory Tests Test 07/31/18 15:55 White Blood Count 5.9 x10^3/uL (4.0-11.0) Red Blood Count 4.34 x10^6/uL (3.50-5.40) Hemoglobin 11.3 g/dL (12.0-15.5) Hematocrit 35.0 % (36.0-47.0) Mean Corpuscular Volume 81 fL (79-100) Mean Corpuscular Hemoglobin 26 pg (25-35) Mean Corpuscular Hemoglobin Concent 32 g/dL (31-37) Red Cell Distribution Width 15.6 % (11.5-14.5) Platelet Count 244 x10^3/uL (140-400) Neutrophils (%) (Auto) 68 % (31-73) Lymphocytes (%) (Auto) 18 % (24-48) Monocytes (%) (Auto) 11 % (0-9) Eosinophils (%) (Auto) 2 % (0-3) Basophils (%) (Auto) 0 % (0-3) Neutrophils # (Auto) 4.0 x10^3uL (1.8-7.7) Lymphocytes # (Auto) 1.1 x10^3/uL (1.0-4.8) Monocytes # (Auto) 0.6 x10^3/uL (0.0-1.1) Eosinophils # (Auto) 0.1 x10^3/uL (0.0-0.7) Basophils # (Auto) 0.0 x10^3/uL (0.0-0.2) Sodium Level 139 mmol/L (136-145) Potassium Level 4.2 mmol/L (3.5-5.1) Chloride Level 103 mmol/L (98-107) Carbon Dioxide Level 27 mmol/L (21-32) Anion Gap 9 (6-14) Blood Urea Nitrogen 10 mg/dL (7-20) Creatinine 0.9 mg/dL (0.6-1.0) Estimated GFR (Cockcroft-Gault) 79.8 BUN/Creatinine Ratio 11 (6-20) Glucose Level 103 mg/dL (70-99) Calcium Level 8.8 mg/dL (8.5-10.1) Total Bilirubin 0.2 mg/dL (0.2-1.0) Aspartate Amino Transf (AST/SGOT) 15 U/L (15-37) Alanine Aminotransferase (ALT/SGPT) 11 U/L (14-59) Alkaline Phosphatase 56 U/L (46-116) Total Protein 7.6 g/dL (6.4-8.2) Albumin 3.2 g/dL (3.4-5.0) Albumin/Globulin Ratio 0.7 (1.0-1.7) Laboratory Tests Test 07/31/18 15:55 White Blood Count 5.9 x10^3/uL (4.0-11.0) Red Blood Count 4.34 x10^6/uL (3.50-5.40) Hemoglobin 11.3 g/dL (12.0-15.5) Hematocrit 35.0 % (36.0-47.0) Mean Corpuscular Volume 81 fL (79-100) Mean Corpuscular Hemoglobin 26 pg (25-35) Mean Corpuscular Hemoglobin Concent 32 g/dL (31-37) Red Cell Distribution Width 15.6 % (11.5-14.5) Platelet Count 244 x10^3/uL (140-400) Neutrophils (%) (Auto) 68 % (31-73) Lymphocytes (%) (Auto) 18 % (24-48) Monocytes (%) (Auto) 11 % (0-9) Eosinophils (%) (Auto) 2 % (0-3) Basophils (%) (Auto) 0 % (0-3) Neutrophils # (Auto) 4.0 x10^3uL (1.8-7.7) Lymphocytes # (Auto) 1.1 x10^3/uL (1.0-4.8) Monocytes # (Auto) 0.6 x10^3/uL (0.0-1.1) Eosinophils # (Auto) 0.1 x10^3/uL (0.0-0.7) Basophils # (Auto) 0.0 x10^3/uL (0.0-0.2) Sodium Level 139 mmol/L (136-145) Potassium Level 4.2 mmol/L (3.5-5.1) Chloride Level 103 mmol/L (98-107) Carbon Dioxide Level 27 mmol/L (21-32) Anion Gap 9 (6-14) Blood Urea Nitrogen 10 mg/dL (7-20) Creatinine 0.9 mg/dL (0.6-1.0) Estimated GFR (Cockcroft-Gault) 79.8 BUN/Creatinine Ratio 11 (6-20) Glucose Level 103 mg/dL (70-99) Calcium Level 8.8 mg/dL (8.5-10.1) Total Bilirubin 0.2 mg/dL (0.2-1.0) Aspartate Amino Transf (AST/SGOT) 15 U/L (15-37) Alanine Aminotransferase (ALT/SGPT) 11 U/L (14-59) Alkaline Phosphatase 56 U/L (46-116) Total Protein 7.6 g/dL (6.4-8.2) Albumin 3.2 g/dL (3.4-5.0) Albumin/Globulin Ratio 0.7 (1.0-1.7) VTE Prophylaxis Ordered VTE Prophylaxis Devices: Yes VTE Pharmacological Prophylaxi: Yes Assessment/Plan Assessment/Plan IMPRESSION Suicide attempt, overdose of benadryl on admit h/o multiple suicidal attempt, just dced from a psych facility in [place], [place] AND HERE Severe depression , RECURRENT Hypothyroidism on Synthroid Overweight with a BMI 33 pseudoseizures on Keppra borderline personality disorder RUQ abd pain, h/o gallstone as per pt, but neg in [facility] PLAN ACTIVATED CHARCOAL ICU BED PAT TEAM SUICIDE PRECAUTIONS IV FLUID SUPPORT POWDER SHOVELER POISON CONTROL NOTIFIED 38 MIN CC TIME YAAKOV VILLATORO MD Jul 31, 2018 16:29
[2018-07-31 16:51] LABS: BILIRUBIN,URINE NEGATIVE (NEG); CLARITY,URINE CLEAR; COLOR,URINE YELLOW; NITRITE,URINE NEGATIVE (NEG); PH,URINE 7.5; PROTEIN,URINE NEGATIVE (NEG-TRACE); UROBILINOGEN,URINE 0.2 mg/dL (0.2 mg/dL)
[2018-07-31 16:57] LABS: BACTERIA,URINE 0 /HPF (0-FEW); RBC,URINE 0 /HPF (0-2); WBC,URINE 0 /HPF (0-4)
[2018-07-31 17:01] LABS: BARBITURATES NEG (NEG); BENZODIAZEPINES NEG (NEG); CANNABINOIDS NEG (NEG); COCAINE NEG (NEG); METHADONE NEG (NEG); OPIATES NEG (NEG); PHENCYCLIDINE NEG (NEG)
--- NOTE | 2018-07-31 17:10 | PHYS DOC ---
Past Medical History Past Medical History: Anxiety, Bipolar, Depression, Seizure Additional Past Medical Histor: PTSD,SI/MUTLIPLE SUICIDE ATTEMPT, Borderline personality.CHRON ABD PAIN,TBI Past Surgical History: Appendectomy, Other Additional Past Surgical Histo: ORAL Alcohol Use: None Drug Use: None Adult General Chief Complaint Chief Complaint: OVERDOSE HPI HPI Patient is a 22 year old female who presents with an overdose of Benadryl today. The patient states that she was angry with her friends because they were making fun of her so she took approximately 100 Benadryl. She states that she threw them up almost immediately. She reported to the emergency department. She does state that she is very sleepy. She was recently released from [facility] where she was undergoing inpatient psychiatric care. She is frequently admitted to this emergency department for overdose and/or suicidal ideation. Review of Systems Review of Systems Constitutional: Denies fever or chills [] Eyes: Denies change in visual acuity, redness, or eye pain [] HENT: Denies nasal congestion or sore throat [] Respiratory: Denies cough or shortness of breath [] Cardiovascular: No additional information not addressed in HPI [] GI: Denies abdominal pain, nausea, vomiting, bloody stools or diarrhea [] : Denies dysuria or hematuria [] Musculoskeletal: Denies back pain or joint pain [] Integument: Denies rash or skin lesions [] Neurologic: See history of present illness Endocrine: Denies polyuria or polydipsia [] All other systems were reviewed and found to be within normal limits, except as documented in this note. Allergies Allergies Allergies Coded Allergies Type Severity Reaction Last Updated Verified haloperidol Allergy Severe TONGUE SWELLING 05/30/18 Yes ibuprofen Allergy Intermediate Hives 05/30/18 Yes ketorolac Allergy Intermediate Hives 05/30/18 Yes Physical Exam Physical Exam Constitutional: Well developed, well nourished, no acute distress, non-toxic appearance. [] Cardiovascular:Heart rate regular rhythm, no murmur [] Lungs & Thorax: Bilateral breath sounds clear to auscultation [] Abdomen: Bowel sounds normal, soft, no tenderness, no masses, no pulsatile masses. [] Skin: Warm, dry, no erythema, no rash. [] Back: No tenderness, no CVA tenderness. [] Extremities: No tenderness, no cyanosis, no clubbing, ROM intact, no edema. [] Neurologic: Alert and oriented X 3, normal motor function, normal sensory function, no focal deficits noted, cranial nerves II through XII are grossly intact. [] Psychologic: Affect normal, judgement normal, mood normal. [] Current Patient Data Vital Signs Vital Signs Date Time Temp Pulse Resp B/P (MAP) Pulse Ox O2 Delivery O2 Flow Rate FiO2 07/31/18 15:20 98.4 88 18 124/71 (88) 98 Room Air 98.4 Lab Values Laboratory Tests Test 07/31/18 15:55 White Blood Count 5.9 x10^3/uL (4.0-11.0) Red Blood Count 4.34 x10^6/uL (3.50-5.40) Hemoglobin 11.3 g/dL (12.0-15.5) L Hematocrit 35.0 % (36.0-47.0) L Mean Corpuscular Volume 81 fL (79-100) Mean Corpuscular Hemoglobin 26 pg (25-35) Mean Corpuscular Hemoglobin Concent 32 g/dL (31-37) Red Cell Distribution Width 15.6 % (11.5-14.5) H Platelet Count 244 x10^3/uL (140-400) Neutrophils (%) (Auto) 68 % (31-73) Lymphocytes (%) (Auto) 18 % (24-48) L Monocytes (%) (Auto) 11 % (0-9) H Eosinophils (%) (Auto) 2 % (0-3) Basophils (%) (Auto) 0 % (0-3) Neutrophils # (Auto) 4.0 x10^3uL (1.8-7.7) Lymphocytes # (Auto) 1.1 x10^3/uL (1.0-4.8) Monocytes # (Auto) 0.6 x10^3/uL (0.0-1.1) Eosinophils # (Auto) 0.1 x10^3/uL (0.0-0.7) Basophils # (Auto) 0.0 x10^3/uL (0.0-0.2) Sodium Level 139 mmol/L (136-145) Potassium Level 4.2 mmol/L (3.5-5.1) Chloride Level 103 mmol/L (98-107) Carbon Dioxide Level 27 mmol/L (21-32) Anion Gap 9 (6-14) Blood Urea Nitrogen 10 mg/dL (7-20) Creatinine 0.9 mg/dL (0.6-1.0) Estimated GFR (Cockcroft-Gault) 79.8 BUN/Creatinine Ratio 11 (6-20) Glucose Level 103 mg/dL (70-99) H Calcium Level 8.8 mg/dL (8.5-10.1) Total Bilirubin 0.2 mg/dL (0.2-1.0) Aspartate Amino Transferase (AST) 15 U/L (15-37) Alanine Aminotransferase (ALT) 11 U/L (14-59) L Alkaline Phosphatase 56 U/L (46-116) Total Protein 7.6 g/dL (6.4-8.2) Albumin 3.2 g/dL (3.4-5.0) L Albumin/Globulin Ratio 0.7 (1.0-1.7) L Laboratory Tests 07/31/18 15:55 Laboratory Tests 07/31/18 15:55 EKG EKG [] Radiology/Procedures Radiology/Procedures [] Course & Med Decision Making Course & Med Decision Making Pertinent Labs and Imaging studies reviewed. (See chart for details) []Patient is receiving activated charcoal in the emergency department. She states that she does not want to . Girma, with the PAT team was notified of her presence in the emergency department. She'll be admitted to ICU under Dr. Bolton's service and PAT will reconnect with her tomorrow. Margarita Disclaimer Dragteodora Disclaimer This electronic medical record was generated, in whole or in part, using a voice recognition dictation system. Departure Departure Impression: Primary Impression: Overdose Disposition: 09 ADMITTED INPATIENT Admitting Physician: Anselmo Pineda Condition: GOOD Referrals: NO PCP (PCP) THOM LY APRN Jul 31, 2018 17:10
[2018-07-31 17:13] LABS: AMPHETAMINE/METHAMPHETAMINE NEG (NEG)
[2018-07-31 18:10] VITALS: BP 127/70
[2018-07-31 19:02] VITALS: BP 119/66
--- NOTE | 2018-07-31 20:00 | NUR ---
Report rcvd from FORD Carrizales. Pt admission questions complete, pt orientated to room and plan of care. VSS, afebrile and c/o mild pain in upper abdomen. Pt resting in bed, call light within reach and will continue to monitor.
[2018-07-31 20:12] VITALS: BP 121/73
[2018-07-31] MEDS ORDERED: MAG HYDROX/ALUMINUM HYD/SIMETH 30 ML ORAL.SUSP PO PRN (20:30)
[2018-07-31 21:02] VITALS: BP 100/57
--- NOTE | 2018-07-31 21:15 | NUR ---
FORD Alfred from poison control followed up re: pt's status, update provided. Per poison control, Tylenol screen recommended for all overdose cases. Dr. Bolton notified, awaiting orders.
--- NOTE | 2018-07-31 21:20 | NUR ---
Pt states, "I think a seizure is coming I can feel my aura". Pt remains A&O and asymptomatic for seizures at this time. MD aware, no orders rcvd., and will continue to monitor.
[2018-07-31 22:10] VITALS: BP 104/62
--- NOTE | 2018-07-31 22:20 | NUR ---
Pt agitated and refusing scheduled blood draw, pt educated on need of test but declines at this time, will continue to monitor.
--- NOTE | 2018-07-31 22:57 | EKG ---
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
[2018-07-31 23:04] VITALS: BP 121/74
[2018-08-01] VITALS (14 sets, daily range): BP systolic 82–114; BP diastolic 38–83
--- NOTE | 2018-08-01 06:16 | EKG ---
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
--- NOTE | 2018-08-01 08:05 | NUR ---
SS following up with discharge planning. SS contacted PAT team for evaluation and assessment. Girma from the PAT team coming to meet with pt.
[2018-08-01 10:21] LABS: BASO % 1 % (0-3); EOS # 0.2 x10^3/uL (0.0-0.7); EOS % 4 % (0-3); HEMOGLOBIN 11.6 g/dL (12.0-15.5); LYMPH # 1.3 x10^3/uL (1.0-4.8); LYMPH % 27 % (24-48); MEAN CORPUSCULAR HEMOGLOBIN 27 pg (25-35); MEAN CORPUSCULAR HGB CONC 33 g/dL (31-37); MEAN CORPUSCULAR VOLUME 81 fL (79-100); MONO # 0.6 x10^3/uL (0.0-1.1); MONO % 13 % (0-9); NEUT # 2.7 x10^3uL (1.8-7.7); NEUT % 55 % (31-73); PLATELET COUNT 211 x10^3/uL (140-400); RED BLOOD COUNT 4.33 x10^6/uL (3.50-5.40); RED CELL DISTRIBUTION WIDTH 15.2 % (11.5-14.5); WHITE BLOOD COUNT 4.8 x10^3/uL (4.0-11.0)
--- NOTE | 2018-08-01 10:26 | PDOC ---
PROGRESS NOTES Chief Complaint Chief Complaint cc she was angry with her friends because they were making fun of her so she took approximately 100 Benadryl. She was recently released from [facility] where she was undergoing inpatient psychiatric care. She is frequently admitted for overdose and/or suicidal ideation. reasonably cooperative, although somewhat lethargic on admit . She was oriented. She appeared well groomed and well nourished. History of Present Illness History of Present Illness Assessment/Plan Assessment/Plan IMPRESSION Suicide attempt, overdose of benadryl on admit h/o multiple suicidal attempt, just dced from a psych facility in [place], [place] AND HERE Severe depression , RECURRENT Hypothyroidism on Synthroid Overweight with a BMI 33 pseudoseizures on Keppra borderline personality disorder RUQ abd pain, h/o gallstone as per pt, but neg in [place] SIRS PLAN ACTIVATED CHARCOAL in er ICU BED PAT TEAM pending SUICIDE PRECAUTIONS continue IV FLUID SUPPORT ACID REMOVER POISON CONTROL NOTIFIED// f/u ekg HIGH RISK OF COMPLETING SUICIDE per my chart review 34 MIN CC TIME Vitals Vitals Vital Signs Date Time Temp Pulse Resp B/P (MAP) Pulse Ox O2 Delivery O2 Flow Rate FiO2 08/01/18 10:01 77 16 91/41 (58) 96 Room Air 08/01/18 06:03 97.8 97.8 Physical Exam Physical Exam Skin: Warm, dry, no erythema, no rash. [] Back: No tenderness, no CVA tenderness. [] Extremities: No tenderness, no cyanosis, no clubbing, ROM intact, no edema. [] Neurologic: Alert and oriented X 3, normal motor function, normal sensory function, no focal deficits noted, cranial nerves II through XII are grossly intact. [] Psychologic: Affect SAD, judgement POOR, mood DEPRESSED[] General: Cooperative, mild distress HEENT: Atraumatic, EOMI, Mucous membr. moist/pink Lungs: Clear to auscultation Breasts: Not examined Abdomen: Soft Rectal Exam: not examined Neuro: Cranial nerves 3-12 NL General: Alert, Oriented X3, Cooperative, No acute distress, mild distress Heart: Regular rate, No murmurs Lungs: Clear, Other Abdomen: Soft Extremities: No clubbing, No cyanosis, No edema Skin: No significant lesion Labs LABS Laboratory Tests Test 07/31/18 15:55 07/31/18 16:41 White Blood Count 5.9 x10^3/uL (4.0-11.0) Red Blood Count 4.34 x10^6/uL (3.50-5.40) Hemoglobin 11.3 g/dL (12.0-15.5) Hematocrit 35.0 % (36.0-47.0) Mean Corpuscular Volume 81 fL (79-100) Mean Corpuscular Hemoglobin 26 pg (25-35) Mean Corpuscular Hemoglobin Concent 32 g/dL (31-37) Red Cell Distribution Width 15.6 % (11.5-14.5) Platelet Count 244 x10^3/uL (140-400) Neutrophils (%) (Auto) 68 % (31-73) Lymphocytes (%) (Auto) 18 % (24-48) Monocytes (%) (Auto) 11 % (0-9) Eosinophils (%) (Auto) 2 % (0-3) Basophils (%) (Auto) 0 % (0-3) Neutrophils # (Auto) 4.0 x10^3uL (1.8-7.7) Lymphocytes # (Auto) 1.1 x10^3/uL (1.0-4.8) Monocytes # (Auto) 0.6 x10^3/uL (0.0-1.1) Eosinophils # (Auto) 0.1 x10^3/uL (0.0-0.7) Basophils # (Auto) 0.0 x10^3/uL (0.0-0.2) Sodium Level 139 mmol/L (136-145) Potassium Level 4.2 mmol/L (3.5-5.1) Chloride Level 103 mmol/L (98-107) Carbon Dioxide Level 27 mmol/L (21-32) Anion Gap 9 (6-14) Blood Urea Nitrogen 10 mg/dL (7-20) Creatinine 0.9 mg/dL (0.6-1.0) Estimated GFR (Cockcroft-Gault) 79.8 BUN/Creatinine Ratio 11 (6-20) Glucose Level 103 mg/dL (70-99) Calcium Level 8.8 mg/dL (8.5-10.1) Total Bilirubin 0.2 mg/dL (0.2-1.0) Aspartate Amino Transf (AST/SGOT) 15 U/L (15-37) Alanine Aminotransferase (ALT/SGPT) 11 U/L (14-59) Alkaline Phosphatase 56 U/L (46-116) Total Protein 7.6 g/dL (6.4-8.2) Albumin 3.2 g/dL (3.4-5.0) Albumin/Globulin Ratio 0.7 (1.0-1.7) Urine Collection Type U cath Urine Color Yellow Urine Clarity Clear Urine pH 7.5 Urine Specific [place] 1.015 Urine Protein Negative mg/dL (NEG-TRACE) Urine Glucose (UA) Negative mg/dL (NEG) Urine Ketones (Stick) Negative mg/dL (NEG) Urine Blood Negative (NEG) Urine Nitrite Negative (NEG) Urine Bilirubin Negative (NEG) Urine Urobilinogen Dipstick 0.2 mg/dL (0.2 mg/dL) Urine Leukocyte Esterase Negative (NEG) Urine RBC 0 /HPF (0-2) Urine WBC 0 /HPF (0-4) Urine Bacteria 0 /HPF (0-FEW) Urine Opiates Screen Neg (NEG) Urine Methadone Screen Neg (NEG) Urine Barbiturates Neg (NEG) Urine Phencyclidine Screen Neg (NEG) Urine Amphetamine/Methamphetamine Neg (NEG) Urine Benzodiazepines Screen Neg (NEG) Urine Cocaine Screen Neg (NEG) Urine Cannabinoids Screen Neg (NEG) Urine Ethyl Alcohol Neg (NEG) Assessment and Plan Assessmemt and Plan Problems Medical Problems: (1) Overdose Status: Acute Comment Review of Relevant I have reviewed the following items shaina (where applicable) has been applied. Labs Laboratory Tests Test 07/31/18 15:55 07/31/18 16:41 White Blood Count 5.9 x10^3/uL (4.0-11.0) Red Blood Count 4.34 x10^6/uL (3.50-5.40) Hemoglobin 11.3 g/dL (12.0-15.5) Hematocrit 35.0 % (36.0-47.0) Mean Corpuscular Volume 81 fL (79-100) Mean Corpuscular Hemoglobin 26 pg (25-35) Mean Corpuscular Hemoglobin Concent 32 g/dL (31-37) Red Cell Distribution Width 15.6 % (11.5-14.5) Platelet Count 244 x10^3/uL (140-400) Neutrophils (%) (Auto) 68 % (31-73) Lymphocytes (%) (Auto) 18 % (24-48) Monocytes (%) (Auto) 11 % (0-9) Eosinophils (%) (Auto) 2 % (0-3) Basophils (%) (Auto) 0 % (0-3) Neutrophils # (Auto) 4.0 x10^3uL (1.8-7.7) Lymphocytes # (Auto) 1.1 x10^3/uL (1.0-4.8) Monocytes # (Auto) 0.6 x10^3/uL (0.0-1.1) Eosinophils # (Auto) 0.1 x10^3/uL (0.0-0.7) Basophils # (Auto) 0.0 x10^3/uL (0.0-0.2) Sodium Level 139 mmol/L (136-145) Potassium Level 4.2 mmol/L (3.5-5.1) Chloride Level 103 mmol/L (98-107) Carbon Dioxide Level 27 mmol/L (21-32) Anion Gap 9 (6-14) Blood Urea Nitrogen 10 mg/dL (7-20) Creatinine 0.9 mg/dL (0.6-1.0) Estimated GFR (Cockcroft-Gault) 79.8 BUN/Creatinine Ratio 11 (6-20) Glucose Level 103 mg/dL (70-99) Calcium Level 8.8 mg/dL (8.5-10.1) Total Bilirubin 0.2 mg/dL (0.2-1.0) Aspartate Amino Transf (AST/SGOT) 15 U/L (15-37) Alanine Aminotransferase (ALT/SGPT) 11 U/L (14-59) Alkaline Phosphatase 56 U/L (46-116) Total Protein 7.6 g/dL (6.4-8.2) Albumin 3.2 g/dL (3.4-5.0) Albumin/Globulin Ratio 0.7 (1.0-1.7) Urine Collection Type U cath Urine Color Yellow Urine Clarity Clear Urine pH 7.5 Urine Specific [place] 1.015 Urine Protein Negative mg/dL (NEG-TRACE) Urine Glucose (UA) Negative mg/dL (NEG) Urine Ketones (Stick) Negative mg/dL (NEG) Urine Blood Negative (NEG) Urine Nitrite Negative (NEG) Urine Bilirubin Negative (NEG) Urine Urobilinogen Dipstick 0.2 mg/dL (0.2 mg/dL) Urine Leukocyte Esterase Negative (NEG) Urine RBC 0 /HPF (0-2) Urine WBC 0 /HPF (0-4) Urine Bacteria 0 /HPF (0-FEW) Urine Opiates Screen Neg (NEG) Urine Methadone Screen Neg (NEG) Urine Barbiturates Neg (NEG) Urine Phencyclidine Screen Neg (NEG) Urine Amphetamine/Methamphetamine Neg (NEG) Urine Benzodiazepines Screen Neg (NEG) Urine Cocaine Screen Neg (NEG) Urine Cannabinoids Screen Neg (NEG) Urine Ethyl Alcohol Neg (NEG) Laboratory Tests Test 07/31/18 15:55 07/31/18 16:41 White Blood Count 5.9 x10^3/uL (4.0-11.0) Red Blood Count 4.34 x10^6/uL (3.50-5.40) Hemoglobin 11.3 g/dL (12.0-15.5) Hematocrit 35.0 % (36.0-47.0) Mean Corpuscular Volume 81 fL (79-100) Mean Corpuscular Hemoglobin 26 pg (25-35) Mean Corpuscular Hemoglobin Concent 32 g/dL (31-37) Red Cell Distribution Width 15.6 % (11.5-14.5) Platelet Count 244 x10^3/uL (140-400) Neutrophils (%) (Auto) 68 % (31-73) Lymphocytes (%) (Auto) 18 % (24-48) Monocytes (%) (Auto) 11 % (0-9) Eosinophils (%) (Auto) 2 % (0-3) Basophils (%) (Auto) 0 % (0-3) Neutrophils # (Auto) 4.0 x10^3uL (1.8-7.7) Lymphocytes # (Auto) 1.1 x10^3/uL (1.0-4.8) Monocytes # (Auto) 0.6 x10^3/uL (0.0-1.1) Eosinophils # (Auto) 0.1 x10^3/uL (0.0-0.7) Basophils # (Auto) 0.0 x10^3/uL (0.0-0.2) Sodium Level 139 mmol/L (136-145) Potassium Level 4.2 mmol/L (3.5-5.1) Chloride Level 103 mmol/L (98-107) Carbon Dioxide Level 27 mmol/L (21-32) Anion Gap 9 (6-14) Blood Urea Nitrogen 10 mg/dL (7-20) Creatinine 0.9 mg/dL (0.6-1.0) Estimated GFR (Cockcroft-Gault) 79.8 BUN/Creatinine Ratio 11 (6-20) Glucose Level 103 mg/dL (70-99) Calcium Level 8.8 mg/dL (8.5-10.1) Total Bilirubin 0.2 mg/dL (0.2-1.0) Aspartate Amino Transf (AST/SGOT) 15 U/L (15-37) Alanine Aminotransferase (ALT/SGPT) 11 U/L (14-59) Alkaline Phosphatase 56 U/L (46-116) Total Protein 7.6 g/dL (6.4-8.2) Albumin 3.2 g/dL (3.4-5.0) Albumin/Globulin Ratio 0.7 (1.0-1.7) Urine Collection Type U cath Urine Color Yellow Urine Clarity Clear Urine pH 7.5 Urine Specific [place] 1.015 Urine Protein Negative mg/dL (NEG-TRACE) Urine Glucose (UA) Negative mg/dL (NEG) Urine Ketones (Stick) Negative mg/dL (NEG) Urine Blood Negative (NEG) Urine Nitrite Negative (NEG) Urine Bilirubin Negative (NEG) Urine Urobilinogen Dipstick 0.2 mg/dL (0.2 mg/dL) Urine Leukocyte Esterase Negative (NEG) Urine RBC 0 /HPF (0-2) Urine WBC 0 /HPF (0-4) Urine Bacteria 0 /HPF (0-FEW) Urine Opiates Screen Neg (NEG) Urine Methadone Screen Neg (NEG) Urine Barbiturates Neg (NEG) Urine Phencyclidine Screen Neg (NEG) Urine Amphetamine/Methamphetamine Neg (NEG) Urine Benzodiazepines Screen Neg (NEG) Urine Cocaine Screen Neg (NEG) Urine Cannabinoids Screen Neg (NEG) Urine Ethyl Alcohol Neg (NEG) Medications Current Medications Charcoal/Sorbitol (Insta-Christelle Sorbitol) 50 gm 1X ONCE PO Last administered on 07/31/18at 16:15; Start 07/31/18 at 16:15; Stop 07/31/18 at 16:16; Status DC Al Hydroxide/Mg Hydroxide (Mylanta Plus Xs) 30 ml PRN Q2HR PRN PO HEARTBURN / GAS; Start 07/31/18 at 20:30 Active Scripts Active Reported Prazosin Hcl 1 Mg Capsule 1 Cap PO QHS Divalproex Sodium Er (Divalproex Sodium) 500 Mg Tab.er.24h 1 Tab PO HS Risperidone 2 Mg Tablet 1 Tab PO QHS Trazodone Hcl 50 Mg Tablet 1 Tab PO QHS Vitals/I & O Vital Sign - Last 24 Hours 07/31/18 07/31/18 07/31/18 07/31/18 15:20 18:10 18:10 19:02 Temp 98.4 98.2 98.1 98.4 98.2 98.1 Pulse 88 94 92 Resp 18 22 23 B/P (MAP) 124/71 (88) 127/70 (89) 119/66 (83) Pulse Ox 98 22 95 O2 Delivery Room Air Room Air Room Air Room Air 07/31/18 07/31/18 07/31/18 07/31/18 20:12 20:15 21:02 22:10 Temp 98.2 98.1 98.2 98.1 Pulse 82 72 88 Resp 18 18 18 B/P (MAP) 121/73 (89) 100/57 (71) 104/62 (76) Pulse Ox 96 96 97 O2 Delivery Room Air Room Air Room Air Room Air 07/31/18 07/31/18 08/01/18 08/01/18 23:04 23:59 00:06 01:03 Temp 98.1 98.1 Pulse 63 62 57 Resp 18 16 16 B/P (MAP) 121/74 (90) 98/50 (66) 85/46 (59) Pulse Ox 97 96 97 O2 Delivery Room Air Room Air Room Air Room Air 08/01/18 08/01/18 08/01/18 08/01/18 02:02 03:01 04:00 04:02 Pulse 57 71 77 Resp 16 16 16 B/P (MAP) 98/40 (59) 93/40 (57) 112/64 (80) Pulse Ox 97 97 97 O2 Delivery Room Air Room Air Room Air Room Air 08/01/18 08/01/18 08/01/18 08/01/18 05:00 06:03 07:01 08:02 Temp 97.8 97.8 97.8 97.8 Pulse 68 64 60 62 Resp 18 18 12 14 B/P (MAP) 96/43 (60) 89/43 (58) 86/38 (54) 88/48 (61) Pulse Ox 98 96 96 97 O2 Delivery Room Air Room Air Room Air Room Air 08/01/18 08/01/18 08/01/18 08:03 09:00 10:01 Pulse 74 77 Resp 14 16 B/P (MAP) 82/41 (55) 91/41 (58) Pulse Ox 96 96 O2 Delivery Room Air Room Air Room Air Intake and Output 07/31/18 07/31/18 08/01/18 15:00 23:00 07:00 Intake Total 540 ml 550 ml Balance 540 ml 550 ml YAAKOV VILLATORO MD Aug 01, 2018 10:26
[2018-08-01 10:41] LABS: ALBUMIN 3.5 g/dL (3.4-5.0); ALBUMIN/GLOBULIN RATIO 0.8 (1.0-1.7); CALCIUM 8.6 mg/dL (8.5-10.1); GFR 70.7; POTASSIUM 3.7 mmol/L (3.5-5.1); TOTAL BILIRUBIN 0.2 mg/dL (0.2-1.0); TOTAL PROTEIN 7.8 g/dL (6.4-8.2)
[2018-08-01 10:46] LABS: ACETAMIN < 2 mcg/ml (10-30); SALIC < 2.8 mg/dL (2.8-20.0)
--- NOTE | 2018-08-01 11:53 | EKG ---
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
--- NOTE | 2018-08-01 13:26 | PDOC3 ---
Discharge Summary Date of Admission: Jul 31, 2018 Date of Discharge: Aug 01, 2018 Follow-Up: 1-2 days Admitting Diagnosis comment: Chief Complaint Chief Complaint cc she was angry with her friends because they were making fun of her so she took approximately 100 Benadryl. She was recently released from [facility] where she was undergoing inpatient psychiatric care. She is frequently admitted for overdose and/or suicidal ideation. reasonably cooperative, although somewhat lethargic on admit . She was oriented. She appeared well groomed and well nourished. History of Present Illness History of Present Illness DISCHARGE DX Assessment/Plan IMPRESSION Suicide attempt, overdose of benadryl on admit BUT SHE DENIES SHE TRIED TO KILL HERSELF TODAY TO STAFF D/W RN h/o multiple suicidal attempt, just dced from a psych facility in [place], [place] AND HERE Severe depression , RECURRENT Hypothyroidism on Synthroid Overweight with a BMI 33 pseudoseizures on Keppra borderline personality disorder RUQ abd pain, h/o gallstone as per pt, but neg in [place] SIRS PLAN ACTIVATED CHARCOAL in er ICU BED PAT TEAM ARRANGED TRANSFER TO [facility] IN [facility] SUICIDE PRECAUTIONS continue IV FLUID SUPPORT PLATE PAINTER APPRENTICE POISON CONTROL NOTIFIED// f/u ekg HIGH RISK OF COMPLETING SUICIDE per my chart review NEEDS PSY VISIT RENATO 34 MIN D/C PLANNING TIME Vitals Vitals Vital Signs Date Time Temp Pulse Resp B/P (MAP) Pulse Ox O2 Delivery O2 Flow Rate FiO2 08/01/18 10:01 77 16 91/41 (58) 96 Room Air 08/01/18 06:03 97.8 97.8 Physical Exam Physical Exam Skin: Warm, dry, no erythema, no rash. [] Back: No tenderness, no CVA tenderness. [] Extremities: No tenderness, no cyanosis, no clubbing, ROM intact, no edema. [] Neurologic: Alert and oriented X 3, normal motor function, normal sensory function, no focal deficits noted, cranial nerves II through XII are grossly intact. [] Psychologic: Affect SAD, judgement POOR, mood DEPRESSED[] General: Cooperative, mild distress HEENT: Atraumatic, EOMI, Mucous membr. moist/pink Lungs: Clear to auscultation Breasts: Not examined Abdomen: Soft Rectal Exam: not examined Neuro: Cranial nerves 3-12 NL General: Alert, Oriented X3, Cooperative, No acute distress, mild distress Heart: Regular rate, No murmurs Lungs: Clear, Other Abdomen: Soft Extremities: No clubbing, No cyanosis, No edema Skin: No significant lesion FINAL DIAGNOSIS Problems Medical Problems: (1) Overdose Status: Acute Brief Hospital Course Ms. Quiñones is a 22 old [sex] who presented with [ OVERDOSE] CONDITION AT DISCHARGE: Improved Discharge Medications Current Medications Charcoal/Sorbitol (Insta-Christelle Sorbitol) 50 gm 1X ONCE PO Last administered on 07/31/18at 16:15; Start 07/31/18 at 16:15; Stop 07/31/18 at 16:16; Status DC Al Hydroxide/Mg Hydroxide (Mylanta Plus Xs) 30 ml PRN Q2HR PRN PO HEARTBURN / GAS; Start 07/31/18 at 20:30 Active Scripts Active Reported Prazosin Hcl 1 Mg Capsule 1 Cap PO QHS Divalproex Sodium Er (Divalproex Sodium) 500 Mg Tab.er.24h 1 Tab PO HS Risperidone 2 Mg Tablet 1 Tab PO QHS Trazodone Hcl 50 Mg Tablet 1 Tab PO QHS Vital Signs Vital Signs Date Time Temp Pulse Resp B/P (MAP) Pulse Ox O2 Delivery O2 Flow Rate FiO2 08/01/18 13:03 80 16 114/83 (93) 98 Room Air 08/01/18 11:03 98.1 98.1 Labs Laboratory Tests Test 07/31/18 15:55 07/31/18 16:41 08/01/18 09:41 08/01/18 09:47 White Blood Count 5.9 x10^3/uL (4.0-11.0) Red Blood Count 4.34 x10^6/uL (3.50-5.40) Hemoglobin 11.3 g/dL (12.0-15.5) Hematocrit 35.0 % (36.0-47.0) Mean Corpuscular Volume 81 fL (79-100) Mean Corpuscular Hemoglobin 26 pg (25-35) Mean Corpuscular Hemoglobin Concent 32 g/dL (31-37) Red Cell Distribution Width 15.6 % (11.5-14.5) Platelet Count 244 x10^3/uL (140-400) Neutrophils (%) (Auto) 68 % (31-73) Lymphocytes (%) (Auto) 18 % (24-48) Monocytes (%) (Auto) 11 % (0-9) Eosinophils (%) (Auto) 2 % (0-3) Basophils (%) (Auto) 0 % (0-3) Neutrophils # (Auto) 4.0 x10^3uL (1.8-7.7) Lymphocytes # (Auto) 1.1 x10^3/uL (1.0-4.8) Monocytes # (Auto) 0.6 x10^3/uL (0.0-1.1) Eosinophils # (Auto) 0.1 x10^3/uL (0.0-0.7) Basophils # (Auto) 0.0 x10^3/uL (0.0-0.2) Sodium Level 139 mmol/L (136-145) 138 mmol/L (136-145) Potassium Level 4.2 mmol/L (3.5-5.1) 3.7 mmol/L (3.5-5.1) Chloride Level 103 mmol/L (98-107) 102 mmol/L (98-107) Carbon Dioxide Level 27 mmol/L (21-32) 27 mmol/L (21-32) Anion Gap 9 (6-14) 9 (6-14) Blood Urea Nitrogen 10 mg/dL (7-20) 9 mg/dL (7-20) Creatinine 0.9 mg/dL (0.6-1.0) 1.0 mg/dL (0.6-1.0) Estimated GFR (Cockcroft-Gault) 79.8 70.7 BUN/Creatinine Ratio 11 (6-20) 9 (6-20) Glucose Level 103 mg/dL (70-99) 98 mg/dL (70-99) Calcium Level 8.8 mg/dL (8.5-10.1) 8.6 mg/dL (8.5-10.1) Total Bilirubin 0.2 mg/dL (0.2-1.0) 0.2 mg/dL (0.2-1.0) Aspartate Amino Transf (AST/SGOT) 15 U/L (15-37) 16 U/L (15-37) Alanine Aminotransferase (ALT/SGPT) 11 U/L (14-59) 12 U/L (14-59) Alkaline Phosphatase 56 U/L (46-116) 56 U/L (46-116) Total Protein 7.6 g/dL (6.4-8.2) 7.8 g/dL (6.4-8.2) Albumin 3.2 g/dL (3.4-5.0) 3.5 g/dL (3.4-5.0) Albumin/Globulin Ratio 0.7 (1.0-1.7) 0.8 (1.0-1.7) Urine Collection Type U cath Urine Color Yellow Urine Clarity Clear Urine pH 7.5 Urine Specific [place] 1.015 Urine Protein Negative mg/dL (NEG-TRACE) Urine Glucose (UA) Negative mg/dL (NEG) Urine Ketones (Stick) Negative mg/dL (NEG) Urine Blood Negative (NEG) Urine Nitrite Negative (NEG) Urine Bilirubin Negative (NEG) Urine Urobilinogen Dipstick 0.2 mg/dL (0.2 mg/dL) Urine Leukocyte Esterase Negative (NEG) Urine RBC 0 /HPF (0-2) Urine WBC 0 /HPF (0-4) Urine Bacteria 0 /HPF (0-FEW) Urine Opiates Screen Neg (NEG) Urine Methadone Screen Neg (NEG) Urine Barbiturates Neg (NEG) Urine Phencyclidine Screen Neg (NEG) Urine Amphetamine/Methamphetamine Neg (NEG) Urine Benzodiazepines Screen Neg (NEG) Urine Cocaine Screen Neg (NEG) Urine Cannabinoids Screen Neg (NEG) Urine Ethyl Alcohol Neg (NEG) Salicylates Level < 2.8 mg/dL (2.8-20.0) Salicylate Last Dose Date Unknown Salicylate Last Dose Time Unknown Acetaminophen Level < 2 mcg/ml (10-30) Acetaminophen Last Dose Date Unknown Acetaminophen Last Dose Time Unknown Test 08/01/18 10:04 White Blood Count 4.8 x10^3/uL (4.0-11.0) Red Blood Count 4.33 x10^6/uL (3.50-5.40) Hemoglobin 11.6 g/dL (12.0-15.5) Hematocrit 35.0 % (36.0-47.0) Mean Corpuscular Volume 81 fL (79-100) Mean Corpuscular Hemoglobin 27 pg (25-35) Mean Corpuscular Hemoglobin Concent 33 g/dL (31-37) Red Cell Distribution Width 15.2 % (11.5-14.5) Platelet Count 211 x10^3/uL (140-400) Neutrophils (%) (Auto) 55 % (31-73) Lymphocytes (%) (Auto) 27 % (24-48) Monocytes (%) (Auto) 13 % (0-9) Eosinophils (%) (Auto) 4 % (0-3) Basophils (%) (Auto) 1 % (0-3) Neutrophils # (Auto) 2.7 x10^3uL (1.8-7.7) Lymphocytes # (Auto) 1.3 x10^3/uL (1.0-4.8) Monocytes # (Auto) 0.6 x10^3/uL (0.0-1.1) Eosinophils # (Auto) 0.2 x10^3/uL (0.0-0.7) Basophils # (Auto) 0.0 x10^3/uL (0.0-0.2) Laboratory Tests Test 07/31/18 15:55 07/31/18 16:41 08/01/18 09:41 08/01/18 09:47 White Blood Count 5.9 x10^3/uL (4.0-11.0) Red Blood Count 4.34 x10^6/uL (3.50-5.40) Hemoglobin 11.3 g/dL (12.0-15.5) Hematocrit 35.0 % (36.0-47.0) Mean Corpuscular Volume 81 fL (79-100) Mean Corpuscular Hemoglobin 26 pg (25-35) Mean Corpuscular Hemoglobin Concent 32 g/dL (31-37) Red Cell Distribution Width 15.6 % (11.5-14.5) Platelet Count 244 x10^3/uL (140-400) Neutrophils (%) (Auto) 68 % (31-73) Lymphocytes (%) (Auto) 18 % (24-48) Monocytes (%) (Auto) 11 % (0-9) Eosinophils (%) (Auto) 2 % (0-3) Basophils (%) (Auto) 0 % (0-3) Neutrophils # (Auto) 4.0 x10^3uL (1.8-7.7) Lymphocytes # (Auto) 1.1 x10^3/uL (1.0-4.8) Monocytes # (Auto) 0.6 x10^3/uL (0.0-1.1) Eosinophils # (Auto) 0.1 x10^3/uL (0.0-0.7) Basophils # (Auto) 0.0 x10^3/uL (0.0-0.2) Sodium Level 139 mmol/L (136-145) 138 mmol/L (136-145) Potassium Level 4.2 mmol/L (3.5-5.1) 3.7 mmol/L (3.5-5.1) Chloride Level 103 mmol/L (98-107) 102 mmol/L (98-107) Carbon Dioxide Level 27 mmol/L (21-32) 27 mmol/L (21-32) Anion Gap 9 (6-14) 9 (6-14) Blood Urea Nitrogen 10 mg/dL (7-20) 9 mg/dL (7-20) Creatinine 0.9 mg/dL (0.6-1.0) 1.0 mg/dL (0.6-1.0) Estimated GFR (Cockcroft-Gault) 79.8 70.7 BUN/Creatinine Ratio 11 (6-20) 9 (6-20) Glucose Level 103 mg/dL (70-99) 98 mg/dL (70-99) Calcium Level 8.8 mg/dL (8.5-10.1) 8.6 mg/dL (8.5-10.1) Total Bilirubin 0.2 mg/dL (0.2-1.0) 0.2 mg/dL (0.2-1.0) Aspartate Amino Transf (AST/SGOT) 15 U/L (15-37) 16 U/L (15-37) Alanine Aminotransferase (ALT/SGPT) 11 U/L (14-59) 12 U/L (14-59) Alkaline Phosphatase 56 U/L (46-116) 56 U/L (46-116) Total Protein 7.6 g/dL (6.4-8.2) 7.8 g/dL (6.4-8.2) Albumin 3.2 g/dL (3.4-5.0) 3.5 g/dL (3.4-5.0) Albumin/Globulin Ratio 0.7 (1.0-1.7) 0.8 (1.0-1.7) Urine Collection Type U cath Urine Color Yellow Urine Clarity Clear Urine pH 7.5 Urine Specific [place] 1.015 Urine Protein Negative mg/dL (NEG-TRACE) Urine Glucose (UA) Negative mg/dL (NEG) Urine Ketones (Stick) Negative mg/dL (NEG) Urine Blood Negative (NEG) Urine Nitrite Negative (NEG) Urine Bilirubin Negative (NEG) Urine Urobilinogen Dipstick 0.2 mg/dL (0.2 mg/dL) Urine Leukocyte Esterase Negative (NEG) Urine RBC 0 /HPF (0-2) Urine WBC 0 /HPF (0-4) Urine Bacteria 0 /HPF (0-FEW) Urine Opiates Screen Neg (NEG) Urine Methadone Screen Neg (NEG) Urine Barbiturates Neg (NEG) Urine Phencyclidine Screen Neg (NEG) Urine Amphetamine/Methamphetamine Neg (NEG) Urine Benzodiazepines Screen Neg (NEG) Urine Cocaine Screen Neg (NEG) Urine Cannabinoids Screen Neg (NEG) Urine Ethyl Alcohol Neg (NEG) Salicylates Level < 2.8 mg/dL (2.8-20.0) Salicylate Last Dose Date Unknown Salicylate Last Dose Time Unknown Acetaminophen Level < 2 mcg/ml (10-30) Acetaminophen Last Dose Date Unknown Acetaminophen Last Dose Time Unknown Test 08/01/18 10:04 White Blood Count 4.8 x10^3/uL (4.0-11.0) Red Blood Count 4.33 x10^6/uL (3.50-5.40) Hemoglobin 11.6 g/dL (12.0-15.5) Hematocrit 35.0 % (36.0-47.0) Mean Corpuscular Volume 81 fL (79-100) Mean Corpuscular Hemoglobin 27 pg (25-35) Mean Corpuscular Hemoglobin Concent 33 g/dL (31-37) Red Cell Distribution Width 15.2 % (11.5-14.5) Platelet Count 211 x10^3/uL (140-400) Neutrophils (%) (Auto) 55 % (31-73) Lymphocytes (%) (Auto) 27 % (24-48) Monocytes (%) (Auto) 13 % (0-9) Eosinophils (%) (Auto) 4 % (0-3) Basophils (%) (Auto) 1 % (0-3) Neutrophils # (Auto) 2.7 x10^3uL (1.8-7.7) Lymphocytes # (Auto) 1.3 x10^3/uL (1.0-4.8) Monocytes # (Auto) 0.6 x10^3/uL (0.0-1.1) Eosinophils # (Auto) 0.2 x10^3/uL (0.0-0.7) Basophils # (Auto) 0.0 x10^3/uL (0.0-0.2) Allergies Allergies Coded Allergies Type Severity Reaction Last Updated Verified haloperidol Allergy Severe TONGUE SWELLING 05/30/18 Yes ibuprofen Allergy Intermediate Hives 05/30/18 Yes ketorolac Allergy Intermediate Hives 05/30/18 Yes Disposition/Orders: D/C to a Prison Patient Instructions D/C PLANNING 34 MIN YAAKOV VILLATORO MD Aug 01, 2018 13:26
--- NOTE | 2018-08-01 13:28 | DISCH ---
DISCHARGE INSTRUCTIONS Condition on Discharge Condition on Discharge: Guarded Activity After Discharge Activity Instructions for Disc: No restrictions, Resume previous activity Exercise Instruction after Dis: Walk 10 min, 3 x per day Driving Instructions after Dis: Do not drive Weight Bearing Status after Di: Full weight bearing Diet after Discharge Diet after Discharge: Regular Diet Texture: Regular Liquid Texture: Thin Liquid Swallowing Supervision: None needed Checks after Discharge Checks after discharge: Check blood press - daily Contacting the DR. after DC Call your doctor for: Concerns you may have Treatment/Equipment after DC Adaptive Equipment Issued: None Warfarin Follow-Up Warfarin Follow UP: SEE PSYCHIATRIST RENATO, OR MARITZA HEWITT PSYCH YAAKOV BEJARANO MD Aug 01, 2018 13:28
--- NOTE | 2018-08-01 13:37 | NUR ---
SS following up with discharge planning. Girma contacted SS and reported that pt has a bed at [facility] and that pt's father has agreed to transport pt.
--- NOTE | 2018-08-01 14:33 | NUR ---
Discharge instructions reviewed with patient, verbalized understanding. Patient was escorted out of hospital via ambulation by this nurse. Her father picked her up to take [place].
== END 2018-08-01 16:18 | disposition short-term general hospital (02) | DRG 917 ==
LOC: ER 15:18 → 1 WEST ICU 16:12
PROVIDERS: ADMIT Family Medicine; ATTEND Family Medicine
DX: T45.0X2A Poisoning by antiallergic and antiemetic drugs, intentional self-harm, initial encounter (principal); G92 Toxic encephalopathy; R45.851 Suicidal ideations; R65.10 Systemic inflammatory response syndrome (SIRS) of non-infectious origin without acute organ dysfunction; F31.9 Bipolar disorder, unspecified; F41.9 Anxiety disorder, unspecified; F43.10 Post-traumatic stress disorder, unspecified; G89.29 Other chronic pain; F17.210 Nicotine dependence, cigarettes, uncomplicated; E03.9 Hypothyroidism, unspecified; E66.3 Overweight; F44.5 Conversion disorder with seizures or convulsions; F60.3 Borderline personality disorder; K59.00 Constipation, unspecified; Z90.49 Acquired absence of other specified parts of digestive tract; Z88.6 Allergy status to analgesic agent; Z88.8 Allergy status to other drugs, medicaments and biological substances; Y92.89 Other specified places as the place of occurrence of the external cause; Z81.8 Family history of other mental and behavioral disorders
CPT/HCPCS: 36415; 80053; 80307; 80329; 81001; 81025; 85025; 87641; 93005; 99281; 99285-25; G0480

== ENCOUNTER 2019-05-29 20:15 | Emergency (ER) | payer MEDICAID, OTHER ==
[~2019-05-29 20:15] MED LIST changes: -PANT40TA5 PO; +PANT40TA77 PO
[2019-05-29 20:20] VITALS: BP 118/79
[2019-05-29] MEDS ORDERED: IV NORMAL SALINE 1000ML BAG 1,000 ML IV SCH (21:00)
[2019-05-29 21:03] LABS: BILIRUBIN,URINE NEGATIVE (NEG); CLARITY,URINE CLEAR; COLOR,URINE YELLOW; NITRITE,URINE NEGATIVE (NEG); PH,URINE 5.5; PROTEIN,URINE NEGATIVE (NEG-TRACE)
[2019-05-29 21:09] LABS: AMPHETAMINE/METHAMPHETAMINE NEG (NEG); BACTERIA,URINE MANY /HPF (0-FEW); BARBITURATES NEG (NEG); BENZODIAZEPINES POS (NEG); CANNABINOIDS NEG (NEG); COCAINE NEG (NEG); METHADONE NEG (NEG); OPIATES NEG (NEG); PHENCYCLIDINE NEG (NEG)
[2019-05-29 21:10] LABS: SQUAMOUS EPITHELIAL CELL,UR MOD /LPF
[2019-05-29 21:13] LABS: U PREG PATIENT NEGATIVE (NEG)
[2019-05-29] MEDS ORDERED: ONDANSETRON PF 4 MG/2 ML VIAL. IV ONE (21:30)
[2019-05-29] MEDS ORDERED: PANTOPRAZOLE IV PUSH 40 MG VIAL. IVP ONE (21:30)
[2019-05-29] MEDS ORDERED: FAMOTIDINE 20 MG TABLET. PO ONE (22:00)
[2019-05-29] MEDS ORDERED: ONDANSETRON ODT 4 MG TAB.RAPDIS. PO ONE (22:00)
[2019-05-29 22:01] LABS: BASO % 1 % (0-3); EOS # 0.1 x10^3/uL (0.0-0.7); EOS % 3 % (0-3); HEMATOCRIT 39.6 % (36.0-47.0); HEMOGLOBIN 13.2 g/dL (12.0-15.5); LYMPH # 1.2 x10^3/uL (1.0-4.8); LYMPH % 28 % (24-48); MEAN CORPUSCULAR HEMOGLOBIN 29 pg (25-35); MEAN CORPUSCULAR HGB CONC 33 g/dL (31-37); MEAN CORPUSCULAR VOLUME 85 fL (79-100); MONO # 0.5 x10^3/uL (0.0-1.1); MONO % 13 % (0-9); NEUT # 2.4 x10^3/uL (1.8-7.7); NEUT % 56 % (31-73); PLATELET COUNT 355 x10^3/uL (140-400); RED BLOOD COUNT 4.63 x10^6/uL (3.50-5.40); RED CELL DISTRIBUTION WIDTH 16.6 % (11.5-14.5); WHITE BLOOD COUNT 4.3 x10^3/uL (4.0-11.0)
[2019-05-29 22:05] LABS: CALCIUM 8.9 mg/dL (8.5-10.1); CREATININE 0.9 mg/dL (0.6-1.0); POTASSIUM 3.2 mmol/L (3.5-5.1)
[2019-05-29 22:11] LABS: ALBUMIN 4.1 g/dL (3.4-5.0); ALBUMIN/GLOBULIN RATIO 1.1 (1.0-1.7); TOTAL BILIRUBIN 0.6 mg/dL (0.2-1.0); TOTAL PROTEIN 7.9 g/dL (6.4-8.2)
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
== END 2019-05-29 22:10 | disposition left against medical advice (07) ==
LOC: ER 20:15
DX: K92.0 Hematemesis (principal); R19.7 Diarrhea, unspecified; R10.9 Unspecified abdominal pain; F31.9 Bipolar disorder, unspecified; F41.9 Anxiety disorder, unspecified; G89.29 Other chronic pain; Z90.89 Acquired absence of other organs; Z88.6 Allergy status to analgesic agent; Z88.8 Allergy status to other drugs, medicaments and biological substances
CPT/HCPCS: 36415; 80053; 80307; 81001; 81025; 83690; 85025; 85610; 85730; 87086; 99285; G0480; Q0162

== ENCOUNTER 2019-05-29 22:34 | Emergency (ER) | payer MEDICAID ==
[2019-05-29 22:35] VITALS: BP 129/68
[2019-05-29] MEDS ORDERED: AMMONIA AROMATIC 15% INHALANT AMPUL. ONE (23:10)
[2019-05-29] MEDS ORDERED: POTASSIUM CHLORIDE 20 MEQ TABLET.ER. PO ONE (23:14)
--- NOTE | 2019-05-29 23:18 | PHYS DOC ---
Past Medical History Past Medical History: Anxiety, Bipolar, Depression, Seizure Additional Past Medical Histor: PTSD,SI/MUTLIPLE SUICIDE ATTEMPT, Borderline personality.CHRON ABD PAIN,TBI Past Surgical History: Appendectomy, Other Additional Past Surgical Histo: ORAL Alcohol Use: None Drug Use: None Adult General Chief Complaint Chief Complaint: SEIZURE HPI HPI Patient is a 23 year old female with history of bipolar disorder and TBI who presents with complaint of having a seizure. Patient was seen in this emergency room earlier tonight with complaint of vomiting blood and had unremarkable labs except for potassium of 3.2 and left AMA without signing AMA form and 40 she was drained in waiting area complaining of having a seizure. Patient had pseudoseizure and intentional shaking her head and extremities that stopped with with using ammonia under her nose and became alert and oriented 4 and denied suicidal and homicidal ideation and decided to leave emergency room without any evaluation. Review of Systems Review of Systems Uncooperative patient, refused to answer Current Medications Current Medications Current Medications Medications (Trade) Dose Ordered Sig/Priya Start Time Stop Time Status Last Admin Dose Admin Ammonia (Aromatic Spirit) (Amoply) 1 each STK-MED ONCE 05/29/19 23:10 05/29/19 23:10 DC Lorazepam (Ativan Inj) 2 mg STK-MED ONCE 05/29/19 23:07 05/29/19 23:07 DC Potassium Chloride (Klor-Con) 20 meq STK-MED ONCE 05/29/19 23:14 05/29/19 23:14 DC Allergies Allergies Allergies Coded Allergies Type Severity Reaction Last Updated Verified haloperidol Allergy Severe TONGUE SWELLING 05/30/18 Yes ibuprofen Allergy Intermediate Hives 05/30/18 Yes ketorolac Allergy Intermediate Hives 05/30/18 Yes Physical Exam Physical Exam Constitutional: Well nourished, no acute distress, non-toxic appearance. [] HENT: Normocephalic, atraumatic. Eyes: PERRLA, EOMI, conjunctiva normal, no discharge. [] Neck: Normal range of motion, no tenderness, supple, no stridor. [] Cardiovascular:Heart rate regular rhythm, no murmur [] Lungs & Thorax: Bilateral breath sounds clear to auscultation [] Abdomen: Bowel sounds normal, soft, no tenderness, no masses, no pulsatile masses. [] Skin: Warm, dry, no erythema, no rash. [] Back: No tenderness, no CVA tenderness. [] Extremities: No tenderness, no cyanosis, no clubbing, ROM intact, no edema. [] Neurologic: Alert and oriented X 3, no focal deficits noted. [] Psychologic: Affect anxious, mood normal. [] Current Patient Data Vital Signs Vital Signs Date Time Temp Pulse Resp B/P (MAP) Pulse Ox O2 Delivery O2 Flow Rate FiO2 05/29/19 22:35 98.3 99 14 129/68 (88) 96 Room Air 98.3 EKG EKG [] Radiology/Procedures Radiology/Procedures [] Course & Med Decision Making Course & Med Decision Making Evaluation of patient in ER showed 23-year-old female patient with complaining of having a seizure after seeing few minutes ago in this emergency room with complaining of vomiting blood and didn't AMA without signing AMA form.. Patient had pseudoseizure and intentional shaking her head and extremities that stopped with using ammonia capsule under her nose and became alert and oriented 3 and denied suicidal and homicidal ideation and decided to leave emergency room without any evaluation or signing AMA form. Dragon Disclaimer Dragon Disclaimer This electronic medical record was generated, in whole or in part, using a voice recognition dictation system. Departure Departure Impression: Primary Impression: Pseudoseizure Additional Impression: Eloped from emergency department Disposition: 07 AGAINST MEDICAL ADVICE (Eloped at 2315) Condition: IMPROVED Referrals: UNKNOWN PCP NAME (PCP) Problem Qualifiers HUMAIRA HERNANDEZ MD May 29, 2019 23:18
== END 2019-05-29 23:15 | disposition left against medical advice (07) ==
LOC: ER 22:34
DX: R56.9 Unspecified convulsions (principal); K92.0 Hematemesis; F31.9 Bipolar disorder, unspecified; F41.9 Anxiety disorder, unspecified; G89.29 Other chronic pain; F43.10 Post-traumatic stress disorder, unspecified; Z87.820 Personal history of traumatic brain injury; Z90.89 Acquired absence of other organs; Z88.6 Allergy status to analgesic agent; Z88.8 Allergy status to other drugs, medicaments and biological substances
CPT/HCPCS: 99284

== ENCOUNTER 2019-11-17 21:25 | Emergency (ER) | payer MEDICARE, MEDICAID ==
[~2019-11-17] VITALS: Ht 165.1 cm; Wt 88.6 kg
[2019-11-17 21:35] VITALS: BP 156/74
[2019-11-17 21:56] LABS: BILIRUBIN,URINE NEGATIVE (NEG); CLARITY,URINE CLEAR; COLOR,URINE YELLOW; NITRITE,URINE NEGATIVE (NEG); PH,URINE 5.5 (<5.0-8.0); PROTEIN,URINE NEGATIVE (NEG-TRACE); UROBILINOGEN,URINE 0.2 mg/dL (0.2 mg/dL)
[2019-11-17 22:07] LABS: BACTERIA,URINE MODERATE /HPF (0-FEW); SQUAMOUS EPITHELIAL CELL,UR MOD /LPF
[2019-11-17 22:28] LABS: BASO % 1 % (0-3); EOS # 0.1 x10^3/uL (0.0-0.7); EOS % 3 % (0-3); HEMATOCRIT 39.3 % (36.0-47.0); HEMOGLOBIN 13.4 g/dL (12.0-15.5); LYMPH # 1.4 x10^3/uL (1.0-4.8); LYMPH % 25 % (24-48); MEAN CORPUSCULAR HEMOGLOBIN 29 pg (25-35); MEAN CORPUSCULAR HGB CONC 34 g/dL (31-37); MEAN CORPUSCULAR VOLUME 84 fL (79-100); MONO # 0.4 x10^3/uL (0.0-1.1); MONO % 8 % (0-9); NEUT # 3.6 x10^3/uL (1.8-7.7); NEUT % 64 % (31-73); PLATELET COUNT 302 x10^3/uL (140-400); RED BLOOD COUNT 4.67 x10^6/uL (3.50-5.40); RED CELL DISTRIBUTION WIDTH 15.8 % (11.5-14.5); WHITE BLOOD COUNT 5.6 x10^3/uL (4.0-11.0)
[2019-11-17] MEDS ORDERED: DICYCLOMINE 20 MG/2 ML VIAL. IM ONE (22:30)
--- NOTE | 2019-11-17 22:33 | PHYS DOC ---
Past Medical History Past Medical History: Anxiety, Bipolar, Depression, Seizure Additional Past Medical Histor: PTSD,SI, Borderline personality.CHRON ABD PAIN,TBI, CDIFF Past Surgical History: Appendectomy, Other Additional Past Surgical Histo: ORAL Smoking Status: Never Smoker Alcohol Use: None Drug Use: None General Adult EDM: Chief Complaint: ABDOMINAL PAIN HPI: HPI: Patient is a 23 year old female presents to the ED with a chief complaint of abdominal pain and diarrhea. Patient states that she has a history of C. difficile and has been treated previously with vancomycin. Patient states that she was treated at [facility] this morning but that was for psychiatric issues. Patient is well-known to the ER staff and other surrounding ERs. Patient comes in and wants pain medication. If he cannot get an IV or do not give her IV pain medication patient leaves AMA. Today patient denies any suicidal ideation or homicidal ideation. Review of Systems: Review of Systems: Constitutional: Denies fever or chills. [] Eyes: Denies change in visual acuity. [] HENT: Denies nasal congestion or sore throat. [] Respiratory: Denies cough or shortness of breath. [] Cardiovascular: Denies chest pain or edema. [] GI: Complains of abdominal pain, diarrhea and nausea [] : Denies dysuria. [] Neurologic: Denies headache, focal weakness or sensory changes. [] Heart Score: Risk Factors: Risk Factors: DM, Current or recent (<one month) smoker, HTN, HLP, family history of CAD, obesity. Risk Scores: Score 0 - 3: 2.5% MACE over next 6 weeks - Discharge Home Score 4 - 6: 20.3% MACE over next 6 weeks - Admit for Clinical Observation Score 7 - 10: 72.7% MACE over next 6 weeks - Early Invasive Strategies Current Medications: Current Medications Medications (Trade) Dose Ordered Sig/[facility] Start Time Stop Time Status Last Admin Dose Admin Acetaminophen/ Hydrocodone Bitart (Lortab 5/325) 1 tab 1X ONCE 11/17/19 22:30 11/17/19 22:31 UNV Dicyclomine HCl (Bentyl) 20 mg 1X ONCE 11/17/19 22:30 11/17/19 22:31 Metronidazole (Flagyl) 500 mg 1X ONCE 11/17/19 22:30 11/17/19 22:31 UNV Ondansetron HCl (Zofran Odt) 4 mg 1X ONCE 11/17/19 23:00 11/17/19 23:01 Allergies: Allergies: Allergies Coded Allergies Type Severity Reaction Last Updated Verified haloperidol Allergy Severe TONGUE SWELLING 05/30/18 Yes ibuprofen Allergy Intermediate Hives 05/30/18 Yes ketorolac Allergy Intermediate Hives 05/30/18 Yes Physical Exam: PE: Constitutional: Well developed, well nourished, no acute distress, non-toxic appearance. [] HENT: Normocephalic, atraumatic Eyes: EOMI Neck: Normal range of motion, Supple Cardiovascular: Heart rate regular rhythm Lungs & Thorax: Bilateral breath sounds clear to auscultation [] Abdomen: Diffuse abdominal tenderness Extremities: No tenderness, ROM intact Neurologic: Alert and oriented X 3 Current Patient Data: Labs: Laboratory Tests Test 11/17/19 21:33 11/17/19 21:44 Urine Collection Type Void Urine Color Yellow Urine Clarity Clear Urine pH 5.5 (<5.0-8.0) Urine Specific [place] 1.020 (1.000-1.030) Urine Protein Negative mg/dL (NEG-TRACE) Urine Glucose (UA) Negative mg/dL (NEG) Urine Ketones (Stick) Negative mg/dL (NEG) Urine Blood Negative (NEG) Urine Nitrite Negative (NEG) Urine Bilirubin Negative (NEG) Urine Urobilinogen Dipstick 0.2 mg/dL (0.2 mg/dL) Urine Leukocyte Esterase Small (NEG) Urine RBC 1-2 /HPF (0-2) Urine WBC 5-10 /HPF (0-4) Urine Squamous Epithelial Cells Mod /LPF Urine Bacteria Moderate /HPF (0-FEW) Urine Mucus Marked /LPF POC Urine HCG, Qualitative Hcg negative (Negative) Vital Signs: Vital Signs Date Time Temp Pulse Resp B/P (MAP) Pulse Ox O2 Delivery O2 Flow Rate FiO2 11/17/19 21:35 98.6 81 20 156/74 (101) 100 Room Air 98.6 EKG: EKG: [] Radiology/Procedures: Radiology/Procedures: [] Course & Med Decision Making: Course & Med Decision Making Ordered labs, UA, urine , Bentyl 20 mg IM, Zofran ODT, [place] 5/325 p.o. tablet We are unable to start IV in the ER. I discussed plan of care with patient. Nurse informs me that patient wants to sign out AMA. Patient is alert and oriented and is competent to make an informed decision. Patient states that all medications were giving her orally in the ER can be taken by her at home. Margarita Disclaimer: Margarita Disclaimer: This electronic medical record was generated, in whole or in part, using a voice recognition dictation system. Departure Departure Impression: Primary Impression: Abdominal pain Additional Impression: Diarrhea Disposition: 07 AGAINST MEDICAL ADVICE Condition: GOOD Referrals: NO PCP (PCP) Justicifation of Admission Dx: Justifications for Admission: Justification of Admission Dx: No SHY BEY DO Nov 17, 2019 22:33
[2019-11-17 22:49] LABS: CALCIUM 8.5 mg/dL (8.5-10.1); CREATININE 1.1 mg/dL (0.6-1.0); GFR 62.7; POTASSIUM 3.6 mmol/L (3.5-5.1)
[2019-11-17 22:55] LABS: ALBUMIN 3.7 g/dL (3.4-5.0); ALBUMIN/GLOBULIN RATIO 0.9 (1.0-1.7); TOTAL BILIRUBIN 0.1 mg/dL (0.2-1.0); TOTAL PROTEIN 7.6 g/dL (6.4-8.2)
[2019-11-17] MEDS ORDERED: HYDROcodone/APAP 5/325MG 1 TAB TABLET PO ONE (23:00)
[2019-11-17] MEDS ORDERED: metroNIDAZOLE 500 MG TABLET PO ONE (23:00)
[2019-11-17] MEDS ORDERED: ONDANSETRON ODT 4 MG TAB.RAPDIS. PO ONE (23:00)
== END 2019-11-17 22:27 | disposition left against medical advice (07) ==
LOC: ER 21:25
DX: R10.9 Unspecified abdominal pain (principal); R19.7 Diarrhea, unspecified; F41.9 Anxiety disorder, unspecified; F32.9 Major depressive disorder, single episode, unspecified; G89.29 Other chronic pain; Z87.820 Personal history of traumatic brain injury; Z90.89 Acquired absence of other organs; Z98.890 Other specified postprocedural states; Z88.8 Allergy status to other drugs, medicaments and biological substances; Z88.6 Allergy status to analgesic agent; Z79.899 Other long term (current) drug therapy
CPT/HCPCS: 36415; 80053; 81001; 81025; 83690; 85025; 87086; 99283

== ENCOUNTER 2020-02-24 22:35 | Emergency (ER) | payer MEDICARE, OTHER ==
[~2020-02-24] VITALS: Ht 175.3 cm; Wt 81.8 kg
[~2020-02-24 22:35] MED LIST changes: +LEVO50TA5 PO
--- NOTE | 2020-02-24 23:09 | PHYS DOC ---
Past Medical History Past Medical History: Anxiety, Bipolar, Depression, Seizure Additional Past Medical Histor: PTSD,SI, Borderline personality.CHRON ABD PAIN,TBI, CDIFF Past Surgical History: Appendectomy, Other Additional Past Surgical Histo: ORAL Smoking Status: Never Smoker Alcohol Use: None Drug Use: None General Adult EDM: Chief Complaint: ABDOMINAL PAIN HPI: HPI: Patient is a 24 year old female who presents with a chief complaint of a couple days of abdominal pain. Patient has had diarrhea subjective fever and left- sided abdominal pain. Patient has nausea but has not been vomiting. Pain is worse with palpation and movement. Pain radiates from the left side to the entire abdomen. Review of Systems: Review of Systems: Constitutional: Complains of subjective fever Eyes: Denies change in visual acuity. [] HENT: Denies nasal congestion or sore throat. [] Respiratory: Denies cough or shortness of breath. [] Cardiovascular: Denies chest pain or edema. [] GI: Complains of abdominal pain nausea and diarrhea but no vomiting : Denies dysuria. [] Musculoskeletal: Denies back pain or joint pain. [] Integument: Denies rash. [] Neurologic: Denies headache, focal weakness or sensory changes. [] Endocrine: Denies polyuria or polydipsia. [] Lymphatic: Denies swollen glands. [] Psychiatric: Denies depression or anxiety. [] Heart Score: Risk Factors: Risk Factors: DM, Current or recent (<one month) smoker, HTN, HLP, family history of CAD, obesity. Risk Scores: Score 0 - 3: 2.5% MACE over next 6 weeks - Discharge Home Score 4 - 6: 20.3% MACE over next 6 weeks - Admit for Clinical Observation Score 7 - 10: 72.7% MACE over next 6 weeks - Early Invasive Strategies Current Medications: Current Medications Medications (Trade) Dose Ordered Sig/Priya Start Time Stop Time Status Last Admin Dose Admin Dicyclomine HCl (Bentyl) 20 mg 1X ONCE 02/24/20 23:15 02/24/20 23:16 UNV Ondansetron HCl (Zofran) 4 mg 1X ONCE 02/24/20 23:15 02/24/20 23:16 UNV Sodium Chloride 1,000 ml @ 1,000 mls/hr 1X ONCE 02/24/20 23:15 02/25/20 00:14 UNV Allergies: Allergies: Allergies Coded Allergies Type Severity Reaction Last Updated Verified haloperidol Allergy Severe TONGUE SWELLING 05/30/18 Yes ibuprofen Allergy Intermediate Hives 05/30/18 Yes ketorolac Allergy Intermediate Hives 05/30/18 Yes morphine Allergy Intermediate rash 02/17/20 No Physical Exam: PE: Constitutional: Well developed, well nourished, no acute distress, non-toxic appearance. [] HENT: Normocephalic, atraumatic, bilateral external ears normal, no trismus nose normal. [] Eyes: PERRLA, EOMI, conjunctiva normal, no discharge. [] Neck: Normal range of motion, no tenderness, supple, no stridor. [] Cardiovascular:Heart rate regular rhythm, peripheral pulses are intact cap refill is brisk Lungs & Thorax: Bilateral breath sounds clear, no respiratory distress Abdomen: Soft with left-sided andrew tenderness without guarding or rebound, no masses, no pulsatile masses. [] Skin: Warm, dry, no erythema, no rash. [] Back: No tenderness, no CVA tenderness. [] Extremities: No tenderness, no cyanosis, no clubbing, ROM intact, no edema. [] Neurologic: Alert and oriented X 3, normal motor function, normal sensory function, no focal deficits noted. [] Psychologic: Affect normal, judgement normal, mood normal. [] Current Patient Data: Labs: Laboratory Tests Test 02/24/20 22:42 02/24/20 23:00 Urine Collection Type Unknown Urine Color Yellow Urine Clarity Clear Urine pH 5.5 Urine Specific [place] 1.020 Urine Protein Negative mg/dL Urine Glucose (UA) Negative mg/dL Urine Ketones (Stick) Negative mg/dL Urine Blood Moderate Urine Nitrite Negative Urine Bilirubin Negative Urine Urobilinogen Dipstick 0.2 mg/dL Urine Leukocyte Esterase Small Urine RBC Occ /HPF Urine WBC 11-20 /HPF Urine Squamous Epithelial Cells Many /LPF Urine Bacteria Many /HPF Urine Mucus Marked /LPF Bedside Urine HCG, Qualitative Hcg negative Current Medications Medications (Trade) Dose Ordered Sig/Priya Route PRN Reason Start Time Stop Time Status Last Admin Dose Admin Sodium Chloride 1,000 ml @ 1,000 mls/hr 1X ONCE IV 02/24/20 23:15 02/25/20 00:14 DC Ondansetron HCl (Zofran) 4 mg 1X ONCE IVP 02/24/20 23:15 02/24/20 23:16 DC Dicyclomine HCl (Bentyl) 20 mg 1X ONCE IM 02/24/20 23:15 02/24/20 23:16 DC Laboratory Tests Test 02/24/20 23:00 POC Urine HCG, Qualitative Hcg negative (Negative) EKG: EKG: [] Radiology/Procedures: Radiology/Procedures: [] Course & Med Decision Making: Course & Med Decision Making Pertinent Labs and Imaging studies reviewed. (See chart for details) [] 12:35 AM patient is wanting to sign out AMA when she was informed she would not get opiates. Patient has full mental capacity is able signed out AMA. Dragon Disclaimer: Dragon Disclaimer: This electronic medical record was generated, in whole or in part, using a voice recognition dictation system. Departure Departure Impression: Primary Impression: Left sided abdominal pain Disposition: ADMITTED INPT THIS HOSP Condition: STABLE Referrals: NO PCP (PCP) ANAID MARSH MD Feb 24, 2020 23:09
[2020-02-24] MEDS ORDERED: IV NORMAL SALINE 1000ML BAG 1,000 ML IV ONE (23:15)
[2020-02-24] MEDS ORDERED: ONDANSETRON PF 4 MG/2 ML VIAL. IVP ONE (23:15)
[2020-02-24] MEDS ORDERED: DICYCLOMINE 20 MG/2 ML VIAL. IM ONE (23:15)
[2020-02-24 23:23] LABS: BILIRUBIN,URINE NEGATIVE (NEG); CLARITY,URINE CLEAR; COLOR,URINE YELLOW; NITRITE,URINE NEGATIVE (NEG); PH,URINE 5.5 (<5.0-8.0); PROTEIN,URINE NEGATIVE (NEG-TRACE); UROBILINOGEN,URINE 0.2 mg/dL (0.2 mg/dL)
[2020-02-24 23:27] LABS: BACTERIA,URINE MANY /HPF (0-FEW); RBC,URINE OCC /HPF (0-2)
[2020-02-24 23:50] VITALS: BP 140/96
[2020-02-27] MEDS ORDERED: METO-239 PO (18:41)
[2020-02-27] MEDS ORDERED: LITH300C PO (18:41)
[2020-02-27] MEDS ORDERED: APIX5TAB PO (18:41)
[2020-02-27] MEDS ORDERED: PALI9TAB PO (18:41)
[2020-02-27] MEDS ORDERED: ARIP675S IM (18:44)
== END 2020-02-25 00:35 | disposition admitted as inpatient to this hospital (09) ==
LOC: ER 22:35
DX: R10.32 Left lower quadrant pain (principal); R19.7 Diarrhea, unspecified; R50.9 Fever, unspecified; F41.9 Anxiety disorder, unspecified; F32.9 Major depressive disorder, single episode, unspecified; Z90.89 Acquired absence of other organs; Z98.890 Other specified postprocedural states; Z88.8 Allergy status to other drugs, medicaments and biological substances; Z88.6 Allergy status to analgesic agent
CPT/HCPCS: 81001; 81025; 87086; 99283

== ENCOUNTER 2020-05-13 15:32 | Inpatient (IN) | payer MEDICARE, OTHER ==
[~2020-05-13] VITALS: Ht 165.1 cm; Wt 87.5 kg
[~2020-05-13 15:32] MED LIST changes: +APIX5TAB PO; +ARIP675S IM; +DIVA250T4 PO; +LITH300C PO; +LORA-434 PO; +LORA2VIA IM; +METO-239 PO; +MIRT-34 PO; +MIRT-7 PO; +MIRT-8 PO; -MIRT15TA3 PO; -MIRT30TA PO; -MIRT30TA3 PO; +OLAN10VI2 IM; +PALI9TAB PO; -RISP2TAB3 PO; +RISP2TAB78 PO; +ZIPR20VI IM
[2020-05-13 16:14] LABS: BILIRUBIN,URINE NEGATIVE (NEG); CLARITY,URINE CLOUDY; COLOR,URINE YELLOW; NITRITE,URINE NEGATIVE (NEG); PROTEIN,URINE 30 mg/dL (NEG-TRACE); UROBILINOGEN,URINE 0.2 mg/dL (0.2 mg/dL)
[2020-05-13 16:19] LABS: RBC,URINE 0 /HPF (0-2); YEAST,URINE PRESENT /HPF
[2020-05-13 16:20] LABS: BACTERIA,URINE FEW /HPF (0-FEW)
[2020-05-13 16:21] LABS: BARBITURATES NEG (NEG); BENZODIAZEPINES POS (NEG); CANNABINOIDS NEG (NEG); COCAINE NEG (NEG); METHADONE NEG (NEG); OPIATES NEG (NEG); PHENCYCLIDINE NEG (NEG)
[2020-05-13 16:22] LABS: AMPHETAMINE/METHAMPHETAMINE NEG (NEG)
--- NOTE | 2020-05-13 16:24 | PHYS DOC ---
Past Medical History Past Medical History: A-Fib, Anxiety, Bipolar, Depression, Hypertension, Hypothyroid, Seizure Additional Past Medical Histor: PTSD,SI, Borderline personality.CHRON ABD PAIN,TBI, CDIFF (JACQUELIN KOROMA APRN) Past Surgical History: Appendectomy, Cholecystectomy, Other Additional Past Surgical Histo: ORAL (JACQUELIN KOROMA APRN) Smoking Status: Never Smoker Alcohol Use: None Drug Use: None (JACQUELIN KOROMA APRN) General Adult EDM: Chief Complaint: NAUSEA/VOMITING/DIARRHA HPI: HPI: Patient is a 24 year old female with a history of A. fib on Eliquis, hypertension, depression, anxiety, bipolar, who presents to the ED today complaining of 6 out of 10 epigastric abdominal pain with nausea vomiting, symptoms began on Saturday which is 5 days ago. Patient denies any hematemesis or melena. Denies any fever. She states today she spent the New 's ariella at a friend's house where they played games then decided to come to the ED to be evaluated. (JACQUELIN KOROMA APRN) Review of Systems: Review of Systems: Constitutional: Denies fever or chills. [] Eyes: Denies change in visual acuity. [] HENT: Denies nasal congestion or sore throat. [] Respiratory: Denies cough or shortness of breath. [] Cardiovascular: Denies chest pain or edema. [] GI: Reports abdominal pain, nausea vomiting, denies bloody stools or diarrhea. [] : Denies dysuria. [] Musculoskeletal: Denies back pain or joint pain. [] Integument: Denies rash. [] Neurologic: Denies headache, focal weakness or sensory changes. [] Psychiatric: Denies depression or anxiety. [] (JACQUELIN KOROMA APRN) Heart Score: Risk Factors: Risk Factors: DM, Current or recent (<one month) smoker, HTN, HLP, family history of CAD, obesity. Risk Scores: Score 0 - 3: 2.5% MACE over next 6 weeks - Discharge Home Score 4 - 6: 20.3% MACE over next 6 weeks - Admit for Clinical Observation Score 7 - 10: 72.7% MACE over next 6 weeks - Early Invasive Strategies (JACQUELIN KOROMA APRN) Allergies: Allergies: Allergies Coded Allergies Type Severity Reaction Last Updated Verified haloperidol Allergy Severe TONGUE SWELLING 05/30/18 Yes ibuprofen Allergy Intermediate Hives 05/30/18 Yes ketorolac Allergy Intermediate Hives 05/30/18 Yes morphine Allergy Intermediate rash 02/28/20 Yes (JACQUELIN KOROMA APRN) Physical Exam: PE: Constitutional: Well developed, well nourished, no acute distress, non-toxic appearance. [] HENT: Normocephalic, atraumatic, bilateral external ears normal, oropharynx moist, no oral exudates, nose normal. [] Eyes: PERRLA, EOMI, conjunctiva normal, no discharge. [] Neck: Normal range of motion, no tenderness, supple, no stridor. [] Cardiovascular:Heart rate regular rhythm, no murmur [] Lungs & Thorax: Bilateral breath sounds clear to auscultation [] Abdomen: Bowel sounds normal, soft, no tenderness, no masses, no pulsatile masses. [] Skin: Warm, dry, no erythema, no rash. [] Back: No tenderness, no CVA tenderness. [] Extremities: No tenderness, no cyanosis, no clubbing, ROM intact, no edema. [] Neurologic: Alert and oriented X 3, normal motor function, normal sensory function, no focal deficits noted. [] Psychologic: Flat affect, depressed mood (JACQUELIN KOROMA APRN) Current Patient Data: Labs: Laboratory Tests Test 05/13/20 15:45 05/13/20 15:56 Urine Collection Type Unknown Urine Color Yellow Urine Clarity Cloudy Urine pH 6.0 (<5.0-8.0) Urine Specific [place] >=1.030 (1.000-1.030) Urine Protein 30 mg/dL (NEG-TRACE) Urine Glucose (UA) Negative mg/dL (NEG) Urine Ketones (Stick) Trace mg/dL (NEG) Urine Blood Negative (NEG) Urine Nitrite Negative (NEG) Urine Bilirubin Negative (NEG) Urine Urobilinogen Dipstick 0.2 mg/dL (0.2 mg/dL) Urine Leukocyte Esterase Moderate (NEG) Urine RBC 0 /HPF (0-2) Urine WBC 5-10 /HPF (0-4) Urine Squamous Epithelial Cells Mod /LPF Urine Bacteria Few /HPF (0-FEW) Urine Mucus Mod /LPF Urine Yeast Present /HPF POC Urine HCG, Qualitative Hcg negative (Negative) Vital Signs: Vital Signs Date Time Temp Pulse Resp B/P (MAP) Pulse Ox O2 Delivery O2 Flow Rate FiO2 05/13/20 15:45 98.6 109 22 161/98 (119) 97 Room Air 98.6 (FLOLAKSHMIJACQUELIN MEDRANO) EKG: EKG: [] (FLOLAKSHMIJACQUELIN MEDRANO) Radiology/Procedures: Radiology/Procedures: []PROCEDURE: CT ABDOMEN PELVIS WO CONTRAST Exam: CT of abdomen and pelvis without contrast INDICATION: Mid lower abdominal pain TECHNIQUE: Sequential axial images through the abdomen and pelvis obtained without IV contrast. Sagittal and coronal reformatted images were reconstructed from the axial data and reviewed. Comparisons: 12/28/2017 FINDINGS: Heart size is normal. No pericardial effusion. Visualized lung bases are clear. No pleural effusion. Evaluation of the solid organs is limited secondary to noncontrast technique. Liver, spleen, pancreas and adrenals are unremarkable. Gallbladder is is not identified. No perinephric inflammation or hydronephrosis. No renal or ureteral calculi are identified. Bladder is partially distended and not well evaluated. Uterus is nonenlarged. No abnormal adnexal mass. Large and small bowel are unremarkable. Appendix is not identified. No free abdominal air or fluid. No obstruction. Abdominal aorta has a normal course and caliber. No enlarged intra-abdominal lymph nodes are identified. No suspicious osseous lesions or acute fractures. IMPRESSION: No acute process identified within the abdomen or pelvis. Exposure: One or more of the following in the visualized dose reduction techniques were utilized for this examination: 1. Automated exposure control 2. Adjustment of the MA and/or KV according to patient size 3. Use of iterative of reconstructive technique Electronically signed by: Bakari Curtis MD (05/13/2020 6:28 PM) [facility] DICTATED and SIGNED BY: BAKARI CURTIS MD DATE: 05/13/20 [id number] (JACQUELIN KOROMA APRN) Course & Med Decision Making: Course & Med Decision Making Pertinent Labs and Imaging studies reviewed. (See chart for details) This is a 24-year-old female patient well-known to this ED presenting today complaining of nausea, vomiting, abdominal pain, symptoms began 5 days ago. Negative urine hCG, urine analysis noted for moderate amount of leukocytes though it appears grossly contaminated. CBC with a normal WBC, CMP with AST of 248, ALT of 428, ALK of 97. CT of the abdomen and pelvic is negative. Patient has been getting out of her bed goes to a corner and continuously bangs her head on the wall. This has happened several times, we have asked patient to stop doing this with minimal improvement. She keeps saying she is hearing voices in her head which are telling her to bang her head on the wall. Security was called several times on her because she will not stay in the bed. She had to be put in a four-point restrained for a very short time because she became a danger to herself. We could not use chemical restraints yet because she was supposed to speak to PAT bakery team member without being under the ED influence of drugs. Restraints were removed in less than an hour after patient agreed not to hit her head on the kuo. 1:1 observation in the room PAT team was called. [facility] PAT team unable to find placement for patient. will admit. (JACQUELIN KOROMA APRN) Dragon Disclaimer: Dragon Disclaimer: This electronic medical record was generated, in whole or in part, using a voice recognition dictation system. (JACQUELIN KOROMA APRN) Departure Departure Impression: Primary Impression: Abdominal pain Qualified Codes: R10.13 - Epigastric pain Additional Impressions: Malingering Schizophrenia Qualified Codes: F20.9 - Schizophrenia, unspecified Transaminitis Self-harming behavior Disposition: ADMITTED INPT THIS HOSP Condition: STABLE Referrals: NO PCP (PCP) Attending Signature Attending Signature I have reviewed the PA/FIRE DEPARTMENT MARINE ENGINEER's note and plan of care. I was available for consultation as needed during the patient's visit in the emergency department. I agree with the clinical impression, plan, and disposition. (JOSEFINA MCELROY DO) JACQUELNI KOROMA APRN May 13, 2020 16:24 JOSEFINA MCELROY DO May 14, 2020 00:28
[2020-05-13 16:55] LABS: BASO % 1 % (0-3); EOS # 0.1 x10^3/uL (0.0-0.7); EOS % 2 % (0-3); HEMATOCRIT 35.3 % (36.0-47.0); HEMOGLOBIN 11.8 g/dL (12.0-15.5); LYMPH % 18 % (24-48); MEAN CORPUSCULAR HEMOGLOBIN 27 pg (25-35); MEAN CORPUSCULAR HGB CONC 33 g/dL (31-37); MEAN CORPUSCULAR VOLUME 81 fL (79-100); MONO # 0.6 x10^3/uL (0.0-1.1); MONO % 10 % (0-9); NEUT % 70 % (31-73); PLATELET COUNT 290 x10^3/uL (140-400); RED BLOOD COUNT 4.38 x10^6/uL (3.50-5.40); RED CELL DISTRIBUTION WIDTH 14.6 % (11.5-14.5); WHITE BLOOD COUNT 5.8 x10^3/uL (4.0-11.0)
[2020-05-13 17:03] LABS: CREATININE 0.8 mg/dL (0.6-1.0); GFR 89.7; POTASSIUM 3.9 mmol/L (3.5-5.1)
[2020-05-13 17:09] LABS: ALBUMIN 3.5 g/dL (3.4-5.0); ALBUMIN/GLOBULIN RATIO 0.9 (1.0-1.7); TOTAL BILIRUBIN 0.3 mg/dL (0.2-1.0); TOTAL PROTEIN 7.2 g/dL (6.4-8.2)
[2020-05-13 17:47] LABS: ACETAMIN < 2 mcg/ml (10-30); SALIC < 2.8 mg/dL (2.8-20.0)
[2020-05-13] MEDS ORDERED: PROCHLORPERAZINE 10 MG/2 ML VIAL. IV ONE (18:00)
--- NOTE | 2020-05-13 18:30 | RAD ---
Exam: CT of abdomen and pelvis without contrast INDICATION: Mid lower abdominal pain TECHNIQUE: Sequential axial images through the abdomen and pelvis obtained without IV contrast. Sagit danny and coronal reformatted images were reconstructed from the axial data and reviewed. Comparisons: 12/28/2017 FINDINGS: Heart size is normal. No pericardial effusion. Visualized lung bases are clear. No pleural effusion. Evaluation of the solid organs is limited secondary to noncontrast technique. Liver, spleen, pancreas and adrenals are unremarkable. Gallbladder is is not identified. No perinephric inflammation or hydronephrosis. No renal or ureteral calculi are identified. Bladder is partially distended and not well evaluated. Uterus is nonenlarged. No abnormal adnexal mas s. Large and small bowel are unremarkable. Appendix is not identified. No free abdominal air or fluid. N o obstruction. Abdominal aorta has a normal course and caliber. No enlarged intra-abdominal lymph nodes are identified. No suspicious osseous lesions or acute fractures. IMPRESSION: No acute process identified within the abdomen or pelvis. Exposure: One or more of the following in the visualized dose reduction techniques were utilized for this examination: 1. Automated exposure control 2. Adjustment of the MA and/or KV according to patient size 3. Use of iterative of reconstructive technique Electronically signed by: Bakari Riggs MD (05/13/2020 6:28 PM) [facility]
[2020-05-13] MEDS ORDERED: METOCLOPRAMIDE HCL 10 MG/2 ML VIAL. IVP ONE (18:45)
[2020-05-13] MEDS ORDERED: cefTRIAXone IV Push 1 GM VIAL. IVP ONE (19:15)
[2020-05-13] MEDS ORDERED: methylPREDNISolone SOD SUCC PF 125 MG/2 ML VIAL. IV ONE (19:15)
[2020-05-13] MEDS ORDERED: DICYCLOMINE HCL 10 MG CAPSULE PO ONE (19:15)
--- NOTE | 2020-05-13 21:34 | NUR ---
vitals for restraints were not completed on 2129 because pat team was in the room evaluating, confirmed extremeity capilary refill was normal. Will continue to monitor as normal per restraints protocol.
[2020-05-13] MEDS ORDERED: ACETAMINOPHEN 325 MG TABLET. PO PRN (23:00)
[2020-05-13] MEDS ORDERED: diphenhydrAMINE HCL 25 MG CAPSULE PO PRN (23:00)
[2020-05-13] MEDS: ONDANSETRON PF 4 MG/2 ML VIAL. IV PRN (23:41)
[2020-05-14 06:42] LABS: ALBUMIN 3.6 g/dL (3.4-5.0); ALBUMIN/GLOBULIN RATIO 0.9 (1.0-1.7); CALCIUM 9.2 mg/dL (8.5-10.1); CREATININE 0.9 mg/dL (0.6-1.0); GFR 78.3; POTASSIUM 3.8 mmol/L (3.5-5.1); TOTAL BILIRUBIN 0.3 mg/dL (0.2-1.0); TOTAL PROTEIN 7.7 g/dL (6.4-8.2)
--- NOTE | 2020-05-14 07:39 | PDOC1 ---
History and Physical Date of Service: DOS: DATE: 05/14/20 TIME: 07:37 Chief Complaint: Chief Complain: Abdominal pain and suicidal ideation History of Present Illness: HPI: 24 year old female with a history of A. fib on Eliquis, hypertension, depression, anxiety, bipolar, who presents to the ED today complaining of 6 out of 10 epigastric abdominal pain with nausea vomiting, symptoms began on Saturday which is 5 days ago. Patient denies any hematemesis or melena. Denies any fever. She states today she spent the New Year's ariella at a friend's house where they played games then decided to come to the ED to be evaluated. Past Medical/Surgical History: PMH/PSH: Past Medical History: A-Fib, Anxiety, Bipolar, Depression, Hypertension, Hypothyroid, Seizure,PTSD,SI, Borderline personality.CHRON ABD PAIN,TBI, CDIFF Past Surgical History: Appendectomy, Cholecystectomy Allergies: Allergies: Coded Allergies: haloperidol (Verified Allergy, Severe, TONGUE SWELLING, 05/30/18) TOLERATES RISPERIDONE ibuprofen (Verified Allergy, Intermediate, Hives, 05/30/18) ketorolac (Verified Allergy, Intermediate, Hives, 05/30/18) morphine (Verified Allergy, Intermediate, rash, 02/28/20) Family History: Family History: Reviewed with no relevant findings Social History: Social History: Smoking Status: Never Smoker Alcohol Use: None Drug Use: None Current Medications: Current Medications Current Medications Prochlorperazine Edisylate (Compazine) 10 mg 1X ONCE IV Last administered on 05/13/20at 17:31; Start 05/13/20 at 18:00; Stop 05/13/20 at 18:01; Status DC Metoclopramide HCl (Reglan Vial) 10 mg 1X ONCE IVP Last administered on 05/13/20at 18:59; Start 05/13/20 at 18:45; Stop 05/13/20 at 18:49; Status DC Methylprednisolone Sodium Succinate (SOLU-Medrol 125MG VIAL) 125 mg 1X ONCE IV Last administered on 05/13/20at 20:03; Start 05/13/20 at 19:15; Stop 05/13/20 at 19:26; Status DC Dicyclomine HCl (Bentyl) 20 mg 1X ONCE PO Last administered on 05/13/20at 20:03; Start 05/13/20 at 19:15; Stop 05/13/20 at 19:26; Status DC Ceftriaxone Sodium (Rocephin) 1 gm 1X ONCE IVP Last administered on 05/13/20at 20:03; Start 05/13/20 at 19:15; Stop 05/13/20 at 19:26; Status DC Ondansetron HCl (Zofran) 4 mg PRN Q8HRS PRN IV NAUSEA/[id number] CHOICE Last administered on 05/13/20at 23:41; Start 05/13/20 at 23:00; Stop 05/14/20 at 22:59 Acetaminophen (Tylenol) 650 mg PRN Q4HRS PRN PO FEVER > 100.3'F; Start 05/13/20 at 23:00; Stop 05/14/20 at 22:59 Diphenhydramine HCl (Benadryl) 25 mg PRN Q6HRS PRN PO ANXIETY / AGITATION Last administered on 05/13/20at 23:41; Start 05/13/20 at 23:00 Active Scripts Active Ativan (Lorazepam) 1 Mg Tablet 2 Mg PO PRN Q6HRS PRN 30 Days Lorazepam 2 Mg/1 Ml Vial 2 Mg IM PRN Q3HRS PRN 30 Days Olanzapine Inj (Olanzapine) 10 Mg Vial 10 Mg IM PRN Q8HRS PRN 30 Days Geodon (Ziprasidone Mesylate) 20 Mg Vial 20 Mg IM BID 30 Days Depakote (Divalproex Sodium) 250 Mg Tablet.dr 250 Mg PO BID 30 Days Pantoprazole Sodium (Pantoprazole Sodium) 40 Mg Tablet. 40 Mg PO DAILYAC 30 Days Reported Aristada Initio (Aripiprazole Lauroxil,Submicr.) 675 Mg/2.4 Ml Suser.syr 1,064 Mg IM UD Invega (Paliperidone) 9 Mg Tab.er.24 1 Tab PO DAILYWBKFT 30 Days Metoprolol Succinate ( Xl ) (Metoprolol Succinate) 25 Mg Tab.er.24h 1 Tab PO DAILY [place] Carbonate 300 Mg Capsule 600 Mg PO HS Eliquis (Apixaban) 5 Mg Tablet 5 Mg PO BID Levothyroxine Sodium 50 Mcg Tablet 1 Tab PO QAM Prazosin Hcl 1 Mg Capsule 1 Cap PO QHS ROS: Review of Systems Review of System REVIEW OF SYSTEMS: GENERAL: Denies weakness SKIN: No bruising, hair changes or rashes. EYES: No blurred, double or loss of vision. NOSE AND THROAT: No history of nosebleeds, hoarseness or sore throat. HEART: No history of palpitations, chest pain or shortness of breath on exertion. LUNGS: Denies cough, hemoptysis, wheezing or shortness of breath. GASTROINTESTINAL: Denies changes in appetite, nausea, vomiting, diarrhea or constipation. GENITOURINARY: No history of frequency, urgency, hesitancy or nocturia. NEUROLOGIC: Denies history of numbness, tingling, or tremor. PSYCHIATRIC: No history of panic, anxiety or depression. ENDOCRINE: No history of heat or cold intolerance, polyuria or polydipsia. EXTREMITIES: Denies joint pain, pain on walking or stiffness. Physical Exam: Vital Signs: Vital Signs Date Time Temp Pulse Resp B/P (MAP) Pulse Ox O2 Delivery O2 Flow Rate FiO2 05/14/20 06:15 83 17 113/56 (75) 97 Room Air 05/13/20 15:45 98.6 98.6 Physcial Exam: GEN: No apparent distress. Alert and oriented HEENT: Normal cephalic, atraumatic, external auditory canals are patent EYES: Extraocular muscles are intact, pupil are equally round and reactive to light and accommodation MUSCULOSKELETAL: Well developed , well nourished, good range of motion ENDOCRINE: No thyromegaly was palpated LYMPHATICS: No cervical chain or axillary nodes were noted HEMATOPOIETIC: No bruising NECK: Supple, no JVD, no thyromegaly was noted LUNGS: Clear to auscultation in all lung allan without rhonchi or wheezing HEART: RRR, S!, S2 present. Peripheral pulses intact, no obvious murmurs noted ABDOMEN: Soft, nontender. Positive bowel sounds, no organomegaly, normal bowel sounds EXTREMITIES: Without clubbing, cyanosis, or edema. Pedal pulses intact. Negative Homans sign NEUROLOGIC: Normal speech and tone. A&O x 3, moves all extremities, no obv ious focal deficits PSYCHIATRIC: Normal affect, normal mood. Stable SKIN: No ulcerations or rashes, good skin turgor, no jaundice VASCULAR: Good capillary refill, neurovascular bundle appears to be intact Labs: Labs: Laboratory Tests Test 1/1/21 15:45 05/13/20 15:56 05/13/20 16:45 05/14/20 06:00 Urine Collection Type Unknown Urine Color Yellow Urine Clarity Cloudy Urine pH 6.0 (<5.0-8.0) Urine Specific [place] >=1.030 (1.000-1.030) Urine Protein 30 mg/dL (NEG-TRACE) Urine Glucose (UA) Negative mg/dL (NEG) Urine Ketones (Stick) Trace mg/dL (NEG) Urine Blood Negative (NEG) Urine Nitrite Negative (NEG) Urine Bilirubin Negative (NEG) Urine Urobilinogen Dipstick 0.2 mg/dL (0.2 mg/dL) Urine Leukocyte Esterase Moderate (NEG) Urine RBC 0 /HPF (0-2) Urine WBC 5-10 /HPF (0-4) Urine Squamous Epithelial Cells Mod /LPF Urine Bacteria Few /HPF (0-FEW) Urine Mucus Mod /LPF Urine Yeast Present /HPF Urine Opiates Screen Neg (NEG) Urine Methadone Screen Neg (NEG) Urine Barbiturates Neg (NEG) Urine Phencyclidine Screen Neg (NEG) Urine Amphetamine/Methamphetamine Neg (NEG) Urine Benzodiazepines Screen Pos (NEG) Urine Cocaine Screen Neg (NEG) Urine Cannabinoids Screen Neg (NEG) Urine Ethyl Alcohol Neg (NEG) Bedside Urine HCG, Qualitative Hcg negative (Negative) White Blood Count 5.8 x10^3/uL (4.0-11.0) Red Blood Count 4.38 x10^6/uL (3.50-5.40) Hemoglobin 11.8 g/dL (12.0-15.5) Hematocrit 35.3 % (36.0-47.0) Mean Corpuscular Volume 81 fL (79-100) Mean Corpuscular Hemoglobin 27 pg (25-35) Mean Corpuscular Hemoglobin Concent 33 g/dL (31-37) Red Cell Distribution Width 14.6 % (11.5-14.5) Platelet Count 290 x10^3/uL (140-400) Neutrophils (%) (Auto) 70 % (31-73) Lymphocytes (%) (Auto) 18 % (24-48) Monocytes (%) (Auto) 10 % (0-9) Eosinophils (%) (Auto) 2 % (0-3) Basophils (%) (Auto) 1 % (0-3) Neutrophils # (Auto) 4.0 x10^3/uL (1.8-7.7) Lymphocytes # (Auto) 1.0 x10^3/uL (1.0-4.8) Monocytes # (Auto) 0.6 x10^3/uL (0.0-1.1) Eosinophils # (Auto) 0.1 x10^3/uL (0.0-0.7) Basophils # (Auto) 0.0 x10^3/uL (0.0-0.2) Sodium Level 139 mmol/L (136-145) 139 mmol/L (136-145) Potassium Level 3.9 mmol/L (3.5-5.1) 3.8 mmol/L (3.5-5.1) Chloride Level 104 mmol/L (98-107) 103 mmol/L (98-107) Carbon Dioxide Level 24 mmol/L (21-32) 23 mmol/L (21-32) Anion Gap 11 (6-14) 13 (6-14) Blood Urea Nitrogen 11 mg/dL (7-20) 14 mg/dL (7-20) Creatinine 0.8 mg/dL (0.6-1.0) 0.9 mg/dL (0.6-1.0) Estimated GFR (Cockcroft-Gault) 89.7 78.3 BUN/Creatinine Ratio 14 (6-20) 16 (6-20) Glucose Level 102 mg/dL (70-99) 162 mg/dL (70-99) Calcium Level 9.0 mg/dL (8.5-10.1) 9.2 mg/dL (8.5-10.1) Total Bilirubin 0.3 mg/dL (0.2-1.0) 0.3 mg/dL (0.2-1.0) Aspartate Amino Transf (AST/SGOT) 248 U/L (15-37) 150 U/L (15-37) Alanine Aminotransferase (ALT/SGPT) 428 U/L (14-59) 348 U/L (14-59) Alkaline Phosphatase 97 U/L (46-116) 100 U/L (46-116) Total Protein 7.2 g/dL (6.4-8.2) 7.7 g/dL (6.4-8.2) Albumin 3.5 g/dL (3.4-5.0) 3.6 g/dL (3.4-5.0) Albumin/Globulin Ratio 0.9 (1.0-1.7) 0.9 (1.0-1.7) Lipase 211 U/L (73-393) Salicylates Level < 2.8 mg/dL (2.8-20.0) Salicylate Last Dose Date Unknown Salicylate Last Dose Time Unknown Acetaminophen Level < 2 mcg/ml (10-30) Acetaminophen Last Dose Date Unknown Acetaminophen Last Dose Time Unknown Ethyl Alcohol Level < 10 mg/dL (0-10) Laboratory Tests Test 05/13/20 15:45 05/13/20 15:56 05/13/20 16:45 05/14/20 06:00 Urine Collection Type Unknown Urine Color Yellow Urine Clarity Cloudy Urine pH 6.0 (<5.0-8.0) Urine Specific [place] >=1.030 (1.000-1.030) Urine Protein 30 mg/dL (NEG-TRACE) Urine Glucose (UA) Negative mg/dL (NEG) Urine Ketones (Stick) Trace mg/dL (NEG) Urine Blood Negative (NEG) Urine Nitrite Negative (NEG) Urine Bilirubin Negative (NEG) Urine Urobilinogen Dipstick 0.2 mg/dL (0.2 mg/dL) Urine Leukocyte Esterase Moderate (NEG) Urine RBC 0 /HPF (0-2) Urine WBC 5-10 /HPF (0-4) Urine Squamous Epithelial Cells Mod /LPF Urine Bacteria Few /HPF (0-FEW) Urine Mucus Mod /LPF Urine Yeast Present /HPF Urine Opiates Screen Neg (NEG) Urine Methadone Screen Neg (NEG) Urine Barbiturates Neg (NEG) Urine Phencyclidine Screen Neg (NEG) Urine Amphetamine/Methamphetamine Neg (NEG) Urine Benzodiazepines Screen Pos (NEG) Urine Cocaine Screen Neg (NEG) Urine Cannabinoids Screen Neg (NEG) Urine Ethyl Alcohol Neg (NEG) Bedside Urine HCG, Qualitative Hcg negative (Negative) White Blood Count 5.8 x10^3/uL (4.0-11.0) Red Blood Count 4.38 x10^6/uL (3.50-5.40) Hemoglobin 11.8 g/dL (12.0-15.5) Hematocrit 35.3 % (36.0-47.0) Mean Corpuscular Volume 81 fL (79-100) Mean Corpuscular Hemoglobin 27 pg (25-35) Mean Corpuscular Hemoglobin Concent 33 g/dL (31-37) Red Cell Distribution Width 14.6 % (11.5-14.5) Platelet Count 290 x10^3/uL (140-400) Neutrophils (%) (Auto) 70 % (31-73) Lymphocytes (%) (Auto) 18 % (24-48) Monocytes (%) (Auto) 10 % (0-9) Eosinophils (%) (Auto) 2 % (0-3) Basophils (%) (Auto) 1 % (0-3) Neutrophils # (Auto) 4.0 x10^3/uL (1.8-7.7) Lymphocytes # (Auto) 1.0 x10^3/uL (1.0-4.8) Monocytes # (Auto) 0.6 x10^3/uL (0.0-1.1) Eosinophils # (Auto) 0.1 x10^3/uL (0.0-0.7) Basophils # (Auto) 0.0 x10^3/uL (0.0-0.2) Sodium Level 139 mmol/L (136-145) 139 mmol/L (136-145) Potassium Level 3.9 mmol/L (3.5-5.1) 3.8 mmol/L (3.5-5.1) Chloride Level 104 mmol/L (98-107) 103 mmol/L (98-107) Carbon Dioxide Level 24 mmol/L (21-32) 23 mmol/L (21-32) Anion Gap 11 (6-14) 13 (6-14) Blood Urea Nitrogen 11 mg/dL (7-20) 14 mg/dL (7-20) Creatinine 0.8 mg/dL (0.6-1.0) 0.9 mg/dL (0.6-1.0) Estimated GFR (Cockcroft-Gault) 89.7 78.3 BUN/Creatinine Ratio 14 (6-20) 16 (6-20) Glucose Level 102 mg/dL (70-99) 162 mg/dL (70-99) Calcium Level 9.0 mg/dL (8.5-10.1) 9.2 mg/dL (8.5-10.1) Total Bilirubin 0.3 mg/dL (0.2-1.0) 0.3 mg/dL (0.2-1.0) Aspartate Amino Transf (AST/SGOT) 248 U/L (15-37) 150 U/L (15-37) Alanine Aminotransferase (ALT/SGPT) 428 U/L (14-59) 348 U/L (14-59) Alkaline Phosphatase 97 U/L (46-116) 100 U/L (46-116) Total Protein 7.2 g/dL (6.4-8.2) 7.7 g/dL (6.4-8.2) Albumin 3.5 g/dL (3.4-5.0) 3.6 g/dL (3.4-5.0) Albumin/Globulin Ratio 0.9 (1.0-1.7) 0.9 (1.0-1.7) Lipase 211 U/L (73-393) Salicylates Level < 2.8 mg/dL (2.8-20.0) Salicylate Last Dose Date Unknown Salicylate Last Dose Time Unknown Acetaminophen Level < 2 mcg/ml (10-30) Acetaminophen Last Dose Date Unknown Acetaminophen Last Dose Time Unknown Ethyl Alcohol Level < 10 mg/dL (0-10) Images: Images CT ABD/PELVIS IMPRESSION: No acute process identified within the abdomen or pelvis. Assessment/Plan Assessment/Plan Acute abdominal pain Transaminitis Suicidal ideation Normocytic anemia Admit to medicine for further management Psych consult P.o. pain management IV antiemetic management PAT consult Ambulation for DVT prophylaxis Protonix GI prophylaxis ADA diet Full code Discussed with RN and SW Disposition pending PAT consult Surrogate decision maker is undesignated Justifications for Admission Other Justification SOHAN STEVENS MD May 14, 2020 07:39
[2020-05-14] MEDS: ONDANSETRON PF 4 MG/2 ML VIAL. IV PRN ×2 (10:15→20:42)
[2020-05-14] MEDS ORDERED: HYDROcodone/APAP 10/325 1 TAB TABLET PO PRN (11:15)
[2020-05-14] MEDS ORDERED: diphenhydrAMINE 50 MG/ML VIAL IVP PRN (11:15)
[2020-05-14] MEDS ORDERED: METOCLOPRAMIDE HCL 10 MG/2 ML VIAL. IVP PRN (11:15)
[2020-05-14] MEDS: PROCHLORPERAZINE 10 MG/2 ML VIAL. IV PRN (11:29)
[2020-05-14 22:00] VITALS: BP 120/64
[2020-05-14] MEDS ORDERED: DIAZ5TAB PO (22:16)
[2020-05-14] MEDS: ONDANSETRON PF 4 MG/2 ML VIAL. IVP PRN (23:20)
[2020-05-14] MEDS: ENOXAPARIN 40 MG/0.4 ML SYRINGE. SQ SCH (23:20)
[2020-05-14] MEDS: diphenhydrAMINE 50 MG/ML VIAL IVP PRN (23:25)
[2020-05-15] VITALS (9 sets, daily range): BP systolic 91–134; BP diastolic 42–93
[2020-05-15] MEDS: PROCHLORPERAZINE 10 MG/2 ML VIAL. IV PRN ×3 (00:03→22:13)
[2020-05-15] MEDS: diphenhydrAMINE 50 MG/ML VIAL IVP PRN ×3 (05:12→17:41)
[2020-05-15] MEDS: ONDANSETRON PF 4 MG/2 ML VIAL. IVP PRN ×2 (05:21→14:16)
--- NOTE | 2020-05-15 12:04 | PDOC ---
[employer] PROGRESS NOTE Date of Service DOS: DATE: 05/15/20 TIME: 12:04 Chief Complaint Chief Complaint Acute abdominal pain Transaminitis Suicidal ideation Normocytic anemia Past Medical History: A-Fib, Anxiety, Bipolar, Depression, Hypertension, Hypothyroid, Seizure,PTSD,SI, Borderline personality.CHRON ABD PAIN,TBI, CDIFF Past Surgical History: Appendectomy, Cholecystectomy History of Present Illness History of Present Illness 05/15/2020 Patient seen and examined Chart reviewed Discussed with RN Vitals/I&O Vitals/I&O: Vital Signs Date Time Temp Pulse Resp B/P (MAP) Pulse Ox O2 Delivery O2 Flow Rate FiO2 05/15/20 11:40 98.5 59 20 91/42 (58) 96 Room Air 98.5 I & O 05/14/20 05/14/20 05/15/20 14:59 22:59 06:59 Intake Total 0 ml Balance 0 ml Physical Exam General: Other (Denies suicidal ideation today but was hearing voices yesterday) Heart: Regular rate Lungs: Clear, Other Abdomen: Normal bowel sounds Extremities: No clubbing, Normal pulses Skin: No rashes, No breakdown Labs Labs: Laboratory Tests Test 05/14/20 21:06 SARS-CoV-2 Antigen (Rapid) Negative (NEGATIVE) Assessment and Plan Assessmemt and Plan Problems Medical Problems: (1) Abdominal pain Status: Acute (2) Malingering Status: Acute (3) Schizophrenia Status: Acute (4) Self-harming behavior Status: Acute (5) Transaminitis Status: Acute Acute abdominal pain Transaminitis Suicidal ideation Normocytic anemia Past Medical History: A-Fib, Anxiety, Bipolar, Depression, Hypertension, H ypothyroid, Seizure,PTSD,SI, Borderline personality.CHRON ABD PAIN,TBI, CDIFF Past Surgical History: Appendectomy, Cholecystectomy Plan Await psychiatric assessment team input P.o. pain management IV antiemetic management Ambulation for DVT prophylaxis Protonix GI prophylaxis ADA diet Full code Discussed with RN and SW Disposition pending PAT consult Surrogate decision maker is undesignated As needed Tigan As needed Toradol I ordered some Diflucan for her itching Comment Review of Relevant I have reviewed the following items shaina (where applicable) has been applied. Medications: Current Medications Medications (Trade) Dose Ordered Sig/Priya Route PRN Reason Start Time Stop Time Status Last Admin Dose Admin Diphenhydramine HCl (Benadryl) 25 mg PRN Q6HRS PRN IVP ITCHING 05/14/20 23:15 05/15/20 11:16 Enoxaparin Sodium (Lovenox 40mg Syringe) 40 mg QHS SQ 05/14/20 23:30 05/14/20 23:20 Ondansetron HCl (Zofran) 4 mg PRN Q4HRS PRN IVP NAUSEA/VOMITING 1ST CHOICE 05/14/20 23:15 05/14/20 23:20 Justifications for Admission Other Justification DELONTE BASS III DO May 15, 2020 12:04
[2020-05-15] MEDS ORDERED: TRIMETHOBENZAMIDE IM 200 MG/2 ML VIAL. IM PRN (12:15)
[2020-05-15] MEDS ORDERED: KETOROLAC 30 MG/ML VIAL. IV PRN (12:15)
[2020-05-15] MEDS: FLUCONAZOLE 100 MG TABLET. PO SCH (12:17)
[2020-05-15] MEDS ORDERED: diphenhydrAMINE 50 MG/ML VIAL IVP ONE (12:45)
[2020-05-15] MEDS: BUTORPHANOL 2 MG/ML VIAL. IV PRN ×2 (16:07→22:14)
[2020-05-15] MEDS: ENOXAPARIN 40 MG/0.4 ML SYRINGE. SQ SCH (20:13)
[2020-05-16] MEDS: diphenhydrAMINE 50 MG/ML VIAL IVP PRN ×3 (00:25→12:48)
[2020-05-16 03:45] VITALS: BP 100/56
[2020-05-16] MEDS: ONDANSETRON PF 4 MG/2 ML VIAL. IVP PRN (04:16)
[2020-05-16] MEDS: BUTORPHANOL 2 MG/ML VIAL. IV PRN ×2 (04:16→10:40)
[2020-05-16 06:22] VITALS: BP 109/67
[2020-05-16] MEDS ORDERED: diazePAM 5 MG TABLET PO PRN (08:00)
[2020-05-16] MEDS ORDERED: ARIPIPRAZOLE LAUROXIL 1064 MG IM SCH (08:00)
[2020-05-16] MEDS ORDERED: ANTI-COAG MONITOR BY PHARMACY. MC PRN (08:30)
[2020-05-16] MEDS: FLUCONAZOLE 100 MG TABLET. PO SCH (08:37)
[2020-05-16] MEDS ORDERED: APIXABAN 5 MG TABLET. PO SCH (09:00)
[2020-05-16] MEDS ORDERED: METOPROLOL SUCC 24HR ER 25 MG TAB.ER.24H. PO SCH (09:00)
[2020-05-16] MEDS ORDERED: LEVOTHYROXINE 50 MCG TABLET PO SCH (10:30)
[2020-05-16 10:55] LABS: LI < 0.2 mmol/L (0.6-1.2)
[2020-05-16 11:00] VITALS: BP 107/68
--- NOTE | 2020-05-16 11:11 | NUR ---
accidently miss-counted the vials when going to pull for the first time, which was corrected with Josette RN, unable to find Josette or Renetta to do a partial dose waste, put the vial back into bin and hit exit on the partial dose waste screen, did not hit the skip button, when correcting the count with Josette went to pull the dose to give to pt but stated that I had a partial dose to still waste from the first attempt to pull from [facility], which was from the vial that I put back into the bin. talked to Bill in pharmacy stated that I can just pull the vial dose that I need, scan the pt then do a partial dose on that vial with Josette RN after giving the dose to the patient, and write a nurses note regarding why only wasting the 1mg instead of the 3 mg that the [facility] is asking for a waste, wasted the rest of the vial after giving partial dose to patient with Josette YOUNGBLOOD.
[2020-05-16] MEDS ORDERED: PANTOPRAZOLE 40 MG TABLET.DR. PO SCH (11:30)
--- NOTE | 2020-05-16 11:31 | NUR ---
SW following. Chart reviewed, pt from home, room air, cardiac diet, COVID-19 negative. Girma ([facility]) coming to see pt today, now the COVID test is back. Pt currently on a 1:1. SW will continue to follow. Addendum: 05/16/20 at 1332 by RASHID ALVAREZ SW Karla ([facility]) met with pt, pt is denying any SI or HI at this time. Reporting the voices in her head are not telling her to hurt herself or others. 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 Pt has been cleared by PAT - no longer requires 1:1 per PAT. Pt cleared for discharge from a psychological standpoint. Pt was denied at all facilities. RN notified. SW will continue to follow.
[2020-05-16 14:40] VITALS: BP 113/71
[2020-05-16] MEDS ORDERED: ZIPRASIDONE IM 20 MG VIAL. IM PRN (17:00)
--- NOTE | 2020-05-16 17:53 | NUR ---
pt left AMA at 1735, pt was upset that she was no longer able to receive IV narcotic medications which were switched to PO, attempted to give a PO hydrocodone when pt refused to take it, I told her she was unable to get anything else through the IV, she became tearful and upset stating that IV meds were the only thing that worked for her, I told her that she needed to at least try PO medications so she could figure out what would work to get out of the hospital, pt still refused. went to another pt room to do a PEG tube feeding and to hang an ATB when the SENIOR STAFF ACCOUNTANT came to tell me that the patient was no longer in her room with all her belongings loaded up and gone, SENIOR STAFF ACCOUNTANT notified security, pt came back to floor to get the port-a-cath deaccessed and said she was going to leave AMA, pt refused to sign A paperwork multiple times of offering, port-a-cath deaccessed and pt escorted out with security newberry.
[2020-05-16] MEDS ORDERED: LITHIUM CARBONATE ER 300 MG TABLET.ER PO SCH (21:00)
[2020-05-16] MEDS ORDERED: PRAZOSIN 1 MG CAPSULE. PO SCH (21:00)
--- NOTE | 2020-05-16 22:24 | PDOC3 ---
Discharge Summary Visit Information Date of Admission: May 14, 2020 Date of Discharge: May 16, 2020 Admitting Diagnosis Comment: Acute abdominal pain Transaminitis Suicidal ideation Normocytic anemia Final Diagnosis Problems Medical Problems: (1) Abdominal pain Status: Acute (2) Malingering Status: Acute (3) Schizophrenia Status: Acute (4) Self-harming behavior Status: Acute (5) Transaminitis seems to be related to her body habitus Status: Acute Acute abdominal pain seemed resolved at the time of my visit Obesity with a BMI of 32 Transaminitis Suicidal ideation ruled out by PAT team Normocytic anemia Brief Hospital Course Allergies Allergies Coded Allergies Type Severity Reaction Last Updated Verified haloperidol Allergy Severe TONGUE SWELLING 05/30/18 Yes ibuprofen Allergy Intermediate Hives 05/30/18 Yes ketorolac Allergy Intermediate Hives 05/30/18 Yes morphine Allergy Intermediate rash 02/28/20 Yes Vital Signs Vital Signs Date Time Temp Pulse Resp B/P (MAP) Pulse Ox O2 Delivery O2 Flow Rate FiO2 05/16/20 14:40 98.6 66 16 113/71 (85) 95 Room Air 98.6 Lab Results Laboratory Tests Test 05/16/20 09:45 Iron Level 16 ug/dL (50-170) Total Iron Binding Capacity 323 ug/dL (250-450) Iron Saturation 5 % (15-34) [place] Level < 0.2 mmol/L (0.6-1.2) [place] Last Dose Date 05-12-20 [place] Last Dose Time 0000 Hepatitis A IgM Antibody Nonreactive (Nonreactive) Hepatitis B Surface Antigen Nonreactive (Nonreactive) Hepatitis B Core IgM Antibody Nonreactive (Nonreactive) Hepatitis C IgG Antibody Nonreactive (Nonreactive) Laboratory Tests Test 05/16/20 09:45 Iron Level 16 ug/dL (50-170) Total Iron Binding Capacity 323 ug/dL (250-450) Iron Saturation 5 % (15-34) [place] Level < 0.2 mmol/L (0.6-1.2) [place] Last Dose Date 05-12-20 [place] Last Dose Time 0000 Hepatitis A IgM Antibody Nonreactive (Nonreactive) Hepatitis B Surface Antigen Nonreactive (Nonreactive) Hepatitis B Core IgM Antibody Nonreactive (Nonreactive) Hepatitis C IgG Antibody Nonreactive (Nonreactive) Brief Hospital Course History and Physical Date of Service: DOS: DATE: 05/14/20 TIME: 07:37 Chief Complaint: Chief Complain: Abdominal pain and suicidal ideation History of Present Illness: HPI: 24 year old female with a history of A. fib on Eliquis, hypertension, depression, anxiety, bipolar, who presents to the ED today complaining of 6 out of 10 epigastric abdominal pain with nausea vomiting, symptoms began on Saturday which is 5 days ago. Patient denies any hematemesis or melena. Denies any fever. She states today she spent the New Year's ariella at a friend's house where they played games then decided to come to the ED to be evaluated. Patient was admitted to the medical floor due to the suicidal gestures reported, I was involved in her care the day she signed herself against medical advice. Patient at her young age has a port a cath in place which puts her at increased risk of infection. Patient exhibited drug seeking behaviour and when her symptoms were controlled she wa transitioned to oral medications at which point she was no longer happy with the care. She signed herself AMA. She is a high risk for readmission. She certainly needs close psych follow up. Discharge Information Condition at Discharge: Improved Follow Up: Weeks Disposition/Orders: Other (singed herself AMA) Scheduled Apixaban (Eliquis) 5 Mg Tablet, 5 MG PO BID for hx of DVT, (Reported) Entered as Reported by: BUD YOUNG on 02/27/201840 Last Action: Continued on 05/16/20757 by ESTEBAN ECHEVERRIA MD Aripiprazole Lauroxil,Submicr. ([place]ristada Initio) 675 Mg/2.4 Ml Suser.syr, 1,064 MG IM UD for psychosis, (Reported) Entered as Reported by: BUD YOUNG on 02/27/201843 Last Action: Converted on 05/16/20757 by ESTEBAN ECHEVERRIA MD Levothyroxine Sodium (Levothyroxine Sodium) 50 Mcg Tablet, 1 TAB PO QAM for hypothyroidism, (Reported) Entered as Reported by: CAESAR WATERS on 02/17/202108 Last Action: Continued on 05/16/20757 by ESTEBAN ECHEVERRIA MD [place]and Carbonate ([place] Carbonate) 300 Mg Capsule, 600 MG PO HS for mood stabilization, (Reported) Entered as Reported by: BUD YOUNG on 02/27/201840 Last Action: Converted on 05/16/20757 by ESTEBAN FARELA, MD Metoprolol Succinate (Metoprolol Succinate ( Xl )) 25 Mg Tab.er.24h, 1 TAB PO DAILY for hypertension, #30 Ref 5 (Reported) Entered as Reported by: BUD YOUNG on 02/27/20 1841 Last Action: Continued on 05/16/20757 by ESTEBAN ECHEVERRIA MD Pantoprazole Sodium (Pantoprazole Sodium ) 40 Mg Tablet.dr, 40 MG PO DAILYAC for GERD for 30 Days, #30 Prescribed by: ESTEBAN ECHEVERRIA MD on 02/18/20 1246 Last Action: Continued on 05/16/20757 by ESTEBAN ECHEVERRIA MD Prazosin Hcl (Prazosin Hcl) 1 Mg Capsule, 1 CAP PO QHS for , #30 Ref 2 (Reported) Entered as Reported by: BELLE MESSINA on 05/30/180 Last Action: Continued on 05/16/20757 by ESTEBAN ECHEVERRIA MD Scheduled PRN Diazepam (Valium) 5 Mg Tablet, 5 MG PO Q6HRS PRN for ANXIETY / AGITATION, (Reported) Entered as Reported by: RODNEY ODONNELL on 05/14/202215 Last Action: Continued on 05/16/20757 by ESTEBAN ECHEVERRIA MD Lorazepam (Lorazepam) 2 Mg/1 Ml Vial, 2 MG IM PRN Q3HRS PRN for ANXIETY / AGITATION for 30 Days, #90 Prescribed by: SOHAN STEVENS MD on 03/04/201713 Last Action: Continued on 05/16/20757 by ESTEBAN ECHEVERRIA MD Lorazepam (Ativan) 1 Mg Tablet, 2 MG PO PRN Q6HRS PRN for ANXIETY / AGITATION for 30 Days, #60 Prescribed by: SOHAN STEVENS MD on 03/04/201713 Last Action: Continued on 05/16/20757 by ESTEBAN ECHEVERRIA MD Justicifation of Admission Dx: Justifications for Admission: Justification of Admission Dx: ESTEBAN Cornell MD May 16, 2020 22:24
[2020-05-18 15:13] LABS: MITOCHONDRIAL ABDY <20.0 Units (0.0-20.0); SMOOTH MUSCLE AB 4 Units (0-19)
[2020-06-21] MEDS ORDERED: CHLO50TA6 PO (08:01)
[2020-06-21] MEDS ORDERED: LAMO100T8 PO (08:01)
[2020-06-21] MEDS ORDERED: SUCR1TAB PO (08:01)
[2020-06-21] MEDS ORDERED: LEVO125T5 PO (08:01)
[2020-06-21] MEDS ORDERED: CHLO100T6 PO (08:01)
[2020-06-21] MEDS ORDERED: DICY10CA3 PO (08:01)
[2020-06-21] MEDS ORDERED: DIVA500T17 PO (08:01)
[2020-06-21] MEDS ORDERED: APIX5TAB PO (08:46)
[2020-07-02] MEDS ORDERED: BENZ1TAB5 PO (14:49)
[2020-07-02] MEDS ORDERED: PALI6TAB3 PO (14:49)
== END 2020-05-16 17:35 | disposition left against medical advice (07) | DRG 392 ==
LOC: ER 15:32 → 5 NORTH 05-14 00:05 → ED HOLD 05-14 00:06 → 5 NORTH 05-14 21:59
PROVIDERS: ADMIT Internal Medicine; ATTEND Internal Medicine
DX: R10.13 Epigastric pain (principal); Z76.5 Malingerer [conscious simulation]; D64.9 Anemia, unspecified; E03.9 Hypothyroidism, unspecified; F20.9 Schizophrenia, unspecified; F31.9 Bipolar disorder, unspecified; F43.10 Post-traumatic stress disorder, unspecified; F60.3 Borderline personality disorder; I10 Essential (primary) hypertension; I48.91 Unspecified atrial fibrillation; Z79.01 Long term (current) use of anticoagulants; Z90.49 Acquired absence of other specified parts of digestive tract; E66.9 Obesity, unspecified; F41.9 Anxiety disorder, unspecified; Z68.32 Body mass index [BMI] 32.0-32.9, adult; Z79.899 Other long term (current) drug therapy; R74.01 Elevation of levels of liver transaminase levels; Z53.29 Procedure and treatment not carried out because of patient's decision for other reasons; Z20.822 Contact with and (suspected) exposure to COVID-19
CPT/HCPCS: 36415; 74176; 80053; 80178; 80307; 80329; 81001; 81025; 83516; 83540; 83550; 83690; 85025; 86705; 86709; 86803; 87340; 87426; 96374; 96375; 96376; 99285; G0480; J0595; J0696; J0780; J1200; J1650; J2060; J2405; J2765; J2930; U0003; G0378; Q0163

== ENCOUNTER 2020-07-01 22:23 | Observation (INO) | payer MEDICARE, OTHER ==
[~2020-07-01] VITALS: Ht 165.1 cm; Wt 84.0 kg
[~2020-07-01 22:23] MED LIST changes: +CHLO100T6 PO; +CHLO50TA6 PO; +DIAZ5TAB PO; +DICY10CA3 PO; +LAMO100T8 PO; +LEVO125T5 PO; -MIRT-7 PO; -MIRT-8 PO; +MIRT15TA3 PO; +MIRT30TA3 PO; +SUCR1TAB PO
[2020-07-01] MEDS ORDERED: IV NORMAL SALINE 1000ML BAG 1,000 ML IV ONE (22:45)
[2020-07-01] MEDS ORDERED: 0.9 % SOD CHL for STERILE FIELD 10 ML DISP.SYRIN. ONE (22:46)
--- NOTE | 2020-07-01 22:54 | PHYS DOC ---
Past Medical History Past Medical History: A-Fib, Anxiety, Bipolar, Depression, Hypertension, Hypothyroid, Seizure Additional Past Medical Histor: PTSD,SI, Borderline personality.CHRON ABD PAIN,TBI, CDIFF Past Medical History Limited secondary to patient being uncooperative Past Surgical History: Appendectomy, Cholecystectomy, Other Additional Past Surgical Histo: ORAL Past Surgical History Limited secondary to patient being uncooperative Smoking Status: Never Smoker Alcohol Use: None Drug Use: None Social History Limited secondary to patient being uncooperative General Adult EDM: Chief Complaint: SUICDAL IDEATION HPI: HPI: Patient is a 24-year-old female who is well-known to the emergency department presents with report of suicide attempt by taking approximately x10-15 tabs of 5 mg tablets of Eliquis approximately 3 hours prior to arrival. Patient was recently admitted for similar. Patient has longstanding history of suicidality. Denies any coingestion. Denies . Reports she is currently on Depo shots. History of present illness limited secondary to patient being uncooperative with questioning. Review of Systems: Review of Systems: Respiratory: Denies cough or shortness of breath Cardiovascular: Denies chest pain or palpitations GI: Reports abdominal pain Integument: Denies rash or skin lesions Neurologic: Denies headache Review of systems limited secondary to patient being uncooperative with questioning Current Medications: Current Medications Medications (Trade) Dose Ordered Sig/Priya Start Time Stop Time Status Last Admin Dose Admin Famotidine (Pepcid Vial) 20 mg 1X ONCE 07/01/20 22:55 07/01/20 22:56 Lorazepam (Ativan Inj) 2 mg 1X ONCE 07/01/20 22:55 07/01/20 22:56 Ondansetron HCl (Zofran) 4 mg 1X ONCE 07/01/20 22:55 07/01/20 22:56 Sodium Chloride (NORMAL SALINE FLUSH for STERILE FIELD) 10 ml STK-MED ONCE 07/01/20 22:46 07/01/20 22:46 DC Allergies: Allergies: Allergies Coded Allergies Type Severity Reaction Last Updated Verified ibuprofen Allergy Intermediate Hives 05/30/18 Yes ketorolac Allergy Intermediate Hives 05/30/18 Yes morphine Allergy Intermediate rash 02/28/20 Yes Physical Exam: PE: Constitutional: Well developed, well nourished, no acute distress, non-toxic appearance HENT: Normocephalic, atraumatic Eyes: conjunctiva normal, no discharge, no nystagmus Neck: Normal range of motion, no tenderness, supple Lungs & Thorax: No respiratory distress, equal chest rise and fall Abdomen: Soft, no tenderness Skin: Warm, dry, no erythema, no rash Extremities: No tenderness, ROM intact, no edema Neurologic: Alert and oriented X 3, no focal deficits noted Psychologic: Affect flat, suicidal attempt by taking 10-15x of 5mg of Eliquis, judgment abnormal Current Patient Data: Vital Signs: Vital Signs Date Time Temp Pulse Resp B/P (MAP) Pulse Ox O2 Delivery O2 Flow Rate FiO2 07/01/20 22:41 101 131/74 (93) 99 07/01/20 22:23 98.0 16 Room Air 98.0 EKG: EKG: [] Radiology/Procedures: Radiology/Procedures: @2312 NSR at 89bpm, NO ST elevation, QRS 92ms, QT/QTc 370/451ms Course & Med Decision Making: Course & Med Decision Making Pertinent Lab studies reviewed. (See chart for details) Patient presents with report of suicide attempt by taking 10 to 15 tablets of her 5 mg Eliquis approximately 3 hours prior to presentation. Patient has had multiple attempts in the past. [facility] review notes patient with similar overdose within the last 2 weeks. Patient reports she recently got into an argument with her "birthmother "that caused her to feel depressed and decided to take the tablets of Eliquis and attempt to harm herself. Patient denies any coingestions. Denies drug use or alcohol use. Labs obtained and posted to chart. H&H improved from prior per [facility] review. EKG stable. Contacted poison control regarding who recommend observation for signs of bleeding for next 24 hours. Patient did require chemical restraint combined with four-point restraint at one time given patient being uncooperative and being unsafe. Patient requiring medical admission for further evaluation and monitoring. Patient requiring admission for further evaluation and treatment. Discussed with Dr. Negrete (hospitalist) who is in agreement with admission. Discussed findings and plan with patient, who acknowledges understanding and agreement. Margarita Disclaimer: Margarita Disclaimer: This electronic medical record was generated, in whole or in part, using a voice recognition dictation system. Departure Departure Impression: Primary Impression: Suicidal overdose Qualified Codes: T50.902A - Poisoning by unspecified drugs, medicaments and biological substances, intentional self-harm, initial encounter Additional Impression: Intentional overdose of drug in tablet form Disposition: 09 ADMITTED INPT THIS HOSP Admitting Physician: LILY Nguyen) Condition: STABLE Referrals: NO PCP (PCP) Critical Care Time Critical care time was 30 minutes which includes time at bedside, spent in discussion of patient's care with specialists and/or family members, with interpretation of laboratory and/or radiological studies and is exclusive of procedures. JOSEFINA MCELROY DO Jul 01, 2020 22:54
[2020-07-01] MEDS ORDERED: ONDANSETRON PF 4 MG/2 ML VIAL. IVP ONE (22:55)
[2020-07-01] MEDS ORDERED: FAMOTIDINE 20 MG/2 ML VIAL IVP ONE (22:55)
[2020-07-01] MEDS ORDERED: ONDANSETRON PF 4 MG/2 ML VIAL. IV PRN (23:00)
[2020-07-01 23:08] LABS: BASO # 0.1 x10^3/uL (0.0-0.2); BASO % 1 % (0-3); EOS # 0.1 x10^3/uL (0.0-0.7); EOS % 1 % (0-3); HEMATOCRIT 33.5 % (36.0-47.0); HEMOGLOBIN 10.8 g/dL (12.0-15.5); LYMPH # 1.7 x10^3/uL (1.0-4.8); LYMPH % 22 % (24-48); MEAN CORPUSCULAR HEMOGLOBIN 24 pg (25-35); MEAN CORPUSCULAR HGB CONC 32 g/dL (31-37); MEAN CORPUSCULAR VOLUME 76 fL (79-100); MONO # 0.8 x10^3/uL (0.0-1.1); MONO % 10 % (0-9); NEUT # 5.3 x10^3/uL (1.8-7.7); NEUT % 66 % (31-73); PLATELET COUNT 357 x10^3/uL (140-400); RED BLOOD COUNT 4.44 x10^6/uL (3.50-5.40); RED CELL DISTRIBUTION WIDTH 14.6 % (11.5-14.5)
[2020-07-01 23:16] LABS: PROTHROMBIN TIME PATIENT 13.8 SEC (11.7-14.0)
[2020-07-01 23:18] LABS: CALCIUM 8.5 mg/dL (8.5-10.1); CREATININE 0.8 mg/dL (0.6-1.0); GFR 89.7; POTASSIUM 3.2 mmol/L (3.5-5.1); PREG TEST PT QUAL NEGATIVE (NEG)
[2020-07-01 23:23] LABS: SALIC < 2.8 mg/dL (2.8-20.0)
[2020-07-01 23:24] LABS: ACETAMIN < 2 mcg/ml (10-30)
[2020-07-01 23:25] LABS: ALBUMIN 3.7 g/dL (3.4-5.0); MAGNESIUM 2.1 mg/dL (1.8-2.4); TOTAL BILIRUBIN 0.2 mg/dL (0.2-1.0); TOTAL PROTEIN 7.5 g/dL (6.4-8.2)
[2020-07-02] MEDS ORDERED: HYOSCYAMINE 0.125 MG TAB.RAPDIS PO ONE (00:15)
[2020-07-02] MEDS ORDERED: diphenhydrAMINE HCL 25 MG CAPSULE PO ONE (00:15)
[2020-07-02] MEDS ORDERED: POTASSIUM CHLORIDE 20 MEQ TABLET.ER. PO ONE (00:15)
[2020-07-02] MEDS ORDERED: ZIPRASIDONE IM 20 MG VIAL. IM ONE (00:30)
--- NOTE | 2020-07-02 00:32 | EKG ---
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
[2020-07-02 04:50] LABS: BILIRUBIN,URINE NEGATIVE (NEG); CLARITY,URINE CLEAR; COLOR,URINE YELLOW; NITRITE,URINE NEGATIVE (NEG); PROTEIN,URINE NEGATIVE (NEG-TRACE); UROBILINOGEN,URINE 0.2 mg/dL (0.2 mg/dL)
[2020-07-02 04:56] LABS: BARBITURATES NEG (NEG); BENZODIAZEPINES POS (NEG); CANNABINOIDS NEG (NEG); COCAINE NEG (NEG); METHADONE NEG (NEG); OPIATES NEG (NEG); PHENCYCLIDINE NEG (NEG)
[2020-07-02 04:57] LABS: AMPHETAMINE/METHAMPHETAMINE NEG (NEG)
[2020-07-02 05:05] LABS: BACTERIA,URINE MANY /HPF (0-FEW); RBC,URINE OCC /HPF (0-2)
[2020-07-02] MEDS ORDERED: ACETAMINOPHEN 325 MG TABLET. PO PRN (07:45)
[2020-07-02] MEDS ORDERED: LEVOTHYROXINE 125 MCG TABLET PO SCH (08:00)
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
[2020-07-02] MEDS ORDERED: BENZTROPINE MESYLATE 1 MG TABLET. PO SCH (09:00)
[2020-07-02] MEDS ORDERED: risperiDONE 1 MG TABLET. PO SCH (09:00)
[2020-07-02] MEDS ORDERED: lamoTRIgine 100 MG TABLET. PO SCH (09:00)
[2020-07-02 12:33] VITALS: BP 108/54
[2020-07-02] MEDS ORDERED: HEPARIN PF 500 UNIT/5 ML DISP.SYRIN. IVP ONE (14:30)
[2020-07-02] MEDS ORDERED: PALI6TAB3 PO (14:49)
[2020-07-02] MEDS ORDERED: BENZ1TAB5 PO (14:49)
--- NOTE | 2020-07-02 16:17 | PDOC3 ---
Discharge Summary Visit Information Date of Admission: Jul 02, 2020 Date of Discharge: Jul 02, 2020 Admitting Diagnosis: Intentional overdose of drug in tablet form Final Diagnosis Problems Medical Problems: (1) Suicidal overdose Status: Acute Brief Hospital Course Allergies Allergies Coded Allergies Type Severity Reaction Last Updated Verified ibuprofen Allergy Intermediate Hives 05/30/18 Yes ketorolac Allergy Intermediate Hives 05/30/18 Yes morphine Allergy Intermediate rash 02/28/20 Yes Vital Signs Vital Signs Date Time Temp Pulse Resp B/P (MAP) Pulse Ox O2 Delivery O2 Flow Rate FiO2 07/02/20 12:33 86 14 108/54 (72) 97 Room Air 07/01/20 22:23 98.0 98.0 Lab Results Laboratory Tests Test 07/01/20 22:59 07/02/20 04:20 White Blood Count 8.0 x10^3/uL (4.0-11.0) Red Blood Count 4.44 x10^6/uL (3.50-5.40) Hemoglobin 10.8 g/dL (12.0-15.5) Hematocrit 33.5 % (36.0-47.0) Mean Corpuscular Volume 76 fL (79-100) Mean Corpuscular Hemoglobin 24 pg (25-35) Mean Corpuscular Hemoglobin Concent 32 g/dL (31-37) Red Cell Distribution Width 14.6 % (11.5-14.5) Platelet Count 357 x10^3/uL (140-400) Neutrophils (%) (Auto) 66 % (31-73) Lymphocytes (%) (Auto) 22 % (24-48) Monocytes (%) (Auto) 10 % (0-9) Eosinophils (%) (Auto) 1 % (0-3) Basophils (%) (Auto) 1 % (0-3) Neutrophils # (Auto) 5.3 x10^3/uL (1.8-7.7) Lymphocytes # (Auto) 1.7 x10^3/uL (1.0-4.8) Monocytes # (Auto) 0.8 x10^3/uL (0.0-1.1) Eosinophils # (Auto) 0.1 x10^3/uL (0.0-0.7) Basophils # (Auto) 0.1 x10^3/uL (0.0-0.2) Prothrombin Time 13.8 SEC (11.7-14.0) Prothromb Time International Ratio 1.1 (0.8-1.1) Activated Partial Thromboplast Time 50 SEC (24-38) Sodium Level 137 mmol/L (136-145) Potassium Level 3.2 mmol/L (3.5-5.1) Chloride Level 104 mmol/L (98-107) Carbon Dioxide Level 24 mmol/L (21-32) Anion Gap 9 (6-14) Blood Urea Nitrogen 14 mg/dL (7-20) Creatinine 0.8 mg/dL (0.6-1.0) Estimated GFR (Cockcroft-Gault) 89.7 BUN/Creatinine Ratio 18 (6-20) Glucose Level 107 mg/dL (70-99) Calcium Level 8.5 mg/dL (8.5-10.1) Magnesium Level 2.1 mg/dL (1.8-2.4) Total Bilirubin 0.2 mg/dL (0.2-1.0) Aspartate Amino Transf (AST/SGOT) 15 U/L (15-37) Alanine Aminotransferase (ALT/SGPT) 17 U/L (14-59) Alkaline Phosphatase 64 U/L (46-116) Total Protein 7.5 g/dL (6.4-8.2) Albumin 3.7 g/dL (3.4-5.0) Albumin/Globulin Ratio 1.0 (1.0-1.7) Serum Test, Qualitative Negative (NEG) Salicylates Level < 2.8 mg/dL (2.8-20.0) Salicylate Last Dose Date Unk Salicylate Last Dose Time Unk Acetaminophen Level < 2 mcg/ml (10-30) Acetaminophen Last Dose Date Unk Acetaminophen Last Dose Time Unk SARS-CoV-2 Antigen (Rapid) Negative (NEGATIVE) Urine Collection Type Unknown Urine Color Yellow Urine Clarity Clear Urine pH 6.0 (<5.0-8.0) Urine Specific [place] 1.010 (1.000-1.030) Urine Protein Negative mg/dL (NEG-TRACE) Urine Glucose (UA) Negative mg/dL (NEG) Urine Ketones (Stick) Negative mg/dL (NEG) Urine Blood Negative (NEG) Urine Nitrite Negative (NEG) Urine Bilirubin Negative (NEG) Urine Urobilinogen Dipstick 0.2 mg/dL (0.2 mg/dL) Urine Leukocyte Esterase Moderate (NEG) Urine RBC Occ /HPF (0-2) Urine WBC 5-10 /HPF (0-4) Urine Squamous Epithelial Cells Many /LPF Urine Bacteria Many /HPF (0-FEW) Urine Mucus Mod /LPF Urine Opiates Screen Neg (NEG) Urine Methadone Screen Neg (NEG) Urine Barbiturates Neg (NEG) Urine Phencyclidine Screen Neg (NEG) Urine Amphetamine/Methamphetamine Neg (NEG) Urine Benzodiazepines Screen Pos (NEG) Urine Cocaine Screen Neg (NEG) Urine Cannabinoids Screen Neg (NEG) Urine Ethyl Alcohol Neg (NEG) Laboratory Tests Test 07/01/20 22:59 07/02/20 04:20 White Blood Count 8.0 x10^3/uL (4.0-11.0) Red Blood Count 4.44 x10^6/uL (3.50-5.40) Hemoglobin 10.8 g/dL (12.0-15.5) Hematocrit 33.5 % (36.0-47.0) Mean Corpuscular Volume 76 fL (79-100) Mean Corpuscular Hemoglobin 24 pg (25-35) Mean Corpuscular Hemoglobin Concent 32 g/dL (31-37) Red Cell Distribution Width 14.6 % (11.5-14.5) Platelet Count 357 x10^3/uL (140-400) Neutrophils (%) (Auto) 66 % (31-73) Lymphocytes (%) (Auto) 22 % (24-48) Monocytes (%) (Auto) 10 % (0-9) Eosinophils (%) (Auto) 1 % (0-3) Basophils (%) (Auto) 1 % (0-3) Neutrophils # (Auto) 5.3 x10^3/uL (1.8-7.7) Lymphocytes # (Auto) 1.7 x10^3/uL (1.0-4.8) Monocytes # (Auto) 0.8 x10^3/uL (0.0-1.1) Eosinophils # (Auto) 0.1 x10^3/uL (0.0-0.7) Basophils # (Auto) 0.1 x10^3/uL (0.0-0.2) Prothrombin Time 13.8 SEC (11.7-14.0) Prothromb Time International Ratio 1.1 (0.8-1.1) Activated Partial Thromboplast Time 50 SEC (24-38) Sodium Level 137 mmol/L (136-145) Potassium Level 3.2 mmol/L (3.5-5.1) Chloride Level 104 mmol/L (98-107) Carbon Dioxide Level 24 mmol/L (21-32) Anion Gap 9 (6-14) Blood Urea Nitrogen 14 mg/dL (7-20) Creatinine 0.8 mg/dL (0.6-1.0) Estimated GFR (Cockcroft-Gault) 89.7 BUN/Creatinine Ratio 18 (6-20) Glucose Level 107 mg/dL (70-99) Calcium Level 8.5 mg/dL (8.5-10.1) Magnesium Level 2.1 mg/dL (1.8-2.4) Total Bilirubin 0.2 mg/dL (0.2-1.0) Aspartate Amino Transf (AST/SGOT) 15 U/L (15-37) Alanine Aminotransferase (ALT/SGPT) 17 U/L (14-59) Alkaline Phosphatase 64 U/L (46-116) Total Protein 7.5 g/dL (6.4-8.2) Albumin 3.7 g/dL (3.4-5.0) Albumin/Globulin Ratio 1.0 (1.0-1.7) Serum Test, Qualitative Negative (NEG) Salicylates Level < 2.8 mg/dL (2.8-20.0) Salicylate Last Dose Date Unk Salicylate Last Dose Time Unk Acetaminophen Level < 2 mcg/ml (10-30) Acetaminophen Last Dose Date Unk Acetaminophen Last Dose Time Unk SARS-CoV-2 Antigen (Rapid) Negative (NEGATIVE) Urine Collection Type Unknown Urine Color Yellow Urine Clarity Clear Urine pH 6.0 (<5.0-8.0) Urine Specific [place] 1.010 (1.000-1.030) Urine Protein Negative mg/dL (NEG-TRACE) Urine Glucose (UA) Negative mg/dL (NEG) Urine Ketones (Stick) Negative mg/dL (NEG) Urine Blood Negative (NEG) Urine Nitrite Negative (NEG) Urine Bilirubin Negative (NEG) Urine Urobilinogen Dipstick 0.2 mg/dL (0.2 mg/dL) Urine Leukocyte Esterase Moderate (NEG) Urine RBC Occ /HPF (0-2) Urine WBC 5-10 /HPF (0-4) Urine Squamous Epithelial Cells Many /LPF Urine Bacteria Many /HPF (0-FEW) Urine Mucus Mod /LPF Urine Opiates Screen Neg (NEG) Urine Methadone Screen Neg (NEG) Urine Barbiturates Neg (NEG) Urine Phencyclidine Screen Neg (NEG) Urine Amphetamine/Methamphetamine Neg (NEG) Urine Benzodiazepines Screen Pos (NEG) Urine Cocaine Screen Neg (NEG) Urine Cannabinoids Screen Neg (NEG) Urine Ethyl Alcohol Neg (NEG) Brief Hospital Course Ms Quiñones is a 24-year-old female w/ PMHx anxiety, depression, psychogenic seizures, PTSD, and borderline personality disorder who is well-known to the emergency department presents with report of suicide attempt by taking approximately 10-15 tabs of 5 mg tablets of Eliquis approximately 3 hours prior to arrival. Patient was recently admitted for similar. Patient has longstanding history of suicidality. Denies any coingestion. Denies . Reports she is currently on Depo shots. Diagnosed with afib and LUE DVT at [facility] previously. Had cholecystectomy at [facility] previously. In ED she noted she recently got into an argument with her "-mother" that caused her to feel depressed and decided to take the tablets of Eliquis in an attempt to harm herself. Patient denies any coingestions. Denies drug use or alcohol use. H&H improved from prior per [facility] review. EKG stable. NSR at 89bpm, NO ST e levation, QRS 92ms, QT/QTc 370/451ms Contacted poison control regarding who recommend observation for signs of bleeding for 24 hours. Patient did require chemical restraint combined with four-point restraint at one time given patient being uncooperative and being unsafe with staff. On further review she notes that she was in [facility] for 4 months in 2019 and was released in October and was able to cope at home due to the skills she received there and after meeting with her mother she has been continuing self injurious behavior since then. She just filled a 7-day supply of Invega 6 mg daily Lamictal 200 mg daily and benztropine 1 mg twice daily on 07/01/2020. Prior to that he was she was on chlorpromazine 200 mg 3 times daily and lithium 300 mg 3 times daily. She has regular follow-up at the [facility] in [place] and was recently seen by Dr. Rocha for these fills. On further interview she discloses to me that she was in residential psychiatric outpatient setting and thought she was having dyskinesia and was told it may be an hour before she could receive benztropine and so she left the facility [facility] to her apartment after filling her medications and her roommates were not there and she did not want to be alone and so went to the [facility] emergency room with complaints of EPS, but notes that it was resolved and she did not receive benztropine after all, and the same above ingestion complaint and was seen by ED physician and medical social worker and discharged with a contract for safety. She does note that she has an upset stomach and notes that maybe she did not take Eliquis after all but just wants some help. She has specifically requested to be placed in four-point restraints after she met with our PAT liaison for psychiatric services in [place]. I have informed her I cannot oblige her and she then calmed down with verbal redirection and had something to drink and noted that if she were to go home she might drink some alcohol and might take some pills, especially the ones that she is prescribed but does not indicate any actual suicidal intent and does tell me that anytime she has previously wanted to follow through with a suicide attempt that she gets scared and does not wish to do this, but she does want help to prevent herself from doing so and is aware she has coping mechanisms but currently she doesn't want to use them and just wants someone to take care of her. She has specifically requested to go to a long-term long term facility where she can live or to [facility] [place], [place]. She notes she is aware that she has "burned bridges" at all inpatient psychiatric facilities in the [facility] and [facility] and that she is looking at facilities in the [facility] and [facility] areas. When asked what motivates her she notes her brother Enrique who is 17 years old is a motivation for her. She was able to drink in the ED and after observation and no further suicidal intent was taken off 05-13 and contacted a friend for a ride . She signed a contract for safety with me, bedside and was maintained in the hospital for 24 hour observation for signs of overt bleeding. As she noted she had actually gotten a ride directly from another emergency department she had been greater than 24 hours from alleged ingestion by 1500 on 07/02/2020 and was discharged into the care of a friend aware of safety plan with safety plan in hand. Problem list: Intentional overdose of drug in tablet form - observe for bleeding for 24 hours. She regrets decision, notes she did not want to be alone MDD DEEPIKA Borderline personality disorder PTSD, Limited insight Extreme impulsivity Compliance difficulties with medications History of multiple suicidal attempts mostly by overdose History of nonsuicidal self-injurious behavior including cutting and banging her head Chronic abdominal pain with nausea and vomiting - recent 7 day workup revealed no clear physiologic etiology Plan: Complete 24 hour observation for eliquis overdose F/u with [facility] in [place], take invega, lamictal and benztropine as instructed. Contracted for safety and notes the following: Warning signs of crisis may be developing are: 1 sad mood to racing thoughts 3 hitting my head Coping strategies: Meditation, music, exercise on treadmill running outside People in social settings providing distraction or her friend Cj, her rn case manager Neil, going to [employer], going to [employer]. She knows she can ask her rn case manager Neil her dad Lionel and her mother to [place] for help and has the telephone numbers and emergency contacts in her telephone. She knows that Jose is a rn case manager and has his cell phone she knows she can call the [facility] or go to [facility] urgent care in [place] if she has further problems and to keep sharp objects put away and keep her medications put up and . She is discharged safely in the care of a family friend who will be driving her back home, but she does note that she is interested in going to [place]. Greater than 135 minutes spent on same day admit and d/c Discharge Information Condition at Discharge: Stable Follow Up: Weeks (1) Disposition/Orders: D/C to Home Scheduled Benztropine Mesylate (Benztropine Mesylate) 1 Mg Tablet, 1 MG PO BID for EPS for 30 Days, #60 Prescribed by: FRANCISCO WILLIAMSON MD on 07/02/20 8839 Lamotrigine (Lamotrigine) 100 Mg Tablet, 1 TAB PO BID for seizure, (Reported) Entered as Reported by: LIA RAMIREZ on 06/21/20800 Levothyroxine Sodium (Levothyroxine Sodium) 125 Mcg Tablet, 1 TAB PO QAM for thyroid, (Reported) Entered as Reported by: LIA RAMIREZ on 06/21/20800 Last Action: Continued on 07/02/20 0742 by FRANCISCO WILLIAMSON MD Metoprolol Succinate (Metoprolol Succinate ( Xl )) 25 Mg Tab.er.24h, 1 TAB PO DAILY for hypertension, #30 Ref 5 (Reported) Entered as Reported by: BUD YOUNG on 02/27/20 1841 Paliperidone (Invega) 6 Mg Tab.er.24, 1 TAB PO DAILYWBKFT for Mood for 30 Days, #30 Ref 0 Prescribed by: FRANCISCO WILLIAMSON MD on 07/02/20 1449 Pantoprazole Sodium (Pantoprazole Sodium ) 40 Mg Tablet.dr, 40 MG PO DAILYAC for GERD for 30 Days, #30 Prescribed by: ESTEBAN ECHEVERRIA MD on 02/18/20 1246 Sucralfate (Sucralfate) 1 Gm Tablet, 1 TAB PO BID for GI upset, (Reported) Entered as Reported by: LIA RAMIREZ on 06/21/20800 Discontinued Medications Chlorpromazine Hcl (Chlorpromazine Hcl) 100 Mg Tablet, 1 TAB PO QHS for psychosis, (Reported) Entered as Reported by: LIA RAMIREZ on 06/21/20800 Chlorpromazine Hcl (Chlorpromazine Hcl) 50 Mg Tablet, 1 TAB PO TID PRN for hallucinations, (Reported) Entered as Reported by: LIA RAMIREZ on 06/21/20800 Dicyclomine Hcl (Dicyclomine Hcl) 10 Mg Capsule, 1 CAP PO TID for abdominal cramping, (Reported) Entered as Reported by: LIA RAMIREZ on 06/21/20800 Divalproex Sodium (Divalproex Sodium Er) 500 Mg Tab.er.24h, 3 TAB PO DAILY for seizure, (Reported) Entered as Reported by: LIA RAMIREZ on 06/21/20800 Lorazepam (Ativan) 1 Mg Tablet, 2 MG PO PRN Q6HRS PRN for ANXIETY / AGITATION for 30 Days, #60 Prescribed by: SOHAN STEVENS MD on 03/04/20 1714 Justicifation of Admission Dx: Justifications for Admission: Justification of Admission Dx: FRANCISCO Guerrier MD Jul 02, 2020 16:17
== END 2020-07-02 15:10 | disposition home or self-care (01) ==
LOC: ER 22:23 → ED HOLD 07-02 00:04
PROVIDERS: ADMIT Internal Medicine; ATTEND Internal Medicine
DX: T50.992A Poisoning by other drugs, medicaments and biological substances, intentional self-harm, initial encounter (principal); Z20.822 Contact with and (suspected) exposure to COVID-19; I10 Essential (primary) hypertension; I48.91 Unspecified atrial fibrillation; R07.89 Other chest pain; E03.9 Hypothyroidism, unspecified; F31.9 Bipolar disorder, unspecified; K80.20 Calculus of gallbladder without cholecystitis without obstruction; F60.3 Borderline personality disorder; F43.10 Post-traumatic stress disorder, unspecified; Z86.718 Personal history of other venous thrombosis and embolism; Z90.49 Acquired absence of other specified parts of digestive tract; Z79.899 Other long term (current) drug therapy
CPT/HCPCS: 80053; 80307; 80329; 81001; 83735; 84703; 85025; 85610; 85730; 87086; 87426; 93005; 96361; 96372; 96374; 96375; 96376; 99291; G0378; J1642; J2060; J2405; J3486; J3490; J7030; U0003; G0379; G0480